=== PATIENT | female | born 1940 | race Caucasian/White ===

== ENCOUNTER 2020-11-04 10:22 | Inpatient (IN) | payer MEDICARE, MEDICAID, SELFPAY ==
[2020-11-04] VITALS (20 sets, daily range): BP systolic 77–115; BP diastolic 49–78; PULSE 72–107; RESP 13–22; TEMP 35.1–36.2; O2SAT 84–100; BMI 37.9
--- NOTE | ~2020-11-04 | XR_ITS ---
EXAMINATION: XR chest 2V DATE: 11/04/2020 12:35 INDICATION: Chest pain. TECHNIQUE: Frontal and lateral views of the chest were obtained. COMPARISON: Chest 2 views 03/31/2008, chest CT 01/29/2009 FINDINGS: The patient is rotated to her left on the frontal view. There is mild scarring at the lung apices. There is mild atelectasis at right lung base. Calcified left lung nodules and calcified left hilar lymph nodes are consistent with old granulomatous disease. No pleural effusion or pneumothorax. The heart size is normal. There are surgical clips in the abdomen. IMPRESSION: 1. Mild atelectasis at right lung base and mild scarring at the lung apices. Reviewed, dictated and finalized at location A.
--- NOTE | ~2020-11-04 | NM_ITS ---
EXAMINATION: NM bone scan whole body DATE: 11/05/2020 14:07 INDICATION: Breast cancer TECHNIQUE: 24 mCi Tc-99m HDP was administered intravenously. Delayed whole-body scintigrams were obt ained. COMPARISON: CT chest, abdomen and pelvis dated 11/04/2020 FINDINGS: No suspicious foci of abnormal bone uptake to suggest metastatic disease. The majority of the sclerot ic lesions on the prior CT appear relatively small and densely sclerotic daniels consistent with bone i slands. The lesions however at the left pedicle of T8 and the posterior elements of T5 appear more co ncerning for metastatic disease but are without evident correlate on the bone scan. IMPRESSION: 1. No suspicious foci of increased bone uptake on bone scan to suggest metastatic disease although th e sclerotic lesions at T5 and T8 both remain suspicious by CT appearance. Reviewed, dictated and finalized at location B. IMPRESSION: 1. No suspicious foci of increased bone uptake on bone scan to suggest metastat ic disease although the sclerotic lesions at T5 and T8 both remain suspicious b y CT appearance.
--- NOTE | ~2020-11-04 | XR_ITS ---
EXAMINATION: XR retrograde pyelo w/stent BI EXAM DATE: 11/05/2020 16:38 INDICATION: Retrograde bilateral pyelogram, stent placement. TECHNIQUE: Fluoroscopy used during XR retrograde pyelo w/stent BI performed by Dr. Petar Payne MD. The DAP for this procedure was 638 radcm2. FINDINGS: Limited images demonstrates moderate bilateral hydronephrosis on retrograde pyelograms. Do uble-J ureteral stents were placed bilaterally. Correlate with procedure note. IMPRESSION: Moderate bilateral hydronephrosis. Stents in position. Reviewed, dictated and finalized at location A.
--- NOTE | ~2020-11-04 | US_ITS ---
EXAMINATION: US renal BI EXAM DATE: 11/09/2020 14:49 INDICATION: Abnormal kidney function. TECHNIQUE: Multiple grayscale and Doppler images of the kidneys were obtained (by a technologist who performed the scan) and subsequently reviewed. There is no prior study for comparison. FINDINGS: There is significant bilateral renal cortical thinning. Right kidney: There is normal contour and echogenicity. It measures 8.8 x 4.3 x 4.4 centimeters. Th ere are no focal renal lesions identified. Difficult to specifically identify the nephrolithiasis see n on CT. There is no hydronephrosis. Left kidney: There is normal contour and echogenicity. It measures 9.6 x 5.6 x 4.8 centimeters. The re are no focal renal lesions identified. Left nephrolithiasis was identified. There is no hydronephr osis. Bladder unremarkable. Both ureteral jets were confirmed. IMPRESSION: 1. Significant bilateral renal cortical thinning. 2. Left nephrolithiasis. 3. No hydronephrosis. Reviewed, dictated and finalized at location A.
--- NOTE | ~2020-11-04 | CT_ITS ---
EXAMINATION: CT chest abdomen pelvis wo con DATE: 11/04/2020 19:59 INDICATION: Breast mass TECHNIQUE: Computed tomography (CT) of the chest, abdomen, and pelvis was performed without intraveno us contrast. Automated exposure control and iterative reconstruction technique were employed. Exam do se: 1005.15 mGy-cm total exam DLP. COMPARISON: None FINDINGS: CHEST CT: There is a large irregular malignant left breast mass measuring in excess of 7 cm maximum dimension, with extension to the skin, evidence of skin thickening/invasion, as well as invasion of the left pec toralis major and minor muscles and the left chest wall musculature. Cardiomegaly. No pericardial effusion. There is thoracic aortic and great vessel as well as coronary artery calcification. No thoracic aorti c aneurysm. No hilar or mediastinal mass lesion or lymphadenopathy is evident. ABDOMEN/PELVIS CT: No hepatic space-occupying mass lesion is detected. There are splenules in the lef t upper quadrant; status post splenectomy. No pancreatic mass lesion or calcification. 1.8 cm dependent gallstone. The gallbladder is distended borderline gallbladder wall thickening. No b ile duct or pancreatic duct dilatation. Surgical clips are noted in left adrenal area. No renal mass lesion is evident on this limited noncontrast examination. Approximately 6.3 x 8.2 mm proximal right ureteral calculus with moderate right hydroureteronephrosis . Additional nonobstructive right renal calculus or cluster of calculi measuring up to approximately 4. 7 x 12 mm. 7 x 13 mm proximal left ureteral calculus with moderate left hydronephrosis. Multiple prominent nonobstructing lower pole left renal calculi are present, measuring up to 1.7 cm a pproximate maximal dimension. These may be individual calculi or combination of staghorn calculus and additional calculi. There is atherosclerotic ulcer location of the abdominal aorta and aortic branches including celiac a nd superior mesenteric and renal arteries as well as iliac arteries but no abdominal aortic aneurysm. No intraperitoneal or retroperitoneal or pelvic mass lesion or adenopathy or ascites is evident. Calcified uterine fibroids. The urinary bladder is unremarkable. Bilateral fat-containing femoral her nias. Partial resection of the colon. No bowel obstruction or intraperitoneal free air is detected. Degenerative changes are noted in the lower cervical spine. Hemangioma of T4 vertebral body. There are scattered sclerotic lesions of the ribs and spine, left femur, most consistent with osteosc lerotic metastatic disease. Consider radionuclide bone scan. 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 Bilateral obstructing proximal ureteral calculi and moderate bilateral hydronephrosis Bilateral nephrolithiasis Reviewed, dictated and finalized at Location A. Reviewed, dictated and finalized at location A. 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 Bilateral obstructing proximal ureteral calculi and moderate bilateral hydronep hrosis Bilateral nephrolithiasis
--- NOTE | ~2020-11-04 | MMUS_ITS ---
US breast biopsy LT w image, MM post biopsy invasive LT 11/05/2020 12:51 (accession [id number]), 11/05/2020 13:14 (accession [id number]) EXAMINATION: US GUIDED NEEDLE BIOPSY WITH VACUUM ASSISTANCE DATE: 11/05/2020 13:28 CDT INDICATION: Left breast mass seen on CT examination. Ultrasound-guided core biopsy is requested to e valuate for malignancy. TECHNIQUE AND FINDINGS: The risks and potential benefits of the procedure were discussed with the patient, and written inform ed consent was obtained. After sterile preparation of the left breast, 1% lidocaine was utilized for local anesthesia. 1% lidocaine with epinephrine was used for deep anesthesia. A 10G vacuum-assisted biopsy gun needle was advanced through to the outer edge of the region of inter est from a superior lateral approach utilizing sonographic guidance. A total of 4 tissue core sample s were obtained through the lesion. An Inrad tissue marker clip was then placed at the biopsy site. Hemostasis was achieved. The patient tolerated procedure well and there was no evidence of immediate complication. The patien t was given verbal instructions partly is from the department. Left breast mammograms to document ti ssue marker clip placement. Due to patient immobility and location of the mass, the tissue marker cou ld not be visualized by mammography. The tissue samples were submitted to surgical pathology for hist ologic analysis. IMPRESSION: 1. Successful ultrasound-guided vacuum-assisted biopsy of left breast mass. Please refer to patholog y report for histologic analysis. Reviewed, dictated and finalized at location A. IMPRESSION: 1. Successful ultrasound-guided vacuum-assisted biopsy of left breast mass. Pl ease refer to pathology report for histologic analysis.
--- NOTE | 2020-11-04 10:36 | ECG_ITS ---
Measurements Intervals [place] Rate: 95 P: NM: 0 QRS: 1 QRSD: 90 T: 87 QT: 369 QTc: 466 Interpretive Statements ATRIAL FIBRILLATION RSR' IN V1 OR V2, CONSIDER RIGHT VENTRICULAR HYPERTROPHY OR RIGHT VCD LOW QRS VOLTAGE IN PRECORDIAL LEADS NONSPECIFIC ST & T-WAVE ABNORMALITY- DIFFUSE LEADS BASELINE ARTIFACT- V1-V3 ABNORMAL ECG Electronically Signed On 11-04-2020 11:54:35 CDT by Jesus Roberson D.O.
--- NOTE | 2020-11-04 10:46 | PC.NURSE ---
IVF initiated per EMS opened wide per lillian Duggan.
[2020-11-04] MEDS: SODIUM CHLORIDE 0.9% IV 1,000 ML 999 ML IV CONT ×2 (11:02→12:07)
[2020-11-04 11:04] LABS: Basophils Absolute Auto 0.1 K/mm3 (0.0-0.1); Basophils Percent Auto 0.5 % (0.2-1.2); Eosinophils Absolute Auto 0.2 K/mm3 (0-0.3); Eosinophils Percent Auto 1.1 % (0-4.4); Hematocrit 28.6 % (37.0-47.0); Immature Granulocyte Absolute 0.14 K/mm3 (0.00-0.031); Immature Granulocyte Percent A 0.9 % (0-0.5); Lymphocytes Absolute Auto 2.97 K/mm3 (0.9-3.2); Mean Corpuscular HGB Conc 31.5 g/dl (32-36); Mean Corpuscular Hemoglobin 31.7 pg (26-34); Mean Corpuscular Volume 100.7 fl (80-100); Mean Platelet Volume 10.1 fl (7.4-10.4); Monocytes Absolute Auto 0.6 K/mm3 (0.1-0.6); Monocytes Percent Auto 4.3 % (2.6-8.5); Neutrophils Absolute Auto 10.9 K/mm3 (1.3-6.7); Neutrophils Percent Auto 73.2 % (45.5-73.1); Nucleated Red Blood Cells Perc 0.3 % (0.0-0.2); Platelet Count Result 411 k/mm3 (150-375); Red Blood Count 2.84 M/mm3 (4.2-5.4); Red Cell Distribution Width 16.7 % (11.5-14.5); White Blood Count 14.9 K/mm3 (4.5-10.0)
[2020-11-04 11:14] LABS: INR 1.7; Prothrombin Time 20.8 Seconds (11.1-14.7)
[2020-11-04 11:15] LABS: Alanine Aminotransferase 11 U/L (4-35); Albumin Level 3.3 g/dL (3.5-5.1); Alkaline Phosphatase 144 U/L (38-126); Anion Gap 16 mmol/L (8-16); Aspartate Amino Transferase 15 U/L (14-36); Bilirubin,Total 0.1 mg/dL (0.2-1.3); Blood Urea Nitrogen 104 mg/dL (7-17); Calcium 8.6 mg/dL (8.4-10.2); Carbon Dioxide 6 mmol/L (22-30); Chloride 112 mmol/L (98-107); Estimated CRCL calculation 12 ml/min; Estimated Glomerular Filt Rate 11; Glucose 141 mg/dL (65-105); Partial Thromboplastin Time 30.8 SECONDS (22.3-36.8); Potassium 4.9 mmol/L (3.4-5.0); Sodium 134 mmol/L (137-145)
[2020-11-04] MEDS: fentaNYL CITRATE INJ (*CRX) 100 MCG/2 ML VIAL 50 MCG IV PUSH (12:07)
--- NOTE | 2020-11-04 12:19 | ED.GENADULT ---
HPI - General Adult General Chief complaint: Skin/Abscess/Foreign Body Stated complaint: L ARM PAIN Time Seen by Provider: 11/04/20 10:22 History of Present Illness HPI narrative: Patient is a 80-year-old female who presents to the ER with pain to her left shoulder and chest wall. She reports has been there for years and that the pain increased today so she opted to come in. As it turns out patient actually has a very large mass to her left chest wall that is causing breakdown of tissue. No evidence of infection. According to the daughter the patient had told the granddaughter yesterday that she likely had a breast cancer that she had never looked into that was causing her increased issues. Patient has not been eating drinking over the last few days since felt she is likely dehydrated. Patient denies any fevers or chills or sweats. No runny nose/sore throat/productive cough. Reports she does not have a particular reason she has not had her breast evaluated. Related Data Home Medications Medication Instructions Recorded Confirmed apixaban [Eliquis] 5 mg PO DAILY 11/04/20 11/04/20 furosemide 20 mg PO DAILY 11/04/20 11/04/20 Allergies Allergy/AdvReac Type Severity Reaction Status Date / Time ibuprofen Allergy Mild HIVES Verified 11/04/20 15:13 Review of Systems Review of Systems: All systems reviewed & are unremarkable except as noted in HPI and below Constitutional: Constitutional: Denies chills, Denies fever(s) and Reports weakness ENT: Denies nasal congestion and Denies sore throat Cardiovascular: Cardiovascular: Denies chest pain, Denies rapid heart rate and Denies radiating jaw, neck or arm pain Respiratory: Respiratory: Denies cough and Denies dyspnea Gastrointestinal: Gastrointestinal: Denies abdominal pain, Denies nausea and Denies vomiting Integumentary/Breasts: Skin/Breast: Reports breast pain (With mass) [facility] Past Medical History Medical History (Updated 11/04/20 @ 18:34 by Arnaud Duggan MD) Atrial fibrillation Surgical History Surgical History (Updated 11/04/20 @ 17:16 by Rodríguez Reese MD) H/O splenectomy Family History Family History (Updated 11/04/20 @ 15:07 by MARIELA Buck) Father Lung cancer Social History Social History (Updated 11/04/20 @ 12:22 by Arnaud Duggan MD) Social History: History of tobacco abuse Smoking packs per day: 0.5 Smoking cigarettes per day: 10.0 Years smoked: 50 Smoking pack-years: 25.00 Smoking status: Current every day smoker Alcohol intake: never Substance use: never Gender identity (if verbalized by the patient): Female Spiritual care concerns: No Exam Narrative: Exam Narrative: GENERAL: Well-appearing, well-nourished, and in no acute distress. HEAD: Normocephalic, atraumatic. ENT: Mucous membranes moist. CHEST: Clear to auscultation. No respiratory distress. Left-sided breast mass near the axilla that is because the breast to be pulled up into the left. There are some fissures with skin irritation and this is causing limited abduction of the left shoulder. HEART: Regular rate and rhythm. Normal peripheral pulses. ABDOMEN: Soft, nontender, nondistended. EXTREMITIES: Normal range of motion of the extremities with exception of left shoulder where there is limited abduction due to breast mass and pain. No edema. SKIN: Warm, dry, no rash. NEURO: Alert and oriented x3. Course Vital Signs Vital signs: Vital Signs Temperature 97.2 F L 11/04/20 10:25 Pulse Rate 91 11/04/20 10:25 Respiratory Rate 21 H 11/04/20 10:25 Blood Pressure 95/60 L 11/04/20 10:25 Pulse Oximetry 96 11/04/20 10:25 Temperature 95.2 F L 11/04/20 15:25 Pulse Rate 78 11/04/20 15:25 Respiratory Rate 16 11/04/20 15:25 Blood Pressure 115/53 L 11/04/20 15:25 Pulse Oximetry 100 11/04/20 15:25 Medical Decision Making Vital Signs Vital Signs: Vital Signs Temperature 97.2 F L 11/04/20 10:25 Pulse
[2020-11-04] MEDS: ONDANSETRON INJ 4 MG/2 ML VIAL IV PUSH (12:44)
[2020-11-04] MEDS: SODIUM CHLORIDE 0.9% IV 1,000 ML 125 ML IV CONT ×2 (12:44→17:38)
[2020-11-04 13:58] LABS: Add Urine Microscopic? YES; Appearance Urine Turbid (Clear); Bacteria Urine 4+ /hpf; Bilirubin Urine Negative (Negative); Blood Urine 2+ (Negative); Color Urine Amber (Yellow); Glucose Urine UA Negative (Negative); Ketones Urine Negative (Negative); Leukocyte Esterase Ur 2+ LEU/UL (Negative); Mucus Urine Rare /lpf; Nitrate Urine Negative (Negative); Protein Urine 2+ mg/dL (Negative); RBC Urine >75 /hpf (0-2); Specific Grav Ur 1.014 (1.001-1.035); Squamous Epithelial Cell Urine Moderate /hpf (Few); Urobilinogen Urine Negative mg/dL (<2.0); WBC Urine >75 /hpf
--- NOTE | 2020-11-04 14:37 | ADMGEN ---
This patient, Kourtney Lerner, was admitted to Medical Room 349-01. Patient/family oriented to hospital policies and general routines including ID bracelet, bed and alarms, visiting hours, pain management, procedures, bathroom and other care routines, personal items, smoking policy, room service/diet, and visiting hours. Information on how to activate the Rapid Response Team has been discussed. Patient/Family are encouraged to report perceived risks to care and to ask questions if they do not understand what they are told or what they should do.
[2020-11-04] MEDS: MORPHINE SULFATE (*CRX) 2 MG/ML INJ IV PUSH ×3 (14:48→21:14)
--- NOTE | 2020-11-04 17:12 | PDONCCN ---
HPI - Date of Consult Date/Time: 11/04/20 17:12 Requesting Physician: Juliocesar George MD Primary Care Provider: YARD BRAKEMAN PHYSICIAN - Consult Narrative Reason for consult: Locally advanced breast cancer Narrative: Kourtney Lerner is a 80 year old female who had left shoulder pain off and on for 2 years duration just got worse about 2 weeks ago. She also informed her daughter today that she had the mass in the left breast for 3 years duration. She lives with her grandson. She came into the ER with worsening of the left shoulder pain. She denies any weight loss. She denies any previous history of malignancy. She has a history of inverted nipple in the past. She denies any fever chills. Denies any sore throat and cough. She has not been getting medical care on a regular basis and ignored this left breast lump for last 3 years duration. Review of Systems - Review of Systems All systems reviewed & are unremarkable except as noted in HPI and bel - Neurologic Reports weakness [facility] Medical History: Medical History (Last Updated 11/04/20 @ 12:21 by Arnaud Duggan MD) Atrial fibrillation Surgical History: Surgical History (Last Updated 11/04/20 @ 12:22 by Arnaud Duggan MD) H/O splenectomy Family History: Family History (Last Updated 11/04/20 @ 15:07 by MARIELA Buck) Father Lung cancer - Social History Social History: Social History (Last Updated 11/04/20 @ 12:22 by Arnaud Duggan MD) Gender Identity: Gender identity (if verbalized by the patient): Female Alcohol Use: Alcohol intake: never Substance Use: Substance use: never Others: Spiritual care concerns: No Smoking Status: Smoking status: Current every day smoker Smoking Pack-years: Smoking packs per day: 0.5 Smoking cigarettes per day: 10.0 Years smoked: 50 Smoking pack-years: 25.00 Meds Home Medications Medication Instructions Recorded Confirmed Type apixaban [Eliquis] 5 mg PO DAILY 11/04/20 11/04/20 History furosemide 20 mg PO DAILY 11/04/20 11/04/20 History Allergies Allergy/AdvReac Type Severity Reaction Status Date / Time ibuprofen Allergy Mild HIVES Verified 11/04/20 15:13 Results - Labs CBC & Chem 7: 11/04/20 10:57 11/04/20 10:57 Labs: Short CBC 11/04/20 Range/Units 10:57 WBC 14.9 H (4.5-10.0) K/mm3 Hgb 9.0 L (12.0-15.0) g/dL Hct 28.6 L (37.0-47.0) % Plt Count 411 H (150-375) k/mm3 BMP 11/04/20 10:57 Sodium 134 L Potassium 4.9 Chloride 112 H Carbon Dioxide 6 L BUN 104 H Creatinine 4.00 H Glucose 141 H Calcium 8.6 Liver Function 11/04/20 Range/Units 10:57 Total Bilirubin 0.1 L (0.2-1.3) mg/dL AST 15 (14-36) U/L ALT 11 (4-35) U/L Alkaline Phosphatase 144 H (38-126) U/L Albumin 3.3 L (3.5-5.1) g/dL Urine 11/04/20 Range/Units 13:40 Urine Color Nelia (Yellow) Urine Appearance Turbid H (Clear) Urine pH 5.0 (5.0-9.0) Ur Specific [place] 1.014 (1.001-1.035) Urine Protein 2+ H (Negative) mg/dL Urine Glucose (UA) Negative (Negative) mg/dL Assessment and Plan - Additional Plan Locally advanced breast cancer. Patient has very large mass in the left breast with extension to the left axilla with open area of ulceration and possible infection. She developed the lump in the left breast about 3 years ago but did not seek any medical attention. She started having left shoulder pain for about 2 years ago and just got worse about 2 weeks ago. Patient daughter was not even aware about this left breast mass until now. On clinical examination this looks like locally advanced breast cancer with ulceration and infection. She is quite symptomatic with the pain and will not allow detail examination. I will order CT scan of chest abdomen and pelvis as well as bone scan. I will order ultrasound-guided biopsy of the left breast mass.
[2020-11-04] MEDS: CEPHALEXIN 500 MG CAPSULE PO ×2 (17:39→23:43)
--- NOTE | 2020-11-04 18:42 | PM.IMHP ---
H&P: HPI History of Present Illness Date/Time: 11/04/20 18:42 Kourtney is a 80-year-old female who presented to the ER with pain to her left shoulder and chest wall. She reported pain for years, but the pain had increased today so she came in. Upon examination it was found that the patient has a very large mass to her left chest wall, with indentation and puckering of tissue with possible breakdown of tissue. I examined the site as well and agree. No redness or drainage at this time , but her white count is currently 14.9. Oncologist Dr. Lenny jara started the patient on Keflex 500 mg q.i.d.. The patient and the granddaughter has since been seen by the oncologist today and has been told she likely has breast cancer. The daughter admitted that her mother probably had a mammogram 30 years ago but none since. At the time she had a mammogram for an inverted nipple, but reported that there was no cancer in the mammogram, so that may be why she felt like she didn't need to have any more mammograms. Kourtney has not been eating drinking over the last few days since felt she is likely dehydrated. she was given 2 L of IV fluids in the ER. Her systolic blood pressures improved from the 80s to 100s. Upon further discussion with her she continues to refuse foods and liquids and states that her appetite is bad. I have got her to agree to try some chocolate shakes and dietary supplements. Chief Complaint: Left Axillary and Breast Pain, Breast Mass, Dehydration, UTI, ARF, Anemia Review of Systems Review of Systems: All systems reviewed & are unremarkable except as noted in HPI and below Constitutional: Constitutional: Reports as per HPI, Reports chills, Denies fever(s), Reports lethargy, Reports poor appetite and Reports weakness Eyes: Eyes: Reports as per HPI, Denies exophthalmos, Denies diplopia, Denies floaters and Denies loss of peripheral vision ENT: Reports as per HPI, Reports Normal hearing present, Denies nasal congestion and Denies sore throat Cardiovascular: Cardiovascular: Reports as per HPI, Denies chest pain, Denies chest pain at rest, Denies rapid heart rate, Denies edema, Denies leg edema, Denies radiating jaw, neck or arm pain, Denies dyspnea and Denies orthopnea Respiratory: Respiratory: Reports as per HPI, Denies chest congestion, Denies cough, Reports pain on inspiration (to left mass area), Denies dyspnea and Denies wheezing Gastrointestinal: Gastrointestinal: Reports as per HPI, Denies abdominal pain, Denies melena, Denies diarrhea, Denies nausea and Denies vomiting Genitourinary: Genitourinary: Reports as per HPI Musculoskeletal: Musculoskeletal: Reports as per HPI Integumentary/Breasts: Skin/Breast: Reports as per HPI, Reports breast skin changes (puckering and caving-in appearance to left lateral breast/axillary), Reports breast pain (pain to area of mass, with deep breathing/palpation/movement), Reports change in breast shape (puckering and caving-in appearance to left lateral breast/axillary), Reports changing lesions (puckering and caving-in appearance to left lateral breast/axillary) and Reports skin pain Neurologic: Reports as per HPI, Reports Normal hearing present, Denies syncope, Denies headache(s), Reports memory loss (some noted), Denies convulsions and Reports weakness Psychiatric: Psychiatric: Reports as per HPI, Reports difficulty concentrating and Denies irritability Endocrine: Endocrine: Reports as per HPI, Denies excessive sweating and Reports fatigue Hematologic/Lymphatic: Hematologic/Lymphatic: Reports as per HPI Allergic/Immunologic: Allergic/Immunologic: Reports as per HPI [facility] Past Medical History Medical History (Updated 11/04/20 @ 19:38 by Brisa Kerns NP) Atrial fibrillation Inverted nipple Surgical History Surgical History H/O splenectomy Family History Family History Father Lung cancer
[2020-11-04 18:50] LABS: Iron 71 ug/dL (37-170)
[2020-11-04 18:59] LABS: Percent Iron Saturation 34 % (20-50)
[2020-11-04 19:20] LABS: Vitamin B12 < 159.0 pg/mL (239-931)
[2020-11-04] MEDS: CIPROFLOXACIN 400 MG/D5W 200ML 200 ML 200 MG IVPB (20:56)
[2020-11-04] MEDS: HYDROcodone/acetaminophen (*CRX) 5-325 MG TABLET 1 TAB PO (23:50)
[2020-11-05] VITALS (13 sets, daily range): BP systolic 94–128; BP diastolic 44–69; PULSE 48–104; RESP 13–18; TEMP 35.8–36.3; O2SAT 89–100
[2020-11-05] MEDS: SODIUM CHLORIDE 0.9% IV 1,000 ML 125 ML IV CONT ×2 (03:17→11:54)
[2020-11-05] MEDS: HYDROcodone/acetaminophen (*CRX) 5-325 MG TABLET 1 TAB PO ×3 (03:50→23:00)
[2020-11-05] MEDS: CEPHALEXIN 500 MG CAPSULE PO ×3 (06:06→23:00)
[2020-11-05 06:24] LABS: Basophils Absolute Auto 0.1 K/mm3 (0.0-0.1); Basophils Percent Auto 0.3 % (0.2-1.2); Eosinophils Absolute Auto 0.2 K/mm3 (0-0.3); Eosinophils Percent Auto 1.7 % (0-4.4); Hematocrit 26.7 % (37.0-47.0); Hemoglobin 8.4 g/dL (12.0-15.0); Immature Granulocyte Absolute 0.18 K/mm3 (0.00-0.031); Immature Granulocyte Percent A 1.2 % (0-0.5); Lymphocytes Absolute Auto 1.41 K/mm3 (0.9-3.2); Lymphocytes Percent Auto 9.8 % (18.3-44.2); Mean Corpuscular HGB Conc 31.5 g/dl (32-36); Mean Corpuscular Hemoglobin 31.5 pg (26-34); Mean Platelet Volume 10.2 fl (7.4-10.4); Monocytes Absolute Auto 1.1 K/mm3 (0.1-0.6); Monocytes Percent Auto 7.4 % (2.6-8.5); Neutrophils Absolute Auto 11.5 K/mm3 (1.3-6.7); Neutrophils Percent Auto 79.6 % (45.5-73.1); Nucleated Red Blood Cells Perc 0.3 % (0.0-0.2); Platelet Count Result 383 k/mm3 (150-375); Red Blood Count 2.67 M/mm3 (4.2-5.4); Red Cell Distribution Width 17.1 % (11.5-14.5); White Blood Count 14.4 K/mm3 (4.5-10.0)
[2020-11-05 08:10] LABS: Alanine Aminotransferase 9 U/L (4-35); Albumin Level 2.9 g/dL (3.5-5.1); Alkaline Phosphatase 120 U/L (38-126); Anion Gap 9 mmol/L (8-16); Aspartate Amino Transferase 25 U/L (14-36); Bilirubin,Total < 0.1 mg/dL (0.2-1.3); Blood Urea Nitrogen 78 mg/dL (7-17); Calcium 8.2 mg/dL (8.4-10.2); Carbon Dioxide 9 mmol/L (22-30); Chloride 121 mmol/L (98-107); Estimated CRCL calculation 17 ml/min; Estimated Glomerular Filt Rate 16; Glucose 72 mg/dL (65-105); Potassium 6.1 mmol/L (3.4-5.0); Sodium 139 mmol/L (137-145)
[2020-11-05] MEDS: POLYSACCHARIDE IRON COMPLEX 150 MG CAPSULE PO (08:44)
[2020-11-05] MEDS: CYANOCOBALAMIN INJ 1,000 MCG/ML VIAL 1000 MCG IM ×2 (08:44→19:30)
[2020-11-05] MEDS: FUROSEMIDE 20 MG TABLET PO (08:45)
[2020-11-05 10:09] LABS: Potassium 5.6 mmol/L (3.4-5.0)
[2020-11-05] MEDS: SODIUM POLYSTYRENE SULFONONATE 15 GM/60 ML BTL PO (10:35)
--- NOTE | 2020-11-05 10:41 | PDRADONCCN ---
Recommendations I agree with the current workup recommended by Dr. Reese including biopsy, CT scan and bone scan. She likely has stage IV breast cancer and palliative treatment is indicated given her degree of pain from her breast mass. I recommend continuing pain medications and antibiotics. I also recommend a wound care consult to address the ulcerating skin in the left breast/axilla. We will await the results of her biopsy and bone scan. For durable palliation of her pain, I recommend a 4-week course of radiotherapy as an outpatient. We will arrange to have her come in for CT simulation and radiation treatment planning once she is discharged from the hospital. Impression 80 year old female with a neglected probable locally advanced left breast cancer admitted to the hospital with an ulcerating painful mass in the lateral left breast. She likely has bone metastases as well. FORMERLY [facility] - Date/Time Seen 11/05/20 10:41 - Identifying Data Kourtney Lerner is a 80 year old female with a neglected probable locally advanced left breast cancer admitted to the hospital with an ulcerating painful mass in the lateral left breast. Consultation was requested for an opinion regrading her treatment management and the role of radiotherapy. - History of Present Illness Ms. Lerner reports that she has had a breast mass for over 3 years. She reports progressive pain related to the mass that worsened over the last couple weeks. She has not sought medical attention in the past for this breast mass which has become ulcerated and infected. Since admission, she has received pain medications and antibiotics which has greatly improved her pain. She is scheduled for a needle biopsy soon. CT scan of the chest, abdomen and pelvis yesterday showed a greater than 7 cm invasive lateral left breast mass, with skin invasion, pectoralis major and minor and left chest wall invasion; probable osteosclerotic metastatic disease - scattered sclerotic lesions of the ribs and spine, left femur. She also had stones in the kidneys, ureters and gall bladder. - Medical History Medical History (Last Updated 11/04/20 @ 19:38 by Brisa Kerns NP) Atrial fibrillation Inverted nipple - Surgical History Surgical History (Last Reviewed 11/04/20 @ 19:38 by Brisa Kerns NP) H/O splenectomy - Family History Family History (Last Reviewed 11/04/20 @ 19:38 by Brisa Kerns NP) Father Lung cancer - Social History Social History (Last Reviewed 03/17/21 @ 19:38 by Brisa Kerns NP) Gender Identity: Gender identity (if verbalized by the patient): Female Alcohol Use: Alcohol intake: never Substance Use: Substance use: never Others: Spiritual care concerns: No Smoking Status: Smoking status: Current every day smoker Smoking Pack-years: Smoking packs per day: 0.5 Smoking cigarettes per day: 10.0 Years smoked: 50 Smoking pack-years: 25.00 - Medications Active Medications Generic Name Dose Route Start Last Admin Trade Name Freq PRN Reason Stop Dose Admin Acetaminophen 650 mg 11/04/20 13:36 Acetaminophen 325 Mg Tablet PO Q4H PRN Mild Pain (1-3) or Fever Hydrocodone Bitart/Acetaminophen 1 tab 11/04/20 13:36 11/05/20 09:03 Hydrocodone/Acetaminophen (*Crx) 5-325 Mg Tablet PO 1 tab Q4H PRN Administration Pain Rated 4-6 Cephalexin HCl 500 mg 11/04/20 18:00 11/05/20 06:06 Cephalexin 500 Mg Capsule PO 500 mg Q6HR TITO Administration Cyanocobalamin 1,000 mcg 11/06/20 09:00 Cyanocobalamin 1,000 Mcg Tablet PO QAM TITO Furosemide 20 mg 11/05/20 09:00 11/05/20 08:45 Furosemide 20 Mg Tablet PO 20 mg DAILY TITO Administration Sodium Chloride 1,000 mls @ 125 mls/hr 11/04/20 13:40 11/05/20 05:29 Normal Saline Iv IV CONT 125 mls/hr .Q8H TITO Infusion Ciprofloxacin/Dextrose 200 mls @ 200 mls/hr 11/05/20 21:00 Cipro 400 Mg/D
--- NOTE | 2020-11-05 11:15 | PM.IMPN ---
Progress Note: A&P Assessment and Plan (1) Breast mass: Code(s): N63.0 - Unspecified lump in unspecified breast Status: Acute Assessment and Plan: left axillary breast mass likely combination of cancer with secondary infection -continue Cipro and Keflex -plan for biopsy and bone scan -patient has had this abnormality for at least a year in never received treatment. Poor prognosis -continue with oncology is recommendations -Eliquis on hold (2) Acute kidney injury: Code(s): N17.9 - Acute kidney failure, unspecified Status: Acute Assessment and Plan: Creatinine 4.0 with no past labs to compare to -creatinine better today at 2.8. Will continue IV fluids -likely due to decreased appetite/dehydration/hypoperfusion due to hypotension/possible UTI -she is also on lisinopril 5 mg b.i.d. at home which could be contributing. This has been held -blood pressures are getting better -urine culture pending, continue Cipro - monitor with labs in the morning -if no improvement after IVFs, may need to consult [employer] Adf Developer and get US of kidneys. -potassium elevated this morning 6.1 and 5.6 on redraw. Likely due to TAE. Will give Kayexalate and start a low-potassium diet. Will repeat BMP at 3:00 p.m. (3) Poor appetite: Code(s): R63.0 - Anorexia Status: Acute Assessment and Plan: Continue supplements at this time and encourage oral feedings (4) Cellulitis of left axilla: Code(s): L03.112 - Cellulitis of left axilla Status: Acute Assessment and Plan: left axillary breast mass with pain and likely infection as stated above -continue Keflex and Cipro -if this does not improve, may consider changing to something that covers MRSA although MRSA is not currently suspected (5) Anemia: Code(s): D64.9 - Anemia, unspecified Status: Acute Assessment and Plan: B12 significantly low -give IM x1 and switch to oral daily pills -hemoglobin stable 8.4 (6) UTI (urinary tract infection): Code(s): N39.0 - Urinary tract infection, site not specified Status: Acute Assessment and Plan: As stated above -continue with Cipro (7) Hyperkalemia: Code(s): E87.5 - Hyperkalemia Status: Acute Assessment and Plan: Give Kayexalate and recheck at 3:00 p.m. -continue tele, low-potassium diet, and IV hydration (8) Hematemesis: Code(s): K92.0 - Hematemesis Status: Acute Assessment and Plan: Will start PPI and consult GI -could be stress-induced ulcer (9) Atrial fibrillation: Code(s): I48.91 - Unspecified atrial fibrillation Status: Inactive Assessment and Plan: Paroxysmal with controlled rate -hold Eliquis -not on any home rate-controlling medications -sees Dr. Petty Time Spent With Patient Time with patient: 25 - 35 minutes Subjective Date/time seen: 11/05/20 11:15 Interval history: Pt is a 80-year-old female here for breast mass. Patient was seen today and states she is feeling okay. She had some nausea and vomiting earlier today and throughout light red consistency. She said she usually has dry heaves but does not usually throw up. She has no history of heartburn or gastric ulcer. She says she has muscular pain across her upper abdomen since throwing up. She denies diarrhea, constipation, fevers, chills, chest pain or shortness of breath. She states that she has had this breast mass for years but never told anybody. I explained the prognosis and answered pt and daughters questions. She has a history of irregular heartbeat and thinks it is AFib but can't remember. That is why she is on Eliquis and she sees Dr. Petty Review of Systems Review of Systems: All systems reviewed & are unremarkable except as noted in HPI and below Exam Narrative: Exam Narrative: General: Well developed well nourished patient in NAD HEENT: normocephalic Neck:
[2020-11-05] MEDS: PANTOPRAZOLE SODIUM IV 40 MG VIAL IV PUSH ×2 (11:55→20:42)
--- NOTE | 2020-11-05 12:18 | WPDURCON ---
Assessment and Plan Assessment and plan (1) UTI (urinary tract infection): Code(s): N39.0 - Urinary tract infection, site not specified Status: Acute Assessment and Plan: Continue IV antibiotics, tailor to culture results. (2) Acute kidney injury: Code(s): N17.9 - Acute kidney failure, unspecified Status: Acute Assessment and Plan: Improved but not normal, secondary to bilateral ureteral obstruction. (3) Bilateral ureteral calculi: Code(s): N20.1 - Calculus of ureter Status: Acute Assessment and Plan: Obtain Consent: Cystoscopy, bilateral ureteroscopy with stent placement, bilateral retrograde pyelogram. Keep NPO. (4) Bilateral renal stones: Code(s): N20.0 - Calculus of kidney Status: Acute Assessment and Plan: Will obtain KUB in OR to determine visibility. Would recommend stone treatment of ureteral stones first as an outpatient once stable enough. Stents can stay in for 3 months at a time before they would need to be exchanged, she should hopefully have some definitive stone treatment before then if stable. Her metastatic breast mass is of more importance and urgency at this time. Urology Consult Note HPI Date Seen: 11/05/20 Requesting Physician: Cookie Hensley PA-C Primary Care Provider: CLIENT TECHNOLOGIES SPECIALIST PHYSICIAN Consult Narrative Narrative: Kourtney Lerner is a 80 year old female who presented to the ER yesterday for worsening left shoulder and chest pain. She has had the pain for several years, but it has suddenly worsened in the past two days. She also has noted malodorous drainage under her left axilla that has been present for weeks. WBC 14.4, creatinine was 4.0 yesterday but is down today to 2.80, her UA is positive for a UTI, but blood and urine cultures are pending. D/t her left draining wound and pain, with noted mass on exam under the left axilla, a CT of the Chest, Abdomen and Pelvis was ordered. CT reveals cholelithiasis, a large 7cm left breast mass that is muscle and potentially metastatic to the bone, as well as incidentally finding bilateral proximal ureteral stones with hydronephrosis present. The left Proximal ureteral stone measures 7x13mm and the right ureteral stone measures 6x8 mm. In addition to her bilateral obstructive stones, she has bilateral renal stones, a cluster in the right measuring 4x12mm and a staghorn v.s. cluster in the left kidney measuring 1.7cm. She denies hematuria, dysuria, frequency, abdominal or flank pain. She does state that she is having frequent UTI's, but has never had a history of stones that she is aware of. She claims that she is well hydrated and is very surprised to hear she has stones present. Her daughter is present at the bedside and helped to provide her medical history. Review of Systems Cardiovascular: Cardiovascular: Reports chest pain Respiratory: Respiratory: Reports no additional respiratory complaints Gastrointestinal: Gastrointestinal: Reports abdominal pain, Reports nausea and Reports vomiting Genitourinary: Genitourinary: Denies hematuria, Denies dysuria, Denies pelvic pain, Denies flank pain, Denies urinary hesitancy and Denies urinary urgency Musculoskeletal: Musculoskeletal: Reports arthralgias (left shoulder) [facility] Past Medical History Medical History Atrial fibrillation Inverted nipple Surgical History Surgical History H/O splenectomy Family History Family History Father Lung cancer Social History Social History Social History: History of tobacco abuse Smoking packs per day: 0.5 Smoking cigarettes per day: 10.0 Years smoked: 50 Smoking pack-years: 25.00 Smoking status: Current every day smoker Alcohol intake: never Substance use
[2020-11-05] MEDS: LACTATED RINGERS 1,000 ML 30 ML IV CONT (15:00)
--- NOTE | 2020-11-05 15:17 | PC.NURSE ---
Pt to OR per bed. Report to FELICE Roman.
--- NOTE | 2020-11-05 15:27 | WPDANESEPPF ---
Anes - Initial Pre Proc Eval Procedure: Operation Date: 11/05/20 16:15 Proposed Procedures p Cystoscopy, Bilateral Retrograde Pyelogram, Bilateral Ureteral Stent Placement - Petar Payne MD Date/Time: 11/05/20 15:27 Surgeon: Cookie Hensley PA-C Pre Op Diagnosis: marco antonio/left breast mass Patient Data Age: 80 Gender: F Height: 1.6 m Weight: 97.1 kg Last Vital Signs Temp 36.1 C L 11/05/20 14:00 Pulse 48 L 11/05/20 14:00 Resp 16 11/05/20 14:00 BP 94/44 L 11/05/20 14:00 Pulse Ox 89 L 11/05/20 14:00 Allergies Allergy/AdvReac Type Severity Reaction Status Date / Time ibuprofen Allergy Mild HIVES Verified 11/04/20 15:13 Home Medications Medication Instructions Recorded Confirmed Type apixaban [Eliquis] 5 mg PO DAILY 11/04/20 11/04/20 History furosemide 20 mg PO DAILY 11/04/20 11/04/20 History Laboratory Tests 11/04/20 11/04/20 11/04/20 17:37 17:37 17:37 WBC RBC Hgb Hct MCV MCH MCHC RDW Plt Count MPV Immature Gran % (Auto) Neut % (Auto) Lymph % (Auto) [place] % (Auto) Eos % (Auto) Baso % (Auto) Lymph # (Auto) [place] # (Auto) Eos # (Auto) Baso # (Auto) Abs Immat Gran (auto) Absolute Neuts (auto) Absolute Nucleated RBC Nucleated RBC % Sodium Potassium Chloride Carbon Dioxide Anion Gap BUN Creatinine Estim Creat Clear Calc Estimated GFR Glucose Calcium Iron 71 ug/dL ug/dL (37-170) TIBC 208 ug/dL L ug/dL (261-462) % Saturation 34 % % (20-50) Ferritin 189.00 ng/mL ng/mL (11.1-264) Total Bilirubin AST ALT Alkaline Phosphatase Total Protein Albumin CA 27-29 Pending Vitamin B12 < 159.0 pg/mL L pg/mL (239-931) 11/05/20 11/05/20 11/05/20 05:56 07:22 09:33 WBC 14.4 K/mm3 H K/mm3 (4.5-10.0) RBC 2.67 M/mm3 L M/mm3 (4.2-5.4) Hgb 8.4 g/dL L g/dL (12.0-15.0) Hct 26.7 % L % (37.0-47.0) MCV 100.0 fl fl (80-100) MCH 31.5 pg pg (26-34) MCHC 31.5 g/dl L g/dl (32-36) RDW 17.1 % H % (11.5-14.5) Plt Count 383 k/mm3 H k/mm3 (150-375) MPV 10.2 fl fl (7.4-10.4) Immature Gran % (Auto) 1.2 % H % (0-0.5) Neut % (Auto) 79.6 % H % (45.5-73.1) Lymph % (Auto) 9.8 % L % (18.3-44.2) [place] % (Auto) 7.4 % % (2.6-8.5) Eos % (Auto) 1.7 % % (0-4.4) Baso % (Auto) 0.3 % % (0.2-1.2) Lymph # (Auto) 1.41 K/mm3 K/mm3 (0.9-3.2) [place] # (Auto) 1.1 K/mm3 H K/mm3 (0.1-0.6) Eos # (Auto) 0.2 K/mm3 K/mm3 (0-0.3) Baso # (Auto) 0.1 K/mm3 K/mm3 (0.0-0.1) Abs Immat Gran (auto) 0.18 K/mm3 H K/mm3 (0.00-0.031) Absolute Neuts (auto) 11.5 K/mm3 H K/mm3 (1.3-6.7) Absolute Nucleated RBC 0.0 K/mm3 K/mm3 (0.0-0.012) Nucleated RBC % 0.3 % H % (0.0-0.2) Sodium 139 mmol/L mmol/L (137-145) Potassium 6.1 mmol/L H* mmol/L 5.6 mmol/L H mmol/L (3.4-5.0) (3.4-5.0) Chloride 121 mmol/L H mmol/L (98-107) Carbon Dioxide 9 mmol/L L mmol/L (22-30) Anion Gap 9 mmol/L mmol/L (8-16) BUN 78 mg/dL H D mg/dL (7-17) Creatinine 2.80 mg/dL H mg/dL (0.7-1.0) Estim Creat Clear Calc 17 ml/min ml/min Estimated GFR 16 L (59 - ) Glucose 72 mg/dL mg/dL (65-105) Calcium 8.2 mg/dL L mg/dL (8.4-10.2)
--- NOTE | 2020-11-05 15:44 | SUR.PREOP ---
PT'S RING SENT TO [address] [place] [address] JERI GARCIA
--- NOTE | 2020-11-05 15:51 | P.HPUP_ITS ---
History and Physical Update Update Date/Time: 11/05/20 15:51 Chart reviewed and discussed with the in Selena Monday, and PE. I discussed with patient. Plan will be to do cystoscopy with bilateral ureteral stents today with definitive stone management in the future. History and Physical has been reviewed, including an updated exam of the patient. There are NO changes in the patient's condition. Risks, benefits, and alternatives have been discussed and questions answered. P atient agrees to proceed with procedure.
[2020-11-05] MEDS: SODIUM CHLORIDE 0.9% IV 500 ML 30 ML IV CONT (16:30)
--- NOTE | 2020-11-05 16:33 | PM.PROC ---
Procedure Note - Detailed Date of procedure: 11/05/20 Pre-op diagnosis: marco antonio/left breast mass Post-op diagnosis: same Procedure performed: Cystoscopy, bilateral retrograde pyelography and bilateral ureteral stent placement Description of procedure: Patient is brought to the operative suite where she is prepped and draped in routine sterile fashion while in a dorsal lithotomy position. 2% lidocaine jelly was introduced intraurethrally and systemic sedation is administered per the anesthesia department. bladder seems to empty poorly but she has no intravesical foreign body or neoplasm. They because is perhaps slightly hyperemic but without neoplasm. She has a single orthotopic ureteral orifice bilaterally. An 8 F bulb tip catheter was used to obtain bilateral retrograde pyelogram apparent she has about an 8 mm calcified stone in each ureter, approximately in the left ureter and mid ureter on the right. 0.035 in glidewire was advanced in each renal pelvis and 4.8 F variable length double-J stents are position with proximal coils in the renal pelvis and distal coils in the bladder. Scopes and wires were removed and she was taken recovery room in good condition. Anesthesia: MAC Surgeon: Petar Payne MD Estimated blood loss (mL): 0 Drains: Yes (Bilat. 4.8F ureteral stents) Packing: No Pathology: none sent Complications: No immediate complications Condition: stable Disposition: PACU
--- NOTE | 2020-11-05 17:07 | PC.NURSE ---
Pt returned from OR per bed. Report received from FELICE Modi.
[2020-11-05 17:45] LABS: Potassium 5.8 mmol/L (3.4-5.0)
[2020-11-05 17:56] LABS: Anion Gap 9 mmol/L (8-16); Blood Urea Nitrogen 72 mg/dL (7-17); Calcium 8.3 mg/dL (8.4-10.2); Carbon Dioxide 9 mmol/L (22-30); Chloride 123 mmol/L (98-107); Estimated CRCL calculation 17 ml/min; Estimated Glomerular Filt Rate 17; Glucose 94 mg/dL (65-105); Sodium 141 mmol/L (137-145)
--- NOTE | 2020-11-05 18:22 | WPDONCPN ---
Progress Note: A/P - Additional Plan Locally advanced and possible metastatic breast cancer. Patient is status post ultrasound-guided left breast biopsy. Pathology report is pending. Bone scan showed suspicious T5 and T8 is sclerotic lesions for malignancy. CT scan showed greater than 7 cm invasive left lateral chest breast mass with skin invasion and pectoralis major and minus invasion with left chest wall invasion and probable ostial sclerotic metastatic disease. There was left ureteral calculus and right ureteral calculus with moderate right hydroureteronephrosis. I will also start her on anastrozole were waiting on the hormone receptor status. Left axillary infection. Patient is on Keflex. Patient had debridement done by the wound care. Bilateral hydroureteronephrosis. Patient is not status post stent placement. Creatinine has improved. Anemia. Vitamin B12 came back low at 159. Iron was normal. I will start her on B12 injection. - Time Spent With Patient Total time spent is greater than 50% in coordination of care (as documented) at patient's floor/unit and/or counseling patient: 25 - 35 minutes Subjective Interval history: Locally advanced/metastatic breast cancer Left axillary wound infection Anemia Vitamin B12 deficiency Bilateral hydronephrosis and renal insufficiency Review of Systems - Review of Systems Patient seems to be comfortable today. No fevers and chills. No bleeding and bruising. No other new complaints. All systems reviewed & are unremarkable except as noted in HPI and bel - Neurologic Reports hearing normal, Reports memory loss (some noted), Reports weakness, Denies syncope, Denies headache(s), Denies convulsions Exam Vital signs: Lungs are clear to auscultation bilaterally Cardiovascular regular rate rhythm no murmurs Abdomen soft nontender nondistended bowel sounds are positive Extremities no edema Temp Pulse Resp BP Pulse Ox 36.1 C L 104 H 18 103/44 L 97 11/05/20 16:30 11/05/20 16:55 11/05/20 16:55 11/05/20 16:55 11/05/20 16:55 PN: Objective Data - Labs CBC & Chem 7: 11/05/20 05:56 11/05/20 17:16 Labs: Laboratory Results - last 24 hr 11/04/20 11/04/20 11/05/20 17:37 17:37 05:56 WBC 14.4 H RBC 2.67 L Hgb 8.4 L Hct 26.7 L MCV 100.0 MCH 31.5 MCHC 31.5 L RDW 17.1 H Plt Count 383 H MPV 10.2 Immature Gran % (Auto) 1.2 H Neut % (Auto) 79.6 H Lymph % (Auto) 9.8 L Carter % (Auto) 7.4 Eos % (Auto) 1.7 Baso % (Auto) 0.3 Lymph # (Auto) 1.41 Carter # (Auto) 1.1 H Eos # (Auto) 0.2 Baso # (Auto) 0.1 Abs Immat Gran (auto) 0.18 H Absolute Neuts (auto) 11.5 H Absolute Nucleated RBC 0.0 Nucleated RBC % 0.3 H Sodium Potassium Chloride Carbon Dioxide Anion Gap BUN Creatinine Estim Creat Clear Calc Estimated GFR Glucose Calcium Iron 71 TIBC 208 L % Saturation 34 Ferritin 189.00 Total Bilirubin AST ALT Alkaline Phosphatase Total Protein Albumin Vitamin B12 < 159.0 L 11/05/20 11/05/20 11/05/20 07:22 09:33 17:16 WBC RBC Hgb Hct MCV MCH MCHC RDW Plt Count MPV Immature Gran % (Auto) Neut % (Auto) Lymph % (Auto) [place] % (Auto) Eos % (Auto) Baso % (Auto) Lymph # (Auto) [place] # (Auto) Eos # (Auto) Baso # (Auto) Abs Immat Gran (auto) Absolute Neuts (auto) Absolute Nucleated RBC Nucleated RBC % Sodium 139 141 Potassium 6.1 H* 5.6 H 5.8 H Chloride 121 H 123 H Carbon Dioxide 9 L 9 L Anion Gap 9 9 BUN 78 H D 72 H Creatinine 2.80 H 2.70 H Estim Creat Clear Calc 17 17 Estimated GFR 16 L 17 L Glucose 72 94 Calcium 8.2 L 8.3 L Iron TIBC % Saturation Ferritin Total Bilirubin < 0.1 L AST 25 ALT 9 Alkaline Phosphatase 120 Total Protein 6.0 L Albumin 2.9 L V
[2020-11-05] MEDS: CIPROFLOXACIN 400 MG/D5W 200ML 200 ML 200 MG IVPB (20:42)
[2020-11-05] MEDS: SOD HYPOCHLORITE 1/4 STRENGTH 473 ML 1 APPLIC TOPICAL (20:43)
[2020-11-05] MEDS: MORPHINE SULFATE (*CRX) 2 MG/ML INJ IV PUSH (22:24)
[2020-11-06] VITALS (12 sets, daily range): BP systolic 63–196; BP diastolic 30–69; PULSE 68–112; RESP 14–24; TEMP 35.9–36.8; O2SAT 95–100
[2020-11-06] MEDS: MORPHINE SULFATE (*CRX) 2 MG/ML INJ IV PUSH (02:42)
[2020-11-06] MEDS: SODIUM CHLORIDE 0.9% IV 1,000 ML 125 ML IV CONT ×2 (03:35→20:45)
[2020-11-06] MEDS: CEPHALEXIN 500 MG CAPSULE PO ×3 (05:24→17:37)
[2020-11-06 06:07] LABS: Basophils Percent Auto 0.1 % (0.2-1.2); Hematocrit 29.1 % (37.0-47.0); Hemoglobin 9.3 g/dL (12.0-15.0); Immature Granulocyte Absolute 0.14 K/mm3 (0.00-0.031); Immature Granulocyte Percent A 0.9 % (0-0.5); Lymphocytes Absolute Auto 0.69 K/mm3 (0.9-3.2); Lymphocytes Percent Auto 4.2 % (18.3-44.2); Mean Platelet Volume 10.2 fl (7.4-10.4); Monocytes Absolute Auto 0.4 K/mm3 (0.1-0.6); Monocytes Percent Auto 2.1 % (2.6-8.5); Neutrophils Absolute Auto 15.1 K/mm3 (1.3-6.7); Neutrophils Percent Auto 92.7 % (45.5-73.1); Nucleated Red Blood Cells Absolute Auto 0.1 K/mm3 (0.0-0.012); Nucleated Red Blood Cells Perc 0.4 % (0.0-0.2); Platelet Count Result 370 k/mm3 (150-375); Red Blood Count 2.91 M/mm3 (4.2-5.4); Red Cell Distribution Width 17.6 % (11.5-14.5); White Blood Count 16.3 K/mm3 (4.5-10.0)
[2020-11-06 06:41] LABS: Alanine Aminotransferase 10 U/L (4-35); Alkaline Phosphatase 127 U/L (38-126); Anion Gap 10 mmol/L (8-16); Aspartate Amino Transferase 28 U/L (14-36); Bilirubin,Total < 0.1 mg/dL (0.2-1.3); Blood Urea Nitrogen 60 mg/dL (7-17); Calcium 8.4 mg/dL (8.4-10.2); Carbon Dioxide 9 mmol/L (22-30); Chloride 123 mmol/L (98-107); Estimated CRCL calculation 19 ml/min; Estimated Glomerular Filt Rate 19; Glucose 105 mg/dL (65-105); Magnesium 1.7 mg/dL (1.6-2.3); Sodium 142 mmol/L (137-145)
[2020-11-06 06:50] LABS: Macrocytosis 1+ (NORMAL); Platelet Estimate Adequate (Adequate)
--- NOTE | 2020-11-06 07:09 | WPDUROPN2 ---
Progress Note: A&P Assessment and Plan (1) Bilateral ureteral calculi: Code(s): N20.1 - Calculus of ureter Status: Acute Assessment and Plan: Tolerating bilateral ureteral stents and serum creat. slightly improved overnight. Has a large, calcified stone in each ureter. Will need bilateral ESWL at some point but will first let her get started on treatment of more significant issues. Subjective Subjective Date/Time Seen: 11/06/20 07:09 Tolerating bilateral ureteral stents well Review of Systems Cardiovascular: Cardiovascular: Denies chest pain, Denies lightheadedness, Denies palpitations and Denies dyspnea Respiratory: Respiratory: Denies dyspnea Gastrointestinal: Gastrointestinal: Denies diarrhea, Denies nausea and Denies vomiting Genitourinary: Genitourinary: Denies hematuria and Denies dysuria Endocrine: Endocrine: Denies palpitations Exam Const: General: no acute distress Resp: Effort & Inspection: normal respiratory effort GI: Inspection: non-distended GI Palp: No abdominal tenderness and No Guarding due to palpation present (GI) Auscultation: normal bowel sounds Objective Data Vital Signs Vital Signs: Vital Signs - 24 hr 11/05/20 12:00 11/05/20 14:00 11/05/20 16:30 Temperature 97.0 F L 97.0 F L Pulse Rate 91 48 L 98 Respiratory Rate 16 13 Blood Pressure 94/44 L 100/46 L Pulse Oximetry 89 L 100 11/05/20 16:45 11/05/20 16:55 11/05/20 17:20 Temperature 96.5 F L Pulse Rate 90 104 H 90 Respiratory Rate 18 18 16 Blood Pressure 112/50 L 103/44 L 107/60 Pulse Oximetry 98 97 100 11/05/20 17:35 11/05/20 18:05 11/05/20 19:05 Temperature 97.1 F L 97.2 F L 97.3 F L Pulse Rate 92 94 89 Respiratory Rate 14 16 16 Blood Pressure 105/57 L 118/54 L 128/69 Pulse Oximetry 96 100 100 11/05/20 19:55 11/05/20 20:00 11/05/20 20:23 Temperature 96.8 F L Pulse Rate 103 H 93 Respiratory Rate 14 14 Blood Pressure 127/57 L Pulse Oximetry 100 98 98 11/06/20 00:00 11/06/20 04:00 11/06/20 06:56 Temperature 98.2 F Pulse Rate 112 H 100 68 Respiratory Rate 14 Blood Pressure 126/60 Pulse Oximetry 98 Intake/Output Intake/Output: Intake & Output 11/03/20 11/04/20 11/05/20 11/06/20 23:59 23:59 23:59 23:59 Intake Total 2320 2200 1100 Output Total 1200 1700 1000 Balance 1120 500 100 Meds/Results Medications: Active Medications Generic Name Dose Route Start Last Admin Trade Name Freq PRN Reason Stop Dose Admin Acetaminophen 650 mg 11/04/20 13:36 Acetaminophen 325 Mg Tablet PO Q4H PRN Mild Pain (1-3) or Fever Hydrocodone Bitart/Acetaminophen 1 tab 11/04/20 13:36 11/05/20 23:00 Hydrocodone/Acetaminophen (*Crx) 5-325 Mg Tablet PO 1 tab Q4H PRN Administration Pain Rated 4-6 Cephalexin HCl 500 mg 11/04/20 18:00 11/06/20 05:24 Cephalexin 500 Mg Capsule PO 500 mg Q6HR TITO Administration Cyanocobalamin 1,000 mcg 11/06/20 09:00 Cyanocobalamin 1,000 Mcg Tablet PO QAM TITO Cyanocobalamin 1,000 mcg 11/05/20 18:35 11/05/20 19:30 Cyanocobalamin Inj 1,000 Mcg/Ml Vial IM 11/07/20 18:01 1,000 mcg DAILY@1800 TITO Administration Fentanyl Citrate 25 mcg 11/05/20 15:29 Fentanyl Citrate Inj (*Crx) 100 Mcg/2 Ml Vial IV PUSH Q2M PRN Pain Furosemide 20 mg 11/05/20 09:00 11/05/20 08:45 Furosemide 20 Mg Tablet PO 20 mg DAILY TITO Administration Sodium Chloride 1,000 mls @ 125 mls/hr 11/04/20 13:40 11/06/20 03:35 Normal Saline Iv IV CONT 125 mls/hr .Q8H TITO Administration Ciprofloxacin/Dextrose 200 mls @ 200 mls/hr 11/05/20 21:00 11/05/20 20:42 Cipro 400 Mg/D5w 200 Ml IVPB 200 mls/hr Q24H TITO Administration Lactated Ringer's 1,000 mls @ 30 mls/hr 11/05/20 15:30 11/05/20 16:30 Lr - Lactated Ringers Iv IV CONT 0 mls/hr .Q24H TITO Infusion Lactated Ringer's 1,000 mls @ 30 mls/hr 11/05/20 15:30 11/05/20 17:09 Lr - Lactated Ringers Iv IV CO
[2020-11-06 07:11] LABS: Thyroid Stimulating Hormone Reflex 0.279 uIU/mL (0.465-4.68)
--- NOTE | 2020-11-06 08:33 | PC.NURSE ---
Patient to GI lab per stretcher at 0825.
--- NOTE | 2020-11-06 08:42 | WPDANESEPPF ---
Anes - Initial Pre Proc Eval Procedure: Operation Date: 11/05/20 16:15 Proposed Procedures p Cystoscopy, Bilateral Retrograde Pyelogram, Bilateral Ureteral Stent Placement - Petar Payne MD Operation Date: 11/06/20 12:30 Proposed Procedures p Esophagogastroduodenoscopy - David Means MD Date/Time: 11/06/20 08:42 Surgeon: Cookie Hensley PA-C Pre Op Diagnosis: marco antonio/left breast mass Patient Data Age: 80 Gender: F Height: 5 ft 3 in Weight: 97.1 kg Last Vital Signs Temp 36.8 C 11/06/20 06:56 Pulse 68 11/06/20 06:56 Resp 14 11/06/20 06:56 BP 126/60 11/06/20 06:56 Pulse Ox 98 11/06/20 06:56 Allergies Allergy/AdvReac Type Severity Reaction Status Date / Time ibuprofen Allergy Mild HIVES Verified 11/04/20 15:13 Home Medications Medication Instructions Recorded Confirmed Type apixaban [Eliquis] 5 mg PO DAILY 11/04/20 11/04/20 History furosemide 20 mg PO DAILY 11/04/20 11/04/20 History Laboratory Tests 11/05/20 11/05/20 11/06/20 09:33 17:16 05:47 WBC RBC Hgb Hct MCV MCH MCHC RDW Plt Count MPV Immature Gran % (Auto) Neut % (Auto) Lymph % (Auto) [place] % (Auto) Eos % (Auto) Baso % (Auto) Lymph # (Auto) [place] # (Auto) Eos # (Auto) Baso # (Auto) Abs Immat Gran (auto) Absolute Neuts (auto) Absolute Nucleated RBC Nucleated RBC % Platelet Estimate Macrocytosis Sodium 141 mmol/L mmol/L 142 mmol/L mmol/L (137-145) (137-145) Potassium 5.6 mmol/L H mmol/L 5.8 mmol/L H mmol/L 5.0 mmol/L mmol/L (3.4-5.0) (3.4-5.0) (3.4-5.0) Chloride 123 mmol/L H mmol/L 123 mmol/L H mmol/L (98-107) (98-107) Carbon Dioxide 9 mmol/L L mmol/L 9 mmol/L L mmol/L (22-30) (22-30) Anion Gap 9 mmol/L mmol/L 10 mmol/L mmol/L (8-16) (8-16) BUN 72 mg/dL H mg/dL 60 mg/dL H D mg/dL (7-17) (7-17) Creatinine 2.70 mg/dL H mg/dL 2.50 mg/dL H mg/dL (0.7-1.0) (0.7-1.0) Estim Creat Clear Calc 17 ml/min ml/min 19 ml/min ml/min Estimated GFR 17 L 19 L (59 - ) (59 - ) Glucose 94 mg/dL mg/dL 105 mg/dL mg/dL (65-105) (65-105) Calcium 8.3 mg/dL L mg/dL 8.4 mg/dL mg/dL (8.4-10.2) (8.4-10.2) Magnesium 1.7 mg/dL mg/dL (1.6-2.3) Total Bilirubin < 0.1 mg/dL L mg/dL (0.2-1.3) Direct Bilirubin 0.0 mg/dL mg/dL (0-0.3) AST 28 U/L U/L (14-36) ALT 10 U/L U/L (4-35) Alkaline Phosphatase 127 U/L H U/L (38-126) Total Protein 7.0 g/dL g/dL (6.3-8.2) Albumin 3.0 g/dL L g/dL (3.5-5.1) TSH (Reflex) Free T4 11/06/20 11/06/20 11/06/20 05:47 05:47 05:47 WBC 16.3 K/mm3 H K/mm3 (4.5-10.0) RBC 2.91 M/mm3 L M/mm3 (4.2-5.4) Hgb 9.3 g/dL L g/dL (12.0-15.0) Hct 29.1 % L % (37.0-47.0) MCV 100.0 fl fl (80-100) MCH 32.0 pg pg (26-34) MCHC 32.0 g/dl g/dl (32-36) RDW 17.6 % H % (11.5-14.5) Plt Count 370 k/mm3 k/mm3 (150-375) MPV 10.2 fl fl (7.4-10.4) Immature Gran % (Auto) 0.9 % H % (0-0.5) Neut % (Auto) 92.7 % H % (45.5-73.1) Lymph % (Auto) 4.2 % L % (18.3-44.2) [place] % (Auto) 2.1 % L % (2.6-8.5) Eos % (Auto) 0.0 % % (0-4.4) Baso % (Auto) 0.1 % L % (0.2-1.2) Lymph # (Auto) 0.69 K/mm3 L K/mm3 (0.9-3.2) [place] # (Auto) 0.4 K/mm3 K/mm3 (0.1-0.6) Eos # (Auto) 0.0 K/mm3 K/mm3 (0-0.3) Baso # (Auto) 0.0 K/mm3 K/mm3 (0.0-0.1) Abs Immat Gran (auto) 0.14 K/mm3 H K/
[2020-11-06] MEDS: LACTATED RINGERS 1,000 ML 150 ML IV CONT (08:53)
--- NOTE | 2020-11-06 09:27 | WPDGICN ---
Assessment and Plan Assessment and plan (1) Hematemesis: Code(s): K92.0 - Hematemesis Status: Acute Assessment and Plan: will proceed with egd, already on ppi bid (2) Nausea and vomiting in adult: Code(s): R11.2 - Nausea with vomiting, unspecified Status: Acute Assessment and Plan: evaluate with egd, antiemetics and supportive care (3) Poor appetite: Code(s): R63.0 - Anorexia Status: Acute (4) Breast cancer: Code(s): C50.919 - Malignant neoplasm of unspecified site of unspecified female breast Status: Acute Assessment and Plan: large mass in breast with invasive features per CT scan, oncology evaluating patient (5) Bilateral renal stones: Code(s): N20.0 - Calculus of kidney Status: Acute Assessment and Plan: required urological procedure, on antibiotics (6) Acute kidney injury: Code(s): N17.9 - Acute kidney failure, unspecified Status: Acute Assessment and Plan: with hydronephrosis, s/p stents (7) UTI (urinary tract infection): Code(s): N39.0 - Urinary tract infection, site not specified Status: Acute Assessment and Plan: on antibiotics (8) Hyperkalemia: Code(s): E87.5 - Hyperkalemia Status: Acute Assessment and Plan: treated GI Consult Note Consult date/time: 11/06/20 09:27 Reason for consult: hematemesis HPI: Kourtney Lerner is a 80 year old female who came the ER with worsening pain to her left shoulder and chest wall. She reported pain for few years and breast lump for more than 3 years, but pain much worse last few days. She has not sought medical attention in the past for this breast mass which now is ulcerated and infected. She also reported coffee ground emesis. Hb on arrival 9, creat 2.8, BUN 70. 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 Bilateral obstructing proximal ureteral calculi and moderate bilateral hydronephrosis Bilateral nephrolithiasis. Evaluated by urology and had Cystoscopy, bilateral retrograde pyelography and bilateral ureteral stent placement yesterday. Review of Systems Constitutional: Constitutional: Reports fatigue Eyes: Eyes: Reports no additional eye complaints ENT: Reports system reviewed and no additional complaints, except as documented Cardiovascular: Cardiovascular: Reports no additional cardiovascular complaints Respiratory: Respiratory: Reports no additional respiratory complaints Gastrointestinal: Gastrointestinal: Reports nausea, Reports vomiting and Reports hematemesis Genitourinary: Comments: kidney stones Musculoskeletal: Comments: left chest pain Integumentary/Breasts: Skin/Breast: Reports wounds (left breast) Neurologic: Denies headache(s) Psychiatric: Psychiatric: Reports no additional psychiatric complaints PMFSH Past Medical History Medical History Atrial fibrillation Inverted nipple Surgical History Surgical History H/O splenectomy Family History Family History Father Lung cancer Social History Social History Social History: History of tobacco abuse Smoking packs per day: 0.5 Smoking cigarettes per day: 10.0 Years smoked: 50 Smoking pack-years: 25.00 Smoking status: Current every day smoker Alcohol intake: never Substance use: never Gender identity (if verbalized by the patient): Female Spiritual care concerns: No Meds Home Medications and Allergies Home Medications Medication
--- NOTE | 2020-11-06 10:27 | PC.NURSE ---
Patient returned from GI lab per stretcher.
[2020-11-06] MEDS: LETROZOLE (*CHEMO) 2.5 MG TABLET PO (11:43)
[2020-11-06] MEDS: CYANOCOBALAMIN 1,000 MCG TABLET 1000 MCG PO (11:43)
[2020-11-06] MEDS: POLYSACCHARIDE IRON COMPLEX 150 MG CAPSULE PO (11:43)
[2020-11-06] MEDS: SOD HYPOCHLORITE 1/4 STRENGTH 473 ML 1 APPLIC TOPICAL ×2 (11:44→20:47)
[2020-11-06] MEDS: FUROSEMIDE 20 MG TABLET PO (11:44)
--- NOTE | 2020-11-06 12:53 | PM.IMPN ---
Progress Note: A&P Assessment and Plan (1) Breast mass: Code(s): N63.0 - Unspecified lump in unspecified breast Status: Acute Assessment and Plan: left axillary breast mass likely combination of cancer with secondary infection -continue Cipro and Keflex but will add vanc for MRSA coverage since pts WBC continues to be elevated. -await bx results. Bone scan with no abnormal ateas -patient has had this abnormality for at least a year in never received treatment. Poor prognosis -continue with oncology is recommendations -Katie on hold (2) Acute kidney injury: Code(s): N17.9 - Acute kidney failure, unspecified Status: Acute Assessment and Plan: Creatinine 4.0 on admission with no past labs to compare to -creatinine better today at 2.5. Will continue IV fluids -likely due to decreased bilateral kidney stones/appetite/dehydration/hypoperfusion due to hypotension/possible UTI -she is also on lisinopril 5 mg b.i.d. at home which could be contributing. This has been held -blood pressures are getting better -urine culture grew ecoli sensitive to above abx - monitor with labs in the morning -potassium elevated this morning 5.0 this AM Likely due to TAE. Will redraw again this afternoon. Continue low potassium diet. (3) Poor appetite: Code(s): R63.0 - Anorexia Status: Acute Assessment and Plan: Continue supplements at this time and encourage oral feedings (4) Cellulitis of left axilla: Code(s): L03.112 - Cellulitis of left axilla Status: Acute Assessment and Plan: left axillary breast mass with pain and likely infection as stated above -continue Keflex, vanc and Cipro (5) Anemia: Code(s): D64.9 - Anemia, unspecified Status: Acute Assessment and Plan: B12 significantly low -give IM x1 and switch to oral daily pills -hemoglobin stable 8.4 (6) UTI (urinary tract infection): Code(s): N39.0 - Urinary tract infection, site not specified Status: Acute Assessment and Plan: As stated above -continue with Cipro (7) Hyperkalemia: Code(s): E87.5 - Hyperkalemia Status: Acute Assessment and Plan: Kayexalate given 11/05 with improvement so far. -continue tele, low-potassium diet, and IV hydration (8) Hematemesis: Code(s): K92.0 - Hematemesis Status: Acute Assessment and Plan: due to gastritis and small ulcer seen on EGD 11/06 -Continue PPI (9) Atrial fibrillation: Code(s): I48.91 - Unspecified atrial fibrillation Status: Inactive Assessment and Plan: Paroxysmal with controlled rate -hold Eliquis -not on any home rate-controlling medications -sees Dr. Petty (10) Bilateral ureteral calculi: Code(s): N20.1 - Calculus of ureter Status: Acute Assessment and Plan: S/P bilateral stents 11/05/20 -Will need ESWL in the future -Follow up with urology outpt. (11) Gastritis: Code(s): K29.70 - Gastritis, unspecified, without bleeding Status: Acute Assessment and Plan: Continue PPI as above Additional Plan . Subjective Date/time seen: 11/06/20 12:53 Interval history: Pt is a 80-year-old female here for breast mass. Patient was seen today and states she is feeling okay. She states she is doing well with no complaints today. Her arm/chest pain is better. She just got back form her EGD and is waiting for lunch. She reports n pain with urination. She denies diarrhea, constipation, fevers, chills, chest pain or shortness of breath. She has a history of irregular heartbeat and thinks it is AFib but can't remember. That is why she is on Eliquis and she sees Dr. Petty Exam Narrative: Exam Narrative: General: Well developed well nourished patient in NAD HEENT: normocephalic Neck: supple Neuro: Alert and oriented x4 CV:RRR on my exam. tele shows occasional afib with co
[2020-11-06 15:35] LABS: Anion Gap 10 mmol/L (8-16); Blood Urea Nitrogen 59 mg/dL (7-17); Calcium 8.6 mg/dL (8.4-10.2); Carbon Dioxide 10 mmol/L (22-30); Chloride 120 mmol/L (98-107); Estimated CRCL calculation 19 ml/min; Estimated Glomerular Filt Rate 19; Glucose 119 mg/dL (65-105); Potassium 4.5 mmol/L (3.4-5.0); Sodium 140 mmol/L (137-145)
[2020-11-06] MEDS: CYANOCOBALAMIN INJ 1,000 MCG/ML VIAL 1000 MCG IM (17:37)
[2020-11-06] MEDS: HYDROcodone/acetaminophen (*CRX) 5-325 MG TABLET 1 TAB PO (18:22)
[2020-11-06] MEDS: PANTOPRAZOLE 40 MG TABLET PO (20:46)
[2020-11-06] MEDS: CIPROFLOXACIN 400 MG/D5W 200ML 200 ML 200 MG IVPB (20:46)
[2020-11-06 23:34] LABS: Total Triiodothyronine (T3) 0.69 NG/ML (0.97-1.69)
[2020-11-07] VITALS (8 sets, daily range): BP systolic 108–114; BP diastolic 51–72; PULSE 92–112; RESP 16–18; TEMP 35.9–36.2; O2SAT 99–100
[2020-11-07] MEDS: CEPHALEXIN 500 MG CAPSULE PO ×2 (00:33→05:02)
[2020-11-07] MEDS: SODIUM CHLORIDE 0.9% IV 1,000 ML 125 ML IV CONT (05:03)
[2020-11-07 05:50] LABS: Basophils Percent Auto 0.1 % (0.2-1.2); Eosinophils Absolute Auto 0.1 K/mm3 (0-0.3); Eosinophils Percent Auto 0.4 % (0-4.4); Hematocrit 25.2 % (37.0-47.0); Hemoglobin 8.1 g/dL (12.0-15.0); Immature Granulocyte Absolute 0.12 K/mm3 (0.00-0.031); Immature Granulocyte Percent A 0.6 % (0-0.5); Lymphocytes Absolute Auto 1.55 K/mm3 (0.9-3.2); Mean Corpuscular HGB Conc 32.1 g/dl (32-36); Mean Corpuscular Hemoglobin 31.2 pg (26-34); Mean Corpuscular Volume 96.9 fl (80-100); Mean Platelet Volume 10.4 fl (7.4-10.4); Monocytes Absolute Auto 1.9 K/mm3 (0.1-0.6); Monocytes Percent Auto 9.6 % (2.6-8.5); Neutrophils Absolute Auto 15.7 K/mm3 (1.3-6.7); Neutrophils Percent Auto 81.3 % (45.5-73.1); Nucleated Red Blood Cells Absolute Auto 0.1 K/mm3 (0.0-0.012); Nucleated Red Blood Cells Perc 0.7 % (0.0-0.2); Platelet Count Result 352 k/mm3 (150-375); Red Cell Distribution Width 17.6 % (11.5-14.5); White Blood Count 19.4 K/mm3 (4.5-10.0)
[2020-11-07 06:33] LABS: Albumin Level 2.7 g/dL (3.5-5.1); Anion Gap 9 mmol/L (8-16); Blood Urea Nitrogen 50 mg/dL (7-17); Calcium 7.7 mg/dL (8.4-10.2); Carbon Dioxide 11 mmol/L (22-30); Chloride 119 mmol/L (98-107); Estimated CRCL calculation 22 ml/min; Estimated Glomerular Filt Rate 23; Glucose 91 mg/dL (65-105); Phosphorus 4.3 mg/dL (2.5-4.5); Potassium 4.4 mmol/L (3.4-5.0); Sodium 139 mmol/L (137-145)
[2020-11-07 07:17] LABS: CA 27.29 83 U/mL (<38)
--- NOTE | 2020-11-07 07:59 | P.PNAN_ITS ---
Anes - Prog Note Post-Op Date/Time: 11/07/20 07:59 Cardiovascular status: normal Respiratory status: normal Airway patency: baseline Mental status: baseline Post-Op hydration status: normal Vital Signs: Last Vital Signs Temp 35.9 C L 11/07/20 05:06 Pulse 112 H 11/07/20 05:06 Resp 18 11/07/20 05:06 BP 108/68 11/07/20 05:06 Pulse Ox 100 11/07/20 05:06 Pain Score (VAS): 0 I/O: Intake & Output 11/06/20 11/06/20 11/07/20 15:59 23:59 07:59 Intake Total 500 2050 1100 Output Total 2000 1000 Balance 500 50 100 Laboratory Tests 11/07/20 05:39 11/07/20 05:39 11/04/20 11/06/20 11/06/20 17:37 05:47 05:47 WBC RBC Hgb Hct MCV MCH MCHC RDW Plt Count MPV Immature Gran % (Auto) Neut % (Auto) Lymph % (Auto) [place] % (Auto) Eos % (Auto) Baso % (Auto) Lymph # (Auto) [place] # (Auto) Eos # (Auto) Baso # (Auto) Abs Immat Gran (auto) Absolute Neuts (auto) Absolute Nucleated RBC Nucleated RBC % Sodium Potassium Chloride Carbon Dioxide Anion Gap BUN Creatinine Estim Creat Clear Calc Estimated GFR Glucose Calcium Phosphorus Albumin CA 27-29 83 H Free T4 0.90 Total T3 0.69 L 11/06/20 11/07/20 11/07/20 15:03 05:39 05:39 WBC 19.4 H RBC 2.60 L Hgb 8.1 L Hct 25.2 L MCV 96.9 MCH 31.2 MCHC 32.1 RDW 17.6 H Plt Count 352 MPV 10.4 Immature Gran % (Auto) 0.6 H Neut % (Auto) 81.3 H Lymph % (Auto) 8.0 L [place] % (Auto) 9.6 H Eos % (Auto) 0.4 Baso % (Auto) 0.1 L Lymph # (Auto) 1.55 [place] # (Auto) 1.9 H Eos # (Auto) 0.1 Baso # (Auto) 0.0 Abs Immat Gran (auto) 0.12 H Absolute Neuts (auto) 15.7 H Absolute Nucleated RBC 0.1 H Nucleated RBC % 0.7 H Sodium 140 139 Potassium 4.5 4.4 Chloride 120 H 119 H Carbon Dioxide 10 L 11 L Anion Gap 10 9 BUN 59 H 50 H Creatinine 2.40 H 2.10 H Estim Creat Clear Calc 19 22 Estimated GFR 19 L 23 L Glucose 119 H 91 Calcium 8.6 7.7 L Phosphorus 4.3 Albumin 2.7 L CA 27-29 Free T4 Total T3 Microbiology 11/04/20 13:40 Urine Clean Catch Urine Culture - Final Escherichia Coli Post-procedural complaints: none Patient Feedback: Patient satisfied with anesthetic care.
[2020-11-07] MEDS: CYANOCOBALAMIN 1,000 MCG TABLET 1000 MCG PO (08:35)
[2020-11-07] MEDS: POLYSACCHARIDE IRON COMPLEX 150 MG CAPSULE PO (08:35)
[2020-11-07] MEDS: SOD HYPOCHLORITE 1/4 STRENGTH 473 ML 1 APPLIC TOPICAL ×2 (08:35→21:43)
[2020-11-07] MEDS: PANTOPRAZOLE 40 MG TABLET PO ×2 (08:35→21:41)
[2020-11-07] MEDS: FUROSEMIDE 20 MG TABLET PO (08:35)
[2020-11-07] MEDS: LETROZOLE (*CHEMO) 2.5 MG TABLET PO (08:35)
--- NOTE | 2020-11-07 10:33 | PM.IMPN ---
Progress Note: A&P Assessment and Plan (1) Breast mass: Code(s): N63.0 - Unspecified lump in unspecified breast Status: Acute Assessment and Plan: left axillary breast mass likely combination of cancer with secondary infection -patient is improving but white blood cell count has been increasing. Will switch to Zosyn and vanc for broader coverage -patient has had this abnormality for at least a year in never received treatment. Poor prognosis -continue with oncology is recommendations -Eliquis on hold, consider restarting. GI recommends restarting closer to discharge. Radiology is okay with restarting 24 hours after biopsy. (2) Acute kidney injury: Code(s): N17.9 - Acute kidney failure, unspecified Status: Acute Assessment and Plan: Creatinine 4.0 on admission with no past labs to compare to -creatinine better today at 2.1. -likely due to decreased bilateral kidney stones/appetite/dehydration/hypoperfusion due to hypotension/possible UTI -she is also on lisinopril 5 mg b.i.d. at home which could be contributing. This has been held -blood pressures are getting better -Co2 low likely due to renal failure. Will start sodium bicarb and stop NS. Mental status normal as is the anion gap. -urine culture grew ecoli sensitive to above abx - monitor with labs in the morning -K now normal (3) Poor appetite: Code(s): R63.0 - Anorexia Status: Acute Assessment and Plan: Continue supplements at this time and encourage oral feedings (4) Cellulitis of left axilla: Code(s): L03.112 - Cellulitis of left axilla Status: Acute Assessment and Plan: left axillary breast mass with pain and likely infection as stated above -continue vanc + Zosyn (5) Anemia: Code(s): D64.9 - Anemia, unspecified Status: Acute Assessment and Plan: B12 significantly low -She was given B12 IM x1 and then switched to oral daily pills -hemoglobin stable 8.1 (6) UTI (urinary tract infection): Code(s): N39.0 - Urinary tract infection, site not specified Status: Acute Assessment and Plan: As stated above -continue with zosyn (7) Hyperkalemia: Code(s): E87.5 - Hyperkalemia Status: Acute Assessment and Plan: Resolved -Likely due to renal failure -Monitor (8) Hematemesis: Code(s): K92.0 - Hematemesis Status: Acute Assessment and Plan: due to gastritis and small ulcer seen on EGD 11/06 -Continue PPI (9) Atrial fibrillation: Code(s): I48.91 - Unspecified atrial fibrillation Status: Inactive Assessment and Plan: Paroxysmal with controlled rate -hold Eliquis -not on any home rate-controlling medications -sees Dr. Petty (10) Bilateral ureteral calculi: Code(s): N20.1 - Calculus of ureter Status: Acute Assessment and Plan: S/P bilateral stents 11/05/20 -Will need ESWL in the future -Follow up with urology outpt. (11) Gastritis: Code(s): K29.70 - Gastritis, unspecified, without bleeding Status: Acute Assessment and Plan: Continue PPI as above Subjective Date/time seen: 11/07/20 10:33 Interval history: Pt is a 80-year-old female here for breast mass. Patient was seen today and states she is feeling better. She states she is doing well with no complaints today. She denies CP, dysuria, nausea, vomiting, diarrhea, or leg swelling. She states her Breast/arm pain is better. She states she has not had a bowel movement since prior to admission. She has a history of irregular heartbeat and thinks it is AFib but can't remember. That is why she is on Eliquis and she sees Dr. Petty Exam Narrative: Exam Narrative: General: Well developed well nourished patient in NAD HEENT: normocephalic Neck: supple Neuro: Alert and oriented x4 CV:RRR on my exam. tele shows occasional afib with controlled rate Resp:
[2020-11-07] MEDS: SODIUM BICARBONATE TAB 650 MG TABLET PO ×2 (11:40→17:05)
[2020-11-07] MEDS: polyethylene glycoL 3350 17 GM POWD.PACK PO (11:48)
[2020-11-07] MEDS: HYDROcodone/acetaminophen (*CRX) 5-325 MG TABLET 1 TAB PO (15:25)
[2020-11-07] MEDS: CYANOCOBALAMIN INJ 1,000 MCG/ML VIAL 1000 MCG IM (17:05)
[2020-11-07] MEDS: SENNOSIDES 8.6 MG TABLET PO (21:41)
[2020-11-08 05:52] LABS: Basophils Absolute Auto 0.1 K/mm3 (0.0-0.1); Basophils Percent Auto 0.4 % (0.2-1.2); Eosinophils Absolute Auto 0.1 K/mm3 (0-0.3); Eosinophils Percent Auto 0.8 % (0-4.4); Hemoglobin 8.2 g/dL (12.0-15.0); Immature Granulocyte Absolute 0.15 K/mm3 (0.00-0.031); Immature Granulocyte Percent A 0.9 % (0-0.5); Lymphocytes Absolute Auto 1.77 K/mm3 (0.9-3.2); Lymphocytes Percent Auto 10.5 % (18.3-44.2); Mean Corpuscular HGB Conc 32.8 g/dl (32-36); Mean Corpuscular Hemoglobin 31.5 pg (26-34); Mean Corpuscular Volume 96.2 fl (80-100); Mean Platelet Volume 10.6 fl (7.4-10.4); Monocytes Absolute Auto 1.6 K/mm3 (0.1-0.6); Monocytes Percent Auto 9.6 % (2.6-8.5); Neutrophils Absolute Auto 13.1 K/mm3 (1.3-6.7); Neutrophils Percent Auto 77.8 % (45.5-73.1); Nucleated Red Blood Cells Absolute Auto 0.2 K/mm3 (0.0-0.012); Nucleated Red Blood Cells Perc 1.2 % (0.0-0.2); Platelet Count Result 324 k/mm3 (150-375); Red Cell Distribution Width 17.4 % (11.5-14.5); White Blood Count 16.9 K/mm3 (4.5-10.0)
[2020-11-08 06:09] LABS: Alanine Aminotransferase 7 U/L (4-35); Albumin Level 2.6 g/dL (3.5-5.1); Alkaline Phosphatase 101 U/L (38-126); Anion Gap 8 mmol/L (8-16); Aspartate Amino Transferase 18 U/L (14-36); Bilirubin,Total 0.2 mg/dL (0.2-1.3); Blood Urea Nitrogen 36 mg/dL (7-17); Calcium 7.8 mg/dL (8.4-10.2); Carbon Dioxide 15 mmol/L (22-30); Chloride 115 mmol/L (98-107); Estimated CRCL calculation 23 ml/min; Estimated Glomerular Filt Rate 24; Glucose 94 mg/dL (65-105); Potassium 3.3 mmol/L (3.4-5.0); Sodium 138 mmol/L (137-145)
[2020-11-08 06:52] VITALS: BP 104/43; PULSE 101; RESP 16; TEMP 36.2; O2SAT 96
[2020-11-08] MEDS: CYANOCOBALAMIN 1,000 MCG TABLET 1000 MCG PO (09:08)
[2020-11-08] MEDS: LETROZOLE (*CHEMO) 2.5 MG TABLET PO (09:08)
[2020-11-08] MEDS: PANTOPRAZOLE 40 MG TABLET PO ×2 (09:08→20:23)
[2020-11-08] MEDS: SOD HYPOCHLORITE 1/4 STRENGTH 473 ML 1 APPLIC TOPICAL ×2 (09:08→20:23)
[2020-11-08] MEDS: SODIUM BICARBONATE TAB 650 MG TABLET PO ×2 (09:08→16:07)
[2020-11-08] MEDS: POLYSACCHARIDE IRON COMPLEX 150 MG CAPSULE PO (09:08)
[2020-11-08] MEDS: POTASSIUM CHLORIDE 20 MEQ TABLET PO (09:12)
--- NOTE | 2020-11-08 10:11 | PM.IMPN ---
Progress Note: A&P Assessment and Plan (1) Breast mass: Code(s): N63.0 - Unspecified lump in unspecified breast Status: Acute Assessment and Plan: left axillary breast mass likely combination of cancer with secondary infection -patient wound is improving and WBC finally coming down with Zosyn and vanc -patient has had this abnormality for at least a year in never received treatment. Poor prognosis -continue with oncology is recommendations -Eliquis will be restarted tonight -likely d/c in 1-2 days if pt continues to improve. Will reassess with wound care tomorrow. (2) Acute kidney injury: Code(s): N17.9 - Acute kidney failure, unspecified Status: Acute Assessment and Plan: Creatinine 4.0 on admission with no past labs to compare to -creatinine better today at 2.0 -likely acute on chronic due to bilateral kidney stones/decreased appetite/dehydration/hypoperfusion due to hypotension/ UTI -she is also on lisinopril 5 mg b.i.d. at home which could be contributing. This has been held -blood pressures are getting better -Co2 low likely due to renal failure and have improved with sodium bicarb and cessation of NS. Mental status normal as is the anion gap. -urine culture grew ecoli sensitive to above abx - monitor with labs in the morning -K now low, remove low potassium diet (3) Poor appetite: Code(s): R63.0 - Anorexia Status: Acute Assessment and Plan: Continue supplements at this time and encourage oral feedings (4) Cellulitis of left axilla: Code(s): L03.112 - Cellulitis of left axilla Status: Acute Assessment and Plan: left axillary breast mass with pain and likely infection as stated above -continue vanc + Zosyn (5) Anemia: Code(s): D64.9 - Anemia, unspecified Status: Acute Assessment and Plan: B12 significantly low -She was given B12 IM x3 and then switched to oral daily pills -hemoglobin stable 8.1 (6) UTI (urinary tract infection): Code(s): N39.0 - Urinary tract infection, site not specified Status: Acute Assessment and Plan: As stated above -continue with zosyn (7) Hyperkalemia: Code(s): E87.5 - Hyperkalemia Status: Acute Assessment and Plan: Resolved -Likely due to renal failure -Monitor (8) Hematemesis: Code(s): K92.0 - Hematemesis Status: Acute Assessment and Plan: due to gastritis and small ulcer seen on EGD 11/06 -Continue PPI, no ocurrent symptoms (9) Atrial fibrillation: Code(s): I48.91 - Unspecified atrial fibrillation Status: Inactive Assessment and Plan: Paroxysmal with controlled rate -restart Eliquis -not on any home rate-controlling medications -sees Dr. Petty (10) Bilateral ureteral calculi: Code(s): N20.1 - Calculus of ureter Status: Acute Assessment and Plan: S/P bilateral stents 11/05/20 -Will need ESWL in the future -Follow up with urology outpt. (11) Gastritis: Code(s): K29.70 - Gastritis, unspecified, without bleeding Status: Acute Assessment and Plan: Continue PPI as above Additional Plan . Subjective Date/time seen: 11/08/20 10:11 Interval history: Pt is a 80-year-old female here for breast mass. Patient was seen today and states she is feeling well. She states she is doing well with no complaints today. She denies CP, dysuria, nausea, vomiting, diarrhea, or leg swelling. She states her Breast/arm pain is always worse in the morning but gets better through the day. She denies bleeding to the area. she had a BM today and yesterday. She has a history of irregular heartbeat and thinks it is AFib but can't remember. That is why she is on Eliquis and she sees Dr. Petty Exam Narrative: Exam Narrative: General: Well developed well nourished patient in NAD HEENT: normocephalic Neck: supple Neuro: Alert an
[2020-11-08] MEDS: APIXABAN 5 MG TABLET PO ×2 (12:50→20:23)
[2020-11-08 16:17] VITALS: BP 101/47; PULSE 105; RESP 18; TEMP 36.2; O2SAT 95
[2020-11-08 20:00] VITALS: BP 107/53; PULSE 96; RESP 16; TEMP 36.8; O2SAT 98
[2020-11-08] MEDS: SENNOSIDES 8.6 MG TABLET PO (20:23)
[2020-11-09 06:03] LABS: Basophils Absolute Auto 0.1 K/mm3 (0.0-0.1); Basophils Percent Auto 0.3 % (0.2-1.2); Eosinophils Absolute Auto 0.2 K/mm3 (0-0.3); Eosinophils Percent Auto 1.1 % (0-4.4); Hematocrit 21.4 % (37.0-47.0); Hemoglobin 7.1 g/dL (12.0-15.0); Immature Granulocyte Absolute 0.14 K/mm3 (0.00-0.031); Lymphocytes Absolute Auto 1.92 K/mm3 (0.9-3.2); Lymphocytes Percent Auto 13.1 % (18.3-44.2); Mean Corpuscular HGB Conc 33.2 g/dl (32-36); Mean Corpuscular Hemoglobin 30.9 pg (26-34); Monocytes Absolute Auto 1.6 K/mm3 (0.1-0.6); Monocytes Percent Auto 11.1 % (2.6-8.5); Neutrophils Absolute Auto 10.8 K/mm3 (1.3-6.7); Neutrophils Percent Auto 73.4 % (45.5-73.1); Nucleated Red Blood Cells Absolute Auto 0.2 K/mm3 (0.0-0.012); Nucleated Red Blood Cells Perc 1.3 % (0.0-0.2); Platelet Count Result 343 k/mm3 (150-375); Red Cell Distribution Width 17.3 % (11.5-14.5); White Blood Count 14.7 K/mm3 (4.5-10.0)
[2020-11-09 06:15] VITALS: BP 92/54; PULSE 106; RESP 16; TEMP 36.2; O2SAT 99
[2020-11-09 07:08] LABS: Anion Gap 7 mmol/L (8-16); Blood Urea Nitrogen 25 mg/dL (7-17); Calcium 7.6 mg/dL (8.4-10.2); Carbon Dioxide 17 mmol/L (22-30); Chloride 116 mmol/L (98-107); Estimated CRCL calculation 24 ml/min; Estimated Glomerular Filt Rate 26; Glucose 95 mg/dL (65-105); Potassium 3.5 mmol/L (3.4-5.0); Sodium 140 mmol/L (137-145)
[2020-11-09] MEDS: POLYSACCHARIDE IRON COMPLEX 150 MG CAPSULE PO (08:52)
[2020-11-09] MEDS: LACTATED RINGERS 1,000 ML 100 ML IV CONT ×2 (08:52→21:27)
[2020-11-09] MEDS: SODIUM BICARBONATE TAB 650 MG TABLET PO ×2 (08:53→17:17)
[2020-11-09] MEDS: SOD HYPOCHLORITE 1/4 STRENGTH 473 ML 1 APPLIC TOPICAL ×2 (08:53→21:53)
[2020-11-09] MEDS: LETROZOLE (*CHEMO) 2.5 MG TABLET PO (08:53)
[2020-11-09] MEDS: PANTOPRAZOLE 40 MG TABLET PO ×2 (08:53→21:25)
[2020-11-09] MEDS: polyethylene glycoL 3350 17 GM POWD.PACK PO (08:53)
[2020-11-09] MEDS: CYANOCOBALAMIN 1,000 MCG TABLET 1000 MCG PO (08:53)
[2020-11-09 11:37] LABS: Hematocrit 23.1 % (37.0-47.0); Hemoglobin 7.7 g/dL (12.0-15.0)
[2020-11-09 12:24] LABS: Vancomycin Trough 14.9 ug/mL (10.0-20.0)
--- NOTE | 2020-11-09 14:01 | PM.IMPN ---
Progress Note: A&P Assessment and Plan (1) Breast mass: Code(s): N63.0 - Unspecified lump in unspecified breast Status: Acute Assessment and Plan: left axillary breast mass likely combination of cancer with secondary infection -patient wound is improving and WBC finally coming down with Zosyn and vanc -patient has had this abnormality for at least a year in never received treatment. Poor prognosis -continue with oncology is recommendations -Continue Eliquis -likely d/c tomorrow if pt continues to improve (2) Acute kidney injury: Code(s): N17.9 - Acute kidney failure, unspecified Status: Acute Assessment and Plan: Creatinine 4.0 on admission with no past labs to compare to -creatinine better today at 1.9 -likely acute on chronic due to bilateral kidney stones/decreased appetite/dehydration/hypoperfusion due to hypotension/ UTI -she is also on lisinopril 5 mg b.i.d. at home which could be contributing. This has been held -Co2 low likely due to renal failure and have improved with sodium bicarb and cessation of NS. Mental status normal as is the anion gap. -urine culture grew ecoli sensitive to above abx -Pt may have chronic kidney disease, will order u/s and renal consult (3) Poor appetite: Code(s): R63.0 - Anorexia Status: Acute Assessment and Plan: Continue supplements at this time and encourage oral feedings (4) Cellulitis of left axilla: Code(s): L03.112 - Cellulitis of left axilla Status: Acute Assessment and Plan: left axillary breast mass with pain and likely infection as stated above -continue vanc + Zosyn (5) Anemia: Code(s): D64.9 - Anemia, unspecified Status: Acute Assessment and Plan: B12 significantly low -She was given B12 IM x3 and then switched to oral daily pills -hemoglobin 7.7 at noon (6) UTI (urinary tract infection): Code(s): N39.0 - Urinary tract infection, site not specified Status: Acute Assessment and Plan: As stated above -continue with zosyn (7) Hyperkalemia: Code(s): E87.5 - Hyperkalemia Status: Acute Assessment and Plan: Resolved -Likely due to renal failure -Monitor (8) Hematemesis: Code(s): K92.0 - Hematemesis Status: Acute Assessment and Plan: due to gastritis and small ulcer seen on EGD 11/06 -Continue PPI, no re-current symptoms (9) Atrial fibrillation: Code(s): I48.91 - Unspecified atrial fibrillation Status: Inactive Assessment and Plan: Paroxysmal with controlled rate -restart Eliquis -not on any home rate-controlling medications and she becomes tachy intermittenly. -Will start metoprolol -sees Dr. Petty (10) Bilateral ureteral calculi: Code(s): N20.1 - Calculus of ureter Status: Acute Assessment and Plan: S/P bilateral stents 11/05/20 -Will need ESWL in the future -Pt having some mild hematuria. RN contacted urology who recommends continuing eliquis as long as she is able to urinate and no big clots. -Follow up with urology outpt. (11) Gastritis: Code(s): K29.70 - Gastritis, unspecified, without bleeding Status: Acute Assessment and Plan: Continue PPI as above Subjective Date/time seen: 11/09/20 14:01 Interval history: Pt is a 80-year-old female here for breast mass. Patient was seen today and states she is doing okay and has no complaints today. She denies CP, dysuria, nausea, vomiting, diarrhea, or leg swelling. She states her Breast/arm pain is about the same. She continues to have hematuria but no pain with urinating. She denies lightheadedness, dizziness, CP, leg swelling, or n/v. Her BMs are now turning brown instead of black. She has a hx of afib and that is why she is on Eliquis and she sees Dr. Petty Exam Narrative: Exam Narrative: General: Well developed well nourished patient in
[2020-11-09 14:10] VITALS: BP 105/52; PULSE 98; RESP 16; TEMP 36.6; O2SAT 99
[2020-11-09] MEDS: HYDROcodone/acetaminophen (*CRX) 5-325 MG TABLET 1 TAB PO (15:01)
--- NOTE | 2020-11-09 15:34 | PM.CNNEP ---
Assessment and Plan Assessment and plan (1) Acute kidney injury: Code(s): N17.9 - Acute kidney failure, unspecified Status: Acute Assessment and Plan: multifactorial etiology: - bilateral kidney stones - bilateral hydronephrosis - prerenal factors/volume depletion - hypotension - infection (UTI) - ONUR-I use prior to admission creatinine has been slowly improving renal ultrasound with evidence of CKD (renal cortical thinning present) follow trend of repeat labs and UOP (2) Metastatic breast cancer: Code(s): C50.919 - Malignant neoplasm of unspecified site of unspecified female breast Status: Acute Assessment and Plan: as evidence by physical exam and imaging studies to date Hem/Onc following (3) Cellulitis of female breast: Code(s): N61.0 - Mastitis without abscess Status: Acute Assessment and Plan: on antibiotics likely cause of elevated WBC local wound care (4) UTI (urinary tract infection): Code(s): N39.0 - Urinary tract infection, site not specified Status: Acute Assessment and Plan: E. coli by urine culture on antibiotics (5) Bilateral renal stones: Code(s): N20.0 - Calculus of kidney Status: Acute Assessment and Plan: Urology following s/p bilateral ureteral stenting (6) Anemia: Code(s): D64.9 - Anemia, unspecified Status: Acute Assessment and Plan: due to TAE, CKD, and underlying malignancy s/p EGD with findings noted as well (GI following) follow trend of H/H Will continue to follow. History of Present Illness Reason for Consult Consult date: 11/09/20 Reason for consult: acute renal failure (versus chronic kidney disease)) Chief Complaint Chief complaint: tae/left breast mass History of Present Illness Narrative: The patient is a 80-year-old female with a past medical history as outlined below who presented to [facility] Emergency room with complaints of pain/discomfort in her left chest wall area and left shoulder. The patient states that she has had the symptoms for years but in the last day or so the pain has increased significantly to the point where she is unable to move her arm or her chest area without having severe discomfort. She reports no other significant symptoms or problems aside from the discomfort in the left chest wall / shoulder area. She denies any fevers chills nausea vomiting or diarrhea but does admit that her oral intake is been suboptimal for an extended period time as well. Workup and evaluation emergency room demonstrated the patient to be mildly hypotensive but in no acute distress other than the a for mentioned pain. Physical exam was significant for a very large mass to her left chest wall with associated skin breakdown and superficial infection. Routine blood test demonstrated markedly elevated BUN and creatinine significant for acute kidney injury although her baseline kidney function is not known at at this time. Given these constellation of symptoms and physical exam findings in association with her acute kidney injury, appropriate cultures were obtained, she was started on antibiotics, as well as IV fluids, and admitted to the hospital for further evaluation and therapy. Since her admission, she has been seen by multiple specialities including Hematology/Oncology which seems to confirm that she does indeed have what appears to be metastatic breast cancer, Gastroenterology due to her severe anemia status post EGD and packed red blood cell transfusion, as well as Urology as imaging studies demonstrated evidence of bilateral nephrolithiasis associated with hydronephrosis requiring cystoscopy and bilateral ureteral stent placement. During this time, her kidney function has been slowly improving with all the interventions as mentioned above alth
[2020-11-09 20:00] VITALS: BP 98/47; PULSE 95; RESP 18; TEMP 36.2; O2SAT 98
[2020-11-09 21:24] VITALS: PULSE 96
[2020-11-09] MEDS: METOPROLOL TARTRATE 6.25 MG TABLET PO (21:24)
[2020-11-09] MEDS: APIXABAN 5 MG TABLET PO (21:24)
[2020-11-09] MEDS: SENNOSIDES 8.6 MG TABLET PO (21:25)
[2020-11-10] VITALS (10 sets, daily range): BP systolic 98–132; BP diastolic 49–78; PULSE 90–104; RESP 16–20; TEMP 35.9–36.6; O2SAT 96–99
[2020-11-10 05:40] LABS: Basophils Absolute Auto 0.1 K/mm3 (0.0-0.1); Basophils Percent Auto 0.5 % (0.2-1.2); Eosinophils Absolute Auto 0.4 K/mm3 (0-0.3); Eosinophils Percent Auto 3.9 % (0-4.4); Immature Granulocyte Absolute 0.17 K/mm3 (0.00-0.031); Immature Granulocyte Percent A 1.5 % (0-0.5); Lymphocytes Absolute Auto 1.75 K/mm3 (0.9-3.2); Lymphocytes Percent Auto 15.6 % (18.3-44.2); Mean Corpuscular HGB Conc 33.5 g/dl (32-36); Mean Corpuscular Hemoglobin 31.3 pg (26-34); Mean Corpuscular Volume 93.3 fl (80-100); Mean Platelet Volume 10.7 fl (7.4-10.4); Monocytes Absolute Auto 1.4 K/mm3 (0.1-0.6); Monocytes Percent Auto 12.1 % (2.6-8.5); Neutrophils Absolute Auto 7.4 K/mm3 (1.3-6.7); Neutrophils Percent Auto 66.4 % (45.5-73.1); Nucleated Red Blood Cells Absolute Auto 0.3 K/mm3 (0.0-0.012); Nucleated Red Blood Cells Perc 2.3 % (0.0-0.2); Platelet Count Result 317 k/mm3 (150-375); Red Blood Count 2.08 M/mm3 (4.2-5.4); Red Cell Distribution Width 16.9 % (11.5-14.5); White Blood Count 11.2 K/mm3 (4.5-10.0)
[2020-11-10 06:01] LABS: Hematocrit 19.4 % (37.0-47.0); Hemoglobin 6.5 g/dL (12.0-15.0)
[2020-11-10 06:08] LABS: Anion Gap 8 mmol/L (8-16); Blood Urea Nitrogen 19 mg/dL (7-17); Carbon Dioxide 17 mmol/L (22-30); Chloride 110 mmol/L (98-107); Estimated CRCL calculation 30 ml/min; Estimated Glomerular Filt Rate 33; Glucose 89 mg/dL (65-105); Sodium 135 mmol/L (137-145)
[2020-11-10] MEDS: POLYSACCHARIDE IRON COMPLEX 150 MG CAPSULE PO (09:05)
[2020-11-10] MEDS: METOPROLOL TARTRATE 6.25 MG TABLET PO ×2 (09:05→20:41)
[2020-11-10] MEDS: SODIUM BICARBONATE TAB 650 MG TABLET PO ×2 (09:06→16:01)
[2020-11-10] MEDS: CYANOCOBALAMIN 1,000 MCG TABLET 1000 MCG PO (09:06)
[2020-11-10] MEDS: PANTOPRAZOLE 40 MG TABLET PO ×2 (09:07→20:41)
[2020-11-10] MEDS: POTASSIUM CHLORIDE 20 MEQ TABLET 40 MEQ PO (09:07)
[2020-11-10] MEDS: SODIUM CHLORIDE 0.9% IV 250 ML 30 ML IV CONT (09:07)
[2020-11-10] MEDS: MAGNESIUM SULF 1 GM/D5W 100 ML 1 GM/100 ML BAG IVPB (09:08)
[2020-11-10] MEDS: LETROZOLE (*CHEMO) 2.5 MG TABLET PO (09:09)
[2020-11-10] MEDS: SOD HYPOCHLORITE 1/4 STRENGTH 473 ML 1 APPLIC TOPICAL ×2 (09:09→20:43)
--- NOTE | 2020-11-10 10:25 | PM.IMPN ---
Progress Note: A&P Assessment and Plan (1) Anemia requiring transfusions: Code(s): D64.9 - Anemia, unspecified Status: Acute Assessment and Plan: Today the patient's hemoglobin was 6.5 which is down from 9.0 on admission -she was not symptomatic with this but 1 unit of blood will be transfused and a repeat H&H will be drawn -suspect combination of blood loss anemia and B12 deficiency -earlier in the stay she had gastritis, hematemesis and a small ulcer and is on Protonix b.i.d. -she is no longer having any dark stool, wound site is not bleeding and has some some mild hematuria due to the stents -she is on Eliquis due to AFib and I think at this point this needs to be discontinued at least for the time being. She may be able to get back on it in a couple weeks if the bleeding risk is low and there is benefit to preventing a stroke -I have asked FELICE Mcgraw to notify Urology and GI of the anemia -will monitor overnight for any worsening bleeding and if her hgb is stable in the morning she may discharge. (2) Breast mass: Code(s): N63.0 - Unspecified lump in unspecified breast Status: Acute Assessment and Plan: left axillary breast mass likely combination of cancer with secondary infection -patient wound is improving and WBC finally coming down with Zosyn and vanc -patient has had this abnormality for at least a year in never received treatment. Poor prognosis -continue with oncology'is recommendations (3) Acute kidney injury: Code(s): N17.9 - Acute kidney failure, unspecified Status: Acute Assessment and Plan: Creatinine 4.0 on admission with no past labs to compare to -creatinine better today at 1.5 -likely acute on chronic due to bilateral kidney stones/decreased appetite/dehydration/hypoperfusion due to hypotension/ UTI -she is also on lisinopril 5 mg b.i.d. at home which could be contributing. This has been held -Co2 low likely due to renal failure and have improved with sodium bicarb and cessation of NS. Mental status normal as is the anion gap. -urine culture grew ecoli sensitive to above abx -Pt may have chronic kidney disease, u/s shows renal cortical thinning -Nephrology has been consulted and I appreciate their recommendations on the length of bicarb therapy and follow up. (4) Poor appetite: Code(s): R63.0 - Anorexia Status: Acute Assessment and Plan: Continue supplements at this time and encourage oral feedings (5) Cellulitis of left axilla: Code(s): L03.112 - Cellulitis of left axilla Status: Acute Assessment and Plan: left axillary breast mass with pain and likely infection as stated above -continue vanc + Zosyn (6) Anemia: Code(s): D64.9 - Anemia, unspecified Status: Acute Assessment and Plan: B12 significantly low -She was given B12 IM x3 and then switched to oral daily pills -as above (7) UTI (urinary tract infection): Code(s): N39.0 - Urinary tract infection, site not specified Status: Acute Assessment and Plan: As stated above -continue with zosyn (8) Hyperkalemia: Code(s): E87.5 - Hyperkalemia Status: Acute Assessment and Plan: Resolved -Likely due to renal failure -Monitor (9) Hematemesis: Code(s): K92.0 - Hematemesis Status: Acute Assessment and Plan: due to gastritis and small ulcer seen on EGD 11/06 -Continue PPI, no re-current symptoms (10) Atrial fibrillation: Code(s): I48.91 - Unspecified atrial fibrillation Status: Inactive Assessment and Plan: Paroxysmal with controlled rate -stop Eliquis -not on any home rate-controlling medications and she becomes tachy intermittently. - metoprolol started 11/09/20 and may need at discharge -sees Dr. Petty (11) Bilateral ureteral calculi: Code(s): N20.1 - Calculus of ureter Status: Acute Assessme
--- NOTE | 2020-11-10 10:29 | PC.NURSE ---
Urology and GI have been contacted regarding blood in the patients urine.
--- NOTE | 2020-11-10 12:17 | PM.PNNEP ---
Progress Note: A&P Assessment and Plan (1) Acute kidney injury: Code(s): N17.9 - Acute kidney failure, unspecified Status: Acute Assessment and Plan: multifactorial etiology: - bilateral kidney stones - bilateral hydronephrosis - prerenal factors/volume depletion - hypotension - infection (UTI) - ONUR-I use prior to admission creatinine has been slowly improving renal ultrasound with evidence of CKD (renal cortical thinning present) follow trend of repeat labs and UOP (2) Metastatic breast cancer: Code(s): C50.919 - Malignant neoplasm of unspecified site of unspecified female breast Status: Acute Assessment and Plan: as evidence by physical exam and imaging studies to date Hem/Onc following (3) Cellulitis of female breast: Code(s): N61.0 - Mastitis without abscess Status: Acute Assessment and Plan: on antibiotics likely cause of elevated WBC local wound care (4) UTI (urinary tract infection): Code(s): N39.0 - Urinary tract infection, site not specified Status: Acute Assessment and Plan: E. coli by urine culture on antibiotics (5) Bilateral renal stones: Code(s): N20.0 - Calculus of kidney Status: Acute Assessment and Plan: Urology following s/p bilateral ureteral stenting (6) Anemia: Code(s): D64.9 - Anemia, unspecified Status: Acute Assessment and Plan: due to TAE, CKD, hematuria and underlying malignancy s/p EGD with findings noted as well (GI following) PRBC transfusion per protocol follow trend of H/H Will continue to follow. Subjective Date/time seen: 11/10/20 12:17 Pain issues seem about the same - no worse but no better; no apparent distress voiced at the time; still with on/off hematuria but continues to make reasonable urine output; fluctuating oral intake noted as well; no apparent distress noted. Exam Narrative: Exam Narrative: General: WD/WN female in NAD Heart: normal S1 and S2; no rub Lungs: clear to auscultation Abdomen: soft, nontender, nondistended, positive bowel sounds Extremities: no cyanosis or clubbing; no edema Skin: warm and dry Objective Data Vital Signs Vital Signs: Vital Signs Temp Pulse Resp BP Pulse Ox 11/10/20 12:05 36.6 C 97 16 112/66 98 11/10/20 11:37 36.5 C 90 16 132/78 96 11/10/20 09:05 97 11/10/20 09:00 97 16 113/61 99 11/10/20 06:00 36.2 C L 99 18 98/57 L 97 11/09/20 21:24 96 11/09/20 20:00 36.2 C L 95 18 98/47 L 98 11/09/20 14:10 36.6 C 98 16 105/52 L 99 Intake/Output Intake/Output: Intake & Output 11/07/20 11/08/20 11/09/20 11/10/20 23:59 23:59 23:59 23:59 Intake Total 3340 1350 3080 840 Output Total 2400 1350 875 550 Balance 940 0 2205 290 Meds/Results Medications: Active Medications Generic Name Dose Route Start Last Admin Trade Name Freq PRN Reason Stop Dose Admin Acetaminophen 650 mg 11/04/20 13:36 Acetaminophen 325 Mg Tablet PO Q4H PRN Mild Pain (1-3) or Fever Hydrocodone Bitart/Acetaminophen 1 tab 11/04/20 13:36 11/09/20 15:01 Hydrocodone/Acetaminophen (*Crx) 5-325 Mg Tablet PO 1 tab Q4H PRN Administration Pain Rated 4-6 Cyanocobalamin 1,000 mcg 11/06/20 09:00 11/10/20 09:06 Cyanocobalamin 1,000 Mcg Tablet PO 1,000 mcg QAM TITO Administration Furosemide 20 mg 11/05/20 09:00 11/08/20 09:12 Furosemide 20 Mg Tablet PO Not Given DAILY TITO Vancomycin HCl 1,500 mg in 500 mls @ 333.333 mls/hr 11/08/20 00:00 11/09/20 14:02 Vancomycin 1,500 Mg/D5w 500 Ml IVPB Infused Q36H TITO Infusion Piperacillin Sod/Tazobactam Sod 2.25 gm in 50 mls @ 100 mls/hr 11/07/20 09:00 11/10/20 09:38 Zosyn 2.25 Gm/D5w 50 Ml IVPB Infused Q6H TITO Infusion Lactated Ringer's 1,000 mls @ 100 mls/hr 11/09/20 07:
--- NOTE | 2020-11-10 12:32 | PCPTNOTE ---
The PT treatment was unable to be completed today due to patient receiving blood. Will continue per Plan of Care frequency and duration.
--- NOTE | 2020-11-10 14:08 | WPDUROPN2 ---
Progress Note: A&P Assessment and Plan (1) Bilateral ureteral calculi: Code(s): N20.1 - Calculus of ureter Status: Acute Assessment and Plan: Will address at a later time after more immediate health concerns are addressed. No further evaluation at this time. (2) Bilateral renal stones: Code(s): N20.0 - Calculus of kidney Status: Acute (3) UTI (urinary tract infection): Code(s): N39.0 - Urinary tract infection, site not specified Status: Acute Assessment and Plan: Culture grew E-Coli on 11/04/2020, she was treated with Vancomycin and Zosyn. She denies symptoms of a UTI today, but is having gross hematuria. Will repeat a urine culture to ensure UTI has resolved. (4) Acute kidney injury: Code(s): N17.9 - Acute kidney failure, unspecified Status: Acute Assessment and Plan: Improving greatly since stents were placed, creatinine is now 1.50 down from 4.0 on admission. (5) Gross hematuria: Code(s): R31.0 - Gross hematuria Status: Acute Assessment and Plan: Likely secondary to bilateral stent irritation/recent anticoagulant use. No concerns for this at this time as the blood in the urine is pink. If it should become heavy bleeding with clots, please notify the office. Otherwise this is an expected finding while stents are in place and is likely to continue. She is otherwise tolerating her stents without any problems. Subjective Subjective Date/Time Seen: 11/10/20 14:08 S/P Cystoscopy with bilateral stent placement. The patient is experiencing some worsening gross hematuria noted with urination. She denies dysuria, frequency, urgency, incontinence, clots, flank or abdominal pain. She was restarted on Eliquis recently, but her hemoglobin dropped to 6.5 from 9.0 on admission and she is now needing a blood transfusion, the Eliquis has been stopped. She was treated for a UTI that was noted with a positive urine culture from admission growing E-Coli and was treated with Vancomycin and Zosyn. Review of Systems Cardiovascular: Cardiovascular: Denies chest pain Respiratory: Respiratory: Reports no additional respiratory complaints Gastrointestinal: Gastrointestinal: Reports abdominal pain, Reports nausea and Denies vomiting Genitourinary: Genitourinary: Reports hematuria, Denies nocturia, Denies dysuria, Denies pelvic pain, Denies urinary hesitancy and Denies urinary urgency Exam Resp: Effort & Inspection: normal respiratory effort Cardio: Rate: regular rate GI: GI Palp: Yes Soft to palpation and No Tenderness to palpation present (GI) : General: Yes no CVA tenderness Extrem: General: no edema Objective Data Vital Signs Vital Signs: Vital Signs - 24 hr 11/09/20 14:10 11/09/20 20:00 11/09/20 21:24 Temperature 97.9 F 97.2 F L Pulse Rate 98 95 96 Respiratory Rate 16 18 Blood Pressure 105/52 L 98/47 L Pulse Oximetry 99 98 11/10/20 06:00 11/10/20 09:00 11/10/20 09:05 Temperature 97.2 F L Pulse Rate 99 97 97 Respiratory Rate 18 16 Blood Pressure 98/57 L 113/61 Pulse Oximetry 97 99 11/10/20 11:37 11/10/20 12:05 11/10/20 13:05 Temperature 97.7 F 97.8 F 97.2 F L Pulse Rate 90 97 90 Respiratory Rate 16 16 16 Blood Pressure 132/78 112/66 115/70 Pulse Oximetry 96 98 98 Intake/Output Intake/Output: Intake & Output 11/07/20 11/08/20 11/09/20 11/10/20 23:59 23:59 23:59 23:59 Intake Total 3340 1350 3080 960 Output Total 2400 1350 875 550 Balance 940 0 2205 410 Meds/Results Medications: Active Medications Generic Name Dose Route Start Last Admin Trade Name Freq PRN Reason Stop Dose Admin Acetaminophen 650 mg 11/04/20 13:36 Acetaminophen 325 Mg Tablet PO Q4H PRN Mild Pain (1-3) or Fever Hydrocodone Bitart/Acetaminophen 1 tab 11/04/20 13:36 11/09/20 15:01 Hydrocodone/Acetaminophen (*Crx) 5-325 Mg Tablet PO 1 tab Q4H PRN Administration Pain Rated 4-6 Cyanocobalamin
--- NOTE | 2020-11-10 16:00 | PC.NURSE ---
Left a message at [phone] for Robel for her paperwork that needed to be signed.
[2020-11-10 16:55] LABS: Hematocrit 26.4 % (37.0-47.0)
[2020-11-11 06:05] VITALS: BP 128/66; PULSE 93; RESP 16; TEMP 36.6; O2SAT 97
[2020-11-11 06:42] LABS: Basophils Absolute Auto 0.1 K/mm3 (0.0-0.1); Basophils Percent Auto 0.5 % (0.2-1.2); Eosinophils Absolute Auto 0.5 K/mm3 (0-0.3); Eosinophils Percent Auto 4.9 % (0-4.4); Hematocrit 23.7 % (37.0-47.0); Hemoglobin 8.1 g/dL (12.0-15.0); Immature Granulocyte Absolute 0.16 K/mm3 (0.00-0.031); Immature Granulocyte Percent A 1.4 % (0-0.5); Lymphocytes Absolute Auto 2.07 K/mm3 (0.9-3.2); Lymphocytes Percent Auto 18.7 % (18.3-44.2); Mean Corpuscular HGB Conc 34.2 g/dl (32-36); Mean Corpuscular Volume 90.8 fl (80-100); Mean Platelet Volume 11.1 fl (7.4-10.4); Monocytes Absolute Auto 1.6 K/mm3 (0.1-0.6); Monocytes Percent Auto 14.8 % (2.6-8.5); Neutrophils Absolute Auto 6.6 K/mm3 (1.3-6.7); Neutrophils Percent Auto 59.7 % (45.5-73.1); Nucleated Red Blood Cells Absolute Auto 0.2 K/mm3 (0.0-0.012); Nucleated Red Blood Cells Perc 1.7 % (0.0-0.2); Platelet Count Result 306 k/mm3 (150-375); Red Blood Count 2.61 M/mm3 (4.2-5.4); Red Cell Distribution Width 16.8 % (11.5-14.5); White Blood Count 11.1 K/mm3 (4.5-10.0)
[2020-11-11 06:52] LABS: Anion Gap 6 mmol/L (8-16); Blood Urea Nitrogen 13 mg/dL (7-17); Calcium 7.5 mg/dL (8.4-10.2); Carbon Dioxide 19 mmol/L (22-30); Chloride 111 mmol/L (98-107); Estimated CRCL calculation 30 ml/min; Estimated Glomerular Filt Rate 33; Glucose 91 mg/dL (65-105); Magnesium 1.4 mg/dL (1.6-2.3); Potassium 2.9 mmol/L (3.4-5.0); Sodium 136 mmol/L (137-145)
[2020-11-11 09:00] VITALS: PULSE 101
[2020-11-11] MEDS: POLYSACCHARIDE IRON COMPLEX 150 MG CAPSULE PO (09:00)
[2020-11-11] MEDS: CYANOCOBALAMIN 1,000 MCG TABLET 1000 MCG PO (09:00)
[2020-11-11] MEDS: SODIUM BICARBONATE TAB 650 MG TABLET PO (09:00)
[2020-11-11] MEDS: METOPROLOL TARTRATE 6.25 MG TABLET PO ×2 (09:00→20:35)
[2020-11-11] MEDS: LETROZOLE (*CHEMO) 2.5 MG TABLET PO (09:00)
[2020-11-11] MEDS: PANTOPRAZOLE 40 MG TABLET PO ×2 (09:00→20:35)
[2020-11-11] MEDS: SOD HYPOCHLORITE 1/4 STRENGTH 473 ML 1 APPLIC TOPICAL ×2 (09:02→22:48)
[2020-11-11] MEDS: POTASSIUM CHLORIDE 20 MEQ TABLET 40 MEQ PO (09:36)
[2020-11-11] MEDS: MAGNESIUM SULF 2 GM/WATER 50ML 2 GM/50 ML BAG IVPB (09:42)
--- NOTE | 2020-11-11 11:01 | WPDCDIQUERY2 ---
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 Comment: A breast cancer prognostic panel is underway (addendum report to follow). Based on these findings, the pathologic staging is at least pT1b pNX pMX. Please include pathology findings in progress notes.
--- NOTE | 2020-11-11 12:21 | P.PNNP_ITS ---
Progress Note: A&P Assessment and Plan (1) Acute kidney injury: Code(s): N17.9 - Acute kidney failure, unspecified Status: Acute Assessment and Plan: * multifactorial etiology: - bilateral kidney stones - bilateral hydronephrosis - prerenal factors/volume depletion - hypotension - infection (UTI) - ONUR-I use prior to admission * creatinine has been slowly improving (at baseline??) * renal ultrasound with evidence of CKD (renal cortical thinning present) * replete K+ and magnesium * follow trend of repeat labs and UOP (2) Metastatic breast cancer: Code(s): C50.919 - Malignant neoplasm of unspecified site of unspecified female breast Status: Acute Assessment and Plan: * as evidence by physical exam and imaging studies to date * Hem/Onc following (3) Cellulitis of female breast: Code(s): N61.0 - Mastitis without abscess Status: Acute Assessment and Plan: * on antibiotics * likely cause of elevated WBC * local wound care (4) UTI (urinary tract infection): Code(s): N39.0 - Urinary tract infection, site not specified Status: Acute Assessment and Plan: * E. coli by urine culture * on antibiotics (5) Bilateral renal stones: Code(s): N20.0 - Calculus of kidney Status: Acute Assessment and Plan: * Urology following * s/p bilateral ureteral stenting (6) Anemia: Code(s): D64.9 - Anemia, unspecified Status: Acute Assessment and Plan: * due to TAE, CKD, hematuria and underlying malignancy * s/p EGD with findings noted as well (GI following) * PRBC transfusion yesterday * follow trend of H/H Will continue to follow. Subjective Date/time seen: 11/11/20 12:21 Pain in left chest/shoulder/breast area seems to be doing better today; tolerated PRBC transfusion with appropriate incrementation; no other acute issue/problems voiced at this time; no events overnight or earlier this AM to report; no other complaints conveyed. Exam Narrative: Exam Narrative: General: WD/WN female in NAD Heart: normal S1 and S2; no rub Lungs: clear to auscultation Abdomen: soft, nontender, nondistended, positive bowel sounds Extremities: no cyanosis or clubbing; no edema Skin: warm and intact Objective Data Vital Signs Vital Signs: Vital Signs Temp Pulse Resp BP Pulse Ox 11/11/20 09:00 101 H 11/11/20 06:05 36.6 C 93 16 128/66 97 11/10/20 20:41 90 11/10/20 20:28 36.6 C 104 H 20 130/65 98 11/10/20 15:00 36.1 C L 93 16 126/56 L 97 11/10/20 14:05 35.9 C L 91 16 124/49 L 97 11/10/20 13:05 36.2 C L 90 16 115/70 98 Intake/Output Intake/Output: Intake & Output 11/08/20 11/09/20 11/10/20 11/11/20 23:59 23:59 23:59 23:59 Intake Total 1350 3080 3240 890 Output Total 1350 875 900 400 Balance 0 2205 2340 490 Meds/Results Medications: Active Medications Generic Name Dose Route Start Last Admin Trade Name Freq PRN Reason Stop Dose Admin Acetaminophen 650 mg 11/04/20 13:36 Acetaminophen 325 Mg Tablet PO Q4H PRN Mild Pain (1-3) or Fever Hydrocodone Bitart/Acetaminophen 1 ta
--- NOTE | 2020-11-11 12:21 | PM.PNNEP ---
Progress Note: A&P Assessment and Plan (1) Acute kidney injury: Code(s): N17.9 - Acute kidney failure, unspecified Status: Acute Assessment and Plan: multifactorial etiology: - bilateral kidney stones - bilateral hydronephrosis - prerenal factors/volume depletion - hypotension - infection (UTI) - ONUR-I use prior to admission creatinine has been slowly improving (at baseline??) renal ultrasound with evidence of CKD (renal cortical thinning present) replete K+ and magnesium follow trend of repeat labs and UOP (2) Metastatic breast cancer: Code(s): C50.919 - Malignant neoplasm of unspecified site of unspecified female breast Status: Acute Assessment and Plan: as evidence by physical exam and imaging studies to date Hem/Onc following (3) Cellulitis of female breast: Code(s): N61.0 - Mastitis without abscess Status: Acute Assessment and Plan: on antibiotics likely cause of elevated WBC local wound care (4) UTI (urinary tract infection): Code(s): N39.0 - Urinary tract infection, site not specified Status: Acute Assessment and Plan: E. coli by urine culture on antibiotics (5) Bilateral renal stones: Code(s): N20.0 - Calculus of kidney Status: Acute Assessment and Plan: Urology following s/p bilateral ureteral stenting (6) Anemia: Code(s): D64.9 - Anemia, unspecified Status: Acute Assessment and Plan: due to ATE, CKD, hematuria and underlying malignancy s/p EGD with findings noted as well (GI following) PRBC transfusion yesterday follow trend of H/H Will continue to follow. Subjective Date/time seen: 11/11/20 12:21 Pain in left chest/shoulder/breast area seems to be doing better today; tolerated PRBC transfusion with appropriate incrementation; no other acute issue/problems voiced at this time; no events overnight or earlier this AM to report; no other complaints conveyed. Exam Narrative: Exam Narrative: General: WD/WN female in NAD Heart: normal S1 and S2; no rub Lungs: clear to auscultation Abdomen: soft, nontender, nondistended, positive bowel sounds Extremities: no cyanosis or clubbing; no edema Skin: warm and intact Objective Data Vital Signs Vital Signs: Vital Signs Temp Pulse Resp BP Pulse Ox 11/11/20 09:00 101 H 11/11/20 06:05 36.6 C 93 16 128/66 97 11/10/20 20:41 90 11/10/20 20:28 36.6 C 104 H 20 130/65 98 11/10/20 15:00 36.1 C L 93 16 126/56 L 97 11/10/20 14:05 35.9 C L 91 16 124/49 L 97 11/10/20 13:05 36.2 C L 90 16 115/70 98 Intake/Output Intake/Output: Intake & Output 11/08/20 11/09/20 11/10/20 11/11/20 23:59 23:59 23:59 23:59 Intake Total 1350 3080 3240 890 Output Total 1350 875 900 400 Balance 0 2205 2340 490 Meds/Results Medications: Active Medications Generic Name Dose Route Start Last Admin Trade Name Freq PRN Reason Stop Dose Admin Acetaminophen 650 mg 11/04/20 13:36 Acetaminophen 325 Mg Tablet PO Q4H PRN Mild Pain (1-3) or Fever Hydrocodone Bitart/Acetaminophen 1 tab 11/04/20 13:36 11/09/20 15:01 Hydrocodone/Acetaminophen (*Crx) 5-325 Mg Tablet PO 1 tab Q4H PRN Administration Pain Rated 4-6 Cyanocobalamin 1,000 mcg 11/06/20 09:00 11/11/20 09:00 Cyanocobalamin 1,000 Mcg Tablet PO 1,000 mcg QAM TITO Administration Furosemide 20 mg 11/05/20 09:00 11/08/20 09:12 Furosemide 20 Mg Tablet PO Not Given DAILY TITO Vancomycin HCl 1,500 mg in 500 mls @ 333.333 mls/hr 11/08/20 00:00 11/11/20 00:59 Vancomycin 1,500 Mg/D5w 500 Ml IVPB Infused Q36H TITO Infusion Piperacillin Sod/Tazobactam Sod 2.25 gm in 50 mls @ 100 mls/hr 11/07/20 09:00 11/11/20 09:35 Zosyn 2.25 Gm/D5w 50 Ml IVPB Infused Q6H TITO Infusion Potassium Chloride
[2020-11-11 14:31] VITALS: BP 111/61; PULSE 92; RESP 16; TEMP 37.5; O2SAT 98
[2020-11-11 16:30] LABS: Anion Gap 5 mmol/L (8-16); Blood Urea Nitrogen 11 mg/dL (7-17); Calcium 7.5 mg/dL (8.4-10.2); Carbon Dioxide 18 mmol/L (22-30); Chloride 110 mmol/L (98-107); Estimated CRCL calculation 30 ml/min; Estimated Glomerular Filt Rate 33; Glucose 111 mg/dL (65-105); Magnesium 1.9 mg/dL (1.6-2.3); Potassium 3.7 mmol/L (3.4-5.0); Sodium 133 mmol/L (137-145)
--- NOTE | 2020-11-11 17:19 | P.PNIM_ITS ---
Progress Note: A&P Assessment and Plan (1) Anemia requiring transfusions: Code(s): D64.9 - Anemia, unspecified Status: Acute Assessment and Plan: * Hgb dropped yesterday, received 1 unit packed RBC. H&H low but stable today. * Suspect acute blood loss anemia on chronic anemia. Continue B-12 supplementation. * Earlier in stay she had gastritis, hematemesis and a small ulcer; maintained on BID PPI. * No longer having dark stools. Wound not bleeding. Some mild hematuria from stent placement. * Eliquis held - She is on Eliquis due to AFib. She may be able to get back on it in a couple weeks if the bleeding risk is low and there is benefit to preventing a stroke * Monitor CBC. (2) Breast mass: Code(s): N63.0 - Unspecified lump in unspecified breast Status: Acute Assessment and Plan: * Left axillary breast mass likely combination of cancer with secondary infection. * Wound and leukocytosis improving with abx. Continue vanc + Zosyn (day 5). * L breast biopsy - invasive ductal carcinoma -- Unsure if pathology results have been discussed with patient; will discuss these with her tomorrow with plan to follow up with Dr Reese and Dr Gutierrez outpatient for further discussion on care plan. (3) Acute kidney injury: Code(s): N17.9 - Acute kidney failure, unspecified Status: Acute Assessment and Plan: * Creatinine 4.0 on admission with no past labs to compare to, now improved. * Suspect acute on chronic due to bilateral kidney stones/decreased appetite/dehydration/hypoperfusion due to hypotension/ UTI. * Hold lisinopril. * Maintained on sodium bicarb; appreciate nephrology recommendations. (4) Poor appetite: Code(s): R63.0 - Anorexia Status: Acute Assessment and Plan: * Continue supplements at this time and encourage oral feedings (5) Cellulitis of left axilla: Code(s): L03.112 - Cellulitis of left axilla Status: Acute Assessment and Plan: * Left axillary breast mass with pain and likely infection as stated above * Continue vanc + Zosyn (6) UTI (urinary tract infection): Code(s): N39.0 - Urinary tract infection, site not specified Status: Acute Assessment and Plan: * Urine culture grew E coli. Abx as above. Blood cultures are negative. (7) Hematemesis: Code(s): K92.0 - Hematemesis Status: Resolved Assessment and Plan: * Resolved. due to gastritis and small ulcer seen on EGD 11/06 * Continue PPI, no recurrent symptoms (8) Atrial fibrillation: Code(s): I48.91 - Unspecified atrial fibrillation Status: Inactive Assessment and Plan: * Paroxysmal with controlled rate, stop Eliquis - see above. * Not on any home rate-controlling medications and she becomes tachy intermittently. * Metoprolol started 11/09/20 and may need at discharge. Sees Dr. Petty (9) Bilateral ureteral calculi: Code(s): N20.1 - Calculus of ureter Status: Acute Assessment and Plan: * S/P bilateral stents 11/05/20 and may need ESWL in the future. * Pt having some mild hematuria. Follow up with urology outpatient. (10) Gastritis: Code(s): K29.70 - Gastr
--- NOTE | 2020-11-11 17:19 | PM.IMPN ---
Progress Note: A&P Assessment and Plan (1) Anemia requiring transfusions: Code(s): D64.9 - Anemia, unspecified Status: Acute Assessment and Plan: Hgb dropped yesterday, received 1 unit packed RBC. H&H low but stable today. Suspect acute blood loss anemia on chronic anemia. Continue B-12 supplementation. Earlier in stay she had gastritis, hematemesis and a small ulcer; maintained on BID PPI. No longer having dark stools. Wound not bleeding. Some mild hematuria from stent placement. Eliquis held - She is on Eliquis due to AFib. She may be able to get back on it in a couple weeks if the bleeding risk is low and there is benefit to preventing a stroke Monitor CBC. (2) Breast mass: Code(s): N63.0 - Unspecified lump in unspecified breast Status: Acute Assessment and Plan: Left axillary breast mass likely combination of cancer with secondary infection. Wound and leukocytosis improving with abx. Continue vanc + Zosyn (day 5). L breast biopsy - invasive ductal carcinoma -- Unsure if pathology results have been discussed with patient; will discuss these with her tomorrow with plan to follow up with Dr Reese and Dr Gutierrez outpatient for further discussion on care plan. (3) Acute kidney injury: Code(s): N17.9 - Acute kidney failure, unspecified Status: Acute Assessment and Plan: Creatinine 4.0 on admission with no past labs to compare to, now improved. Suspect acute on chronic due to bilateral kidney stones/decreased appetite/dehydration/hypoperfusion due to hypotension/ UTI. Hold lisinopril. Maintained on sodium bicarb; appreciate nephrology recommendations. (4) Poor appetite: Code(s): R63.0 - Anorexia Status: Acute Assessment and Plan: Continue supplements at this time and encourage oral feedings (5) Cellulitis of left axilla: Code(s): L03.112 - Cellulitis of left axilla Status: Acute Assessment and Plan: Left axillary breast mass with pain and likely infection as stated above Continue vanc + Zosyn (6) UTI (urinary tract infection): Code(s): N39.0 - Urinary tract infection, site not specified Status: Acute Assessment and Plan: Urine culture grew E coli. Abx as above. Blood cultures are negative. (7) Hematemesis: Code(s): K92.0 - Hematemesis Status: Resolved Assessment and Plan: Resolved. due to gastritis and small ulcer seen on EGD 11/06 Continue PPI, no recurrent symptoms (8) Atrial fibrillation: Code(s): I48.91 - Unspecified atrial fibrillation Status: Inactive Assessment and Plan: Paroxysmal with controlled rate, stop Eliquis - see above. Not on any home rate-controlling medications and she becomes tachy intermittently. Metoprolol started 11/09/20 and may need at discharge. Sees Dr. Petty (9) Bilateral ureteral calculi: Code(s): N20.1 - Calculus of ureter Status: Acute Assessment and Plan: S/P bilateral stents 11/05/20 and may need ESWL in the future. Pt having some mild hematuria. Follow up with urology outpatient. (10) Gastritis: Code(s): K29.70 - Gastritis, unspecified, without bleeding Status: Acute Assessment and Plan: Continue PPI as above Subjective Date/time seen: 11/11/20 1645 Interval history: Ms. Lerner is a 80yo F admitted for left breast mass with pain and suspected cellulitis. She reports feeling pretty well today and tells me the pain to her left breast is somewhat improved. She
[2020-11-11 20:32] VITALS: BP 128/67; PULSE 95; RESP 17; TEMP 36.4; O2SAT 97
[2020-11-11 20:35] VITALS: PULSE 92
[2020-11-11] MEDS: MAGNESIUM OXIDE 200 MG TABLET PO (20:35)
[2020-11-12 05:39] VITALS: BP 136/75; PULSE 95; RESP 18; TEMP 36.4; O2SAT 97
[2020-11-12 06:27] LABS: Basophils Absolute Auto 0.1 K/mm3 (0.0-0.1); Basophils Percent Auto 0.5 % (0.2-1.2); Eosinophils Absolute Auto 0.6 K/mm3 (0-0.3); Eosinophils Percent Auto 5.2 % (0-4.4); Hematocrit 23.7 % (37.0-47.0); Hemoglobin 8.1 g/dL (12.0-15.0); Immature Granulocyte Absolute 0.17 K/mm3 (0.00-0.031); Immature Granulocyte Percent A 1.5 % (0-0.5); Lymphocytes Absolute Auto 1.74 K/mm3 (0.9-3.2); Lymphocytes Percent Auto 15.2 % (18.3-44.2); Mean Corpuscular HGB Conc 34.2 g/dl (32-36); Mean Corpuscular Hemoglobin 31.3 pg (26-34); Mean Corpuscular Volume 91.5 fl (80-100); Mean Platelet Volume 11.1 fl (7.4-10.4); Monocytes Absolute Auto 1.7 K/mm3 (0.1-0.6); Monocytes Percent Auto 15.1 % (2.6-8.5); Neutrophils Absolute Auto 7.2 K/mm3 (1.3-6.7); Neutrophils Percent Auto 62.5 % (45.5-73.1); Nucleated Red Blood Cells Absolute Auto 0.1 K/mm3 (0.0-0.012); Platelet Count Result 320 k/mm3 (150-375); Red Blood Count 2.59 M/mm3 (4.2-5.4); Red Cell Distribution Width 16.9 % (11.5-14.5); White Blood Count 11.5 K/mm3 (4.5-10.0)
[2020-11-12 07:02] LABS: Alanine Aminotransferase 7 U/L (4-35); Albumin Level 2.4 g/dL (3.5-5.1); Alkaline Phosphatase 94 U/L (38-126); Anion Gap 4 mmol/L (8-16); Aspartate Amino Transferase 15 U/L (14-36); Bilirubin,Total 0.4 mg/dL (0.2-1.3); Blood Urea Nitrogen 9 mg/dL (7-17); Calcium 7.8 mg/dL (8.4-10.2); Carbon Dioxide 21 mmol/L (22-30); Chloride 111 mmol/L (98-107); Estimated CRCL calculation 30 ml/min; Estimated Glomerular Filt Rate 33; Glucose 95 mg/dL (65-105); Magnesium 1.7 mg/dL (1.6-2.3); Potassium 3.5 mmol/L (3.4-5.0); Sodium 136 mmol/L (137-145)
[2020-11-12 08:29] VITALS: PULSE 92
[2020-11-12] MEDS: PANTOPRAZOLE 40 MG TABLET PO (08:29)
[2020-11-12] MEDS: LETROZOLE (*CHEMO) 2.5 MG TABLET PO (08:29)
[2020-11-12] MEDS: METOPROLOL TARTRATE 6.25 MG TABLET PO (08:29)
[2020-11-12] MEDS: POLYSACCHARIDE IRON COMPLEX 150 MG CAPSULE PO (08:29)
[2020-11-12] MEDS: CYANOCOBALAMIN 1,000 MCG TABLET 1000 MCG PO (08:29)
[2020-11-12] MEDS: MAGNESIUM OXIDE 200 MG TABLET PO (08:29)
[2020-11-12] MEDS: SOD HYPOCHLORITE 1/4 STRENGTH 473 ML 1 APPLIC TOPICAL (08:29)
[2020-11-12] MEDS: SODIUM BICARBONATE TAB 650 MG TABLET PO (08:30)
[2020-11-12 11:52] LABS: Vancomycin Trough 15.7 ug/mL (10.0-20.0)
[2020-11-12 13:34] VITALS: BMI 37.9
--- NOTE | 2020-11-12 14:15 | PCNSR ---
On 11/12/20, the student,Nisha Chu, provided care and completed [facility] documentation on this patient. I have reviewed the student's documentation and agree with the findings.
--- NOTE | 2020-11-12 14:19 | PM.DS ---
DS: Admitting Diagnosis Admitting Diagnosis Admitting Diagnosis: Left breast mass with cellulitis, TAE DS: Discharge Diagnosis Discharge Diagnosis (1) Anemia requiring transfusions: Code(s): D64.9 - Anemia, unspecified Status: Acute Assessment and Plan: Date of Admission 11/04/20 Date of Discharge/DOS 11/12/20 Ms. Lerner is a very pleasant 80yo F with history of paroxysmal atrial fibrillation on long-term anticoagulation with Eliquis who presented to the ED for evaluation of left armpit/ left breast pain. She described she has known she has had a left breast mass, growing in size with the deformation of the left breast and nipple for around 3 years, had not seen any doctors for evaluation. She described she knew it was probably cancer. Over the last several weeks prior to arrival, she describes worsening pain to that left armpit area that was now developing redness, warmth, and some foul drainage. The pain became so intense that she could not even lift her left arm and family activated EMS. Imaging on arrival with CT chest, abdomen, pelvis demonstrated a > 7 cm invasive lateral left breast mass, with skin invasion, pectoralis major and minor and left chest wall invasion with probable osteosclerotic metastatic disease. Imaging did also demonstrate bilateral obstructing proximal ureteral calculi and moderate bilateral hydronephrosis, bilateral nephrolithiasis. Oncology was consulted for the left breast mass. Urology was consulted for the obstructing kidney stones and she underwent ureteral stent placement on 11/05/[address] Payne. She was evaluated by Dr. Reese, oncology, and underwent ultrasound-guided left breast biopsy 11/05/20 and 4 core samples were obtained through the lesion. She also had nuclear medicine bone scan that same day which demonstrated no suspicious foci of increased bone uptake on the bone scan to suggest metastatic disease although there are sclerotic lesions at T5 and T8 that both remain suspicious for metastasis by CT appearance. Pathology from the left breast biopsy demonstrated moderately differentiated invasive ductal carcinoma with probable lymphovascular invasion in all 4 cores, please see full pathology report for details. She was also evaluated by Dr. Gutierrez, radiation oncology, early in the stay, who recommended follow-up with him for durable palliation of her pain, a 4-week course of radiotherapy as an outpatient after she is discharged hospital. Prognosis has been discussed with patient and family at bedside. She had anemia with significantly low B12 levels and developed hematemesis, thus she was evaluated by Gastroenterology, Dr. Paredes, and underwent EGD on 11/06/2020. EGD demonstrated moderate erosive gastritis and she was started on Protonix BID. Started on B12 supplementation. Her home Eliquis which she takes for paroxysmal AFib was held due to profound anemia, as her Hgb dropped below 7 prior to discharge requiring 1 unit packed RBC transfusion. Recommend that she continue to hold her Eliquis and monitor for further bleeding at home, follow-up with her program paraprofessional Dr. Petty. She was also started on oral metoprolol due to some transient elevated heart rates with AFib. She was treated with broad-spectrum antibiotic therapy with IV vancomycin and Zosyn for the cellulitis overlying her left breast mass and was evaluated by optometry assistant. She was also found to have an E coli UTI which was sensitive to the IV antibiotic therapy mentioned above. She was educated on continuing daily dressing changes and was discharged with oral antibiotics to complete the course. Potassium and magnesium low and replaced. Despite the series of unfortunate events described above, the patient remains in good spirits and has been feeling well prior to discharge. Pain is improved and she has had no further nausea or vomiting. She is hemodynamically stable for discharge on 11/12/2020 with orders for outpatient labs to monitor
== END 2020-11-12 17:20 | disposition home or self-care (01) | DRG 987 ==
LOC: ANHED 11:40 → ANH3MED 14:01
PROVIDERS: Internal Medicine Gastroenterology; Internal Medicine Hematology & Oncology; Nurse Practitioner; Physician Assistant; Urology; Admitting Provider Internal Medicine; Emergency Provider Emergency Medicine; Visit Provider Physician Assistant
PROC: 0T788DZ Dilation of Bilateral Ureters with Intraluminal Device, Via Natural or Artificial Opening Endoscopic (ICD-10-PCS; CPT 52352; principal; 2020-11-05 16:15)
PROC: 0DJ08ZZ Inspection of Upper Intestinal Tract, Via Natural or Artificial Opening Endoscopic (ICD-10-PCS; CPT 43235; principal; 2020-11-06 12:30)
DX: C50.912 Malignant neoplasm of unspecified site of left female breast (principal); K26.4 Chronic or unspecified duodenal ulcer with hemorrhage; K29.71 Gastritis, unspecified, with bleeding; N17.9 Acute kidney failure, unspecified; L03.112 Cellulitis of left axilla; N13.6 Pyonephrosis; D62 Acute posthemorrhagic anemia; C79.89 Secondary malignant neoplasm of other specified sites; R31.0 Gross hematuria; B96.20 Unspecified Escherichia coli [E. coli] as the cause of diseases classified elsewhere; K44.9 Diaphragmatic hernia without obstruction or gangrene; I48.0 Paroxysmal atrial fibrillation; E87.5 Hyperkalemia; E53.8 Deficiency of other specified B group vitamins; E86.0 Dehydration; R63.0 Anorexia; E83.42 Hypomagnesemia; E87.6 Hypokalemia; F17.210 Nicotine dependence, cigarettes, uncomplicated; Z79.01 Long term (current) use of anticoagulants; Z79.899 Other long term (current) drug therapy; Z88.8 Allergy status to other drugs, medicaments and biological substances
CPT/HCPCS: 19083; 36415; 36430; 51701; 71046; 71250; 74176; 74420; 76775; 78306; 80048; 80053; 80069; 80076; 80202; 81001; 82607; 82728; 83540; 83550; 83735; 84132; 84439; 84443; 84480; 85014; 85018; 85025; 85610; 85730; 86300; 86850; 86900; 86901; 86920; 87040; 87077; 87081; 87086; 87088; 87186; 88305; 88342; 93005; 96361; 96365; 96372; 96375; 96376; 97110; 97116; 97161; 97165; 97530; 97535; 99285; A4648; A9270; A9561; C1758; C1769; C1887; C2617; C9113; G0378; J0744; J1100; J2270; J2370; J2405; J2543; J2704; J3010; J3370; J3420; J3475; J3480; J7030; J7040; J7050; J7120; P9016; Q9966

== ENCOUNTER 2020-12-30 16:30 | Outpatient (CLI) | payer MEDICARE, SELFPAY ==
--- NOTE | ~2020-12-30 | MM_ITS ---
EXAMINATION: MM diagnostic jorge luis RT w hilda HISTORY: Patient with new diagnosis of left breast cancer but no current right breast imaging. TECHNIQUE: Craniocaudal, mediolateral, and mediolateral oblique 3-D tomosynthesis images of the right breast were performed and synthetic 2-D images were generated. CAD analysis was submitted and interp reted. COMPARISON: No prior mammograms currently available for comparison BREAST PARENCHYMAL COMPOSITION: There are scattered areas of fibroglandular density. FINDINGS: There is a 3 mm mass in the middle/posterior third of the breast at the 5:00 location 4 cm from the nipple. Scattered benign-appearing calcifications are present. IMPRESSION: 1. Right breast mass. 2. Targeted right breast ultrasound is recommended. BI-RADS Category 0: Incomplete: Needs additional imaging evaluation. Reviewed, dictated and finalized at location A.
== END 2020-12-30 16:31 | disposition home or self-care (01) ==
LOC: ANHIMG 16:31
PROVIDERS: PCP Internal Medicine; Visit Provider Surgery
DX: C50.912 Malignant neoplasm of unspecified site of left female breast (principal); R92.8 Other abnormal and inconclusive findings on diagnostic imaging of breast
CPT/HCPCS: 77061; 77065; G0279

== ENCOUNTER 2021-01-12 12:23 | Outpatient (CLI) | payer MEDICARE, SELFPAY ==
--- NOTE | ~2021-01-12 | US_ITS ---
US breast RT limited DATE: 01/12/2021 13:01 INDICATION: 3 mm mass reported in middle/posterior third of right breast at 5:00 location 4 cm from n ipple on 12/30/2020 diagnostic right mammogram examination TECHNIQUE: High-resolution ultrasound imaging targeted at 5:00 COMPARISON: 12/30/2020 diagnostic right mammogram FINDINGS: Right breast 11:00 2 cm from nipple: 2.8 x 2.5 mm hypoechoic lesion is noted without internet sourcer al vascularity or posterior shadowing. IMPRESSION: BI-RADS Category 3: Probably benign Recommendation: 6 month diagnostic right mammogram and right breast ultrasound follow-up Reviewed, dictated and finalized at Location A. Reviewed, dictated and finalized at location A.
== END 2021-01-12 12:24 | disposition home or self-care (01) ==
LOC: ANHIMG 12:26
PROVIDERS: PCP Internal Medicine; Visit Provider Radiology Radiation Oncology
DX: R92.8 Other abnormal and inconclusive findings on diagnostic imaging of breast (principal)
CPT/HCPCS: 76642

== ENCOUNTER 2021-01-15 09:16 | Outpatient (CLI) | payer MEDICARE, SELFPAY ==
--- NOTE | ~2021-01-15 | XR_ITS ---
EXAMINATION: XR abdomen/kub 1V INDICATION: Bilateral kidney stones TECHNIQUE: Supine views of the abdomen were obtained on 2 radiographs. COMPARISON: CT, 11/04/2020 FINDINGS: There are bilateral internal ureteral stents in expected position. A stone previously descr ibed in the right renal pelvis is not definitely identified. There is a 12 mm stone adjacent to the p roximal aspect of the internal ureteral stent. A 2.4 cm stone is seen in the left kidney lower pole. Densities projecting along the mid aspect of the right internal ureteral stent at the level of the L4 vertebral body may reflect previously described ureteral stone. There are phleboliths of the pelvis. Surgical changes are present in the left upper quadrant. IMPRESSION: 1. Bilateral internal ureteral stents in expected position. 2. Stones in the left kidney lower pole and adjacent to the proximal aspect of the left internal uret eral stent. 3. Possible stone adjacent to the mid right internal ureteral stent. Reviewed, dictated and finalized at location B. IMPRESSION: 1. Bilateral internal ureteral stents in expected position. 2. Stones in the left kidney lower pole and adjacent to the proximal aspect of the left internal ureteral stent. 3. Possible stone adjacent to the mid right internal ureteral stent.
== END 2021-01-15 09:17 | disposition home or self-care (01) ==
LOC: ANHIMG 09:20
PROVIDERS: PCP Internal Medicine; Visit Provider Urology
DX: N20.2 Calculus of kidney with calculus of ureter (principal)
CPT/HCPCS: 74018

== ENCOUNTER 2021-03-01 12:17 | Inpatient (IN) | payer MEDICARE, MEDICAID, SELFPAY ==
[2021-03-01] VITALS (11 sets, daily range): BP systolic 100–105; BP diastolic 51–73; PULSE 90–118; RESP 18–27; TEMP 35.8–36.3; O2SAT 97–100; BMI 26.8
--- NOTE | ~2021-03-01 | XR_ITS ---
EXAMINATION: XR retrograde pyelo w/stent BI EXAM DATE: 03/05/2021 10:01 INDICATION: Bilateral retrograde, stent exchange. TECHNIQUE: Fluoroscopy used during XR retrograde pyelo w/stent BI performed by Dr. Petar Payne MD, urologist. The radiologist Smooth Kiser M.D. dictating this report of the image(s) available wa s not present for the procedure. Total fluoroscopic time of 80 seconds. The DAP for this procedure was 882 radcm2. A total of 63 images sent to PACS from the exam. Cine run(s) available for review. FINDINGS: Pbx Mechanic images demonstrates bilateral ureteral stents and approximately 10 mm stone projecti ng over the left UPJ. Left ureter was then injected. Mild to moderate left hydronephrosis demonstrate d. Right ureter was then injected. There is moderate right hydroureteronephrosis, with several mid ur eteral filling defects consistent with stones also measuring up to about 10 mm. Reportedly both of th e ureteral stents were exchanged. Correlate with procedure note. IMPRESSION: Bilateral hydronephrosis, right ureteral and left UPJ stones. Stents in position. Reviewed, dictated and finalized at location A. IMPRESSION: Bilateral hydronephrosis, right ureteral and left UPJ stones. Stent s in position.
--- NOTE | ~2021-03-01 | US_ITS ---
EXAMINATION: US retroperitoneal comp EXAM DATE: 03/08/2021 17:33 INDICATION: Renal failure. TECHNIQUE: Multiple grayscale and Doppler images of the kidneys were obtained (by a technologist who performed the scan) and subsequently reviewed. The technologist stated she [facility]. Comparison is made to prior examination from 11/09/2020. Correlation was made wit h CT abdomen pelvis 03/04/2021. FINDINGS: Rather large echogenic fatty lynn, evidence of renal cortical thinning. Similar appearance on prior study. Right kidney: There is normal contour and echogenicity. It measures 9.7 x 4.1 x 5.8 centimeters. There is artifact likely being caused by the right ureteral stent proximal loop. There is no hydron ephrosis. Left kidney: There is normal contour and echogenicity. It measures 9.7 x 5.1 x 5.7 centimeters. Ther e is artifact likely being caused by the right ureteral stent proximal loop. There is no hydronephr osis. Distal ends of the ureteral stents identified. Bladder unremarkable. IMPRESSION: 1. Resolution of previously seen bilateral hydronephrosis. 2. Bilateral renal cortical thinning, atrophy. 3. Stents suspected to be in position. Reviewed, dictated and finalized at location A.
--- NOTE | ~2021-03-01 | US_ITS ---
EXAMINATION: US abdomen limited DATE: 03/12/2021 10:04 INDICATION: Left hepatic lobe hypodensity on prior CT. TECHNIQUE: Multiple grayscale and Doppler ultrasound images of the liver were obtained. COMPARISON: None FINDINGS: Liver has normal echogenicity and contour, with a smooth surface. The subcapsular lesion of concern i dentified on CT and the lateral segment left hepatic lobe is identified on ultrasound as a 1.5 x 1.4 x 0.7 cm solid hyperechoic nodule. No other hepatic lesions identified. Specifically no cystic lesion s to suggest hepatic abscess. No intrahepatic biliary duct dilation suspected. Portal venous flow was seen in the hepatopetal, normal direction and has normal Doppler waveform. IMPRESSION: 1. 1.5 cm solid hyperechoic nodule which demonstrated fluid attenuation on prior CT suggesting consis tent with a lipid component consistent with either hemangioma or focal hepatic steatosis, the former being statistically the more likely. Reviewed, dictated and finalized at location A. IMPRESSION: 1. 1.5 cm solid hyperechoic nodule which demonstrated fluid attenuation on prio r CT suggesting consistent with a lipid component consistent with either marianne ioma or focal hepatic steatosis, the former being statistically the more likely .
--- NOTE | ~2021-03-01 | CT_ITS ---
EXAMINATION: CT abdomen pelvis wo con EXAM DATE: 03/04/2021 08:47 INDICATION: TAE, history of nephrolithiasis. Splenectomy. Left breast cancer. TECHNIQUE: Spiral CT of the abdomen and pelvis was performed without contrast. Axial, coronal and s agittal images of the abdomen and pelvis were reviewed. The dose-length product (DLP) for this exami nation was 785.82 mGy-cm. The exposure was tailored according to patient size (auto mA exposure cont rol), and iterative reconstruction (ASIR) was used as additional dose reduction technique. Comparison is made to prior examination from 11/04/2020. FINDINGS: Triangular shaped left liver lobe lateral segment which measure 1.5 cm, not identified on p rior study, indeterminate for metastatic disease. Splenule. The adrenal glands and pancreas are unrem arkable. Gallbladder is unremarkable. No biliary obstruction. Bilateral double-J ureteral stents are in position. There is moderate right, mild to moderate left hy dronephrosis. Sizable left inferior calyceal stones and a stone at the ureteropelvic junction. There is a right mid ureteral stone measuring about 1 cm. The uterus is unremarkable. Mild pericystic in flammation. There is no retroperitoneal or pelvic lymphadenopathy. There is moderate scattered art eriosclerotic disease. The appendix is not positively visualized. There is no pericecal inflammatory change to suggest appe ndicitis. The stomach and small bowel are unremarkable. There is expected amount of colonic stool. No free intraperitoneal gas. Interval decrease in size of spiculated left breast mass from about 7 cm to about 4 cm, with skin ret raction. Heart is normal in size. There are small bilateral pleural effusions. Dependent subsegmenta l atelectasis and mild basilar emphysema. The lung bases are unremarkable. Mild lumbar levoscoliosi s. IMPRESSION: 1. Moderate right, mild to moderate left hydronephrosis. Bilateral stents in position. 2. Left calyceal, UPJ stones. Right mid ureteral stone. 3. New triangular-shaped left liver lobe hypodensity, indeterminate. 4. Small pericardial effusions. Dependent subsegmental atelectasis. 5. Decrease in size of left breast cancer. Reviewed, dictated and finalized at location B. IMPRESSION: 1. Moderate right, mild to moderate left hydronephrosis. Bilateral stents in p osition. 2. Left calyceal, UPJ stones. Right mid ureteral stone. 3. New triangular-shaped left liver lobe hypodensity, indeterminate. 4. Small pericardial effusions. Dependent subsegmental atelectasis. 5. Decrease in size of left breast cancer.
--- NOTE | 2021-03-01 12:43 | ECG_ITS ---
Measurements Intervals [place] Rate: 112 P: RI: 0 QRS: 7 QRSD: 87 T: 172 QT: 335 QTc: 458 Interpretive Statements ATRIAL FIBRILLATION WITH RAPID VENTRICULAR RESPONSE VENTRICULAR PREMATURE COMPLEX INCOMPLETE RIGHT BUNDLE BRANCH BLOCK ST-T WAVE ABNORMALITY IN ANTEROLAT/HIGH LAT LEADS- CONSIDER ISCHEMIA BASELINE WANDER- V1 ABNORMAL ECG Electronically Signed On 03-01-2021 13:02:33 CDT by Jesus Roberson D.O.
--- NOTE | 2021-03-01 13:14 | ED.GENADULT ---
HPI - General Adult General Chief complaint: Weakness Stated complaint: WEAKNESS,DIZZINESS Time Seen by Provider: 03/01/21 12:31 Source: patient History of Present Illness HPI narrative: Patient is a 80 y/o female complaining of moderate dizziness and weakness for last 2 weeks. She describes her dizziness as a light-headedness. She has no room spinning sensation and did not pass out. She has no appetite. There is no known alleviating or exacerbating factor. She has no pain. She is usually able to ambulate with a walker and she is still able to do that currently. She states that she is receiving chemo for breast cancer. Related Data Home Medications Medication Instructions Recorded Confirmed Eliquis 5 mg PO DAILY 11/04/20 01/20/21 furosemide 20 mg PO DAILY 11/04/20 01/20/21 Allergies Allergy/AdvReac Type Severity Reaction Status Date / Time ibuprofen Allergy Mild HIVES Verified 03/01/21 12:41 Review of Systems Constitutional: Constitutional: Reports anorexia, Denies chills, Denies fever(s), Denies headache(s), Reports lethargy, Reports malaise and Reports weakness Eyes: Eyes: Denies blurry vision ENT: Denies headache(s) and Denies neck pain Cardiovascular: Cardiovascular: Denies chest pain and Denies dyspnea Respiratory: Respiratory: Denies cough and Denies dyspnea Gastrointestinal: Gastrointestinal: Denies abdominal pain, Denies diarrhea, Denies nausea and Denies vomiting Genitourinary: Genitourinary: Denies hematuria and Denies dysuria Musculoskeletal: Musculoskeletal: Denies back pain and Denies neck pain Neurologic: Reports dizziness, Denies headache(s) and Reports weakness [facility] Past Medical History Medical History Atrial fibrillation Inverted nipple Nausea and vomiting in adult Surgical History Surgical History H/O splenectomy History of colonoscopy removal of polyps Family History Family History Father Lung cancer Social History Social History Social History: History of tobacco abuse Smoking packs per day: 1 Smoking cigarettes per day: 20.0 Years smoked: 50 Smoking pack-years: 50.00 Smoking status: Former smoker Tobacco type: cigarettes Additional smoking assessment comments: was down to less than a half pack Alcohol intake: never Substance use: never Gender identity (if verbalized by the patient): Female Spiritual care concerns: No Exam Const: General: no acute distress and well developed Orientation/consciousness: oriented to person, oriented to place and oriented to time HENMT: Head: normocephalic Ears: external ears normal General nose exam: Normal external nose present Eyes: General: appearance normal, both eyes and all related structures Conjunctivae: conjunctivae normal Neck: Neck: normal visual inspection and full ROM Chest: Chest palpation & inspection: normal inspection of the chest and no tenderness Resp: Effort & Inspection: normal respiratory effort Auscultation: clear to auscultation bilaterally Cardio: Rate: tachycardic Rhythm: regular rhythm GI: GI Palp: No abdominal tenderness and Yes Soft to palpation Skin: General skin exam: normal color and turgor normal Neuro: General: oriented to person, oriented to place and oriented to time Cognition (Neuro): normal cognition Motor exam (neuro): 5/5 motor strength present throughout Sensory Exam: normal sensation Extrem: General: normal to inspection, full ROM and no pedal edema Psych: Appearance: grossly normal Mental Status: mental status grossly normal Affect: normal affect Course Consultations Consultation #1: Discussed with DONTE Slater, who agrees to admit. Date: 03/01/21 Time: 15:28 Vital Signs Vital signs: Vital Signs Pulse Rate 110 H 03/01/21 12:34 Respiratory
[2021-03-01 14:31] LABS: Basophils Percent Auto 0.5 % (0.2-1.2); Hematocrit 24.9 % (37.0-47.0); Immature Granulocyte Absolute 0.03 K/mm3 (0.00-0.031); Immature Granulocyte Percent A 0.5 % (0-0.5); Lymphocytes Absolute Auto 1.08 K/mm3 (0.9-3.2); Lymphocytes Percent Auto 19.7 % (18.3-44.2); Mean Corpuscular HGB Conc 32.1 g/dl (32-36); Mean Corpuscular Hemoglobin 29.3 pg (26-34); Mean Corpuscular Volume 91.2 fl (80-100); Mean Platelet Volume 10.8 fl (7.4-10.4); Monocytes Absolute Auto 0.6 K/mm3 (0.1-0.6); Monocytes Percent Auto 10.9 % (2.6-8.5); Neutrophils Absolute Auto 3.8 K/mm3 (1.3-6.7); Neutrophils Percent Auto 68.4 % (45.5-73.1); Platelet Count Result 268 k/mm3 (150-375); Red Blood Count 2.73 M/mm3 (4.2-5.4); Red Cell Distribution Width 16.1 % (11.5-14.5); White Blood Count 5.5 K/mm3 (4.5-10.0)
[2021-03-01 14:52] LABS: Alanine Aminotransferase 12 U/L (4-35); Albumin Level 3.4 g/dL (3.5-5.1); Alkaline Phosphatase 133 U/L (38-126); Anion Gap 15 mmol/L (8-16); Aspartate Amino Transferase 29 U/L (14-36); Bilirubin,Total 0.5 mg/dL (0.2-1.3); Blood Urea Nitrogen 58 mg/dL (7-17); Calcium 8.8 mg/dL (8.4-10.2); Carbon Dioxide 17 mmol/L (22-30); Chloride 98 mmol/L (98-107); Estimated CRCL calculation 12 ml/min; Estimated Glomerular Filt Rate 14; Glucose 121 mg/dL (65-105); Potassium 2.4 mmol/L (3.4-5.0); Sodium 130 mmol/L (137-145)
[2021-03-01] MEDS: POTASSIUM CHLORIDE 20 MEQ TABLET 40 MEQ PO (15:17)
[2021-03-01] MEDS: SODIUM CHLORIDE 0.9% IV 1,000 ML 999 ML IV CONT (15:17)
[2021-03-01 15:44] LABS: Troponin I 0.021 ng/mL (0.000-0.034)
--- NOTE | 2021-03-01 17:00 | PM.IMHP ---
H&P: HPI History of Present Illness Date/Time: 03/01/21 17:00 Chief Complaint: Weakness. Narrative: This is a 80-year-old female with atrial fibrillation, chronic kidney disease stage 3 to 4, anemia, GERD, history of GI bleed secondary to duodenal ulcers, and breast cancer who presented to the emergency department earlier today via EMS from home for evaluation of weakness. She had a lump on her left breast which she neglected for approximately 2 and half years and was recently found to have locally advanced cancer. She recently completed neoadjuvant radiotherapy and is currently on aromatase therapy. She was initially started on Ibrance but did not tolerate that well and she was told to stop that recently. Unfortunately she continues to feel weak and has had no appetite or energy even after stopping that drug. She has been feeling lightheaded and dizzy and she is just not able to get up and about as usual. In fact she has been using her walker recently due to feeling so weak. She was found to have several electrolyte abnormalities including hyponatremia and hypokalemia as well as acute on chronic kidney injury and she is being admitted in this setting. After receiving some IV fluid she reports feeling a bit better. She denies syncope and near syncope. No vertigo. Appetite has been poor with occasional nausea and dry heaves last couple of days. No vomiting or diarrhea. No dysuria but some urgency. Review of Systems Review of Systems: Narrative: Twelve systems were reviewed with pertinent positives and negatives as per HPI. She has lost about 30 lb this year since officially being diagnosed with breast cancer. No cold or flu symptoms. She has been having normal bowel movements. No blood or mucus in the stool. Except as documented, all other systems were reviewed and are negative. 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 History of colonoscopy with polypectomy History of splenectomy Family History Family History Father Lung cancer Mother Cerebrovascular accident Sibling Congestive heart failure Social History Social History (Updated 03/01/21 @ 21:18 by Morena Benavidez PA-C) Social History: The patient lives in [place] with her grandson. She is . She smokes between 0.5 and 1 pack of cigarettes a day but has not smoked in 5 days. No alcohol or illicit substance abuse. She designates her daughter, Nurys Nichols, as her surrogate decision maker. Code status: Full code. Meds Home Medications and Allergies Home Medications Medication Instructions Recorded Confirmed Type Eliquis 5 mg PO DAILY 11/04/20 03/01/21 History letrozole 2.5 mg PO DAILY 03/01/21 03/01/21 History Allergies Allergy/AdvReac Type Severity Reaction Status Date / Time ibuprofen Allergy Mild HIVES Verified 03/01/21 18:15 Vital Signs Vital Signs - 24 hr 03/01/21 12:34 03/01/21 12:40 03/01/21 12:45 Temperature Pulse Rate 110 H 116 H 118 H Respiratory Rate 18 27 H 21 H Blood Pressure 100/73 Pulse Oximetry 100 100 03/01/21 12:56 03/01/21 13:04 03/01/21 13:12 Temperature Pulse Rate 115 H 101 H 101 H Respiratory Rate 22 H 20 Blood Pressure 100/51 L Pulse Oximetry 100 03/01/21 15:32 03/01/21 16:33 03/01/21 18:09 Temperature 96.5 F L Pulse Rate 105 H 90 99 Respiratory Rate 20 22 H 18 Blood Pressure 102/53 L 105/55 L 104/57 L Pulse Oximetry 100 98 97 03/01/21 20:47 Temperature 97.3 F L Pulse Rate 105 H Respiratory Rate 18 Blood Pre
[2021-03-01] MEDS: SODIUM CHLORIDE 0.9% IV 1,000 ML 125 ML IV CONT (18:33)
[2021-03-01 21:02] LABS: Troponin I 0.021 ng/mL (0.000-0.034)
[2021-03-01 21:45] LABS: Anion Gap 12 mmol/L (8-16); Blood Urea Nitrogen 58 mg/dL (7-17); Calcium 8.3 mg/dL (8.4-10.2); Carbon Dioxide 16 mmol/L (22-30); Chloride 104 mmol/L (98-107); Estimated CRCL calculation 14 ml/min; Estimated Glomerular Filt Rate 17; Glucose 117 mg/dL (65-105); Magnesium 1.9 mg/dL (1.6-2.3); Potassium 3.4 mmol/L (3.4-5.0); Sodium 132 mmol/L (137-145)
[2021-03-02] VITALS (9 sets, daily range): BP systolic 114–129; BP diastolic 49–60; PULSE 92–135; RESP 16–18; TEMP 36.1–36.4; O2SAT 97–100
--- NOTE | 2021-03-02 00:02 | PC.NURSE ---
RN and tech have attempted to get patient's UA twice this shift, but patient has had mixed urine and bowel movement. Will continue attempting to retrieve sample.
[2021-03-02 02:54] LABS: Add Urine Microscopic? YES; Appearance Urine Cloudy (Clear); Bilirubin Urine Negative (Negative); Blood Urine 3+ (Negative); Color Urine Red (Yellow); Glucose Urine UA Negative (Negative); Ketones Urine Negative (Negative); Leukocyte Esterase Ur 3+ LEU/UL (Negative); Mucus Urine Rare /lpf; Nitrate Urine Negative (Negative); Protein Urine 2+ mg/dL (Negative); RBC Urine >75 /hpf (0-2); Squamous Epithelial Cell Urine Rare /hpf (Few); Urobilinogen Urine Negative mg/dL (<2.0); WBC Clumps Urine Present /HPF; WBC Urine >75 /hpf
[2021-03-02] MEDS: SODIUM CHLORIDE 0.9% IV 1,000 ML 125 ML IV CONT ×3 (03:40→19:48)
[2021-03-02 06:20] LABS: Anion Gap 13 mmol/L (8-16); Blood Urea Nitrogen 58 mg/dL (7-17); Calcium 8.3 mg/dL (8.4-10.2); Carbon Dioxide 11 mmol/L (22-30); Chloride 111 mmol/L (98-107); Estimated CRCL calculation 14 ml/min; Estimated Glomerular Filt Rate 17; Glucose 98 mg/dL (65-105); Potassium 3.5 mmol/L (3.4-5.0); Sodium 135 mmol/L (137-145)
[2021-03-02] MEDS: LETROZOLE (*CHEMO) 2.5 MG TABLET PO (08:25)
--- NOTE | 2021-03-02 11:31 | PCNSR ---
On 03/02/21, the student, Geetha Oconnell, provided care and completed [facility] documentation on this patient. I have reviewed the student's documentation and agree with the findings.
--- NOTE | 2021-03-02 15:53 | PM.IMPN ---
Progress Note: A&P Assessment and Plan (1) Weakness: Code(s): R53.1 - Weakness Status: Acute Assessment and Plan: Patient presents with worsening weakness over the last 1 week. I suspect this is multifactorial in nature and suspect cancer, cancer treatment, recent poor oral intake, hypokalemia and TAE are likely contributing. Appreciate PT/OT evaluations. 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 She has undergone radiotherapy and has upcoming mastectomy scheduled for later this month. She remains on letrozole. Her care team includes Dr Gutierrez, Dr Reese, Dr Toledo and Dr Arnold. (3) Acute kidney injury superimposed on chronic kidney disease: Code(s): N17.9 - Acute kidney failure, unspecified; N18.9 - Chronic kidney disease, unspecified Status: Acute Assessment and Plan: Suspect related to poor oral intake recently. Baseline Cr appears around 1.5 - 1.9; Cr was 3.1 on arrival yesterday now improving some with IV hydration. Patient had similar issue during last admission a few months ago. Continue IV fluids and monitor fluid status closely. (4) Hypokalemia: Code(s): E87.6 - Hypokalemia Status: Acute Assessment and Plan: As low as 2.4 on arrival yesterday and has been replaced. Continue to monitor K and Mg daily and replace as needed. (5) Hyponatremia: Code(s): E87.1 - Hypo-osmolality and hyponatremia Status: Acute Assessment and Plan: Mild and improving. Monitor. (6) Chronic anemia: Code(s): D64.9 - Anemia, unspecified Status: Chronic Assessment and Plan: H&H low but stable. No evidence of acute bleeding. Suspect CKD and malignancy contribute. (7) Atrial fibrillation: Qualifiers: Atrial fibrillation type: unspecified Qualified Code(s): I48.91 - Unspecified atrial fibrillation Code(s): I48.91 - Unspecified atrial fibrillation Status: Chronic Assessment and Plan: Chronic atrial fibrillation. I started her on metoprolol in October at time of last discharge and it appears she is no longer on this. Since her heart rates are low 100s I will resume metoprolol. Her home Eliquis is held due to recent GI bleeding during her previous hospital admission. (8) Tobacco abuse: Code(s): Z72.0 - Tobacco use Status: Chronic Assessment and Plan: Smoking cessation encouraged. (9) Asymptomatic bacteriuria: Code(s): R82.71 - Bacteriuria Status: Acute Assessment and Plan: UA is abnormal. She denies urinary symptoms and is afebrile without leukocytosis. Urine culture is pending. Monitor for symptoms. Subjective Date/time seen: 03/02/21 15:55 Interval history: Ms. Lerner is a 80yo F with invasive breast cancer recently diagnosed this spring who presented to the ED for evaluation of generalized weakness worsening over the last 1 week. She reports she has had no appetite or energy lately since stopping 1 of her cancer medications. today, her only complaint is feeling weak and tired. Denies nausea, vomiting, abdominal pain, dysuria, urinary frequency, chest pain or sh
[2021-03-02] MEDS: METOPROLOL TARTRATE 12.5 MG TABLET PO (21:30)
[2021-03-03] VITALS (23 sets, daily range): BP systolic 86–120; BP diastolic 51–66; PULSE 80–108; RESP 16–24; TEMP 35.9–36.6; O2SAT 94–100
[2021-03-03] MEDS: SODIUM CHLORIDE 0.9% IV 1,000 ML 125 ML IV CONT (03:07)
[2021-03-03 06:49] LABS: Basophils Percent Auto 0.2 % (0.2-1.2); Immature Granulocyte Absolute 0.05 K/mm3 (0.00-0.031); Lymphocytes Absolute Auto 0.75 K/mm3 (0.9-3.2); Lymphocytes Percent Auto 14.3 % (18.3-44.2); Mean Corpuscular HGB Conc 31.6 g/dl (32-36); Mean Corpuscular Hemoglobin 29.8 pg (26-34); Mean Corpuscular Volume 94.4 fl (80-100); Mean Platelet Volume 10.7 fl (7.4-10.4); Monocytes Absolute Auto 0.6 K/mm3 (0.1-0.6); Neutrophils Absolute Auto 3.9 K/mm3 (1.3-6.7); Neutrophils Percent Auto 73.5 % (45.5-73.1); Platelet Count Result 291 k/mm3 (150-375); Red Blood Count 1.98 M/mm3 (4.2-5.4); Red Cell Distribution Width 16.6 % (11.5-14.5); White Blood Count 5.3 K/mm3 (4.5-10.0)
[2021-03-03 07:11] LABS: Alanine Aminotransferase 14 U/L (4-35); Albumin Level 2.4 g/dL (3.5-5.1); Alkaline Phosphatase 99 U/L (38-126); Anion Gap 10 mmol/L (8-16); Aspartate Amino Transferase 33 U/L (14-36); Bilirubin,Total 0.2 mg/dL (0.2-1.3); Blood Urea Nitrogen 54 mg/dL (7-17); Calcium 7.9 mg/dL (8.4-10.2); Carbon Dioxide 10 mmol/L (22-30); Chloride 118 mmol/L (98-107); Estimated CRCL calculation 16 ml/min; Estimated Glomerular Filt Rate 19; Glucose 94 mg/dL (65-105); Magnesium 1.8 mg/dL (1.6-2.3); Potassium 2.8 mmol/L (3.4-5.0); Sodium 138 mmol/L (137-145)
[2021-03-03 08:43] LABS: Hematocrit 18.7 % (37.0-47.0)
[2021-03-03 08:44] LABS: Hemoglobin 5.9 g/dL (12.0-15.0)
[2021-03-03] MEDS: POTASSIUM CHLORIDE 20 MEQ TABLET 80 MEQ PO (08:58)
[2021-03-03] MEDS: LETROZOLE (*CHEMO) 2.5 MG TABLET PO (08:58)
[2021-03-03] MEDS: METOPROLOL TARTRATE 12.5 MG TABLET PO (08:58)
[2021-03-03] MEDS: MAGNESIUM OXIDE 400 MG TABLET PO (09:33)
[2021-03-03 09:52] LABS: Transferrin 85 mg/dL (206-381)
[2021-03-03 09:54] LABS: Iron < 10 ug/dL (37-170)
--- NOTE | 2021-03-03 10:42 | PCPTNOTE ---
Patient refused treatment this session. Patient states that she does not feel well. Patient declined exercise, transfers, and gait. PT will continue to follow per plan of care.
[2021-03-03 11:19] LABS: Percent Iron Saturation < 7 % (20-50)
[2021-03-03 11:24] LABS: Folic Acid 7.2 ng/mL (2.76->20)
[2021-03-03] MEDS: SODIUM CHLORIDE 0.9% IV 250 ML 30 ML IV CONT (11:51)
--- NOTE | 2021-03-03 12:46 | PDONCCN ---
HPI - Date of Consult Date/Time: 03/03/21 12:46 Requesting Physician: ZAIRE Mari Primary Care Provider: Hao Villa, - Consult Narrative Reason for consult: Locally advanced/metastatic breast cancer Narrative: Kourtney Lerner is a 80 year old female with locally advanced/metastatic breast cancer was on letrozole and Ibrance lately and Ibrance was discontinued due to poor tolerance and mucositis. Patient also has a history of chronic kidney stage 3/4 disease as well as atrial fibrillation and history of GI bleed secondary to duodenal ulcer. She came into the hospital with generalized weakness. She denies any bleeding but does have some dark stool. Denies any weight loss. No chest pain and shortness of breath. No other new complaints. Labs on admission showed hemoglobin of 8.0 not drop down to 5.9. Review of Systems - Review of Systems All systems reviewed & are unremarkable except as noted in HPI and bel - Neurologic Reports weakness, Denies headache(s) [facility] Medical History: Medical History (Last Updated 03/02/21 @ 16:52 by Kari Orr PA-C) Atrial fibrillation Cancer of left breast Chronic anemia Chronic kidney disease, stage 4 (severe) Duodenal ulcer Onset Date: ~10/2020 Nephrolithiasis Spontaneous rupture of spleen Onset Date: ~02/2008 Surgical History: Surgical History (Last Updated 03/01/21 @ 21:17 by Morena Benavidez PA-C) History of bilateral salpingo-oophorectomy 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 History of colonoscopy with polypectomy History of splenectomy Family History: Family History (Last Reviewed 03/01/21 @ 21:17 by Morena Benavidez PA-C) Father Lung cancer Mother Cerebrovascular accident Sibling Congestive heart failure Meds Home Medications Medication Instructions Recorded Confirmed Type Eliquis 5 mg PO DAILY 11/04/20 03/01/21 History letrozole 2.5 mg PO DAILY 03/01/21 03/01/21 History Allergies Allergy/AdvReac Type Severity Reaction Status Date / Time ibuprofen Allergy Mild HIVES Verified 03/01/21 18:15 Results - Labs CBC & Chem 7: 03/03/21 06:38 03/03/21 06:38 Labs: Short CBC 03/03/21 Range/Units 06:38 WBC 5.3 (4.5-10.0) K/mm3 Hgb 5.9 L* (12.0-15.0) g/dL Hct 18.7 L* (37.0-47.0) % Plt Count 291 (150-375) k/mm3 BMP 03/03/21 06:38 Sodium 138 Potassium 2.8 L* Chloride 118 H Carbon Dioxide 10 L BUN 54 H Creatinine 2.50 H Glucose 94 Calcium 7.9 L Liver Function 03/03/21 Range/Units 06:38 Total Bilirubin 0.2 (0.2-1.3) mg/dL AST 33 (14-36) U/L ALT 14 (4-35) U/L Alkaline Phosphatase 99 (38-126) U/L Albumin 2.4 L (3.5-5.1) g/dL Assessment and Plan - Additional Plan Normocytic anemia. Patient is the 80-year-old female with locally advanced breast cancer. She was on treatment with Ibrance and Femara. Ibrance was discontinued recently due to poor tolerance. She now came into the hospital with generalized weakness and found to have hemoglobin of 8.0 which dropped to 5.9 today. She denies any bleeding but does have some dark stool. Other labs showed creatinine of 2.5, iron less than 10 with saturation of less than 7% and vitamin B12 of 254. Her anemia is multifactorial secondary to anemia of chronic kidney disease as well as iron deficiency with likely GI bleed. Patient has a history of duodenal ulcer. Patient is refusing to have any GI evaluation done at this time. Agree with blood transfusion for 2 units of packed red blood cells. I will give her vitamin B12 injection as well as Venofer. Will also start her on Procrit 30560 units on a biweekly basis. She will follow-up with me in the office for continuation of her treatment. I have answered all the questions the patient's satisfaction. Breast cancer. This is locally advanced/metastatic. Patient is on Ibrance and Femara with significant improvement in t
--- NOTE | 2021-03-03 13:14 | PM.IMPN ---
Progress Note: A&P Assessment and Plan (1) Weakness: Code(s): R53.1 - Weakness Status: Acute Assessment and Plan: Patient presents with worsening weakness over the last 1 week. I suspect this is multifactorial in nature and suspect cancer, cancer treatment, anemia, recent poor oral intake, hypokalemia and TAE are likely contributing. Appreciate PT/OT evaluations. (2) Chronic anemia: Code(s): D64.9 - Anemia, unspecified Status: Chronic Assessment and Plan: H&H low at 8.0 on arrival now down to 5.9 today. Ordered 2 units packed RBC. Suspect CKD, malignancy, B12 and iron deficiency are contributing. Check stool occult blood. History of GI bleed in October. Appreciate Dr Reese's input. He agrees with blood transfusion, B12 and iron replacement. (3) Cancer of left breast: Qualifiers: Breast location: unspecified site of breast Estrogen receptor status: unspecified Patient sex: female Qualified Code(s): C50.912 - Malignant neoplasm of unspecified site of left female breast Code(s): C50.912 - Malignant neoplasm of unspecified site of left female breast Status: Chronic Assessment and Plan: Diagnosed October 2020 - Grade 2 invasive ductal carcinoma ER/ [place] positive and HER2 negative. She has undergone radiotherapy and has upcoming mastectomy scheduled for later this month. She remains on letrozole. Recently came off Ibrance due to side effects. Her care team includes Dr Gutierrez, Dr Reese, Dr Toledo and Dr Arnold. (4) Acute kidney injury superimposed on chronic kidney disease: Code(s): N17.9 - Acute kidney failure, unspecified; N18.9 - Chronic kidney disease, unspecified Status: Acute Assessment and Plan: Suspect related to poor oral intake recently. Baseline Cr appears around 1.5 - 1.9; Cr was 3.1 on arrival yesterday now improved some with IV hydration. Patient had similar issue during last admission a few months ago but now CrCl is even lower. Appreciate nephrology input. Slow rate of IV fluids and monitor fluid status closely. (5) Hypokalemia: Code(s): E87.6 - Hypokalemia Status: Acute Assessment and Plan: K 2.8 this morning; patient is requiring much encouragement to take oral potassium. Mag oxide ordered. Repeat labs this afternoon. Monitor K and Mg daily and replace as needed. (6) Hyponatremia: Code(s): E87.1 - Hypo-osmolality and hyponatremia Status: Acute Assessment and Plan: Resolved. Monitor. (7) Atrial fibrillation: Qualifiers: Atrial fibrillation type: unspecified Qualified Code(s): I48.91 - Unspecified atrial fibrillation Code(s): I48.91 - Unspecified atrial fibrillation Status: Chronic Assessment and Plan: Chronic atrial fibrillation. I started her on metoprolol in October at time of last discharge and it appears she is no longer taking this. Since her heart rates are low 100s I resumed metoprolol, given her hypotension this afternoon we will hold this. Her home Eliquis is held due to recent GI bleeding during her previous hospital admission. (8) Tobacco abuse: Code(s): Z72.0 - Tobacco use Status: Chronic Assessment and Plan: Smoking cessation encouraged. (9) Asymptomatic bacteriuria: Code(s): R82.71 - Bacteriuria Status: Acute Assessment and Plan: UA is abnormal. Urine culture grew E coli. She denies urinary symptoms and is afebrile without leukocytosis. No indication for antibiotics at this time. Monitor for symptoms. Additional Plan
[2021-03-03] MEDS: PANTOPRAZOLE SODIUM IV 40 MG VIAL IV PUSH ×2 (13:52→21:40)
[2021-03-03] MEDS: EPOETIN ALFA-EPBX 20,000 UNITS/ML VIAL 20000 UNITS SUB-Q (14:04)
[2021-03-03 14:32] LABS: Hemoglobin 8.1 g/dL (12.0-15.0)
[2021-03-03 14:45] LABS: Anion Gap 12 mmol/L (8-16); Blood Urea Nitrogen 53 mg/dL (7-17); Calcium 8.5 mg/dL (8.4-10.2); Carbon Dioxide 8 mmol/L (22-30); Chloride 116 mmol/L (98-107); Estimated CRCL calculation 15 ml/min; Estimated Glomerular Filt Rate 18; Glucose 95 mg/dL (65-105); Magnesium 1.8 mg/dL (1.6-2.3); Potassium 3.3 mmol/L (3.4-5.0); Sodium 136 mmol/L (137-145)
--- NOTE | 2021-03-03 16:09 | PM.CNNEP ---
Assessment and Plan Assessment and plan (1) TAE (acute kidney injury): Code(s): N17.9 - Acute kidney failure, unspecified Status: Acute Assessment and Plan: possibly related to poor oral intake/pre-renal factors improvement in creatinine with IVFs would support this agree with CT of abdomen and pelvis to assess for nephrolithiasis and detail kidney anatomy cautions repletion of K+ level follow repeat labs (2) Stage 3b chronic kidney disease: Code(s): N18.32 - Chronic kidney disease, stage 3b Status: Chronic Assessment and Plan: due to age and nephrolithiasis(?) baseline creatinine runs around 1.5mg/dl (3) Hypokalemia: Code(s): E87.6 - Hypokalemia Status: Acute Assessment and Plan: replete cautiously follow magnesium trend K+ levels (4) Anemia: Code(s): D64.9 - Anemia, unspecified Status: Acute Assessment and Plan: due to TAE, CKD, and underlying malignancy PRBC transfusion per protocol follow trend of H/H (5) Weakness: Code(s): R53.1 - Weakness Status: Acute Assessment and Plan: multifactorial - electrolytes issues, TAE, anemia, cancer...etc PT/OT as tolerated Will continue to follow. History of Present Illness Reason for Consult Consult date: 03/03/21 Reason for consult: acute renal failure and hypokalemia Chief Complaint Chief complaint: tae/hypokalemia History of Present Illness Narrative: The patient is a 80-year-old female with a past medical history as outlined below who presented to the [facility] ER with complaints of severe weakness. The patient was recently diagnosed with breast cancer and has been receiving a combination of chemotherapy and radiation therapy for treatment of this. She was on 1 specific medication, I brands, that she did not tolerate well and was told to stop recently and was felt that this medication may be partly responsible for the a for mentioned weakness in association with poor appetite and decreased energy level. As the symptoms of weakness seemed to be progressively getting worse With associated lightheadedness, dizziness, and difficulty to even ambulate in general, she called 911 and EMS brought her to the emergency room for further evaluation and therapy. Workup and evaluation emergency room demonstrated the patient to be severely debilitated and routine blood test demonstrated multiple electrolyte abnormalities including hyponatremia, hypokalemia, worsening BUN and creatinine on top of her baseline values, and anemia. Her repeat labs this morning show some improvement in her hyponatremia but she still has issues with hypokalemia, metabolic acidosis, and a significant drop in her hemoglobin hematocrit that has necessitated a packed red blood cell transfusion today. Renal consultation was requested due to her acute renal failure on top of her baseline chronic kidney disease. For review her records, it would seem her baseline creatinine normally runs around 1.5 mg/dL is likely secondary to age and possibly nephrolithiasis. on admission, her creatinine had almost doubled to 3.1 mg/dL but has somewhat improved with supportive therapy since her admission. She otherwise does not appear to be any acute distress at the time of my visit and a renal ultrasound was to be done however given her history of nephrolithiasis, a CT scan of the abdomen pelvis has been ordered instead for further evaluation of her anatomy regarding her kidneys. No other acute complaints are voiced by the patient at the time of my visit. [facility] Past Medical History Medical History Atrial fibrillation Cancer of left breast Chronic anemia Chronic kidney disease, stage 4 (severe) Duodenal ulcer (~10/2020) Nephrolithiasis Spontaneous rupture of spleen (~02/2008) Surgical History Surgical History (Reviewed 03/05/21 @ 08:58 by Bj Zambrano
[2021-03-03] MEDS: CYANOCOBALAMIN INJ 1,000 MCG/ML VIAL 1000 MCG IM (17:40)
[2021-03-03] MEDS: POTASSIUM CHLORIDE 20 MEQ TABLET 40 MEQ PO (17:42)
[2021-03-03 18:28] LABS: IFOB Positive Control Positive; Immunochemical Fecal Occult Bl Negative (N)
[2021-03-03] MEDS: FUROSEMIDE INJ 40 MG/4 ML VIAL 20 MG IV PUSH (21:40)
[2021-03-03] MEDS: SODIUM CHLORIDE 0.9% IV 1,000 ML 75 ML IV CONT (21:41)
[2021-03-03 23:27] LABS: Hematocrit 30.1 % (37.0-47.0); Hemoglobin 9.6 g/dL (12.0-15.0)
[2021-03-04] VITALS (9 sets, daily range): BP systolic 116–131; BP diastolic 64–72; PULSE 93–111; RESP 16–20; TEMP 36.2–36.4; O2SAT 97–99
[2021-03-04 06:14] LABS: Hematocrit 30.3 % (37.0-47.0); Hemoglobin 9.5 g/dL (12.0-15.0); Mean Corpuscular HGB Conc 31.4 g/dl (32-36); Mean Corpuscular Hemoglobin 28.3 pg (26-34); Mean Corpuscular Volume 90.2 fl (80-100); Mean Platelet Volume 10.6 fl (7.4-10.4); Platelet Count Result 283 k/mm3 (150-375); Red Blood Count 3.36 M/mm3 (4.2-5.4); Red Cell Distribution Width 17.4 % (11.5-14.5); White Blood Count 6.7 K/mm3 (4.5-10.0)
[2021-03-04 06:24] LABS: INR 1.9; Prothrombin Time 21.1 Seconds (11.1-14.7)
[2021-03-04 06:36] LABS: Alanine Aminotransferase 15 U/L (4-35); Albumin Level 2.5 g/dL (3.5-5.1); Alkaline Phosphatase 102 U/L (38-126); Anion Gap 11 mmol/L (8-16); Aspartate Amino Transferase 23 U/L (14-36); Bilirubin,Total 1.1 mg/dL (0.2-1.3); Blood Urea Nitrogen 52 mg/dL (7-17); Calcium 8.6 mg/dL (8.4-10.2); Carbon Dioxide 7 mmol/L (22-30); Chloride 119 mmol/L (98-107); Estimated CRCL calculation 14 ml/min; Estimated Glomerular Filt Rate 16; Glucose 99 mg/dL (65-105); Magnesium 1.7 mg/dL (1.6-2.3); Potassium 3.7 mmol/L (3.4-5.0); Sodium 137 mmol/L (137-145)
[2021-03-04 08:30] LABS: Band Neutrophils Percent 13 % (0-6); Lymphocytes Absolute Manual 0.53 K/mm3 (1.1-4.5); Metamyelocytes Percent 1 %; Monocytes Percent Manual 6 % (3-9); Neutrophils Absolute Manual 5.69 K/mm3 (1.7-7.2); Neutrophils Percent Manual 72 % (46-73); Nucleated Red Blood Cells 1 %; Total Cells Counted 100
[2021-03-04 08:31] LABS: Platelet Estimate Adequate (Adequate)
[2021-03-04 08:37] LABS: Burr Cells 1+ (NORMAL)
[2021-03-04 08:38] LABS: Anisocytosis 1+ (NORMAL)
[2021-03-04] MEDS: PANTOPRAZOLE SODIUM IV 40 MG VIAL IV PUSH ×2 (09:19→20:02)
[2021-03-04] MEDS: LETROZOLE (*CHEMO) 2.5 MG TABLET PO (09:19)
[2021-03-04] MEDS: CYANOCOBALAMIN INJ 1,000 MCG/ML VIAL 1000 MCG IM (09:19)
--- NOTE | 2021-03-04 10:00 | PCPTNOTE ---
Attempted to see patient, however patient sleeping soundly and did not arouse to participate. PT will continue to follow per plan of care.
[2021-03-04] MEDS: MAGNESIUM SULF 2 GM/WATER 50ML 2 GM/50 ML BAG IVPB (10:39)
[2021-03-04] MEDS: FERROUS SULFATE 324 MG TABLET PO ×2 (10:39→17:06)
[2021-03-04] MEDS: MAGNESIUM OXIDE 400 MG TABLET PO (10:39)
[2021-03-04] MEDS: SODIUM CHLORIDE 0.9% IV 1,000 ML 75 ML IV CONT (10:40)
--- NOTE | 2021-03-04 12:35 | WPDURCON ---
Assessment and Plan Assessment and plan (1) Stage 3b chronic kidney disease: Code(s): N18.32 - Chronic kidney disease, stage 3b <Sofia Gonzalez APRN - Last Filed: 03/04/21 16:05> Status: Acute <Sofia Gonzalez APRN - Last Filed: 03/04/21 16:05> (2) Hydronephrosis: Code(s): N13.30 - Unspecified hydronephrosis <Sofia Gonzalez APRN - Last Filed: 03/04/21 16:05> Status: Acute <Sofia Gonzalez APRN - Last Filed: 03/04/21 16:05> Assessment and Plan: Plan to do a cysto with bilateral retrograde pyelogram and bilateral stent exchange tomorro with Dr. Payne at 11:30. NPO after midnight, obtain consent. I spoke with the patient about the need to exchange her stents and she agrees. <Sofia Gonzalez APRN - Last Filed: 03/04/21 16:05> Urology Consult Note HPI Date Seen: 03/04/21 <Sofia Gonzalez APRN - Last Filed: 03/04/21 16:05> 03/04/21 <Petar Payne MD - Last Filed: 03/04/21 14:03> Requesting Physician: ZAIRE Mari <Sofia Gonzalez, CASH POSTING REPRESENTATIVE - Last Filed: 03/04/21 16:05> Primary Care Provider: Hao VillaMD <Sofia Gonzalez, CASH POSTING REPRESENTATIVE - Last Filed: 03/04/21 16:05> Consult Narrative Narrative: Kourtney Lerner is a 80 year old female who came into the ER on 03/01/2021 with dizziness and weakness x 2 weeks. She is tachycardic, WBC is 6.7, creatinine is 2.80. CT shows. Moderate right, mild to moderate left hydronephrosis. Bilateral stents in position, left calyceal, UPJ stones. Right mid ureteral stone. The patient had a cysto with stents placed bilaterally on 11/05/[address] Payne, and he saw her in the office on 01/15/2021 and discussed following up in two months to discuss stent exchange. She is being treated for breast cancer with chemotherapy and had an obstruction in both ureters which caused the stents to be placed. Her urine culture grew E-Coli, but she is asymptomatic, afebrile and her vitals are ok with the exception of tachycardia. She denies dysuria, frequency, urgency or hematuria. <Sofia Gonzalez APRN - Last Filed: 03/04/21 16:05> Review of Systems Cardiovascular: Cardiovascular: Reports no additional cardiovascular complaints <Sofia Gonzalez APRN - Last Filed: 03/04/21 16:05> Respiratory: Respiratory: Reports no additional respiratory complaints <Sofia Gonzalez APRN - Last Filed: 03/04/21 16:05> Gastrointestinal: Gastrointestinal: Denies abdominal pain, Denies nausea and Denies vomiting <Sofia Gonzalez APRN - Last Filed: 03/04/21 16:05> [facility] Past Medical History Medical History: Medical History Atrial fibrillation Cancer of left breast Chronic anemia Chronic kidney disease, stage 4 (severe) Duodenal ulcer (~10/2020) Nephrolithiasis Spontaneous rupture of spleen (~02/2008) <Sofia Gonzalez APRN - Last Filed: 03/04/21 16:05> Surgical History Surgical History: Surgical History History of bilateral salpingo-oophorectomy 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 History of colonoscopy with polypectomy History of splenectomy <Sofia Gonzalez APRN - Last Filed: 03/04/21 16:05> Family History Family History: Family History Father Lung cancer Mother Cerebrovascular accident Sibling Congestive heart failure <Sofia Gonzalez APRN - Last Filed: 03/04/21 16:05> Social History Social History: Social History Social History: The patient lives in [place] with her grandson. She is . She smokes between 0.5 and 1 pack of cigarettes a day but has not smoked in 5 days. No alcohol or illicit substance abuse. She designates her daughter, Nurys Nichols, as her surrogate decision maker. Code status: Full code.
--- NOTE | 2021-03-04 13:57 | PC.NURSE ---
On 03/04/21, the student, [Magy Murillo], provided care and completed [facility] documentation on this patient. I have reviewed the student's documentation and agree with the findings.
--- NOTE | 2021-03-04 14:20 | P.PNIM_ITS ---
Progress Note: A&P Assessment and Plan (1) Weakness: Code(s): R53.1 - Weakness Status: Acute Assessment and Plan: * Patient presents with worsening weakness over the last 1 week. I suspect this is multifactorial in nature and suspect cancer, cancer treatment, anemia, recent poor oral intake, hypokalemia and TAE are likely contributing. * Appreciate PT/OT evaluations. (2) Chronic anemia: Code(s): D64.9 - Anemia, unspecified Status: Chronic Assessment and Plan: * Hgb down to 5.9 yesterday 03/03 and she received 2 units packed RBC. Hgb improved today up to 9.5. * Suspect CKD, malignancy, B12 and iron deficiency are contributing. Stool occult blood is negative. History of GI bleed in October. * Appreciate Dr Reese's input. Continue iron and B12 replacement, monitor CBC. 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 She has undergone radiotherapy and has upcoming mastectomy scheduled for later this month. She remains on letrozole. Recently came off Ibrance due to poor tolerance. * CT abd/pel incidental finding of new liver hypodensity. Cannot exclude metastasis. * Her care team includes Dr Gutierrez, Dr Reese, Dr Toledo and Dr Arnold. (4) Acute kidney injury superimposed on chronic kidney disease: Code(s): N17.9 - Acute kidney failure, unspecified; N18.9 - Chronic kidney disease, unspecified Status: Acute Assessment and Plan: * Suspect related to poor oral intake recently. Baseline Cr appears around 1.5 - 1.9; Cr was 3.1 on arrival now improved some with IV hydration but CrCl and GFR around 15. * Patient had similar issue during last admission a few months ago but now CrCl is even lower. Appreciate nephrology input. * Slow rate of IV fluids and monitor fluid status closely. * CT abd/pelvis performed which demonstrated TRINA ureteral stents in place (placed during last admission 11/05/20) with TRINA hydronephrosis. * See below. (5) Hydronephrosis: Qualifiers: Hydronephrosis type: unspecified Qualified Code(s): N13.30 - Unspecified hydronephrosis Code(s): N13.30 - Unspecified hydronephrosis Status: Acute Assessment and Plan: * CT abd/pel performed due to worsened renal function and recent history of TRINA ureteral stent placement with stones. * CT demonstrated moderate right, mild to moderate left hydronephrosis. Bilateral stents in position with left renal and UPJ stones and right mid ureteral stone. * Appreciate urology input - she will go for cysto with TRINA ureteral stent exchange tomorrow. NPO at midnight. (6) Hypokalemia: Code(s): E87.6 - Hypokalemia Status: Acute Assessment and Plan: * Stable this morning * Monitor K and Mg daily and replace as needed. (7) Atrial fibrillation: Qualifiers: Atrial fibrillation type: unspecified Qualified Code(s): I48.91 - Unspecified atrial fibrillation Code(s):
--- NOTE | 2021-03-04 14:20 | PM.IMPN ---
Progress Note: A&P Assessment and Plan (1) Weakness: Code(s): R53.1 - Weakness Status: Acute Assessment and Plan: Patient presents with worsening weakness over the last 1 week. I suspect this is multifactorial in nature and suspect cancer, cancer treatment, anemia, recent poor oral intake, hypokalemia and TAE are likely contributing. Appreciate PT/OT evaluations. (2) Chronic anemia: Code(s): D64.9 - Anemia, unspecified Status: Chronic Assessment and Plan: Hgb down to 5.9 yesterday 03/03 and she received 2 units packed RBC. Hgb improved today up to 9.5. Suspect CKD, malignancy, B12 and iron deficiency are contributing. Stool occult blood is negative. History of GI bleed in October. Appreciate Dr Reees's input. Continue iron and B12 replacement, monitor CBC. 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 She has undergone radiotherapy and has upcoming mastectomy scheduled for later this month. She remains on letrozole. Recently came off Ibrance due to poor tolerance. CT abd/pel incidental finding of new liver hypodensity. Cannot exclude metastasis. Her care team includes Dr Gutierrez, Dr Reese, Dr Toledo and Dr Arnold. (4) Acute kidney injury superimposed on chronic kidney disease: Code(s): N17.9 - Acute kidney failure, unspecified; N18.9 - Chronic kidney disease, unspecified Status: Acute Assessment and Plan: Suspect related to poor oral intake recently. Baseline Cr appears around 1.5 - 1.9; Cr was 3.1 on arrival now improved some with IV hydration but CrCl and GFR around 15. Patient had similar issue during last admission a few months ago but now CrCl is even lower. Appreciate nephrology input. Slow rate of IV fluids and monitor fluid status closely. CT abd/pelvis performed which demonstrated TRINA ureteral stents in place (placed during last admission 11/05/20) with TRINA hydronephrosis. See below. (5) Hydronephrosis: Qualifiers: Hydronephrosis type: unspecified Qualified Code(s): N13.30 - Unspecified hydronephrosis Code(s): N13.30 - Unspecified hydronephrosis Status: Acute Assessment and Plan: CT abd/pel performed due to worsened renal function and recent history of TRINA ureteral stent placement with stones. CT demonstrated moderate right, mild to moderate left hydronephrosis. Bilateral stents in position with left renal and UPJ stones and right mid ureteral stone. Appreciate urology input - she will go for cysto with TRINA ureteral stent exchange tomorrow. NPO at midnight. (6) Hypokalemia: Code(s): E87.6 - Hypokalemia Status: Acute Assessment and Plan: Stable this morning Monitor K and Mg daily and replace as needed. (7) Atrial fibrillation: Qualifiers: Atrial fibrillation type: unspecified Qualified Code(s): I48.91 - Unspecified atrial fibrillation Code(s): I48.91 - Unspecified atrial fibrillation Status: Chronic Assessment and Plan: Chronic atrial fibrillation. I started her on metoprolol in October at time of last discharge and it appears she is no longer taking this. Since her heart rates are low 100s I resumed metoprolol initially, then we held it yesterday due to hypotension. Intermittent tachycardia, brief epis
--- NOTE | 2021-03-04 16:12 | P.PNNP_ITS ---
Progress Note: A&P Assessment and Plan (1) TAE (acute kidney injury): Code(s): N17.9 - Acute kidney failure, unspecified Status: Acute Assessment and Plan: * possibly related to poor oral intake/pre-renal factors * bilateral hydronephrosis noted -- Urology consulted - to OR tomorrow * creatinine somewhat better at this time * cautions repletion of K+ level as needed * follow repeat labs (2) Stage 3b chronic kidney disease: Code(s): N18.32 - Chronic kidney disease, stage 3b Status: Chronic Assessment and Plan: * due to age and nephrolithiasis(?) * baseline creatinine runs around 1.5 - 1.9mg/dl (3) Hypokalemia: Code(s): E87.6 - Hypokalemia Status: Acute Assessment and Plan: * replete cautiously * follow magnesium * trend K+ levels (4) Anemia: Code(s): D64.9 - Anemia, unspecified Status: Acute Assessment and Plan: * due to TAE, CKD, and underlying malignancy * PRBC transfusion per protocol * follow trend of H/H (5) Metabolic acidosis: Code(s): E87.2 - Acidosis Status: Acute Assessment and Plan: * due to TAE and CKD along with IVFs * follow trend * if worse, will need to sodium bicarbonate tabs (6) Weakness: Code(s): R53.1 - Weakness Status: Acute Assessment and Plan: * multifactorial - electrolytes issues, TAE, anemia, cancer...etc * PT/OT as tolerated Will continue to follow. Subjective Date/time seen: 03/04/21 16:12 CT scan this AM revealed bilateral hydronephrosis (even with stents in position); Urology consulted and plan to take to OR tomorrow; major complaint is that of weakness and fatigue; tolerated PRBC transfusion yesterday. Exam Narrative: Exam Narrative: General: WD/WN female in NAD Heart: normal S1 and S2; no rub Lungs: clear to auscultation Abdomen: soft, nontender, nondistended, positive bowel sounds Extremities: no cyanosis or clubbing; no edema Skin: warm and dry Objective Data Vital Signs Vital Signs: Vital Signs Temp Pulse Resp BP Pulse Ox 03/04/21 16:00 93 03/04/21 14:00 36.2 C L 110 H 20 131/72 98 07/15/21 12:00 99 03/04/21 08:00 111 H 03/04/21 05:17 36.2 C L 102 H 18 116/65 97 03/04/21 04:00 107 H 03/04/21 00:00 100 03/03/21 21:53 35.9 C L 93 20 114/66 98 03/03/21 21:20 36.2 C L 91 22 H 116/58 L 99 03/03/21 20:10 36.1 C L 90 24 H 114/66 98 03/03/21 20:00 106 H Intake/Output Intake/Output: Intake & Output 03/01/21 03/02/21 03/03/21 03/04/21 23:59 23:59 23:59 23:59 Intake Total 1500 4060 3915 1400 Output Total 150 100 500 Balance 1500 3910 3815 900 Meds/Results Medications: Active Medications Generic Name Dose Route Start Last Admin Trade Name Freq PRN Reason Stop Dose Admin Acetaminophen 650 mg 03/03/21 07:13 Acetaminophen 325 Mg Tablet PO Q4H PRN Pain or Fever Cyanocobalamin 1,000 mcg 03/03/21 14:00 03/04/21 09:19 Cyanocobalamin Inj 1,000 Mcg/Ml Vial IM 03/06/21 09:01 1,000 mcg DAILY TITO Administration Ferrous Sulfate 324 mg 03/04/21 09:40 03/04/21 17:06 Ferr
--- NOTE | 2021-03-04 16:12 | PM.PNNEP ---
Progress Note: A&P Assessment and Plan (1) TAE (acute kidney injury): Code(s): N17.9 - Acute kidney failure, unspecified Status: Acute Assessment and Plan: possibly related to poor oral intake/pre-renal factors bilateral hydronephrosis noted -- Urology consulted - to OR tomorrow creatinine somewhat better at this time cautions repletion of K+ level as needed follow repeat labs (2) Stage 3b chronic kidney disease: Code(s): N18.32 - Chronic kidney disease, stage 3b Status: Chronic Assessment and Plan: due to age and nephrolithiasis(?) baseline creatinine runs around 1.5 - 1.9mg/dl (3) Hypokalemia: Code(s): E87.6 - Hypokalemia Status: Acute Assessment and Plan: replete cautiously follow magnesium trend K+ levels (4) Anemia: Code(s): D64.9 - Anemia, unspecified Status: Acute Assessment and Plan: due to TAE, CKD, and underlying malignancy PRBC transfusion per protocol follow trend of H/H (5) Metabolic acidosis: Code(s): E87.2 - Acidosis Status: Acute Assessment and Plan: due to TAE and CKD along with IVFs follow trend if worse, will need to sodium bicarbonate tabs (6) Weakness: Code(s): R53.1 - Weakness Status: Acute Assessment and Plan: multifactorial - electrolytes issues, TAE, anemia, cancer...etc PT/OT as tolerated Will continue to follow. Subjective Date/time seen: 03/04/21 16:12 CT scan this AM revealed bilateral hydronephrosis (even with stents in position); Urology consulted and plan to take to OR tomorrow; major complaint is that of weakness and fatigue; tolerated PRBC transfusion yesterday. Exam Narrative: Exam Narrative: General: WD/WN female in NAD Heart: normal S1 and S2; no rub Lungs: clear to auscultation Abdomen: soft, nontender, nondistended, positive bowel sounds Extremities: no cyanosis or clubbing; no edema Skin: warm and dry Objective Data Vital Signs Vital Signs: Vital Signs Temp Pulse Resp BP Pulse Ox 03/04/21 16:00 93 03/04/21 14:00 36.2 C L 110 H 20 131/72 98 03/04/21 12:00 99 03/04/21 08:00 111 H 03/04/21 05:17 36.2 C L 102 H 18 116/65 97 03/04/21 04:00 107 H 03/04/21 00:00 100 03/03/21 21:53 35.9 C L 93 20 114/66 98 03/03/21 21:20 36.2 C L 91 22 H 116/58 L 99 03/03/21 20:10 36.1 C L 90 24 H 114/66 98 03/03/21 20:00 106 H Intake/Output Intake/Output: Intake & Output 03/01/21 03/02/21 03/03/21 03/04/21 23:59 23:59 23:59 23:59 Intake Total 1500 4060 3915 1400 Output Total 150 100 500 Balance 1500 3910 3815 900 Meds/Results Medications: Active Medications Generic Name Dose Route Start Last Admin Trade Name Freq PRN Reason Stop Dose Admin Acetaminophen 650 mg 03/03/21 07:13 Acetaminophen 325 Mg Tablet PO Q4H PRN Pain or Fever Cyanocobalamin 1,000 mcg 03/03/21 14:00 03/04/21 09:19 Cyanocobalamin Inj 1,000 Mcg/Ml Vial IM 03/06/21 09:01 1,000 mcg DAILY TITO Administration Ferrous Sulfate 324 mg 03/04/21 09:40 03/04/21 17:06 Ferrous Sulfate 324 Mg Tablet PO 324 mg BIDWM TITO Administration Sodium Chloride 1,000 mls @ 75 mls/hr 03/01/21 15:30 03/04/21 10:40 Normal Saline Iv IV CONT 75 mls/hr .[id number] TITO Administration Letrozole 2.5 mg 03/02/21 09:00 03/04/21 09:19 Letrozole (*Chemo) 2.5 Mg Tablet PO 2.5 mg DAILY TITO Administration Magnesium Oxide 400 mg 03/03/21 09:00 03/04/21 10:39 Magnesium Oxide 400 Mg Tablet PO 400 mg DAILY TITO Administration Metoprolol Tartrate 12.5 mg 03/02/21 21:00 03/03/21 08:58 Metoprolol Tartrate 12.5 Mg Tablet PO 12.5 mg Q12HR TITO Administration Ondansetron HCl 4 mg 03/03/21 07:13 Ondansetron Inj 4 Mg/2 Ml Vial IV PUSH Q6H PRN Nausea And Vomiting Pantoprazole Sodium 40 mg 03/03/21 09:20 03/04/21 09:19 Pantopraz
[2021-03-05] VITALS (15 sets, daily range): BP systolic 100–128; BP diastolic 57–67; PULSE 98–122; RESP 20–32; TEMP 36.1–37.1; O2SAT 97–100
[2021-03-05] MEDS: SODIUM CHLORIDE 0.9% IV 1,000 ML 75 ML IV CONT ×2 (01:03→18:34)
[2021-03-05 05:31] LABS: Hematocrit 31.1 % (37.0-47.0); Hemoglobin 9.8 g/dL (12.0-15.0); Mean Corpuscular HGB Conc 31.5 g/dl (32-36); Mean Corpuscular Hemoglobin 28.6 pg (26-34); Mean Corpuscular Volume 90.7 fl (80-100); Mean Platelet Volume 10.4 fl (7.4-10.4); Platelet Count Result 289 k/mm3 (150-375); Red Blood Count 3.43 M/mm3 (4.2-5.4); Red Cell Distribution Width 17.9 % (11.5-14.5)
[2021-03-05 05:42] LABS: Anion Gap 12 mmol/L (8-16); Blood Urea Nitrogen 53 mg/dL (7-17); Calcium 8.3 mg/dL (8.4-10.2); Carbon Dioxide 6 mmol/L (22-30); Chloride 120 mmol/L (98-107); Estimated CRCL calculation 14 ml/min; Estimated Glomerular Filt Rate 16; Glucose 92 mg/dL (65-105); Magnesium 2.2 mg/dL (1.6-2.3); Potassium 3.5 mmol/L (3.4-5.0); Sodium 138 mmol/L (137-145)
[2021-03-05] MEDS: LACTATED RINGERS 1,000 ML 30 ML IV CONT (08:56)
--- NOTE | 2021-03-05 08:58 | WPDANESEPPF ---
Anes - Initial Pre Proc Eval Procedure: Operation Date: 03/05/21 11:30 Proposed Procedures p Cystoscopy, Bilateral Ureteroscopy with Stent Exchange, Bilateral Retrograde Pyelogram - Petar Payne MD Date/Time: 03/05/21 08:58 Surgeon: ZAIRE Mari Pre Op Diagnosis: marco antonio/hypokalemia Patient Data Age: 80 Gender: F Height: 1.6 m Weight: 73.2 kg Last Vital Signs Temp 36.2 C L 03/05/21 05:08 Pulse 103 H 03/05/21 05:08 Resp 20 03/05/21 05:08 BP 116/62 03/05/21 05:08 Pulse Ox 98 03/05/21 05:08 Allergies Allergy/AdvReac Type Severity Reaction Status Date / Time ibuprofen Allergy Mild HIVES Verified 03/01/21 18:15 Home Medications Medication Instructions Recorded Confirmed Type Eliquis 5 mg PO DAILY 11/04/20 03/01/21 History letrozole 2.5 mg PO DAILY 03/01/21 03/01/21 History Laboratory Tests 03/05/21 03/05/21 05:25 05:25 WBC 7.0 K/mm3 K/mm3 (4.5-10.0) RBC 3.43 M/mm3 L M/mm3 (4.2-5.4) Hgb 9.8 g/dL L g/dL (12.0-15.0) Hct 31.1 % L % (37.0-47.0) MCV 90.7 fl fl (80-100) MCH 28.6 pg pg (26-34) MCHC 31.5 g/dl L g/dl (32-36) RDW 17.9 % H % (11.5-14.5) Plt Count 289 k/mm3 k/mm3 (150-375) MPV 10.4 fl fl (7.4-10.4) Sodium 138 mmol/L mmol/L (137-145) Potassium 3.5 mmol/L mmol/L (3.4-5.0) Chloride 120 mmol/L H mmol/L (98-107) Carbon Dioxide 6 mmol/L L mmol/L (22-30) Anion Gap 12 mmol/L mmol/L (8-16) BUN 53 mg/dL H mg/dL (7-17) Creatinine 2.80 mg/dL H mg/dL (0.7-1.0) Estim Creat Clear Calc 14 ml/min ml/min Estimated GFR 16 L (59 - ) Glucose 92 mg/dL mg/dL (65-105) Calcium 8.3 mg/dL L mg/dL (8.4-10.2) Magnesium 2.2 mg/dL mg/dL (1.6-2.3) Patient hx anesthesia problems: none Family hx anesthesia problems: none PMFSH Past Medical History Medical History Atrial fibrillation Cancer of left breast Chronic anemia Chronic kidney disease, stage 4 (severe) Duodenal ulcer (~10/2020) Nephrolithiasis Spontaneous rupture of spleen (~02/2008) Surgical History Surgical History History of bilateral salpingo-oophorectomy 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 History of colonoscopy with polypectomy History of splenectomy Family History Family History Father Lung cancer Mother Cerebrovascular accident Sibling Congestive heart failure Social History Social History Social History: The patient lives in [place] with her grandson. She is . She smokes between 0.5 and 1 pack of cigarettes a day but has not smoked in 5 days. No alcohol or illicit substance abuse. She designates her daughter, Nurys Nichols, as her surrogate decision maker. Code status: Full code. Anes - Eval Final PreProcedure Day of Procedure 03/05/21 08:58 Patient weight: overweight Heart: irregular rhythm and tachycardia Lungs: clear to auscultation Airway: Mallampati scale class II Neurological: alert and oriented Last oral intake: >/= 8 hours ASA classification: IV Emergent: no Anesthetic plan: proceed Informed Consent: The patient's anesthetic plan and its attendant risks and benefits were discussed with the patient/family/POA. Questions were solicited and answers provided to the satisfaction of the patient/family/POA.
--- NOTE | 2021-03-05 09:11 | WPDHPUPDATE1 ---
History and Physical Update Update Date/Time: 03/05/21 09:11 History and Physical has been reviewed, including an updated exam of the patient. There are NO changes in the patient's condition. Risks, benefits, and alternatives have been discussed and questions answered. Patient agrees to proceed with procedure.
[2021-03-05] MEDS: ceFAZolin 2 GM/D5W 50 ML 2 GM/50 ML BAG IVPB (09:26)
--- NOTE | 2021-03-05 11:08 | W.PM.PROC2 ---
Procedure Note - Detailed Date of Procedure 03/05/21 Pre-op Diagnosis marco antonio/hypokalemia/bilat. hydronephrosis Post-op Diagnosis same Procedure Performed Cystoscopy, bilateral retrograde pyelography, bilateral ureteral stent exchange Surgeon Petar Payne MD Anesthesia general Description of Procedure patient is brought to the operative suite where she was prepped draped in routine sterile fashion while in dorsal lithotomy position. Cystoscopy is undertaken with a 21 F rigid cystoscope. Tip of each indwelling ureteral stent is grasped and the stent is removed with ease. Bladder shows some mild edema around the ureteral orifices but no significant intravesical erythema. There is no his vesical neoplasm. An angiographic catheter was used to obtain bilateral retrograde pyelograms and outlined the collecting system on each side. Seven F variable length stents were then positioned with the proximal coil in renal pelvis and distal coil in the bladder. Scopes wires removed and patient taken recovery room good condition Estimated Blood Loss 0 Urine Output 500 Drains Yes (Bilateral 7F ureteral stents) Packing No Pathology none sent Complications No immediate complications Condition stable Disposition PACU
[2021-03-05] MEDS: LETROZOLE (*CHEMO) 2.5 MG TABLET PO (11:47)
[2021-03-05] MEDS: MAGNESIUM OXIDE 400 MG TABLET PO (11:48)
[2021-03-05] MEDS: FERROUS SULFATE 324 MG TABLET PO ×2 (11:48→18:20)
--- NOTE | 2021-03-05 11:48 | PCPTNOTE ---
Attempted to see patient at 8:46 for PT, however patient leaving room for procedure. Attempted to see patient again at 11:12, however patient refused to participate due to fatigue and pain. Will attempt in PM as appropriate per POC. Sheree Hoagn, MANUFACTURING ENGINEERING TECHNICIAN
[2021-03-05] MEDS: CYANOCOBALAMIN INJ 1,000 MCG/ML VIAL 1000 MCG IM (11:51)
[2021-03-05] MEDS: PANTOPRAZOLE SODIUM IV 40 MG VIAL IV PUSH ×2 (11:55→20:25)
--- NOTE | 2021-03-05 12:47 | P.PNIM_ITS ---
Progress Note: A&P Assessment and Plan (1) Weakness: Code(s): R53.1 - Weakness Status: Acute Assessment and Plan: * Patient presents with worsening weakness over the last 1 week. I suspect this is multifactorial in nature and suspect cancer, cancer treatment, anemia, recent poor oral intake, hypokalemia and TAE are likely contributing. * Appreciate PT/OT evaluations. (2) Chronic anemia: Code(s): D64.9 - Anemia, unspecified Status: Chronic Assessment and Plan: * Hgb down to 5.9 03/03 and she received 2 units packed RBC. Hgb improved after blood and remains stable today 9.8. * Suspect CKD, malignancy, B12 and iron deficiency are contributing. Stool occult blood is negative. History of GI bleed in October. * Appreciate Dr Reese's input. Continue iron and B12 replacement, monitor CBC. 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 She has undergone radiotherapy and has upcoming mastectomy scheduled for later this month. She remains on letrozole. Recently came off Ibrance due to poor tolerance. * CT abd/pel incidental finding of new liver hypodensity. Cannot exclude metastasis. * Her care team includes Dr Gutierrez, Dr Reese, Dr Toledo and Dr Arnold. (4) Acute kidney injury superimposed on chronic kidney disease: Code(s): N17.9 - Acute kidney failure, unspecified; N18.9 - Chronic kidney disease, unspecified Status: Acute Assessment and Plan: * Suspect related to poor oral intake recently. Baseline Cr appears around 1.5 - 1.9; Cr was 3.1 on arrival now improved some with IV hydration but CrCl and GFR around 15. * Patient had similar issue during last admission a few months ago but now CrCl is even lower. Appreciate nephrology input. * Remains on slow rate of IV fluids since she is not eating/drinking much; monitor fluid status closely. * CT abd/pelvis performed which demonstrated TRINA ureteral stents in place (damaris tammie during last admission 11/05/20) with TRINA hydronephrosis. * See below. (5) Hydronephrosis: Qualifiers: Hydronephrosis type: unspecified Qualified Code(s): N13.30 - Unspecified hydronephrosis Code(s): N13.30 - Unspecified hydronephrosis Status: Acute Assessment and Plan: * CT abd/pel performed due to worsened renal function and recent history of TRINA ureteral stent placement with stones. * CT demonstrated moderate right, mild to moderate left hydronephrosis. Bilateral stents in position with left renal and UPJ stones and right mid ureteral stone. * Appreciate urology input - she went for cysto with TRINA ureteral stent exchange this morning. (6) Hypokalemia: Code(s): E87.6 - Hypokalemia Status: Acute Assessment and Plan: * Stable this morning * Monitor K and Mg daily and replace as needed. (7) Atrial fibrillation: Qualifiers: Atrial fibrillation type: unspecified Qualified Code(s): I48.91 - Unsp
--- NOTE | 2021-03-05 12:47 | PM.IMPN ---
Progress Note: A&P Assessment and Plan (1) Weakness: Code(s): R53.1 - Weakness Status: Acute Assessment and Plan: Patient presents with worsening weakness over the last 1 week. I suspect this is multifactorial in nature and suspect cancer, cancer treatment, anemia, recent poor oral intake, hypokalemia and TAE are likely contributing. Appreciate PT/OT evaluations. (2) Chronic anemia: Code(s): D64.9 - Anemia, unspecified Status: Chronic Assessment and Plan: Hgb down to 5.9 03/03 and she received 2 units packed RBC. Hgb improved after blood and remains stable today 9.8. Suspect CKD, malignancy, B12 and iron deficiency are contributing. Stool occult blood is negative. History of GI bleed in October. Appreciate Dr Reese's input. Continue iron and B12 replacement, monitor CBC. 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 She has undergone radiotherapy and has upcoming mastectomy scheduled for later this month. She remains on letrozole. Recently came off Ibrance due to poor tolerance. CT abd/pel incidental finding of new liver hypodensity. Cannot exclude metastasis. Her care team includes Dr Gutierrez, Dr Reese, Dr Toledo and Dr Arnold. (4) Acute kidney injury superimposed on chronic kidney disease: Code(s): N17.9 - Acute kidney failure, unspecified; N18.9 - Chronic kidney disease, unspecified Status: Acute Assessment and Plan: Suspect related to poor oral intake recently. Baseline Cr appears around 1.5 - 1.9; Cr was 3.1 on arrival now improved some with IV hydration but CrCl and GFR around 15. Patient had similar issue during last admission a few months ago but now CrCl is even lower. Appreciate nephrology input. Remains on slow rate of IV fluids since she is not eating/drinking much; monitor fluid status closely. CT abd/pelvis performed which demonstrated TRINA ureteral stents in place (placed during last admission 11/05/20) with TRINA hydronephrosis. See below. (5) Hydronephrosis: Qualifiers: Hydronephrosis type: unspecified Qualified Code(s): N13.30 - Unspecified hydronephrosis Code(s): N13.30 - Unspecified hydronephrosis Status: Acute Assessment and Plan: CT abd/pel performed due to worsened renal function and recent history of TRINA ureteral stent placement with stones. CT demonstrated moderate right, mild to moderate left hydronephrosis. Bilateral stents in position with left renal and UPJ stones and right mid ureteral stone. Appreciate urology input - she went for cysto with TRINA ureteral stent exchange this morning. (6) Hypokalemia: Code(s): E87.6 - Hypokalemia Status: Acute Assessment and Plan: Stable this morning Monitor K and Mg daily and replace as needed. (7) Atrial fibrillation: Qualifiers: Atrial fibrillation type: unspecified Qualified Code(s): I48.91 - Unspecified atrial fibrillation Code(s): I48.91 - Unspecified atrial fibrillation Status: Chronic Assessment and Plan: Chronic atrial fibrillation. I started her on metoprolol in October at time of last discharge and it appears she was no longer taking this. Resume metoprolol due to intermittent tachycardia. Monitor BPs which were on the lower end days prior.
--- NOTE | 2021-03-05 13:37 | PC.NURSE ---
On 03/05/21, the student, [Magy Murillo], provided care and completed [facility] documentation on this patient. I have reviewed the student's documentation and agree with the findings.
--- NOTE | 2021-03-05 13:38 | PC.NURSE ---
On 03/05/21, the student, [Magy Murillo], provided care and completed [facility] documentation on this patient. I have reviewed the student's documentation and agree with the findings.
--- NOTE | 2021-03-05 13:46 | P.PNNP_ITS ---
Progress Note: A&P Assessment and Plan (1) TAE (acute kidney injury): Code(s): N17.9 - Acute kidney failure, unspecified Status: Acute Assessment and Plan: * possibly related to poor oral intake/pre-renal factors * bilateral hydronephrosis noted -- Urology following - s/p bilateral ureteral stent exchange earlier today * creatinine somewhat better at this time * cautions repletion of K+ level as needed * follow repeat labs (2) Stage 3b chronic kidney disease: Code(s): N18.32 - Chronic kidney disease, stage 3b Status: Chronic Assessment and Plan: * due to age and nephrolithiasis(?) * baseline creatinine runs around 1.5 - 1.9mg/dl (3) Hypokalemia: Code(s): E87.6 - Hypokalemia Status: Acute Assessment and Plan: * replete cautiously * follow magnesium * trend K+ levels (4) Anemia: Code(s): D64.9 - Anemia, unspecified Status: Acute Assessment and Plan: * due to TAE, CKD, and underlying malignancy * PRBC transfusion per protocol * follow trend of H/H (5) Metabolic acidosis: Code(s): E87.2 - Acidosis Status: Acute Assessment and Plan: * due to TAE and CKD along with IVFs * start sodium bicarbonate tabs * if necessary, can add to IVFs as well (6) Weakness: Code(s): R53.1 - Weakness Status: Acute Assessment and Plan: * multifactorial - electrolytes issues, TAE, anemia, cancer...etc * PT/OT as tolerated Will continue to follow. Subjective Date/time seen: 03/05/21 13:46 S/P cystoscopy and bilateral ureteral stent earlier today and tolerated the procedure reasonably well; quite fatigued after procedure and did not want to say/talk much at the time of my visit; no other acute issues or problems overnight or earlier this AM. Exam Narrative: Exam Narrative: General: WD/WN female in NAD Heart: normal S1 and S2; no rub Lungs: clear to auscultation Abdomen: soft, nontender, nondistended, positive bowel sounds Extremities: no cyanosis or clubbing; no edema Skin: warm and intact Objective Data Vital Signs Vital Signs: Vital Signs Temp Pulse Resp BP Pulse Ox 03/05/21 12:00 101 H 03/05/21 10:50 102 H 24 H 115/67 98 03/05/21 10:33 98 27 H 114/65 100 03/05/21 10:18 106 H 32 H 115/64 100 03/05/21 10:04 37.1 C 117 H 32 H 100/59 L 100 03/05/21 08:55 37.1 C 122 H 26 H 108/65 99 03/05/21 08:00 105 H 03/05/21 05:08 36.2 C L 103 H 20 116/62 98 03/05/21 04:00 103 H 03/05/21 00:00 110 H 03/04/21 20:00 109 H 03/04/21 19:54 36.4 C 104 H 16 127/64 99 03/04/21 16:00 93 03/04/21 14:00 36.2 C L 110 H 20 131/72 98 Intake/Output Intake/Output: Intake & Output 03/02/21 03/03/21 03/04/21 03/05/21 23:59 23:59 23:59 23:59 Intake Total 4060 3915 1400 1750 Output Total 150 160 852 1856 Balance 3910 3815 900 500 Meds/Results Medications: Active Medications Generic Name Dose Route Start Last Admin Trade Name Freq PRN Reason Stop Dose Admin Acetaminophen 650 mg 03/03/21 07:13 Acetaminophen 325 Mg Tablet PO Q4H PRN Pain or Fe
--- NOTE | 2021-03-05 13:46 | PM.PNNEP ---
Progress Note: A&P Assessment and Plan (1) TAE (acute kidney injury): Code(s): N17.9 - Acute kidney failure, unspecified Status: Acute Assessment and Plan: possibly related to poor oral intake/pre-renal factors bilateral hydronephrosis noted -- Urology following - s/p bilateral ureteral stent exchange earlier today creatinine somewhat better at this time cautions repletion of K+ level as needed follow repeat labs (2) Stage 3b chronic kidney disease: Code(s): N18.32 - Chronic kidney disease, stage 3b Status: Chronic Assessment and Plan: due to age and nephrolithiasis(?) baseline creatinine runs around 1.5 - 1.9mg/dl (3) Hypokalemia: Code(s): E87.6 - Hypokalemia Status: Acute Assessment and Plan: replete cautiously follow magnesium trend K+ levels (4) Anemia: Code(s): D64.9 - Anemia, unspecified Status: Acute Assessment and Plan: due to TAE, CKD, and underlying malignancy PRBC transfusion per protocol follow trend of H/H (5) Metabolic acidosis: Code(s): E87.2 - Acidosis Status: Acute Assessment and Plan: due to TAE and CKD along with IVFs start sodium bicarbonate tabs if necessary, can add to IVFs as well (6) Weakness: Code(s): R53.1 - Weakness Status: Acute Assessment and Plan: multifactorial - electrolytes issues, TAE, anemia, cancer...etc PT/OT as tolerated Will continue to follow. Subjective Date/time seen: 03/05/21 13:46 S/P cystoscopy and bilateral ureteral stent earlier today and tolerated the procedure reasonably well; quite fatigued after procedure and did not want to say/talk much at the time of my visit; no other acute issues or problems overnight or earlier this AM. Exam Narrative: Exam Narrative: General: WD/WN female in NAD Heart: normal S1 and S2; no rub Lungs: clear to auscultation Abdomen: soft, nontender, nondistended, positive bowel sounds Extremities: no cyanosis or clubbing; no edema Skin: warm and intact Objective Data Vital Signs Vital Signs: Vital Signs Temp Pulse Resp BP Pulse Ox 03/05/21 12:00 101 H 03/05/21 10:50 102 H 24 H 115/67 98 03/05/21 10:33 98 27 H 114/65 100 03/05/21 10:18 106 H 32 H 115/64 100 03/05/21 10:04 37.1 C 117 H 32 H 100/59 L 100 03/05/21 08:55 37.1 C 122 H 26 H 108/65 99 03/05/21 08:00 105 H 03/05/21 05:08 36.2 C L 103 H 20 116/62 98 03/05/21 04:00 103 H 03/05/21 00:00 110 H 03/04/21 20:00 109 H 03/04/21 19:54 36.4 C 104 H 16 127/64 99 03/04/21 16:00 93 03/04/21 14:00 36.2 C L 110 H 20 131/72 98 Intake/Output Intake/Output: Intake & Output 03/02/21 03/03/21 03/04/21 03/05/21 23:59 23:59 23:59 23:59 Intake Total 4060 3915 1400 1750 Output Total 150 788 872 2595 Balance 3910 3815 900 500 Meds/Results Medications: Active Medications Generic Name Dose Route Start Last Admin Trade Name Freq PRN Reason Stop Dose Admin Acetaminophen 650 mg 03/03/21 07:13 Acetaminophen 325 Mg Tablet PO Q4H PRN Pain or Fever Cyanocobalamin 1,000 mcg 03/03/21 14:00 03/05/21 11:51 Cyanocobalamin Inj 1,000 Mcg/Ml Vial IM 03/06/21 09:01 1,000 mcg DAILY TITO Administration Fentanyl Citrate 25 mcg 03/05/21 09:04 Fentanyl Citrate Inj (*Crx) 100 Mcg/2 Ml Vial IV PUSH Q2M PRN Pain Ferrous Sulfate 324 mg 03/04/21 09:40 03/05/21 11:48 Ferrous Sulfate 324 Mg Tablet PO 324 mg BIDWM TITO Administration Sodium Chloride 1,000 mls @ 75 mls/hr 03/01/21 15:30 03/05/21 01:03 Normal Saline Iv IV CONT 75 mls/hr .[id number] TITO Administration Lactated Ringer's 1,000 mls @ 30 mls/hr 03/05/21 08:40 03/05/21 10:52 Lr - Lactated Ringers Iv IV CONT Infused .Q24H TITO Infusion Lactated Ringer's 1,000 mls @ 30 mls/hr 03/05/21 09:05 Lr - Lactated Ringers Iv I
--- NOTE | 2021-03-05 14:08 | PCPTNOTE ---
Attempted to see patient for 3rd attempt at 14:03, however patient continues to decline. Patient sleeping upon entering room. Patient unable to stay awake long enough to participate with therapy. When asked to participate patient replied she was too tired, then fell back asleep. Will attempt to see patient tomorrow per POC. Sheree Hogan, [employer]
[2021-03-05] MEDS: fentaNYL CITRATE INJ (*CRX) 100 MCG/2 ML VIAL 25 MCG IV PUSH (18:31)
[2021-03-05] MEDS: METOPROLOL TARTRATE 12.5 MG TABLET PO (20:25)
[2021-03-06] VITALS (9 sets, daily range): BP systolic 80–108; BP diastolic 50–67; PULSE 82–109; RESP 20; TEMP 35.8–36.1; O2SAT 98–99
[2021-03-06] MEDS: ACETAMINOPHEN 325 MG TABLET 650 MG PO ×2 (01:34→20:09)
[2021-03-06] MEDS: SODIUM CHLORIDE 0.9% IV 1,000 ML 75 ML IV CONT (04:42)
[2021-03-06 06:34] LABS: Hematocrit 28.3 % (37.0-47.0); Hemoglobin 9.1 g/dL (12.0-15.0); Mean Corpuscular HGB Conc 32.2 g/dl (32-36); Mean Corpuscular Hemoglobin 28.4 pg (26-34); Mean Corpuscular Volume 88.4 fl (80-100); Mean Platelet Volume 10.8 fl (7.4-10.4); Platelet Count Result 294 k/mm3 (150-375); Red Cell Distribution Width 17.7 % (11.5-14.5); White Blood Count 8.1 K/mm3 (4.5-10.0)
[2021-03-06 06:40] LABS: Alanine Aminotransferase 10 U/L (4-35); Albumin Level 2.1 g/dL (3.5-5.1); Alkaline Phosphatase 95 U/L (38-126); Anion Gap 9 mmol/L (8-16); Aspartate Amino Transferase 21 U/L (14-36); Bilirubin,Total 1.3 mg/dL (0.2-1.3); Blood Urea Nitrogen 52 mg/dL (7-17); Calcium 8.1 mg/dL (8.4-10.2); Carbon Dioxide 7 mmol/L (22-30); Chloride 124 mmol/L (98-107); Estimated CRCL calculation 15 ml/min; Estimated Glomerular Filt Rate 18; Glucose 89 mg/dL (65-110); Magnesium 2.1 mg/dL (1.6-2.3); Potassium 3.2 mmol/L (3.4-5.0); Sodium 140 mmol/L (137-145)
[2021-03-06] MEDS: POTASSIUM CHLORIDE 20 MEQ TABLET 40 MEQ PO (09:01)
[2021-03-06] MEDS: FERROUS SULFATE 324 MG TABLET PO ×2 (09:01→17:12)
[2021-03-06] MEDS: LETROZOLE (*CHEMO) 2.5 MG TABLET PO (09:02)
[2021-03-06] MEDS: METOPROLOL TARTRATE 12.5 MG TABLET PO (09:02)
[2021-03-06] MEDS: CYANOCOBALAMIN INJ 1,000 MCG/ML VIAL 1000 MCG IM (09:02)
[2021-03-06] MEDS: PANTOPRAZOLE SODIUM IV 40 MG VIAL IV PUSH ×2 (09:02→20:07)
[2021-03-06] MEDS: MAGNESIUM OXIDE 400 MG TABLET PO (09:02)
--- NOTE | 2021-03-06 10:33 | PCOTNOTE ---
Attempted Occupational therapy session; patient declined all ADL, transfer, and therapeutic exercise attempts this date due to feeling tired ; notified nurse; follow up as appropriate for therapy session
--- NOTE | 2021-03-06 11:13 | PM.IMPN ---
Progress Note: A&P Assessment and Plan (1) Weakness: Code(s): R53.1 - Weakness Status: Acute Assessment and Plan: Patient presents with worsening weakness over the last 1 week. I suspect this is multifactorial in nature and suspect cancer, cancer treatment, anemia, recent poor oral intake, hypokalemia and TAE are likely contributing. Appreciate PT/OT evaluations. She continues to refuse therapy today. I have encouraged her that she needs to try getting up out of bed with therapy so we can create a safe discharge plan for her. Discussed possible SNF with patient and care coordination. (2) Chronic anemia: Code(s): D64.9 - Anemia, unspecified Status: Chronic Assessment and Plan: Hgb down to 5.9 03/03 and she received 2 units packed RBC. Hgb improved after blood and remains stable today 9.1. Suspect CKD, malignancy, B12 and iron deficiency are contributing. Stool occult blood is negative. History of GI bleed in October. Appreciate Dr Reese's input. Continue iron and B12 replacement, monitor CBC. 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 She has undergone radiotherapy and has upcoming mastectomy scheduled for later this month. She remains on letrozole. Recently came off Ibrance due to poor tolerance. CT abd/pel incidental finding of new liver hypodensity. Cannot exclude metastasis. Her care team includes Dr Gutierrez, Dr Reese, Dr Toledo and Dr Arnold. (4) Acute kidney injury superimposed on chronic kidney disease: Code(s): N17.9 - Acute kidney failure, unspecified; N18.9 - Chronic kidney disease, unspecified Status: Acute Assessment and Plan: Suspect related to poor oral intake recently. Baseline Cr appears around 1.5 - 1.9; Cr was 3.1 on arrival now improved some with IV hydration but CrCl and GFR around 15. Patient had similar issue during last admission a few months ago but now CrCl is even lower. Appreciate nephrology input. Remains on slow rate of IV fluids since she is not eating/drinking much; monitor fluid status closely. CT abd/pelvis performed which demonstrated TRINA ureteral stents in place (placed during last admission 11/05/20) with TRINA hydronephrosis. See below. (5) Hydronephrosis: Qualifiers: Hydronephrosis type: unspecified Qualified Code(s): N13.30 - Unspecified hydronephrosis Code(s): N13.30 - Unspecified hydronephrosis Status: Acute Assessment and Plan: CT abd/pel performed due to worsened renal function and recent history of TRINA ureteral stent placement with stones. CT demonstrated moderate right, mild to moderate left hydronephrosis. Bilateral stents in position with left renal and UPJ stones and right mid ureteral stone. Appreciate urology input - she went for cysto with TRINA ureteral stent exchange this morning. (6) Hypokalemia: Code(s): E87.6 - Hypokalemia Status: Acute Assessment and Plan: K 3.2 this morning, replace. Monitor K and Mg daily and replace as needed. (7) Atrial fibrillation: Qualifiers: Atrial fibrillation type: unspecified Qualified Code(s): I48.91 - Unspecified atrial fibrillation Code(s): I48.91 - Unspecified atrial fibrillation Status: Chronic Assessment and Plan: Chronic
--- NOTE | 2021-03-06 11:41 | WPDANESPN ---
Anes - Prog Note Post-Op Date/Time: 03/06/21 11:41 Cardiovascular status: normal Respiratory status: normal Airway patency: baseline Mental status: baseline Post-Op hydration status: normal Vital Signs: Last Vital Signs Temp 36.1 C L 03/06/21 06:00 Pulse 87 03/06/21 09:02 Resp 20 03/06/21 06:00 BP 101/52 L 03/06/21 06:00 Pulse Ox 98 03/06/21 06:00 Pain Score (VAS): 0 I/O: Intake & Output 03/05/21 03/06/21 03/06/21 23:59 07:59 15:59 Intake Total 1300 Output Total 250 Balance -250 1300 Laboratory Tests 03/06/21 06:11 03/06/21 06:11 03/06/21 03/06/21 06:11 06:11 WBC 8.1 RBC 3.20 L Hgb 9.1 L Hct 28.3 L MCV 88.4 MCH 28.4 MCHC 32.2 RDW 17.7 H Plt Count 294 MPV 10.8 H Sodium 140 Potassium 3.2 L Chloride 124 H Carbon Dioxide 7 L Anion Gap 9 BUN 52 H Creatinine 2.60 H Estim Creat Clear Calc 15 Estimated GFR 18 L Glucose 89 Calcium 8.1 L Magnesium 2.1 Total Bilirubin 1.3 AST 21 ALT 10 Alkaline Phosphatase 95 Total Protein 5.0 L Albumin 2.1 L Post-procedural complaints: none Patient Feedback: Patient satisfied with anesthetic care.
--- NOTE | 2021-03-06 13:47 | PM.PNNEP ---
Progress Note: A&P Assessment and Plan (1) TAE (acute kidney injury): Code(s): N17.9 - Acute kidney failure, unspecified Status: Acute Assessment and Plan: possibly related to poor oral intake/pre-renal factors bilateral hydronephrosis noted -- Urology following - s/p bilateral ureteral stent exchange earlier today creatinine somewhat better at this time follow repeat labs (2) Stage 3b chronic kidney disease: Code(s): N18.32 - Chronic kidney disease, stage 3b Status: Chronic Assessment and Plan: due to age and nephrolithiasis(?) baseline creatinine runs around 1.5 - 1.9mg/dl (3) Hypokalemia: Code(s): E87.6 - Hypokalemia Status: Acute Assessment and Plan: replete cautiously follow magnesium trend K+ levels (4) Anemia: Code(s): D64.9 - Anemia, unspecified Status: Acute Assessment and Plan: due to TAE, CKD, and underlying malignancy PRBC transfusion per protocol follow trend of H/H (5) Metabolic acidosis: Code(s): E87.2 - Acidosis Status: Acute Assessment and Plan: due to TAE and CKD along with IVFs started on sodium bicarbonate tabs (6) Weakness: Code(s): R53.1 - Weakness Status: Acute Assessment and Plan: multifactorial - electrolytes issues, TAE, anemia, cancer...etc PT/OT as tolerated Will continue to follow. Subjective Date/time seen: 03/06/21 13:47 No acute distress voiced at this time; still notes weakness and fatigue but not very amenable to PT/OT or ambulation; did not want to talk very much just like yesterday; no events/issues overnight or earlier this AM. Exam Narrative: Exam Narrative: General: WD/WN female in NAD Heart: normal S1 and S2; no rub Lungs: clear to auscultation Abdomen: soft, nontender, nondistended, positive bowel sounds Extremities: no cyanosis or clubbing; no edema Skin: no rash or nodules Objective Data Vital Signs Vital Signs: Vital Signs Temp Pulse Resp BP Pulse Ox 03/06/21 09:02 87 03/06/21 08:00 88 03/06/21 06:00 36.1 C L 86 20 101/52 L 98 03/06/21 04:00 82 03/06/21 00:00 88 03/05/21 22:00 36.1 C L 110 H 20 128/57 L 99 03/05/21 20:25 110 H 03/05/21 20:00 101 H 03/05/21 16:00 101 H Intake/Output Intake/Output: Intake & Output 03/03/21 03/04/21 03/05/21 03/06/21 23:59 23:59 23:59 23:59 Intake Total 3915 1400 2750 1300 Output Total 254 546 2227 Balance 3815 900 1250 1300 Meds/Results Medications: Active Medications Generic Name Dose Route Start Last Admin Trade Name Freq PRN Reason Stop Dose Admin Acetaminophen 650 mg 03/03/21 07:13 03/06/21 01:34 Acetaminophen 325 Mg Tablet PO 650 mg Q4H PRN Administration Pain or Fever Ferrous Sulfate 324 mg 03/04/21 09:40 03/06/21 09:01 Ferrous Sulfate 324 Mg Tablet PO 324 mg BIDWM TITO Administration Sodium Chloride 1,000 mls @ 0 mls/hr 03/01/21 15:30 03/06/21 09:02 Normal Saline Iv IV CONT 30 mls/hr .Q24H TITO Infusion KVO Letrozole 2.5 mg 03/02/21 09:00 03/06/21 09:02 Letrozole (*Chemo) 2.5 Mg Tablet PO 2.5 mg DAILY TITO Administration Magnesium Oxide 400 mg 03/03/21 09:00 03/06/21 09:02 Magnesium Oxide 400 Mg Tablet PO 400 mg DAILY TITO Administration Metoprolol Tartrate 12.5 mg 03/02/21 21:00 03/06/21 09:02 Metoprolol Tartrate 12.5 Mg Tablet PO 12.5 mg Q12HR TITO Administration Ondansetron HCl 4 mg 03/03/21 07:13 Ondansetron Inj 4 Mg/2 Ml Vial IV PUSH Q6H PRN Nausea And Vomiting Pantoprazole Sodium 40 mg 03/03/21 09:20 03/06/21 09:02 Pantoprazole Sodium Iv 40 Mg Vial IV PUSH 40 mg Q12HR TITO Administration Sodium Bicarbonate 1,300 mg 03/06/21 17:00 Sodium Bicarbonate Tab 650 Mg Tablet PO BID TITO Radiology Results: ITS Impressions Abdomen/Pelvis CT 03/04/21 08:51 IMP
--- NOTE | 2021-03-06 13:47 | P.PNNP_ITS ---
Progress Note: A&P Assessment and Plan (1) TAE (acute kidney injury): Code(s): N17.9 - Acute kidney failure, unspecified Status: Acute Assessment and Plan: * possibly related to poor oral intake/pre-renal factors * bilateral hydronephrosis noted -- Urology following - s/p bilateral ureteral stent exchange earlier today * creatinine somewhat better at this time * follow repeat labs (2) Stage 3b chronic kidney disease: Code(s): N18.32 - Chronic kidney disease, stage 3b Status: Chronic Assessment and Plan: * due to age and nephrolithiasis(?) * baseline creatinine runs around 1.5 - 1.9mg/dl (3) Hypokalemia: Code(s): E87.6 - Hypokalemia Status: Acute Assessment and Plan: * replete cautiously * follow magnesium * trend K+ levels (4) Anemia: Code(s): D64.9 - Anemia, unspecified Status: Acute Assessment and Plan: * due to TAE, CKD, and underlying malignancy * PRBC transfusion per protocol * follow trend of H/H (5) Metabolic acidosis: Code(s): E87.2 - Acidosis Status: Acute Assessment and Plan: * due to TAE and CKD along with IVFs * started on sodium bicarbonate tabs (6) Weakness: Code(s): R53.1 - Weakness Status: Acute Assessment and Plan: * multifactorial - electrolytes issues, TAE, anemia, cancer...etc * PT/OT as tolerated Will continue to follow. Subjective Date/time seen: 03/06/21 13:47 No acute distress voiced at this time; still notes weakness and fatigue but not very amenable to PT/OT or ambulation; did not want to talk very much just like yesterday; no events/issues overnight or earlier this AM. Exam Narrative: Exam Narrative: General: WD/WN female in NAD Heart: normal S1 and S2; no rub Lungs: clear to auscultation Abdomen: soft, nontender, nondistended, positive bowel sounds Extremities: no cyanosis or clubbing; no edema Skin: no rash or nodules Objective Data Vital Signs Vital Signs: Vital Signs Temp Pulse Resp BP Pulse Ox 03/06/21 09:02 87 03/06/21 08:00 88 03/06/21 06:00 36.1 C L 86 20 101/52 L 98 03/06/21 04:00 82 03/06/21 00:00 88 03/05/21 22:00 36.1 C L 110 H 20 128/57 L 99 03/05/21 20:25 110 H 03/05/21 20:00 101 H 03/05/21 16:00 101 H Intake/Output Intake/Output: Intake & Output 03/03/21 03/04/21 03/05/21 03/06/21 23:59 23:59 23:59 23:59 Intake Total 3915 1400 2750 1300 Output Total 850 464 8841 Balance 3815 900 1250 1300 Meds/Results Medications: Active Medications Generic Name Dose Route Start Last Admin Trade Name Freq PRN Reason Stop Dose Admin Acetaminophen 650 mg 03/03/21 07:13 03/06/21 01:34 Acetaminophen 325 Mg Tablet PO 650 mg Q4H PRN Administration Pain or Fever Ferrous Sulfate 324 mg 03/04/21 09:40 03/06/21 09:01 Ferrous Sulfate 324 Mg Tablet PO 324 mg BIDWM TITO Administration Sodium Chloride 1,000 mls @ 0 mls/hr 03/01/21 15:30 03/06/21 09:02 Normal Saline Iv IV CONT 30 mls/hr .Q24H TITO Infusion KVO Letrozole 2.5 mg 03/02/21 09:00 03/06
[2021-03-06] MEDS: SODIUM BICARBONATE TAB 650 MG TABLET 1300 MG PO (17:12)
--- NOTE | 2021-03-06 17:14 | PCPTNOTE ---
The patient treatment was not able to be completed on 03/06/2021. Will plan to continue treatment per plan of care.
--- NOTE | 2021-03-06 17:41 | WPDUROPN2 ---
Progress Note: A&P Assessment and Plan (1) Hydronephrosis: Qualifiers: Hydronephrosis type: unspecified Qualified Code(s): N13.30 - Unspecified hydronephrosis Code(s): N13.30 - Unspecified hydronephrosis Status: Acute Assessment and Plan: Ureteral stents exchanged by Dr. Payne yesterday. Maintain. (2) UTI (urinary tract infection): Code(s): N39.0 - Urinary tract infection, site not specified Status: Acute Assessment and Plan: The patient's blood pressures are soft today and I wonder if we should broaden antibiotics. Discussed with Sherry Mustafa NP with the Hospitalist's group by telephone at [phone]. She will investigate further and adjust antibiotics and fluids per her service's preference. Subjective Subjective Date/Time Seen: 03/06/21 17:41 Ms. Lerner reports she feels so-so. She reports feeling weak and tired. Her BPs have been soft today. Exam Const: General: cooperative, healthy appearing, comfortable, no acute distress, alert and awake Nutritional Appearance: cachectic and malnourished Resp: Effort & Inspection: normal respiratory effort and able to speak in complete sentences Cardio: Rate: regular rate GI: Inspection: normal to inspection GI Palp: Yes Soft to palpation Neuro: General: oriented to person, oriented to place and oriented to time Objective Data Vital Signs Vital Signs: Vital Signs - 24 hr 03/05/21 20:00 03/05/21 20:25 03/05/21 22:00 Temperature 97.0 F L Pulse Rate 101 H 110 H 110 H Respiratory Rate 20 Blood Pressure 128/57 L Pulse Oximetry 99 03/06/21 00:00 03/06/21 04:00 03/06/21 06:00 Temperature 97.0 F L Pulse Rate 88 82 86 Respiratory Rate 20 Blood Pressure 101/52 L Pulse Oximetry 98 03/06/21 08:00 03/06/21 09:02 03/06/21 14:00 Temperature 96.8 F L Pulse Rate 88 87 88 Respiratory Rate Blood Pressure 80/50 L Pulse Oximetry 98 03/06/21 15:25 Temperature Pulse Rate Respiratory Rate Blood Pressure 96/64 L Pulse Oximetry Intake/Output Intake/Output: Intake & Output 03/03/21 03/04/21 03/05/21 03/06/21 23:59 23:59 23:59 23:59 Intake Total 3915 1400 2750 1877 Output Total 261 358 5516 600 Balance 3815 900 1250 1277 Meds/Results Medications: Active Medications Generic Name Dose Route Start Last Admin Trade Name Ion PRN Reason Stop Dose Admin Acetaminophen 650 mg 03/03/21 07:13 03/06/21 01:34 Acetaminophen 325 Mg Tablet PO 650 mg Q4H PRN Administration Pain or Fever Ferrous Sulfate 324 mg 03/04/21 09:40 03/06/21 17:12 Ferrous Sulfate 324 Mg Tablet PO 324 mg BIDWM TITO Administration Sodium Chloride 1,000 mls @ 30 mls/hr 03/01/21 15:30 03/06/21 17:15 Normal Saline Iv IV CONT 30 mls/hr .Q24H TITO Infusion Letrozole 2.5 mg 03/02/21 09:00 03/06/21 09:02 Letrozole (*Chemo) 2.5 Mg Tablet PO 2.5 mg DAILY TITO Administration Magnesium Oxide 400 mg 03/03/21 09:00 03/06/21 09:02 Magnesium Oxide 400 Mg Tablet PO 400 mg DAILY TITO Administration Metoprolol Tartrate 12.5 mg 03/02/21 21:00 03/06/21 09:02 Metoprolol Tartrate 12.5 Mg Tablet PO 12.5 mg Q12HR TITO Administration Ondansetron HCl 4 mg 03/03/21 07:13 Ondansetron Inj 4 Mg/2 Ml Vial IV PUSH Q6H PRN Nausea And Vomiting Pantoprazole Sodium 40 mg 03/03/21 09:20 03/06/21 09:02 Pantoprazole Sodium Iv 40 Mg Vial IV PUSH 40 mg Q12HR TITO Administration Sodium Bicarbonate 1,300 mg 03/06/21 17:00 03/06/21 17:12 Sodium Bicarbonate Tab 650 Mg Tablet PO 1,300 mg BID TITO Administration Radiology Results: ITS Impressions Abdomen/Pelvis CT 03/04/21 08:51 IMPRESSION: 1. Moderate right, mild to moderate left hydronephrosis. Bilateral stents in position. 2. Left calyceal, UPJ stones. Right mid ureteral stone. 3. New triangular-shaped left liver lobe hypodensity, indeterminate. 4. Small pericardial effusions. Dep
--- NOTE | 2021-03-06 18:03 | PM.EVENT ---
Event Note Event Note Event Note: the patient had a low blood pressure and i went to see her. Manual bp improved. Hold betablocker to see if improves. No increase in wbcs and no fever. will leave on current abx and see if bp improves. the patient is already edematous and would not want to increase fluids at this time. May consider glucagon if donell doesnt improve .
[2021-03-07] MEDS: SODIUM CHLORIDE 0.9% IV 1,000 ML 30 ML IV CONT (05:54)
[2021-03-07 06:00] VITALS: BP 106/51; PULSE 93; RESP 20; TEMP 36; O2SAT 98
[2021-03-07] MEDS: FERROUS SULFATE 324 MG TABLET PO ×2 (08:33→17:17)
[2021-03-07] MEDS: LETROZOLE (*CHEMO) 2.5 MG TABLET PO (08:33)
[2021-03-07] MEDS: SODIUM BICARBONATE TAB 650 MG TABLET 1300 MG PO ×3 (08:33→20:44)
[2021-03-07] MEDS: MAGNESIUM OXIDE 400 MG TABLET PO (08:33)
[2021-03-07] MEDS: PANTOPRAZOLE SODIUM IV 40 MG VIAL IV PUSH ×2 (08:33→20:44)
[2021-03-07 09:47] LABS: Hematocrit 30.1 % (37.0-47.0); Hemoglobin 10.3 g/dL (12.0-15.0); Mean Corpuscular HGB Conc 34.2 g/dl (32-36); Mean Corpuscular Hemoglobin 28.9 pg (26-34); Mean Corpuscular Volume 84.6 fl (80-100); Mean Platelet Volume 10.9 fl (7.4-10.4); Platelet Count Result 354 k/mm3 (150-375); Red Blood Count 3.56 M/mm3 (4.2-5.4); Red Cell Distribution Width 17.9 % (11.5-14.5); White Blood Count 11.5 K/mm3 (4.5-10.0)
[2021-03-07 10:12] LABS: Anion Gap 12 mmol/L (8-16); Blood Urea Nitrogen 56 mg/dL (7-17); Calcium 8.5 mg/dL (8.4-10.2); Carbon Dioxide 8 mmol/L (22-30); Chloride 122 mmol/L (98-107); Estimated CRCL calculation 16 ml/min; Estimated Glomerular Filt Rate 19; Glucose 98 mg/dL (65-110); Magnesium 2.1 mg/dL (1.6-2.3); Potassium 3.5 mmol/L (3.4-5.0); Sodium 142 mmol/L (137-145)
[2021-03-07 14:00] VITALS: BP 113/63; PULSE 102; RESP 22; TEMP 36.2; O2SAT 99
--- NOTE | 2021-03-07 14:27 | PM.PNNEP ---
Progress Note: A&P Assessment and Plan (1) TAE (acute kidney injury): Code(s): N17.9 - Acute kidney failure, unspecified Status: Acute Assessment and Plan: possibly related to poor oral intake/pre-renal factors along with obstruction bilateral hydronephrosis noted by imaging -- Urology following - s/p bilateral ureteral stent exchange creatinine somewhat better at this time follow repeat labs (2) Stage 3b chronic kidney disease: Code(s): N18.32 - Chronic kidney disease, stage 3b Status: Chronic Assessment and Plan: due to age and nephrolithiasis(?) baseline creatinine runs around 1.5 - 1.9mg/dl is there an element of disease progression?? (3) Hypokalemia: Code(s): E87.6 - Hypokalemia Status: Acute Assessment and Plan: stable currently replete cautiously follow magnesium trend K+ levels (4) Anemia: Code(s): D64.9 - Anemia, unspecified Status: Acute Assessment and Plan: due to TAE, CKD, and underlying malignancy PRBC transfusion per protocol follow trend of H/H (5) Metabolic acidosis: Code(s): E87.2 - Acidosis Status: Acute Assessment and Plan: due to TAE and CKD along with IVFs started on sodium bicarbonate tabs to compensate may need to add to IVFs but she already has swelling/edema (6) Weakness: Code(s): R53.1 - Weakness Status: Acute Assessment and Plan: multifactorial - electrolytes issues, TAE, anemia, cancer...etc PT/OT as tolerated Will continue to follow. Subjective Date/time seen: 03/07/21 14:27 Some issues overnight regarding hypotension and concerns for possible early sepsis but with adjustment in medications; BP still a bit soft at this time even with BP medications with holding parameters; no other acute issues or problems voiced at this time. Exam Narrative: Exam Narrative: General: WD/WN female in NAD Heart: normal S1 and S2; no rub Lungs: clear to auscultation Abdomen: soft, nontender, nondistended, positive bowel sounds Extremities: no cyanosis or clubbing; 1+ edema Skin: warm and dry Objective Data Vital Signs Vital Signs: Vital Signs Temp Pulse Resp BP Pulse Ox 03/07/21 14:00 36.2 C L 102 H 22 H 113/63 99 03/07/21 06:00 36.0 C L 93 20 106/51 L 98 03/06/21 21:58 35.8 C L 109 H 20 107/67 99 03/06/21 18:01 108/66 Intake/Output Intake/Output: Intake & Output 03/04/21 03/05/21 03/06/21 03/07/21 23:59 23:59 23:59 23:59 Intake Total 1400 2750 1897 473 Output Total 500 1500 600 Balance 900 1250 1297 473 Meds/Results Medications: Active Medications Generic Name Dose Route Start Last Admin Trade Name Freq PRN Reason Stop Dose Admin Acetaminophen 650 mg 03/03/21 07:13 03/06/21 20:09 Acetaminophen 325 Mg Tablet PO 650 mg Q4H PRN Administration Pain or Fever Ferrous Sulfate 324 mg 03/04/21 09:40 03/07/21 17:17 Ferrous Sulfate 324 Mg Tablet PO 324 mg BIDWM TITO Administration Sodium Chloride 1,000 mls @ 30 mls/hr 03/01/21 15:30 03/07/21 05:54 Normal Saline Iv IV CONT 30 mls/hr .Q24H TITO Administration Ceftriaxone Sodium/Dextrose 1 gm in 50 mls @ 100 mls/hr 03/07/21 09:00 03/07/21 11:10 Rocephin 1 Gm/D5w 50 Ml IVPB Infused Q24H TITO Infusion Letrozole 2.5 mg 03/02/21 09:00 03/07/21 08:33 Letrozole (*Chemo) 2.5 Mg Tablet PO 2.5 mg DAILY TITO Administration Magnesium Oxide 400 mg 03/03/21 09:00 03/07/21 08:33 Magnesium Oxide 400 Mg Tablet PO 400 mg DAILY TITO Administration Metoprolol Tartrate 12.5 mg 03/02/21 21:00 03/06/21 09:02 Metoprolol Tartrate 12.5 Mg Tablet PO 12.5 mg Q12HR TITO Administration Ondansetron HCl 4 mg 03/03/21 07:13 Ondansetron Inj 4 Mg/2 Ml Vial IV PUSH Q6H PRN Nausea And Vomiting Pantoprazole Sodium 40 mg 03/03/21 09:20 03/07/21 08:33 Pantoprazole Sodium Iv 4
--- NOTE | 2021-03-07 14:27 | P.PNNP_ITS ---
Progress Note: A&P Assessment and Plan (1) TAE (acute kidney injury): Code(s): N17.9 - Acute kidney failure, unspecified Status: Acute Assessment and Plan: * possibly related to poor oral intake/pre-renal factors along with obstruction * bilateral hydronephrosis noted by imaging -- Urology following - s/p bilateral ureteral stent exchange * creatinine somewhat better at this time * follow repeat labs (2) Stage 3b chronic kidney disease: Code(s): N18.32 - Chronic kidney disease, stage 3b Status: Chronic Assessment and Plan: * due to age and nephrolithiasis(?) * baseline creatinine runs around 1.5 - 1.9mg/dl * is there an element of disease progression?? (3) Hypokalemia: Code(s): E87.6 - Hypokalemia Status: Acute Assessment and Plan: * stable currently * replete cautiously * follow magnesium * trend K+ levels (4) Anemia: Code(s): D64.9 - Anemia, unspecified Status: Acute Assessment and Plan: * due to TAE, CKD, and underlying malignancy * PRBC transfusion per protocol * follow trend of H/H (5) Metabolic acidosis: Code(s): E87.2 - Acidosis Status: Acute Assessment and Plan: * due to TAE and CKD along with IVFs * started on sodium bicarbonate tabs to compensate * may need to add to IVFs but she already has swelling/edema (6) Weakness: Code(s): R53.1 - Weakness Status: Acute Assessment and Plan: * multifactorial - electrolytes issues, TAE, anemia, cancer...etc * PT/OT as tolerated Will continue to follow. Subjective Date/time seen: 03/07/21 14:27 Some issues overnight regarding hypotension and concerns for possible early sepsis but with adjustment in medications; BP still a bit soft at this time even with BP medications with holding parameters; no other acute issues or problems voiced at this time. Exam Narrative: Exam Narrative: General: WD/WN female in NAD Heart: normal S1 and S2; no rub Lungs: clear to auscultation Abdomen: soft, nontender, nondistended, positive bowel sounds Extremities: no cyanosis or clubbing; 1+ edema Skin: warm and dry Objective Data Vital Signs Vital Signs: Vital Signs Temp Pulse Resp BP Pulse Ox 03/07/21 14:00 36.2 C L 102 H 22 H 113/63 99 03/07/21 06:00 36.0 C L 93 20 106/51 L 98 03/06/21 21:58 35.8 C L 109 H 20 107/67 99 03/06/21 18:01 108/66 Intake/Output Intake/Output: Intake & Output 03/04/21 03/05/21 03/06/21 03/07/21 23:59 23:59 23:59 23:59 Intake Total 1400 2750 1897 473 Output Total 500 1500 600 Balance 900 1250 1297 473 Meds/Results Medications: Active Medications Generic Name Dose Route Start Last Admin Trade Name Freq PRN Reason Stop Dose Admin Acetaminophen 650 mg 03/03/21 07:13 03/06/21 20:09 Acetaminophen 325 Mg Tablet PO 650 mg Q4H PRN Administration Pain or Fever Ferrous Sulfate 324 mg 03/04/21 09:40 03/07/21 17:17 Ferrous Sulfate 324 Mg Tablet PO 324 mg BIDWM TITO Administration Sodium Chloride 1,000 mls @ 30 mls/hr 03/01/21 15:30 03/07/21 05:54 Normal Saline Iv IV CONT 30 mls/hr .Q24H ITTO Administration
--- NOTE | 2021-03-07 14:41 | PM.IMPN ---
Progress Note: A&P Assessment and Plan (1) Weakness: Code(s): R53.1 - Weakness Status: Acute Assessment and Plan: Patient presents with worsening weakness over the last 1 week. I suspect this is multifactorial in nature and suspect cancer, cancer treatment, anemia, poor oral intake, hypokalemia and TAE are likely contributing. Appreciate PT/OT evaluations. She continues to refuse therapy today. I have encouraged her that she needs to try getting up out of bed with therapy so we can create a safe discharge plan for her. SNF in discussion. Detailed discussion held with patient's daughter, Nurys, over the phone regarding patient's declining condition and overall further goals of care. Nurys is agreeable to an informational meeting with hospice tomorrow. We discussed going hospice would likely mean her upcoming surgery would be cancelled however I am under the impression these efforts are palliative in nature. Will touch base with Dr Reese tomorrow to discuss appropriateness of possible hospice services. Daughter expresses wishes to change patient's code status to DNR. Patient is oriented and technically able to make decisions. When code status discussed again with patient she stops talking to me and will not answer questions regarding code status. Very difficult to assess patient's wishes because she will not talk to us about it but she has not given permission to change code status to DNR. Hope to speak with Dr Reese tomorrow to discuss her prognosis and options for further goals of care. Patient is not eating or drinking much of anything and declines therapy despite encouragement. She is very weak and tired. Daughter wants to keep her comfortable but patient won't give any input herself regarding her own wishes. (2) Chronic anemia: Code(s): D64.9 - Anemia, unspecified Status: Chronic Assessment and Plan: Hgb down to 5.9 03/03 and she received 2 units packed RBC. Hgb improved after blood and remains stable today 10.3. Suspect CKD, malignancy, B12 and iron deficiency are contributing. Stool occult blood is negative. History of GI bleed in October. Appreciate Dr Reese's input. Continue iron and B12 replacement, monitor CBC. 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 She has undergone radiotherapy and has upcoming mastectomy scheduled for later this month. She remains on letrozole. Recently came off Ibrance due to poor tolerance. CT abd/pel incidental finding of new liver hypodensity. Cannot exclude metastasis. Her care team includes Dr Gutierrez, Dr Reese, Dr Toledo and Dr Arnold. Appreciate oncology input on her prognosis given her conditional decline this week. (4) Acute kidney injury superimposed on chronic kidney disease: Code(s): N17.9 - Acute kidney failure, unspecified; N18.9 - Chronic kidney disease, unspecified Status: Acute Assessment and Plan: Suspect related to poor oral intake recently. Baseline Cr appears around 1.5 - 1.9; Cr was 3.1 on arrival now improved some with IV hydration but CrCl and GFR around 15. Patient had similar issue during last admission a few months ago but now CrCl is even lower. Appreciate nephrology input. Remains on very slow rate of IV fluids since she is not eating/drinking much; would wish to hydrate her more but she is getting edematous. CT abd/pelvis performed which demonstrated TRINA ureteral stents in damaris
--- NOTE | 2021-03-07 18:40 | WPDUROPN2 ---
Progress Note: A&P Assessment and Plan (1) Hydronephrosis: Qualifiers: Hydronephrosis type: unspecified Qualified Code(s): N13.30 - Unspecified hydronephrosis Code(s): N13.30 - Unspecified hydronephrosis Status: Acute Assessment and Plan: Ureteral stents exchanged by Dr. Payne yesterday. Maintain. (2) UTI (urinary tract infection): Code(s): N39.0 - Urinary tract infection, site not specified Status: Acute Assessment and Plan: Vital signs appear to have improved over the last 24 hours. Agree with current management per hospitalist group. Subjective Subjective Date/Time Seen: 03/07/21 18:40 NAEO, patient denies worsening of pain or other problems, VS have improved. Exam Const: General: healthy appearing, comfortable and no acute distress Eyes: General: appearance normal, both eyes and all related structures Resp: Effort & Inspection: normal respiratory effort and able to speak in complete sentences Cardio: Jugular venous distension: no JVD Rate: regular rate GI: Inspection: normal to inspection GI Palp: Yes Soft to palpation and No Tenderness to palpation present (GI) Skin: General skin exam: normal color and no rashes or lesions noted Neuro: General: oriented to person, oriented to place and oriented to time Objective Data Vital Signs Vital Signs: Vital Signs - 24 hr 03/06/21 21:58 03/07/21 06:00 03/07/21 14:00 Temperature 96.4 F L 96.8 F L 97.1 F L Pulse Rate 109 H 93 102 H Respiratory Rate 20 20 22 H Blood Pressure 107/67 106/51 L 113/63 Pulse Oximetry 99 98 99 Intake/Output Intake/Output: Intake & Output 03/04/21 03/05/21 03/06/21 03/07/21 23:59 23:59 23:59 23:59 Intake Total 1400 2750 1897 473 Output Total 500 1500 600 Balance 900 1250 1297 473 Meds/Results Medications: Active Medications Generic Name Dose Route Start Last Admin Trade Name Freq PRN Reason Stop Dose Admin Acetaminophen 650 mg 03/03/21 07:13 03/06/21 20:09 Acetaminophen 325 Mg Tablet PO 650 mg Q4H PRN Administration Pain or Fever Ferrous Sulfate 324 mg 03/04/21 09:40 03/07/21 17:17 Ferrous Sulfate 324 Mg Tablet PO 324 mg BIDWM TITO Administration Sodium Chloride 1,000 mls @ 30 mls/hr 03/01/21 15:30 03/07/21 05:54 Normal Saline Iv IV CONT 30 mls/hr .Q24H TITO Administration Ceftriaxone Sodium/Dextrose 1 gm in 50 mls @ 100 mls/hr 03/07/21 09:00 03/07/21 11:10 Rocephin 1 Gm/D5w 50 Ml IVPB Infused Q24H TITO Infusion Letrozole 2.5 mg 03/02/21 09:00 03/07/21 08:33 Letrozole (*Chemo) 2.5 Mg Tablet PO 2.5 mg DAILY TITO Administration Magnesium Oxide 400 mg 03/03/21 09:00 03/07/21 08:33 Magnesium Oxide 400 Mg Tablet PO 400 mg DAILY TITO Administration Metoprolol Tartrate 12.5 mg 03/02/21 21:00 03/06/21 09:02 Metoprolol Tartrate 12.5 Mg Tablet PO 12.5 mg Q12HR TITO Administration Ondansetron HCl 4 mg 03/03/21 07:13 Ondansetron Inj 4 Mg/2 Ml Vial IV PUSH Q6H PRN Nausea And Vomiting Pantoprazole Sodium 40 mg 03/03/21 09:20 03/07/21 08:33 Pantoprazole Sodium Iv 40 Mg Vial IV PUSH 40 mg Q12HR TITO Administration Sodium Bicarbonate 1,300 mg 03/07/21 21:00 Sodium Bicarbonate Tab 650 Mg Tablet PO 03/07/21 21:01 ONCE ONE Radiology Results: ITS Impressions Abdomen/Pelvis CT 03/04/21 08:51 IMPRESSION: 1. Moderate right, mild to moderate left hydronephrosis. Bilateral stents in position. 2. Left calyceal, UPJ stones. Right mid ureteral stone. 3. New triangular-shaped left liver lobe hypodensity, indeterminate. 4. Small pericardial effusions. Dependent subsegmental atelectasis. 5. Decrease in size of left breast cancer. Retrograde Pyelogram 03/05/21 10:04 IMPRESSION: Bilateral hydronephrosis, right ureteral and left UPJ stones. Stents in position. Labs Labs: Laboratory Results - last 24 hr 03/07/21 03/07/21 09:31 09:31 W
[2021-03-07 21:25] VITALS: BP 108/66; PULSE 100; RESP 16; TEMP 36.5; O2SAT 97
[2021-03-08 05:15] VITALS: BP 130/73; PULSE 108; RESP 18; TEMP 36.1; O2SAT 97
[2021-03-08 05:53] LABS: Hematocrit 32.9 % (37.0-47.0); Hemoglobin 10.6 g/dL (12.0-15.0); Mean Corpuscular HGB Conc 32.2 g/dl (32-36); Mean Corpuscular Hemoglobin 28.3 pg (26-34); Mean Corpuscular Volume 87.7 fl (80-100); Platelet Count Result 312 k/mm3 (150-375); Red Blood Count 3.75 M/mm3 (4.2-5.4); Red Cell Distribution Width 18.5 % (11.5-14.5); White Blood Count 12.5 K/mm3 (4.5-10.0)
[2021-03-08 06:06] LABS: Alanine Aminotransferase 8 U/L (4-35); Albumin Level 2.3 g/dL (3.5-5.1); Alkaline Phosphatase 125 U/L (38-126); Anion Gap 11 mmol/L (8-16); Aspartate Amino Transferase 23 U/L (14-36); Bilirubin,Total 1.1 mg/dL (0.2-1.3); Blood Urea Nitrogen 54 mg/dL (7-17); Calcium 8.2 mg/dL (8.4-10.2); Carbon Dioxide 8 mmol/L (22-30); Chloride 123 mmol/L (98-107); Estimated CRCL calculation 16 ml/min; Estimated Glomerular Filt Rate 19; Glucose 91 mg/dL (65-110); Magnesium 2.1 mg/dL (1.6-2.3); Potassium 3.2 mmol/L (3.4-5.0); Sodium 142 mmol/L (137-145)
[2021-03-08] MEDS: SODIUM CHLORIDE 0.9% IV 1,000 ML 30 ML IV CONT (06:06)
--- NOTE | 2021-03-08 06:30 | WPDUROPN2 ---
Progress Note: A&P Assessment and Plan (1) Hydronephrosis: Qualifiers: Hydronephrosis type: unspecified Qualified Code(s): N13.30 - Unspecified hydronephrosis Code(s): N13.30 - Unspecified hydronephrosis Status: Acute (2) Acute kidney injury superimposed on chronic kidney disease: Code(s): N17.9 - Acute kidney failure, unspecified; N18.9 - Chronic kidney disease, unspecified Status: Acute Assessment and Plan: Bilateral ureteral stents for bilat. ureteral stones -> tolerating well. Will plan to re-evaluate 4-6 weeks if she's a candidate for definitive stone intervention. Subjective Subjective Date/Time Seen: 03/08/21 06:30 Tolerating ureteral stents Review of Systems Cardiovascular: Cardiovascular: Denies chest pain, Denies lightheadedness, Denies palpitations and Denies dyspnea Respiratory: Respiratory: Denies dyspnea Gastrointestinal: Gastrointestinal: Denies diarrhea, Denies nausea and Denies vomiting Genitourinary: Genitourinary: Denies hematuria and Denies dysuria Endocrine: Endocrine: Denies palpitations Exam Const: General: no acute distress Resp: Effort & Inspection: normal respiratory effort GI: Inspection: non-distended GI Palp: No abdominal tenderness and No Guarding due to palpation present (GI) Auscultation: normal bowel sounds Objective Data Vital Signs Vital Signs: Vital Signs - 24 hr 03/07/21 14:00 03/07/21 21:25 03/08/21 05:15 Temperature 97.1 F L 97.7 F 97 F L Pulse Rate 102 H 100 108 H Respiratory Rate 22 H 16 18 Blood Pressure 113/63 108/66 130/73 Pulse Oximetry 99 97 97 Intake/Output Intake/Output: Intake & Output 03/05/21 03/06/21 03/07/21 03/08/21 23:59 23:59 23:59 23:59 Intake Total 2750 9729 473 774 Output Total 1500 600 Balance 1250 1297 473 774 Meds/Results Medications: Active Medications Generic Name Dose Route Start Last Admin Trade Name Freq PRN Reason Stop Dose Admin Acetaminophen 650 mg 03/03/21 07:13 03/06/21 20:09 Acetaminophen 325 Mg Tablet PO 650 mg Q4H PRN Administration Pain or Fever Ferrous Sulfate 324 mg 03/04/21 09:40 03/07/21 17:17 Ferrous Sulfate 324 Mg Tablet PO 324 mg BIDWM TITO Administration Sodium Chloride 1,000 mls @ 30 mls/hr 03/01/21 15:30 03/08/21 06:06 Normal Saline Iv IV CONT 30 mls/hr .Q24H TITO Administration Ceftriaxone Sodium/Dextrose 1 gm in 50 mls @ 100 mls/hr 03/07/21 09:00 03/07/21 11:10 Rocephin 1 Gm/D5w 50 Ml IVPB Infused Q24H TITO Infusion Letrozole 2.5 mg 03/02/21 09:00 03/07/21 08:33 Letrozole (*Chemo) 2.5 Mg Tablet PO 2.5 mg DAILY TITO Administration Magnesium Oxide 400 mg 03/03/21 09:00 03/07/21 08:33 Magnesium Oxide 400 Mg Tablet PO 400 mg DAILY TITO Administration Metoprolol Tartrate 12.5 mg 03/02/21 21:00 03/06/21 09:02 Metoprolol Tartrate 12.5 Mg Tablet PO 12.5 mg Q12HR TITO Administration Ondansetron HCl 4 mg 03/03/21 07:13 Ondansetron Inj 4 Mg/2 Ml Vial IV PUSH Q6H PRN Nausea And Vomiting Pantoprazole Sodium 40 mg 03/03/21 09:20 03/07/21 20:44 Pantoprazole Sodium Iv 40 Mg Vial IV PUSH 40 mg Q12HR TITO Administration Radiology Results: ITS Impressions Abdomen/Pelvis CT 03/04/21 08:51 IMPRESSION: 1. Moderate right, mild to moderate left hydronephrosis. Bilateral stents in position. 2. Left calyceal, UPJ stones. Right mid ureteral stone. 3. New triangular-shaped left liver lobe hypodensity, indeterminate. 4. Small pericardial effusions. Dependent subsegmental atelectasis. 5. Decrease in size of left breast cancer. Retrograde Pyelogram 03/05/21 10:04 IMPRESSION: Bilateral hydronephrosis, right ureteral and left UPJ stones. Stents in position. Labs Labs: Laboratory Results - last 24 hr 03/07/21 03/07/21 03/08/21 09:31 09:31 05:31 WBC 11.5 H RBC 3.56 L Hgb 10.3 L Hct 30.1 L MCV 84.6 MCH 28.9
[2021-03-08 06:34] LABS: Band Neutrophils Percent 5 % (0-6); Metamyelocytes Percent 1 %; Monocytes Absolute Manual 1.87 K/mm3 (0.1-0.90); Monocytes Percent Manual 15 % (3-9); Neutrophils Percent Manual 75 % (46-73); Nucleated Red Blood Cells 10 %; Total Cells Counted 100
[2021-03-08 06:35] LABS: Hypochromasia 2+ (NORMAL); Platelet Estimate Adequate (Adequate); Polychromasia 1+ (NORMAL)
[2021-03-08 06:36] LABS: Burr Cells 2+ (NORMAL)
[2021-03-08] MEDS: FERROUS SULFATE 324 MG TABLET PO ×2 (09:48→17:50)
[2021-03-08] MEDS: MAGNESIUM OXIDE 400 MG TABLET PO (09:48)
[2021-03-08] MEDS: LETROZOLE (*CHEMO) 2.5 MG TABLET PO (09:48)
[2021-03-08] MEDS: PANTOPRAZOLE SODIUM IV 40 MG VIAL IV PUSH ×2 (09:48→21:55)
--- NOTE | 2021-03-08 12:28 | PM.IMPN ---
Progress Note: A&P Assessment and Plan (1) Weakness: Code(s): R53.1 - Weakness Status: Acute Assessment and Plan: Patient presents with worsening weakness over the last 1 week. I suspect this is multifactorial in nature and suspect cancer, cancer treatment, anemia, poor oral intake, hypokalemia and TAE are likely contributing. Appreciate PT/OT evaluations. She continues to refuse therapy, looks like she did one PT session this morning. I have encouraged her that she needs to try getting up out of bed with therapy so we can create a safe discharge plan for her. SNF in discussion. Detailed discussion held with patient's daughter, Nurys, yesterday and again today regarding further goals of care. She is interested in an informational meeting with hospice. We discussed positive blood cultures and my recommendation to continue treatment with antibiotics for now and monitor, although her progressive weakness and nutritional status are an overall concern. Have attempted to speak with patient regarding her goals of care but she will not provide any real input herself regarding her own wishes. I recommended to patient's daughter, Nurys, that she speak with Dr Reese to help give insight/recommendations on further care plan vs. hospice services to get a better idea of what this would mean for her cancer treatment and upcoming surgical plans. (2) Chronic anemia: Code(s): D64.9 - Anemia, unspecified Status: Chronic Assessment and Plan: Hgb down to 5.9 03/03 and she received 2 units packed RBC. Hgb improved after blood and remains stable today 10.6. Suspect CKD, malignancy, B12 and iron deficiency are contributing. Stool occult blood is negative. History of GI bleed in October. Appreciate Dr Reese's input. Continue iron and B12 replacement, monitor CBC. 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 She has undergone radiotherapy and has upcoming mastectomy scheduled for later this month. She remains on letrozole. Recently came off Ibrance due to poor tolerance. CT abd/pel incidental finding of new liver hypodensity. Cannot exclude metastasis. Her care team includes Dr Gutierrez, Dr Reese, Dr Toledo and Dr Arnold. Appreciate oncology input on her prognosis given her conditional decline this week. (4) Acute kidney injury superimposed on chronic kidney disease: Code(s): N17.9 - Acute kidney failure, unspecified; N18.9 - Chronic kidney disease, unspecified Status: Acute Assessment and Plan: Suspect related to poor oral intake recently. Baseline Cr appears around 1.5 - 1.9; Cr was 3.1 on arrival now improved some with IV hydration but CrCl and GFR around 15. Patient had similar issue during last admission a few months ago but now CrCl is even lower. Appreciate nephrology input. Remains on very slow rate of IV fluids since she is not eating/drinking much; albumin is 2.3; would wish to hydrate her more but she is getting edematous. CT abd/pelvis performed which demonstrated TRINA ureteral stents in place (placed during last admission 11/05/20) with TRINA hydronephrosis. See below. (5) Hydronephrosis: Qualifiers: Hydronephrosis type: unspecified Qualified Code(s): N13.30 - Unspecified hydronephrosis Code(s): N13.30 - Unspecified hydronephrosis Status: Acute Assessment and Plan: CT abd/pel
[2021-03-08 14:00] VITALS: BP 130/70; PULSE 97; RESP 20; TEMP 36.1; O2SAT 98
--- NOTE | 2021-03-08 16:29 | P.PNNP_ITS ---
Progress Note: A&P Assessment and Plan (1) TAE (acute kidney injury): Code(s): N17.9 - Acute kidney failure, unspecified Status: Acute Assessment and Plan: * possibly related to poor oral intake/pre-renal factors along with obstruction * bilateral hydronephrosis noted by imaging -- Urology following - s/p bilateral ureteral stent exchange * creatinine improved at 1st but now seems to have plateaued above her prior baseline. * She does have positive blood cultures which might slow down the improvement. * Will check a CK and repeat ultrasound to be sure there is nothing else going on. (2) Stage 3b chronic kidney disease: Code(s): N18.32 - Chronic kidney disease, stage 3b Status: Chronic Assessment and Plan: * due to age and nephrolithiasis(?) * baseline creatinine runs around 1.5 - 1.9mg/dl * is there an element of disease progression?? (3) Hypokalemia: Code(s): E87.6 - Hypokalemia Status: Acute Assessment and Plan: * K is still low. * She received okay run today. (4) Anemia: Code(s): D64.9 - Anemia, unspecified Status: Acute Assessment and Plan: * due to TAE, CKD, and underlying malignancy * PRBC transfusion per protocol * follow trend of H/H (5) Metabolic acidosis: Code(s): E87.2 - Acidosis Status: Acute Assessment and Plan: * due to TAE and CKD along with IVFs * Will change fluids to bicarb as long she is getting fluids any way. (6) Weakness: Code(s): R53.1 - Weakness Status: Acute Assessment and Plan: * multifactorial - electrolytes issues, TAE, anemia, cancer...etc * PT/OT as tolerated Subjective Date/time seen: 03/08/21 16:29 Interval history: Kourtney is fairly weak. Daughter is in the room. She is not eating anything. Her daughter even brought her a [employer] custard of which she only took a couple spoons. Exam Narrative: Exam Narrative: General: WD/WN female in NAD Heart: normal S1 and S2; no rub Lungs: clear to auscultation Abdomen: soft, nontender, nondistended, positive bowel sounds Extremities: no cyanosis or clubbing; 1+ edema Skin: no rash Objective Data Vital Signs Vital Signs: Vital Signs - 24 hr 03/07/21 21:25 03/08/21 05:15 03/08/21 14:00 Temperature 36.5 C 36.1 C L 36.1 C L Pulse Rate 100 108 H 97 Respiratory Rate 16 18 20 Blood Pressure 108/66 130/73 130/70 Pulse Oximetry 97 97 98 Intake/Output Intake/Output: Intake & Output 03/05/21 03/06/21 03/07/21 03/08/21 23:59 23:59 23:59 23:59 Intake Total 2750 0271 730 8210 Output Total 1500 600 Balance 1250 7880 235 1074 Meds/Results Medications: Active Medications Generic Name Dose Route Start Last Admin Trade Name Freq PRN Reason Stop Dose Admin Acetaminophen 650 mg 03/03/21 07:13 03/06/21 20:09 Acetaminophen 325 Mg Tablet PO 650 mg Q4H PRN Administration Pain or Fever Ferrous Sulfate 324 mg 03/04/21 09:40 03/08/21 09:48 Ferrous Sulfate 324 Mg Tablet PO 324 mg BIDWM TITO Administration Sodium Chloride 1,000 mls @ 30 mls/hr 03/01/21 15:30 03/08/21 06:06 Normal Saline Iv IV CONT 30 mls/hr .Q24H TITO Administrati
--- NOTE | 2021-03-08 16:29 | PM.PNNEP ---
Progress Note: A&P Assessment and Plan (1) TAE (acute kidney injury): Code(s): N17.9 - Acute kidney failure, unspecified Status: Acute Assessment and Plan: possibly related to poor oral intake/pre-renal factors along with obstruction bilateral hydronephrosis noted by imaging -- Urology following - s/p bilateral ureteral stent exchange creatinine improved at 1st but now seems to have plateaued above her prior baseline. She does have positive blood cultures which might slow down the improvement. Will check a CK and repeat ultrasound to be sure there is nothing else going on. (2) Stage 3b chronic kidney disease: Code(s): N18.32 - Chronic kidney disease, stage 3b Status: Chronic Assessment and Plan: due to age and nephrolithiasis(?) baseline creatinine runs around 1.5 - 1.9mg/dl is there an element of disease progression?? (3) Hypokalemia: Code(s): E87.6 - Hypokalemia Status: Acute Assessment and Plan: K is still low. She received okay run today. (4) Anemia: Code(s): D64.9 - Anemia, unspecified Status: Acute Assessment and Plan: due to TAE, CKD, and underlying malignancy PRBC transfusion per protocol follow trend of H/H (5) Metabolic acidosis: Code(s): E87.2 - Acidosis Status: Acute Assessment and Plan: due to TAE and CKD along with IVFs Will change fluids to bicarb as long she is getting fluids any way. (6) Weakness: Code(s): R53.1 - Weakness Status: Acute Assessment and Plan: multifactorial - electrolytes issues, TAE, anemia, cancer...etc PT/OT as tolerated Subjective Date/time seen: 03/08/21 16:29 Interval history: Kourtney is fairly weak. Daughter is in the room. She is not eating anything. Her daughter even brought her a [employer] custard of which she only took a couple spoons. Exam Narrative: Exam Narrative: General: WD/WN female in NAD Heart: normal S1 and S2; no rub Lungs: clear to auscultation Abdomen: soft, nontender, nondistended, positive bowel sounds Extremities: no cyanosis or clubbing; 1+ edema Skin: no rash Objective Data Vital Signs Vital Signs: Vital Signs - 24 hr 03/07/21 21:25 03/08/21 05:15 03/08/21 14:00 Temperature 36.5 C 36.1 C L 36.1 C L Pulse Rate 100 108 H 97 Respiratory Rate 16 18 20 Blood Pressure 108/66 130/73 130/70 Pulse Oximetry 97 97 98 Intake/Output Intake/Output: Intake & Output 03/05/21 03/06/21 03/07/21 03/08/21 23:59 23:59 23:59 23:59 Intake Total 2750 3380 054 4820 Output Total 1500 600 Balance 1250 4365 269 2885 Meds/Results Medications: Active Medications Generic Name Dose Route Start Last Admin Trade Name Freq PRN Reason Stop Dose Admin Acetaminophen 650 mg 03/03/21 07:13 03/06/21 20:09 Acetaminophen 325 Mg Tablet PO 650 mg Q4H PRN Administration Pain or Fever Ferrous Sulfate 324 mg 03/04/21 09:40 03/08/21 09:48 Ferrous Sulfate 324 Mg Tablet PO 324 mg BIDWM TITO Administration Sodium Chloride 1,000 mls @ 30 mls/hr 03/01/21 15:30 03/08/21 06:06 Normal Saline Iv IV CONT 30 mls/hr .Q24H TITO Administration Ceftriaxone Sodium/Dextrose 1 gm in 50 mls @ 100 mls/hr 03/07/21 09:00 03/08/21 10:20 Rocephin 1 Gm/D5w 50 Ml IVPB Infused Q24H TITO Infusion Letrozole 2.5 mg 03/02/21 09:00 03/08/21 09:48 Letrozole (*Chemo) 2.5 Mg Tablet PO 2.5 mg DAILY TITO Administration Magnesium Oxide 400 mg 03/03/21 09:00 03/08/21 09:48 Magnesium Oxide 400 Mg Tablet PO 400 mg DAILY TITO Administration Metoprolol Tartrate 12.5 mg 03/02/21 21:00 03/06/21 09:02 Metoprolol Tartrate 12.5 Mg Tablet PO 12.5 mg Q12HR TITO Administration Ondansetron HCl 4 mg 03/03/21 07:13 Ondansetron Inj 4 Mg/2 Ml Vial IV PUSH Q6H PRN Nausea And Vomiting Pantoprazole Sodium 40 mg 03/03/21 09:20 03/08/21 09:48
[2021-03-08] MEDS: SODIUM BICARBONATE 8.4% 150 MEQ in WATER, STERILE FOR INJECTION 950 ML 50 MEQ IV CONT (18:18)
[2021-03-08 18:30] LABS: Creatine Kinase 30 U/L (30-135)
[2021-03-08 20:52] VITALS: BP 116/72; PULSE 104; RESP 20; TEMP 36.1; O2SAT 98
[2021-03-09 05:56] LABS: Hematocrit 25.6 % (37.0-47.0); Mean Corpuscular HGB Conc 35.2 g/dl (32-36); Mean Corpuscular Hemoglobin 28.5 pg (26-34); Mean Platelet Volume 10.6 fl (7.4-10.4); Platelet Count Result 310 k/mm3 (150-375); Red Blood Count 3.16 M/mm3 (4.2-5.4); Red Cell Distribution Width 17.3 % (11.5-14.5); White Blood Count 12.8 K/mm3 (4.5-10.0)
[2021-03-09 06:00] VITALS: BP 132/69; PULSE 106; RESP 18; TEMP 36.1; O2SAT 96
[2021-03-09 06:06] LABS: Alanine Aminotransferase 15 U/L (4-35); Albumin Level 2.1 g/dL (3.5-5.1); Alkaline Phosphatase 172 U/L (38-126); Anion Gap 9 mmol/L (8-16); Aspartate Amino Transferase 35 U/L (14-36); Bilirubin,Total 1.4 mg/dL (0.2-1.3); Blood Urea Nitrogen 45 mg/dL (7-17); Calcium 7.8 mg/dL (8.4-10.2); Carbon Dioxide 14 mmol/L (22-30); Chloride 118 mmol/L (98-107); Estimated CRCL calculation 19 ml/min; Estimated Glomerular Filt Rate 23; Glucose 104 mg/dL (65-110); Phosphorus 2.7 mg/dL (2.5-4.5); Potassium 2.7 mmol/L (3.4-5.0); Sodium 141 mmol/L (137-145)
[2021-03-09 07:17] LABS: Band Neutrophils Percent 7 % (0-6); Lymphocytes Absolute Manual 0.25 K/mm3 (1.1-4.5); Monocytes Absolute Manual 0.76 K/mm3 (0.1-0.90); Monocytes Percent Manual 6 % (3-9); Neutrophils Absolute Manual 11.77 K/mm3 (1.7-7.2); Neutrophils Percent Manual 85 % (46-73); Nucleated Red Blood Cells 7 %; Platelet Estimate Adequate (Adequate); Total Cells Counted 100
[2021-03-09 07:18] LABS: Macrocytosis 1+ (NORMAL); Target Cells 1+ (NORMAL)
[2021-03-09 07:53] LABS: Magnesium 1.9 mg/dL (1.6-2.3)
[2021-03-09] MEDS: POTASSIUM CHLORIDE 20 MEQ TABLET 40 MEQ PO ×2 (08:31→17:52)
[2021-03-09] MEDS: LETROZOLE (*CHEMO) 2.5 MG TABLET PO (08:31)
[2021-03-09] MEDS: FERROUS SULFATE 324 MG TABLET PO ×2 (08:31→16:24)
[2021-03-09] MEDS: PANTOPRAZOLE SODIUM IV 40 MG VIAL IV PUSH ×2 (08:31→20:59)
[2021-03-09] MEDS: MAGNESIUM OXIDE 400 MG TABLET PO (08:31)
--- NOTE | 2021-03-09 09:47 | PCPTNOTE ---
Patient refused treatment this session. Upon entering room Pt kept her eyes closed until being prompted to open them. Kourtney then stated No, I don't want to. Explained to the Pt the importance of therapy and getting out of bed. Pt stated I still don't feel like it and then proceeded to close her eyes and turn away from therapist.
[2021-03-09 12:43] VITALS: BMI 29.8
--- NOTE | 2021-03-09 13:17 | PCNSR ---
On 03/09/21, the student, Geraldine Casarez, provided care and [email or web address] [facility] this [facility]. I have reviewed the student's documentation and agree with the findings.
[2021-03-09 14:00] VITALS: BP 138/76; PULSE 100; RESP 20; TEMP 36.6; O2SAT 99
[2021-03-09 16:11] LABS: Anion Gap 9 mmol/L (8-16); Blood Urea Nitrogen 40 mg/dL (7-17); Calcium 8.1 mg/dL (8.4-10.2); Carbon Dioxide 17 mmol/L (22-30); Chloride 111 mmol/L (98-107); Estimated CRCL calculation 23 ml/min; Estimated Glomerular Filt Rate 27; Glucose 152 mg/dL (65-110); Potassium 3.3 mmol/L (3.4-5.0); Sodium 137 mmol/L (137-145)
[2021-03-09] MEDS: SODIUM BICARBONATE 8.4% 150 MEQ in WATER, STERILE FOR INJECTION 950 ML 50 MEQ IV CONT (16:23)
--- NOTE | 2021-03-09 16:48 | P.PNNP_ITS ---
Progress Note: A&P Assessment and Plan (1) TAE (acute kidney injury): Code(s): N17.9 - Acute kidney failure, unspecified Status: Acute Assessment and Plan: * possibly related to poor oral intake/pre-renal factors along with obstruction * bilateral hydronephrosis noted by imaging -- Urology following - s/p bilateral ureteral stent exchange * creatinine is slowly dropping. down to 1.8 now. this is at about her baseline. (2) Stage 3b chronic kidney disease: Code(s): N18.32 - Chronic kidney disease, stage 3b Status: Chronic Assessment and Plan: * due to age and nephrolithiasis(?) * baseline creatinine runs around 1.5 - 1.9mg/dl * is there an element of disease progression?? (3) Hypokalemia: Code(s): E87.6 - Hypokalemia Status: Acute Assessment and Plan: * K is still low. * She received supplement today (4) Anemia: Code(s): D64.9 - Anemia, unspecified Status: Acute Assessment and Plan: * due to TAE, CKD, and underlying malignancy * PRBC transfusion per protocol * follow trend of H/H (5) Metabolic acidosis: Code(s): E87.2 - Acidosis Status: Acute Assessment and Plan: * due to TAE and CKD along with IVFs * improved on the bicarb diiip (6) Weakness: Code(s): R53.1 - Weakness Status: Acute Assessment and Plan: * multifactorial - electrolytes issues, TAE, anemia, cancer...etc * PT/OT as tolerated Subjective Date/time seen: 03/09/21 16:48 Interval history: Kourtney is feeling about the same. no cp or sob Exam Narrative: Exam Narrative: General: WD/WN female in NAD Heart: normal S1 and S2; no rub Lungs: clear Abdomen: soft, nontender, nondistended, positive bowel sounds Extremities: no cyanosis or clubbing; 1+ edema Skin: no rash or sq nodules Objective Data Vital Signs Vital Signs: Vital Signs - 24 hr 03/08/21 20:52 03/09/21 06:00 03/09/21 14:00 Temperature 36.1 C L 36.1 C L 36.6 C Pulse Rate 104 H 106 H 100 Respiratory Rate 20 18 20 Blood Pressure 116/72 132/69 138/76 Pulse Oximetry 98 96 99 Intake/Output Intake/Output: Intake & Output 03/06/21 03/07/21 03/08/21 03/09/21 23:59 23:59 23:59 23:59 Intake Total 8821 736 1246 1550 Output Total 600 Balance 7691 572 2585 1550 Meds/Results Medications: Active Medications Generic Name Dose Route Start Last Admin Trade Name Freq PRN Reason Stop Dose Admin Acetaminophen 650 mg 03/03/21 07:13 03/06/21 20:09 Acetaminophen 325 Mg Tablet PO 650 mg Q4H PRN Administration Pain or Fever Ferrous Sulfate 324 mg 03/04/21 09:40 03/09/21 16:24 Ferrous Sulfate 324 Mg Tablet PO 324 mg BIDWM TITO Administration Ceftriaxone Sodium/Dextrose 1 gm in 50 mls @ 100 mls/hr 03/07/21 09:00 03/09/21 09:00 Rocephin 1 Gm/D5w 50 Ml IVPB Infused Q24H TITO Infusion Sodium Bicarbonate 150 meq/ 1,100 mls @ 50 mls/hr 03/08/21 17:30 03/09/21 16:23 Sterile Water IV CONT 50 mls/hr .Q22H TITO Administration Letrozole 2.5 mg 03/02/21 09:00 03/09/21 08:31 Letrozole (*Chemo) 2.5 Mg Tablet PO 2.5 mg DAILY TITO Admini
--- NOTE | 2021-03-09 16:48 | PM.PNNEP ---
Progress Note: A&P Assessment and Plan (1) TAE (acute kidney injury): Code(s): N17.9 - Acute kidney failure, unspecified Status: Acute Assessment and Plan: possibly related to poor oral intake/pre-renal factors along with obstruction bilateral hydronephrosis noted by imaging -- Urology following - s/p bilateral ureteral stent exchange creatinine is slowly dropping. down to 1.8 now. this is at about her baseline. (2) Stage 3b chronic kidney disease: Code(s): N18.32 - Chronic kidney disease, stage 3b Status: Chronic Assessment and Plan: due to age and nephrolithiasis(?) baseline creatinine runs around 1.5 - 1.9mg/dl is there an element of disease progression?? (3) Hypokalemia: Code(s): E87.6 - Hypokalemia Status: Acute Assessment and Plan: K is still low. She received supplement today (4) Anemia: Code(s): D64.9 - Anemia, unspecified Status: Acute Assessment and Plan: due to TAE, CKD, and underlying malignancy PRBC transfusion per protocol follow trend of H/H (5) Metabolic acidosis: Code(s): E87.2 - Acidosis Status: Acute Assessment and Plan: due to TAE and CKD along with IVFs improved on the bicarb diiip (6) Weakness: Code(s): R53.1 - Weakness Status: Acute Assessment and Plan: multifactorial - electrolytes issues, TAE, anemia, cancer...etc PT/OT as tolerated Subjective Date/time seen: 03/09/21 16:48 Interval history: Kourtney is feeling about the same. no cp or sob Exam Narrative: Exam Narrative: General: WD/WN female in NAD Heart: normal S1 and S2; no rub Lungs: clear Abdomen: soft, nontender, nondistended, positive bowel sounds Extremities: no cyanosis or clubbing; 1+ edema Skin: no rash or sq nodules Objective Data Vital Signs Vital Signs: Vital Signs - 24 hr 03/08/21 20:52 03/09/21 06:00 03/09/21 14:00 Temperature 36.1 C L 36.1 C L 36.6 C Pulse Rate 104 H 106 H 100 Respiratory Rate 20 18 20 Blood Pressure 116/72 132/69 138/76 Pulse Oximetry 98 96 99 Intake/Output Intake/Output: Intake & Output 03/06/21 03/07/21 03/08/21 03/09/21 23:59 23:59 23:59 23:59 Intake Total 8058 427 9700 1550 Output Total 600 Balance 1859 407 8642 1550 Meds/Results Medications: Active Medications Generic Name Dose Route Start Last Admin Trade Name Freq PRN Reason Stop Dose Admin Acetaminophen 650 mg 03/03/21 07:13 03/06/21 20:09 Acetaminophen 325 Mg Tablet PO 650 mg Q4H PRN Administration Pain or Fever Ferrous Sulfate 324 mg 03/04/21 09:40 03/09/21 16:24 Ferrous Sulfate 324 Mg Tablet PO 324 mg BIDWM TITO Administration Ceftriaxone Sodium/Dextrose 1 gm in 50 mls @ 100 mls/hr 03/07/21 09:00 03/09/21 09:00 Rocephin 1 Gm/D5w 50 Ml IVPB Infused Q24H TITO Infusion Sodium Bicarbonate 150 meq/ 1,100 mls @ 50 mls/hr 03/08/21 17:30 03/09/21 16:23 Sterile Water IV CONT 50 mls/hr .Q22H TITO Administration Letrozole 2.5 mg 03/02/21 09:00 03/09/21 08:31 Letrozole (*Chemo) 2.5 Mg Tablet PO 2.5 mg DAILY TITO Administration Magnesium Oxide 400 mg 03/03/21 09:00 03/09/21 08:31 Magnesium Oxide 400 Mg Tablet PO 400 mg DAILY TITO Administration Metoprolol Tartrate 12.5 mg 03/02/21 21:00 03/06/21 09:02 Metoprolol Tartrate 12.5 Mg Tablet PO 12.5 mg Q12HR TITO Administration Ondansetron HCl 4 mg 03/03/21 07:13 Ondansetron Inj 4 Mg/2 Ml Vial IV PUSH Q6H PRN Nausea And Vomiting Pantoprazole Sodium 40 mg 03/03/21 09:20 03/09/21 08:31 Pantoprazole Sodium Iv 40 Mg Vial IV PUSH 40 mg Q12HR TITO Administration Radiology Results: ITS Impressions Abdomen/Pelvis CT 03/04/21 08:51 IMPRESSION: 1. Moderate right, mild to moderate left hydronephrosis. Bilateral stents in position. 2. Left calyceal, UPJ stones. Right mid ureteral stone. 3.
--- NOTE | 2021-03-09 18:54 | PM.IMPN ---
Progress Note: A&P Assessment and Plan (1) Weakness: Code(s): R53.1 - Weakness Status: Acute Assessment and Plan: Patient presents with worsening weakness over the last 1 week. I suspect this is multifactorial in nature and suspect cancer, cancer treatment, anemia, poor oral intake, TAE and UTI are likely contributing. Appreciate PT/OT evaluations. She continues to decline therapy. I have encouraged her that she needs to try getting up out of bed with therapy so we can create a safe discharge plan for her. SNF in discussion. Detailed discussions held with patient's daughter, Nurys, regarding further goals of care. Had informational meeting with [facility] with family this afternoon. Patient does not wish for hospice services at this time although daughter was happy to learn more about the services. She is improving on antibiotics however her progressive weakness and nutritional status are an overall concern. Have attempted to speak with patient regarding her goals of care but when the topic is brought up she will quit speaking and will not provide any real input herself regarding her own wishes. I recommended to patient's daughter, Nurys, that she speak with Dr Reese to help give insight/recommendations on further care plan vs. hospice services in the future especially prior to her scheduled surgery date 03/16. (2) Chronic anemia: Code(s): D64.9 - Anemia, unspecified Status: Chronic Assessment and Plan: Hgb down to 5.9 03/03 and she received 2 units packed RBC. Hgb improved after blood and remains stable today 9.0. No s/s acute bleeding now. Suspect CKD, malignancy, B12 and iron deficiency are contributing. Stool occult blood is negative. History of GI bleed in October. Appreciate Dr Reese's input. Continue iron and B12 replacement, monitor CBC. 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 She has undergone radiotherapy and has upcoming mastectomy scheduled for 03/16/[address] Toledo. She remains on letrozole. Recently came off Ibrance due to poor tolerance. CT abd/pel incidental finding of new liver hypodensity. Cannot exclude metastasis. Her care team includes Dr Gutierrez, Dr Reese, Dr Toledo and Dr Arnold. Appreciate oncology input on her prognosis given her conditional decline this week. (4) Acute kidney injury superimposed on chronic kidney disease: Code(s): N17.9 - Acute kidney failure, unspecified; N18.9 - Chronic kidney disease, unspecified Status: Acute Assessment and Plan: Suspect related to poor oral intake recently. Baseline Cr appears around 1.5 - 1.9; Cr was 3.1 on arrival now improved some with IV hydration but CrCl and GFR around 15. Patient had similar issue during last admission a few months ago but now CrCl is even lower. Appreciate nephrology input. Remains on very slow rate of IV fluids with bicarb. Not eating/drinking much; albumin is 2.3; would wish to hydrate her more but she is getting edematous. CT abd/pelvis performed which demonstrated TRINA ureteral stents in place (placed during last admission 11/05/20) with TRINA hydronephrosis. See below. (5) Hydronephrosis: Qualifiers: Hydronephrosis type: unspecified Qualified Code(s): N13.30 - Unspecified hydronephrosis Code(s): N13.30 - Unspecified hydronephrosis Status: Resolved Assessment and Plan
[2021-03-09 20:45] VITALS: BP 135/77; PULSE 96; RESP 17; TEMP 36.3; O2SAT 97
[2021-03-10 06:00] VITALS: BP 130/80; PULSE 107; RESP 20; TEMP 36.1; O2SAT 97
[2021-03-10] MEDS: FERROUS SULFATE 324 MG TABLET PO ×2 (08:34→17:38)
[2021-03-10] MEDS: MAGNESIUM OXIDE 400 MG TABLET PO (08:34)
[2021-03-10] MEDS: LETROZOLE (*CHEMO) 2.5 MG TABLET PO (08:34)
[2021-03-10] MEDS: PANTOPRAZOLE SODIUM IV 40 MG VIAL IV PUSH ×2 (08:35→22:13)
[2021-03-10 08:46] LABS: Basophils Percent Auto 0.1 % (0.2-1.2); Eosinophils Percent Auto 0.2 % (0-4.4); Hematocrit 26.1 % (37.0-47.0); Immature Granulocyte Absolute 1.94 K/mm3 (0.00-0.031); Immature Granulocyte Percent A 15.5 % (0-0.5); Lymphocytes Absolute Auto 1.32 K/mm3 (0.9-3.2); Lymphocytes Percent Auto 10.5 % (18.3-44.2); Mean Corpuscular HGB Conc 34.5 g/dl (32-36); Mean Corpuscular Hemoglobin 28.3 pg (26-34); Mean Corpuscular Volume 82.1 fl (80-100); Mean Platelet Volume 11.4 fl (7.4-10.4); Monocytes Absolute Auto 1.1 K/mm3 (0.1-0.6); Monocytes Percent Auto 8.4 % (2.6-8.5); Neutrophils Absolute Auto 8.2 K/mm3 (1.3-6.7); Neutrophils Percent Auto 65.3 % (45.5-73.1); Nucleated Red Blood Cells Absolute Auto 0.6 K/mm3 (0.0-0.012); Nucleated Red Blood Cells Perc 4.8 % (0.0-0.2); Platelet Count Result 309 k/mm3 (150-375); Red Blood Count 3.18 M/mm3 (4.2-5.4); Red Cell Distribution Width 17.7 % (11.5-14.5); White Blood Count 12.5 K/mm3 (4.5-10.0)
[2021-03-10 09:01] LABS: Albumin Level 2.2 g/dL (3.5-5.1); Anion Gap 6 mmol/L (8-16); Blood Urea Nitrogen 33 mg/dL (7-17); Calcium 7.5 mg/dL (8.4-10.2); Carbon Dioxide 21 mmol/L (22-30); Chloride 112 mmol/L (98-107); Estimated CRCL calculation 25 ml/min; Estimated Glomerular Filt Rate 31; Glucose 91 mg/dL (65-110); Magnesium 1.6 mg/dL (1.6-2.3); Phosphorus 2.1 mg/dL (2.5-4.5); Potassium 3.1 mmol/L (3.4-5.0); Sodium 139 mmol/L (137-145)
[2021-03-10 09:15] LABS: Anion Gap 8 mmol/L (8-16); Blood Urea Nitrogen 32 mg/dL (7-17); Calcium 7.7 mg/dL (8.4-10.2); Carbon Dioxide 22 mmol/L (22-30); Chloride 109 mmol/L (98-107); Estimated CRCL calculation 27 ml/min; Estimated Glomerular Filt Rate 33; Glucose 102 mg/dL (65-110); Magnesium 1.6 mg/dL (1.6-2.3); Potassium 3.2 mmol/L (3.4-5.0); Sodium 139 mmol/L (137-145)
[2021-03-10] MEDS: ONDANSETRON INJ 4 MG/2 ML VIAL IV PUSH (10:25)
--- NOTE | 2021-03-10 12:40 | PM.IMPN ---
Progress Note: A&P Assessment and Plan (1) Weakness: Code(s): R53.1 - Weakness Status: Acute Assessment and Plan: Patient presents with worsening weakness over the last 1 week. I suspect this is multifactorial in nature and suspect cancer, cancer treatment, anemia, poor oral intake, TAE and UTI are likely contributing. Appreciate PT/OT evaluations. Has been declining therapy. Today she got up twice. has been encouraged to participate with therapy so a safe discharge plan can be formulated. Consider SNF. Prior provider had detailed discussions held with patient's daughter, Nurys, regarding further goals of care. Had informational meeting with [facility] hospice with family 03/09. Patient does not wish for hospice services at this time although daughter was happy to learn more about the services. She is improving on antibiotics however her progressive weakness and nutritional status are an overall concern. Attempts to speak with patient regarding her goals of care unsuccessful as she will quit speaking and will not provide any real input herself regarding her own wishes. Recommended to patient's daughter, Nurys, that she speak with Dr Reese to help give insight/recommendations on further care plan vs. hospice services in the future especially prior to her scheduled surgery date 03/16. (2) Bacteremia due to Klebsiella pneumoniae: Code(s): R78.81 - Bacteremia; B96.1 - Klebsiella pneumoniae [K. pneumoniae] as the cause of diseases classified elsewhere Status: Acute Assessment and Plan: Klebsiella in 2/2 blood culture bottles. Source unknown. Presumed urinary source. Enteric source unlikely given lack of clinical symptoms without findings on CT a/p. Continue ceftriaxone, increased to 2 grams q24H Afebrile with improving leukocytosis. (3) Acute UTI: Code(s): N39.0 - Urinary tract infection, site not specified Status: Acute Assessment and Plan: Urine culture with growth of E. coli continue IV ceftriaxone. started on 03/07/2021 (4) Chronic anemia: Code(s): D64.9 - Anemia, unspecified Status: Chronic Assessment and Plan: Hgb down to 5.9 on 03/03 and she received 2 units packed RBC. Hgb improved after blood and remains stable today 9.0. No s/s acute bleeding now. Suspect CKD, malignancy, B12 and iron deficiency are contributing. Stool occult blood is negative. History of GI bleed in October. Appreciate Dr Reese's input. Continue iron and B12 replacement, monitor CBC. 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 She has undergone radiotherapy and has upcoming mastectomy scheduled for 03/16/[address] Toledo. She remains on letrozole. Recently came off Ibrance due to poor tolerance. CT abd/pel incidental finding of new liver hypodensity. Cannot exclude metastasis. Her care team includes Dr Gutierrez, Dr Reese, Dr Toledo and Dr Arnold. Appreciate oncology input on her prognosis given her conditional decline this week (6) Acute kidney injury superimposed on chronic kidney disease: Code(s): N17.9 - Acute kidney failure, unspecified; N18.9 - Chronic kidney disease, unspecified Status: Acute Assessment and Plan: Baseline Cr appears around 1.5 - 1.9 Cr was 3.1 on arrival and continues to improve; down to 1.5 today with gen
--- NOTE | 2021-03-10 13:28 | P.CDI_ITS ---
CDI Query Clarification Request -UTI has been documented -Bilateral ureteral stents in position since 11/05 documented -Bilateral stents were changed 03/05 Please clarify if UTI is: * Due to/associated with bilateral indwelling stents * Not due to /associated with bilateral indwelling stents * Unable to determine
--- NOTE | 2021-03-10 13:28 | WPDCDIQUERY2 ---
CDI Query Clarification Request -UTI has been documented -Bilateral ureteral stents in position since 11/05 documented -Bilateral stents were changed 03/05 Please clarify if UTI is: Due to/associated with bilateral indwelling stents Not due to /associated with bilateral indwelling stents Unable to determine
[2021-03-10 14:00] VITALS: BP 134/88; PULSE 90; RESP 20; TEMP 36.5; O2SAT 97
[2021-03-10] MEDS: POTASSIUM CHLORIDE 20 MEQ TABLET 40 MEQ PO (14:27)
[2021-03-10] MEDS: MAGNESIUM SULF 2 GM/WATER 50ML 2 GM/50 ML BAG IVPB (14:27)
[2021-03-10] MEDS: SODIUM BICARBONATE 8.4% 150 MEQ in WATER, STERILE FOR INJECTION 950 ML 50 MEQ IV CONT (14:27)
--- NOTE | 2021-03-10 18:35 | P.PNNP_ITS ---
Progress Note: A&P Assessment and Plan (1) TAE (acute kidney injury): Code(s): N17.9 - Acute kidney failure, unspecified Status: Acute Assessment and Plan: * possibly related to poor oral intake/pre-renal factors along with obstruction * bilateral hydronephrosis noted by imaging -- Urology following - s/p bilateral ureteral stent exchange * creatinine is slowly dropping. down to 1.8 now. this is at about her baseline. * she is getting IV fluids now. I think we can stop since she is eating better. (2) Stage 3b chronic kidney disease: Code(s): N18.32 - Chronic kidney disease, stage 3b Status: Chronic Assessment and Plan: * due to age and nephrolithiasis(?) * baseline creatinine runs around 1.5 - 1.9mg/dl * is there an element of disease progression?? (3) Hypokalemia: Code(s): E87.6 - Hypokalemia Status: Acute Assessment and Plan: * K is still low. * Part of this is because she is getting the bicarb drip. * She received supplement today (4) Anemia: Code(s): D64.9 - Anemia, unspecified Status: Acute Assessment and Plan: * due to TAE, CKD, and underlying malignancy * PRBC transfusion per protocol * follow trend of H/H (5) Metabolic acidosis: Code(s): E87.2 - Acidosis Status: Acute Assessment and Plan: * due to TAE and CKD along with IVFs * improved on the bicarb drip * Will stop the bicarb drip now. * Will add oral bicarb and see how she does (6) Weakness: Code(s): R53.1 - Weakness Status: Acute Assessment and Plan: * multifactorial - electrolytes issues, TAE, anemia, cancer...etc * PT/OT as tolerated Subjective Date/time seen: 03/10/21 18:35 Interval history: Kourtney is feeling about the same. daughter in the room. She is happy about how interactive her mom is. no cp or sob Exam Narrative: Exam Narrative: General: WD/WN female in NAD Heart: normal S1 and S2; no rub Lungs: clear bilaterally Abdomen: soft, nontender, nondistended, positive bowel sounds Extremities: no cyanosis or clubbing; 1+ edema Skin: no rash or sq nodules Objective Data Vital Signs Vital Signs: Vital Signs - 24 hr 03/09/21 20:45 03/10/21 06:00 03/10/21 14:00 Temperature 36.3 C L 36.1 C L 36.5 C Pulse Rate 96 107 H 90 Respiratory Rate 17 20 20 Blood Pressure 135/77 130/80 134/88 Pulse Oximetry 97 97 97 Intake/Output Intake/Output: Intake & Output 03/07/21 03/08/21 03/09/21 03/10/21 23:59 23:59 23:59 23:59 Intake Total 473 1839 2200 2370 Balance 473 1839 2200 2370 Meds/Results Medications: Active Medications Generic Name Dose Route Start Last Admin Trade Name Freq PRN Reason Stop Dose Admin Acetaminophen 650 mg 03/03/21 07:13 03/06/21 20:09 Acetaminophen 325 Mg Tablet PO 650 mg Q4H PRN Administration Pain or Fever Cyanocobalamin 1,000 mcg 03/11/21 09:00 Cyanocobalamin 1,000 Mcg Tablet PO QAM [facility] Ferrous Sulfate 324 mg 03/04/21 09:40 03/10/21 17:38 Ferrous Sulfate 324 Mg Tablet PO 324 mg BIDWM TITO Administration Ceftriaxone Sodium 2 gm in 100 mls @ 200 mls/hr 03/10/21 09:00 03/10/21 12:28
--- NOTE | 2021-03-10 18:35 | PM.PNNEP ---
Progress Note: A&P Assessment and Plan (1) TAE (acute kidney injury): Code(s): N17.9 - Acute kidney failure, unspecified Status: Acute Assessment and Plan: possibly related to poor oral intake/pre-renal factors along with obstruction bilateral hydronephrosis noted by imaging -- Urology following - s/p bilateral ureteral stent exchange creatinine is slowly dropping. down to 1.8 now. this is at about her baseline. she is getting IV fluids now. I think we can stop since she is eating better. (2) Stage 3b chronic kidney disease: Code(s): N18.32 - Chronic kidney disease, stage 3b Status: Chronic Assessment and Plan: due to age and nephrolithiasis(?) baseline creatinine runs around 1.5 - 1.9mg/dl is there an element of disease progression?? (3) Hypokalemia: Code(s): E87.6 - Hypokalemia Status: Acute Assessment and Plan: K is still low. Part of this is because she is getting the bicarb drip. She received supplement today (4) Anemia: Code(s): D64.9 - Anemia, unspecified Status: Acute Assessment and Plan: due to TAE, CKD, and underlying malignancy PRBC transfusion per protocol follow trend of H/H (5) Metabolic acidosis: Code(s): E87.2 - Acidosis Status: Acute Assessment and Plan: due to TAE and CKD along with IVFs improved on the bicarb drip Will stop the bicarb drip now. Will add oral bicarb and see how she does (6) Weakness: Code(s): R53.1 - Weakness Status: Acute Assessment and Plan: multifactorial - electrolytes issues, TAE, anemia, cancer...etc PT/OT as tolerated Subjective Date/time seen: 03/10/21 18:35 Interval history: Kourtney is feeling about the same. daughter in the room. She is happy about how interactive her mom is. no cp or sob Exam Narrative: Exam Narrative: General: WD/WN female in NAD Heart: normal S1 and S2; no rub Lungs: clear bilaterally Abdomen: soft, nontender, nondistended, positive bowel sounds Extremities: no cyanosis or clubbing; 1+ edema Skin: no rash or sq nodules Objective Data Vital Signs Vital Signs: Vital Signs - 24 hr 03/09/21 20:45 03/10/21 06:00 03/10/21 14:00 Temperature 36.3 C L 36.1 C L 36.5 C Pulse Rate 96 107 H 90 Respiratory Rate 17 20 20 Blood Pressure 135/77 130/80 134/88 Pulse Oximetry 97 97 97 Intake/Output Intake/Output: Intake & Output 03/07/21 03/08/21 03/09/21 03/10/21 23:59 23:59 23:59 23:59 Intake Total 473 1839 2200 2370 Balance 473 1839 2200 2370 Meds/Results Medications: Active Medications Generic Name Dose Route Start Last Admin Trade Name Freq PRN Reason Stop Dose Admin Acetaminophen 650 mg 03/03/21 07:13 03/06/21 20:09 Acetaminophen 325 Mg Tablet PO 650 mg Q4H PRN Administration Pain or Fever Cyanocobalamin 1,000 mcg 03/11/21 09:00 Cyanocobalamin 1,000 Mcg Tablet PO QAM [facility]IT[facility] Ferrous Sulfate 324 mg 03/04/21 09:40 03/10/21 17:38 Ferrous Sulfate 324 Mg Tablet PO 324 mg BIDWM TITO Administration Ceftriaxone Sodium 2 gm in 100 mls @ 200 mls/hr 03/10/21 09:00 03/10/21 12:28 Rocephin 2 Gm/D5w 100 Ml IVPB Infused Q24H TITO Infusion Letrozole 2.5 mg 03/02/21 09:00 03/10/21 08:34 Letrozole (*Chemo) 2.5 Mg Tablet PO 2.5 mg DAILY TITO Administration Magnesium Oxide 400 mg 03/03/21 09:00 03/10/21 08:34 Magnesium Oxide 400 Mg Tablet PO 400 mg DAILY TITO Administration Metoprolol Tartrate 12.5 mg 03/02/21 21:00 03/06/21 09:02 Metoprolol Tartrate 12.5 Mg Tablet PO 12.5 mg Q12HR TITO Administration Ondansetron HCl 4 mg 03/03/21 07:13 03/10/21 10:25 Ondansetron Inj 4 Mg/2 Ml Vial IV PUSH 4 mg Q6H PRN Administration Nausea And Vomiting Pantoprazole Sodium 40 mg 03/03/21 09:20 03/10/21 08:35 Pantoprazole Sodium Iv 40 Mg Vial IV PUSH 40 mg Q12HR TITO
[2021-03-10 22:00] VITALS: BP 133/72; PULSE 102; RESP 16; TEMP 36.6; O2SAT 97
[2021-03-10 22:26] VITALS: PULSE 102
[2021-03-10] MEDS: METOPROLOL TARTRATE 12.5 MG TABLET PO (22:26)
[2021-03-11 06:08] LABS: Hematocrit 27.2 % (37.0-47.0); Hemoglobin 9.1 g/dL (12.0-15.0); Mean Corpuscular HGB Conc 33.5 g/dl (32-36); Mean Corpuscular Hemoglobin 28.4 pg (26-34); Mean Platelet Volume 10.4 fl (7.4-10.4); Platelet Count Result 297 k/mm3 (150-375); Red Cell Distribution Width 17.7 % (11.5-14.5); White Blood Count 9.5 K/mm3 (4.5-10.0)
[2021-03-11 06:09] VITALS: BP 140/81; PULSE 100; RESP 16; TEMP 36.3; O2SAT 97
[2021-03-11 06:12] LABS: Alanine Aminotransferase 24 U/L (4-35); Albumin Level 2.3 g/dL (3.5-5.1); Alkaline Phosphatase 243 U/L (38-126); Anion Gap 5 mmol/L (8-16); Aspartate Amino Transferase 36 U/L (14-36); Bilirubin,Total 0.8 mg/dL (0.2-1.3); Blood Urea Nitrogen 26 mg/dL (7-17); Calcium 7.6 mg/dL (8.4-10.2); Carbon Dioxide 24 mmol/L (22-30); Chloride 107 mmol/L (98-107); Estimated CRCL calculation 26 ml/min; Estimated Glomerular Filt Rate 33; Glucose 99 mg/dL (65-110); Phosphorus 2.5 mg/dL (2.5-4.5); Potassium 3.3 mmol/L (3.4-5.0); Sodium 136 mmol/L (137-145)
[2021-03-11] MEDS: FERROUS SULFATE 324 MG TABLET PO ×2 (09:01→16:18)
[2021-03-11 09:02] VITALS: PULSE 80
[2021-03-11] MEDS: SODIUM BICARBONATE TAB 650 MG TABLET 1300 MG PO ×2 (09:02→16:18)
[2021-03-11] MEDS: MAGNESIUM OXIDE 400 MG TABLET PO (09:02)
[2021-03-11] MEDS: PANTOPRAZOLE SODIUM IV 40 MG VIAL IV PUSH ×2 (09:02→21:53)
[2021-03-11] MEDS: CYANOCOBALAMIN 1,000 MCG TABLET 1000 MCG PO (09:02)
[2021-03-11] MEDS: METOPROLOL TARTRATE 12.5 MG TABLET PO ×2 (09:02→21:53)
[2021-03-11] MEDS: LETROZOLE (*CHEMO) 2.5 MG TABLET PO (09:02)
[2021-03-11] MEDS: POTASSIUM CHLORIDE 20 MEQ TABLET PO (12:09)
--- NOTE | 2021-03-11 12:15 | P.PNNP_ITS ---
Progress Note: A&P Assessment and Plan (1) TAE (acute kidney injury): Code(s): N17.9 - Acute kidney failure, unspecified Status: Acute Assessment and Plan: * possibly related to poor oral intake/pre-renal factors along with obstruction * bilateral hydronephrosis noted by imaging -- Urology following - s/p bilateral ureteral stent exchange * creatinine is slowly dropping. Creatinine is at baseline at 1.5. (2) Stage 3b chronic kidney disease: Code(s): N18.32 - Chronic kidney disease, stage 3b Status: Chronic Assessment and Plan: * due to age and nephrolithiasis(?) * baseline creatinine runs around 1.5 - 1.9mg/dl * is there an element of disease progression?? (3) Hypokalemia: Code(s): E87.6 - Hypokalemia Status: Acute Assessment and Plan: * K is still low but not quite as much.. * Part of this is because she is getting the bicarb drip. * She received supplement today (4) Anemia: Code(s): D64.9 - Anemia, unspecified Status: Acute Assessment and Plan: * due to TAE, CKD, and underlying malignancy * PRBC transfusion per protocol * follow trend of H/H (5) Metabolic acidosis: Code(s): E87.2 - Acidosis Status: Acute Assessment and Plan: * due to TAE and CKD along with IVFs * on oral bicarb (6) Weakness: Code(s): R53.1 - Weakness Status: Acute Assessment and Plan: * multifactorial - electrolytes issues, TAE, anemia, cancer...etc * PT/OT as tolerated Subjective Date/time seen: 03/11/21 12:15 Interval history: Kourtney is feeling about the same. She feels like she has to urinate constantly Ever since the stents were put in. Exam Narrative: Exam Narrative: General: WD/WN female in NAD Heart: normal S1 and S2; no rub Lungs: clear bilaterally Abdomen: soft, nontender, nondistended, positive bowel sounds Extremities: no cyanosis or clubbing; 1+ edema Skin: no rash or sq nodules Objective Data Vital Signs Vital Signs: Vital Signs - 24 hr 03/10/21 14:00 03/10/21 22:00 03/10/21 22:26 Temperature 36.5 C 36.6 C Pulse Rate 90 102 H 102 H Respiratory Rate 20 16 Blood Pressure 134/88 133/72 Pulse Oximetry 97 97 03/11/21 06:09 03/11/21 09:02 Temperature 36.3 C L Pulse Rate 100 80 Respiratory Rate 16 Blood Pressure 140/81 Pulse Oximetry 97 Intake/Output Intake/Output: Intake & Output 03/08/21 03/09/21 03/10/21 03/11/21 23:59 23:59 23:59 23:59 Intake Total 1839 2200 2370 450 Balance 1839 2200 2370 450 Meds/Results Medications: Active Medications Generic Name Dose Route Start Last Admin Trade Name Freq PRN Reason Stop Dose Admin Acetaminophen 650 mg 03/03/21 07:13 03/06/21 20:09 Acetaminophen 325 Mg Tablet PO 650 mg Q4H PRN Administration Pain or Fever Cyanocobalamin 1,000 mcg 03/11/21 09:00 03/11/21 09:02 Cyanocobalamin 1,000 Mcg Tablet PO 1,000 mcg QAM TITO Administration Ferrous Sulfate 324 mg 03/04/21 09:40 03/11/21 09:01 Ferrous Sulfate 324 Mg Tablet PO 324 mg BIDWM TITO Administration Ceftriaxone Sodium 2 gm i
--- NOTE | 2021-03-11 12:15 | PM.PNNEP ---
Progress Note: A&P Assessment and Plan (1) TAE (acute kidney injury): Code(s): N17.9 - Acute kidney failure, unspecified Status: Acute Assessment and Plan: possibly related to poor oral intake/pre-renal factors along with obstruction bilateral hydronephrosis noted by imaging -- Urology following - s/p bilateral ureteral stent exchange creatinine is slowly dropping. Creatinine is at baseline at 1.5. (2) Stage 3b chronic kidney disease: Code(s): N18.32 - Chronic kidney disease, stage 3b Status: Chronic Assessment and Plan: due to age and nephrolithiasis(?) baseline creatinine runs around 1.5 - 1.9mg/dl is there an element of disease progression?? (3) Hypokalemia: Code(s): E87.6 - Hypokalemia Status: Acute Assessment and Plan: K is still low but not quite as much.. Part of this is because she is getting the bicarb drip. She received supplement today (4) Anemia: Code(s): D64.9 - Anemia, unspecified Status: Acute Assessment and Plan: due to TAE, CKD, and underlying malignancy PRBC transfusion per protocol follow trend of H/H (5) Metabolic acidosis: Code(s): E87.2 - Acidosis Status: Acute Assessment and Plan: due to TAE and CKD along with IVFs on oral bicarb (6) Weakness: Code(s): R53.1 - Weakness Status: Acute Assessment and Plan: multifactorial - electrolytes issues, ATE, anemia, cancer...etc PT/OT as tolerated Subjective Date/time seen: 03/11/21 12:15 Interval history: Kourtney is feeling about the same. She feels like she has to urinate constantly Ever since the stents were put in. Exam Narrative: Exam Narrative: General: WD/WN female in NAD Heart: normal S1 and S2; no rub Lungs: clear bilaterally Abdomen: soft, nontender, nondistended, positive bowel sounds Extremities: no cyanosis or clubbing; 1+ edema Skin: no rash or sq nodules Objective Data Vital Signs Vital Signs: Vital Signs - 24 hr 03/10/21 14:00 03/10/21 22:00 03/10/21 22:26 Temperature 36.5 C 36.6 C Pulse Rate 90 102 H 102 H Respiratory Rate 20 16 Blood Pressure 134/88 133/72 Pulse Oximetry 97 97 03/11/21 06:09 03/11/21 09:02 Temperature 36.3 C L Pulse Rate 100 80 Respiratory Rate 16 Blood Pressure 140/81 Pulse Oximetry 97 Intake/Output Intake/Output: Intake & Output 03/08/21 03/09/21 03/10/21 03/11/21 23:59 23:59 23:59 23:59 Intake Total 1839 2200 2370 450 Balance 1839 2200 2370 450 Meds/Results Medications: Active Medications Generic Name Dose Route Start Last Admin Trade Name Freq PRN Reason Stop Dose Admin Acetaminophen 650 mg 03/03/21 07:13 03/06/21 20:09 Acetaminophen 325 Mg Tablet PO 650 mg Q4H PRN Administration Pain or Fever Cyanocobalamin 1,000 mcg 03/11/21 09:00 03/11/21 09:02 Cyanocobalamin 1,000 Mcg Tablet PO 1,000 mcg QAM TITO Administration Ferrous Sulfate 324 mg 03/04/21 09:40 03/11/21 09:01 Ferrous Sulfate 324 Mg Tablet PO 324 mg BIDWM TITO Administration Ceftriaxone Sodium 2 gm in 100 mls @ 200 mls/hr 03/10/21 09:00 03/11/21 09:01 Rocephin 2 Gm/D5w 100 Ml IVPB 100 mls/hr Q24H TITO Administration Letrozole 2.5 mg 03/02/21 09:00 03/11/21 09:02 Letrozole (*Chemo) 2.5 Mg Tablet PO 2.5 mg DAILY TITO Administration Magnesium Oxide 400 mg 03/03/21 09:00 03/11/21 09:02 Magnesium Oxide 400 Mg Tablet PO 400 mg DAILY TITO Administration Metoprolol Tartrate 12.5 mg 03/02/21 21:00 03/11/21 09:02 Metoprolol Tartrate 12.5 Mg Tablet PO 12.5 mg Q12HR TITO Administration Ondansetron HCl 4 mg 03/03/21 07:13 03/10/21 10:25 Ondansetron Inj 4 Mg/2 Ml Vial IV PUSH 4 mg Q6H PRN Administration Nausea And Vomiting Pantoprazole Sodium 40 mg 03/03/21 09:20 03/11/21 09:02 Pantoprazole Sodium Iv 40 Mg Vial IV PUSH 40 mg Q12H
[2021-03-11 14:00] VITALS: BP 111/64; PULSE 88; RESP 16; TEMP 36.8; O2SAT 95
--- NOTE | 2021-03-11 16:27 | PM.IMPN ---
Progress Note: A&P Assessment and Plan (1) Weakness: Code(s): R53.1 - Weakness Status: Acute Assessment and Plan: Patient presented with worsening weakness over the last 1 week. I suspect this is multifactorial in nature and suspect cancer, cancer treatment, anemia, poor oral intake, TAE and UTI are likely contributing. Appreciate PT/OT evaluations. She has been encouraged to participate with therapy so a safe discharge plan can be formulated. SNF vs home health being considered. Pt does not want SNF Prior provider had detailed discussions held with patient's daughter, Nurys, regarding further goals of care. Had informational meeting with [facility] hospice with family 03/09. Patient does not wish for hospice services at this time. She is improving on antibiotics however her progressive weakness and nutritional status are an overall concern. The patient wants to proceed with surgery scheduled for 03/16/21. Discussd overall prognosis with Dr. Reese who felt proceeding with surgery was reasonable. (2) Bacteremia due to Klebsiella pneumoniae: Code(s): R78.81 - Bacteremia; B96.1 - Klebsiella pneumoniae [K. pneumoniae] as the cause of diseases classified elsewhere Status: Acute Assessment and Plan: Klebsiella in 2/2 blood culture bottles. Source unknown. Presumed urinary source. Enteric source unlikely given lack of clinical symptoms without findings on CT a/p. Continue ceftriaxone, increased to 2 grams q24H Afebrile; leukocytosis resolved (3) Acute UTI: Code(s): N39.0 - Urinary tract infection, site not specified Status: Acute Assessment and Plan: Urine culture with growth of E. coli continue IV ceftriaxone. started on 03/07/2021 (4) Chronic anemia: Code(s): D64.9 - Anemia, unspecified Status: Chronic Assessment and Plan: Hgb down to 5.9 on 03/03 and she received 2 units packed RBC. Hgb improved and remaining stable today at 9.1. No s/s acute bleeding now. Suspect CKD, malignancy, B12 and iron deficiency are contributing. Stool occult blood is negative. History of GI bleed in October. Continue iron and B12 replacement, monitor CBC. 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 She has undergone radiotherapy and has upcoming mastectomy scheduled for 03/16/[address] Toledo. She remains on letrozole. Recently came off Ibrance due to poor tolerance. CT abd/pel incidental finding of new liver hypodensity. Cannot exclude metastasis. Her care team includes Dr Gutierrez, Dr Reese, Dr Toledo and Dr Arnold. Discussed with Dr. Reese today. Continue with plans for surgery on 03/16/21 (6) Acute kidney injury superimposed on chronic kidney disease: Code(s): N17.9 - Acute kidney failure, unspecified; N18.9 - Chronic kidney disease, unspecified Status: Acute Assessment and Plan: Baseline Cr appears around 1.5 - 1.9 Cr was 3.1 on arrival and has improved to baseline with gentle IV fluid hydration Suspect related to poor oral intake recently. IV fluids have been discontinued. Transitioned to oral sodium bicarbonate tabs CT abd/pelvis performed which demonstrated TRINA ureteral stents in place (placed during last admission 11/05/20) with TRINA hydronephrosis. See below. Ira7) Rickie
[2021-03-11 21:49] VITALS: BP 131/73; PULSE 95; RESP 16; TEMP 36.1; O2SAT 97
[2021-03-11 21:53] VITALS: PULSE 95
[2021-03-11 22:00] VITALS: BP 121/71; PULSE 101; RESP 16; TEMP 36; O2SAT 93
[2021-03-12 06:00] VITALS: BP 129/74; PULSE 93; RESP 18; TEMP 35.7; O2SAT 99
[2021-03-12 06:35] LABS: Hematocrit 27.5 % (37.0-47.0); Hemoglobin 9.2 g/dL (12.0-15.0)
[2021-03-12 06:47] LABS: Anion Gap 7 mmol/L (8-16); Blood Urea Nitrogen 19 mg/dL (7-17); Calcium 7.9 mg/dL (8.4-10.2); Carbon Dioxide 25 mmol/L (22-30); Chloride 103 mmol/L (98-107); Estimated CRCL calculation 28 ml/min; Estimated Glomerular Filt Rate 36; Glucose 93 mg/dL (65-110); Potassium 3.3 mmol/L (3.4-5.0); Sodium 135 mmol/L (137-145)
[2021-03-12 08:11] VITALS: BP 116/58; PULSE 101; RESP 18; TEMP 36.2; O2SAT 93
[2021-03-12] MEDS: SODIUM BICARBONATE TAB 650 MG TABLET 1300 MG PO (09:14)
[2021-03-12] MEDS: CYANOCOBALAMIN 1,000 MCG TABLET 1000 MCG PO (09:14)
[2021-03-12 09:15] VITALS: PULSE 101
[2021-03-12] MEDS: METOPROLOL TARTRATE 12.5 MG TABLET PO ×2 (09:15→21:20)
[2021-03-12] MEDS: FERROUS SULFATE 324 MG TABLET PO ×2 (09:15→17:18)
[2021-03-12] MEDS: MAGNESIUM OXIDE 400 MG TABLET PO (09:15)
[2021-03-12] MEDS: LETROZOLE (*CHEMO) 2.5 MG TABLET PO (09:15)
[2021-03-12] MEDS: PANTOPRAZOLE SODIUM IV 40 MG VIAL IV PUSH ×2 (09:16→21:21)
--- NOTE | 2021-03-12 10:50 | PCNFU ---
Nutrition Follow-Up Complete: Inadequate oral food intake related to Hypokalemia and TAE as evidence by no PO intake since 03/06 and refusal of meals/supplements. Goal: Meet estimated nutritional needs. Limited progress towards goal. We will continue current goal. Pt current nutrition is Regular with Ensure compact BID. Nutrition recommendation: Discussion with DONTE regarding IV nutrition. Last recorded weight is 72.8 kg, up from 72.3 kg on admit. Bowel Motility:+BM 03/11 Labs Reviewed:Cr 1.4,K 3.3,GFR 36,BUN 19,Na 135 Meds Noted:Vit B 12 tab, Mag oxide,Rocephin,Lopressor,Sodium Bicarbonate,Zofran,Protonix,Tylenol Additional Notes: Nutrition follow up. Patient down for US of Abdomen today. Discussion with MD regarding hospice. No plans for hospice at this time. Surgery will proceed on 03/16. Discussed with DONTE Han today patients nutritional status. Oral Intake has been very poor. Ordering hot tea or refusing meals. Decreased motivation and using bed elliott. PA plans to speak with family about nutrition. PPN would be an option if patient continues to refuse meals. Monitoring: Follow up in 3 days.
--- NOTE | 2021-03-12 11:45 | PC.NURSE ---
On 03/12/21, the student, [ Sun Toledo], provided care and completed [facility] documentation on this patient. I have reviewed the student's documentation and agree with the findings.
--- NOTE | 2021-03-12 12:37 | WPDONCPN ---
Progress Note: A/P - Additional Plan Locally advanced/metastatic breast cancer. Patient is on letrozole. Ibrance was discontinued due to poor tolerance. CT scan finding noted that showed possible liver metastasis. Ultrasound finding showed likely hemangioma or hepatic steatosis. I will continue the letrozole. She would need to have palliative mastectomy once improved from the infection. Case was discussed with Dr. Toledo few days ago. Normocytic anemia. Hemoglobin has improved. Continue ferrous sulfate twice a day and vitamin B12 once a day. Bacteremia due to Klebsiella pneumonia infection. Patient is on Rocephin. She is afebrile. UTI. Stable on Rocephin. Acute kidney injury and left hydronephrosis is now status post ureteral stent exchange on March 05. Creatinine now improved 1.4. - Time Spent With Patient Total time spent is greater than 50% in coordination of care (as documented) at patient's floor/unit and/or counseling patient: 15 - 25 minutes Subjective Interval history: Locally advanced/metastatic breast cancer UTI/bacteremia Chronic anemia Review of Systems - Review of Systems Patient seems to be more awake and alert. She remains tired but slowly getting better. Denies any fevers and chills. No abdominal pain and chest pain. - Neurologic Reports weakness, Denies headache(s) Exam Vital signs: Temp Pulse Resp BP Pulse Ox 36.2 C L 101 H 18 116/58 L 93 03/12/21 08:11 03/12/21 09:15 03/12/21 08:11 03/12/21 08:11 03/12/21 08:11 Narrative: Lungs are clear to auscultation bilaterally Cardiovascular regular rate rhythm no murmurs Abdomen soft nontender nondistended bowel sounds are positive Extremities no edema PN: Objective Data - Labs CBC & Chem 7: 03/12/21 06:24 03/12/21 06:24 Labs: Laboratory Results - last 24 hr 03/12/21 03/12/21 06:24 06:24 Hgb 9.2 L Hct 27.5 L Sodium 135 L Potassium 3.3 L Chloride 103 Carbon Dioxide 25 Anion Gap 7 L BUN 19 H Creatinine 1.40 H Estim Creat Clear Calc 28 Estimated GFR 36 L Glucose 93 Calcium 7.9 L
[2021-03-12 13:26] VITALS: BP 126/69; PULSE 91; RESP 18; TEMP 36.3; O2SAT 98
--- NOTE | 2021-03-12 16:55 | PM.IMPN ---
Progress Note: A&P Assessment and Plan (1) Weakness: Code(s): R53.1 - Weakness Status: Acute Assessment and Plan: Patient presented with worsening weakness over the last 1 week. Suspect this is multifactorial in nature and suspect cancer, cancer treatment, anemia, poor oral intake, TAE and UTI are likely contributing. Appreciate PT/OT evaluations. She has been encouraged to participate with therapy so a safe discharge plan can be formulated. SNF vs home health being considered. Pt does not want SNF Prior provider had detailed discussion with patient's daughter, Nurys, regarding further goals of care. Had informational meeting with [facility] hospice with family 03/09. Patient does not wish for hospice services at this time. She is improving on antibiotics however her progressive weakness and poor nutritional status remain a concern. The patient wants to proceed with surgery scheduled for 03/16/21. Discussd overall prognosis with Dr. Reese who felt proceeding with surgery was reasonable. Continue to encourage oral intake. Case discussed with dietitian; PPN will need to be considered if she continues to have minimal oral intake discharge in the next 1-2 days if oral intake is improved and patient and family are able to determine home health vs SNF (2) Bacteremia due to Klebsiella pneumoniae: Code(s): R78.81 - Bacteremia; B96.1 - Klebsiella pneumoniae [K. pneumoniae] as the cause of diseases classified elsewhere Status: Acute Assessment and Plan: Klebsiella in 2/2 blood culture bottles. Source unknown. Presumed urinary source. Enteric source unlikely given lack of clinical symptoms without findings on CT a/p. due to nonspecific left liver lobe hypodensity noted on CT scan, a right upper quadrant ultrasound was performed to rule out liver abscess; no concerns for liver abscess based on right upper quadrant ultrasound Continue ceftriaxone, increased to 2 grams q24H. will plan to complete 14 total days of antibiotic therapy Afebrile; leukocytosis resolved (3) Acute UTI: Code(s): N39.0 - Urinary tract infection, site not specified Status: Acute Assessment and Plan: Urine culture with growth of E. coli continue IV ceftriaxone. started on 03/07/2021 she is asymptomatic (4) Chronic anemia: Code(s): D64.9 - Anemia, unspecified Status: Chronic Assessment and Plan: Hgb down to 5.9 on 03/03 and she received 2 units packed RBC. Hgb improved and remaining stable today at 9.2. No s/s acute bleeding now. Suspect CKD, malignancy, B12 and iron deficiency are contributing. Stool occult blood is negative. History of GI bleed in October. Continue iron and B12 replacement, monitor CBC. 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 She has undergone radiotherapy and has upcoming mastectomy scheduled for 03/16/[address] Toledo. She remains on letrozole. Recently came off Ibrance due to poor tolerance. CT abd/pel incidental finding of new liver hypodensity. Cannot exclude metastasis, though hemangioma is more likely based on RUQ US. will likely benefit from MRI for further evaluation. Her care team includes Dr Gutierrez, Dr Reese, Dr Toledo and Dr Arnold. Discussed with Dr. Reese. Continue with plans for surgery on 03/16/21 (6) Acute kidney injur
--- NOTE | 2021-03-12 16:57 | P.PNNP_ITS ---
Progress Note: A&P Assessment and Plan (1) TAE (acute kidney injury): Code(s): N17.9 - Acute kidney failure, unspecified Status: Acute Assessment and Plan: * possibly related to poor oral intake/pre-renal factors along with obstruction * bilateral hydronephrosis noted by imaging -- Urology following - s/p bilateral ureteral stent exchange * creat 1.4 (2) Stage 3b chronic kidney disease: Code(s): N18.32 - Chronic kidney disease, stage 3b Status: Chronic Assessment and Plan: * due to age and nephrolithiasis(?) * baseline creatinine runs around 1.5 - 1.9mg/dl * is there an element of disease progression?? (3) Hypokalemia: Code(s): E87.6 - Hypokalemia Status: Acute Assessment and Plan: * K is still low * dose with kcl (4) Anemia: Code(s): D64.9 - Anemia, unspecified Status: Acute Assessment and Plan: * due to TAE, CKD, and underlying malignancy * PRBC transfusion per protocol * follow trend of H/H (5) Metabolic acidosis: Code(s): E87.2 - Acidosis Status: Acute Assessment and Plan: * due to TAE and CKD along with IVFs * stop bicarb. resolved. (6) Weakness: Code(s): R53.1 - Weakness Status: Acute Assessment and Plan: * multifactorial - electrolytes issues, TAE, anemia, cancer...etc * PT/OT as tolerated Subjective Date/time seen: 03/12/21 16:57 Interval history: Kourtney is feeling about the same. up in a chair. eager for discharge Exam Narrative: Exam Narrative: General: WD/WN female in NAD Heart: normal S1 and S2; no rub or gallop Lungs: clear Abdomen: soft, nontender, nondistended, positive bowel sounds Extremities: no cyanosis or clubbing; 1+ edema Skin: no rash Objective Data Vital Signs Vital Signs: Vital Signs - 24 hr 03/11/21 21:49 03/11/21 21:53 03/11/21 22:00 Temperature 36.1 C L 36.0 C L Pulse Rate 95 95 101 H Respiratory Rate 16 16 Blood Pressure 131/73 121/71 Pulse Oximetry 97 93 03/12/21 06:00 03/12/21 08:11 03/12/21 09:15 Temperature 35.7 C L 36.2 C L Pulse Rate 93 101 H 101 H Respiratory Rate 18 18 Blood Pressure 129/74 116/58 L Pulse Oximetry 99 93 03/12/21 13:26 Temperature 36.3 C L Pulse Rate 91 Respiratory Rate 18 Blood Pressure 126/69 Pulse Oximetry 98 Intake/Output Intake/Output: Intake & Output 03/09/21 03/10/21 03/11/21 03/12/21 23:59 23:59 23:59 23:59 Intake Total 2200 2370 1190 1580 Output Total 800 Balance 2200 2370 390 1580 Meds/Results Medications: Active Medications Generic Name Dose Route Start Last Admin Trade Name Freq PRN Reason Stop Dose Admin Acetaminophen 650 mg 03/03/21 07:13 03/06/21 20:09 Acetaminophen 325 Mg Tablet PO 650 mg Q4H PRN Administration Pain or Fever Cyanocobalamin 1,000 mcg 03/11/21 09:00 03/12/21 09:14 Cyanocobalamin 1,000 Mcg Tablet PO 1,000 mcg QAM TITO Administration Ferrous Sulfate 324 mg 03/04/21 09:40 03/12/21 09:15 Ferrous Sulfate 324 Mg Tablet PO 324
--- NOTE | 2021-03-12 16:57 | PM.PNNEP ---
Progress Note: A&P Assessment and Plan (1) TAE (acute kidney injury): Code(s): N17.9 - Acute kidney failure, unspecified Status: Acute Assessment and Plan: possibly related to poor oral intake/pre-renal factors along with obstruction bilateral hydronephrosis noted by imaging -- Urology following - s/p bilateral ureteral stent exchange creat 1.4 (2) Stage 3b chronic kidney disease: Code(s): N18.32 - Chronic kidney disease, stage 3b Status: Chronic Assessment and Plan: due to age and nephrolithiasis(?) baseline creatinine runs around 1.5 - 1.9mg/dl is there an element of disease progression?? (3) Hypokalemia: Code(s): E87.6 - Hypokalemia Status: Acute Assessment and Plan: K is still low dose with kcl (4) Anemia: Code(s): D64.9 - Anemia, unspecified Status: Acute Assessment and Plan: due to TAE, CKD, and underlying malignancy PRBC transfusion per protocol follow trend of H/H (5) Metabolic acidosis: Code(s): E87.2 - Acidosis Status: Acute Assessment and Plan: due to TAE and CKD along with IVFs stop bicarb. resolved. (6) Weakness: Code(s): R53.1 - Weakness Status: Acute Assessment and Plan: multifactorial - electrolytes issues, TAE, anemia, cancer...etc PT/OT as tolerated Subjective Date/time seen: 03/12/21 16:57 Interval history: Kourtney is feeling about the same. up in a chair. eager for discharge Exam Narrative: Exam Narrative: General: WD/WN female in NAD Heart: normal S1 and S2; no rub or gallop Lungs: clear Abdomen: soft, nontender, nondistended, positive bowel sounds Extremities: no cyanosis or clubbing; 1+ edema Skin: no rash Objective Data Vital Signs Vital Signs: Vital Signs - 24 hr 03/11/21 21:49 03/11/21 21:53 03/11/21 22:00 Temperature 36.1 C L 36.0 C L Pulse Rate 95 95 101 H Respiratory Rate 16 16 Blood Pressure 131/73 121/71 Pulse Oximetry 97 93 03/12/21 06:00 03/12/21 08:11 03/12/21 09:15 Temperature 35.7 C L 36.2 C L Pulse Rate 93 101 H 101 H Respiratory Rate 18 18 Blood Pressure 129/74 116/58 L Pulse Oximetry 99 93 03/12/21 13:26 Temperature 36.3 C L Pulse Rate 91 Respiratory Rate 18 Blood Pressure 126/69 Pulse Oximetry 98 Intake/Output Intake/Output: Intake & Output 03/09/21 03/10/21 03/11/21 03/12/21 23:59 23:59 23:59 23:59 Intake Total 2200 2370 1190 1580 Output Total 800 Balance 2200 2370 390 1580 Meds/Results Medications: Active Medications Generic Name Dose Route Start Last Admin Trade Name Freq PRN Reason Stop Dose Admin Acetaminophen 650 mg 03/03/21 07:13 03/06/21 20:09 Acetaminophen 325 Mg Tablet PO 650 mg Q4H PRN Administration Pain or Fever Cyanocobalamin 1,000 mcg 03/11/21 09:00 03/12/21 09:14 Cyanocobalamin 1,000 Mcg Tablet PO 1,000 mcg QAM TITO Administration Ferrous Sulfate 324 mg 03/04/21 09:40 03/12/21 09:15 Ferrous Sulfate 324 Mg Tablet PO 324 mg BIDWM TITO Administration Ceftriaxone Sodium 2 gm in 100 mls @ 200 mls/hr 03/10/21 09:00 03/12/21 10:39 Rocephin 2 Gm/D5w 100 Ml IVPB Infused Q24H TITO Infusion Letrozole 2.5 mg 03/02/21 09:00 03/12/21 09:15 Letrozole (*Chemo) 2.5 Mg Tablet PO 2.5 mg DAILY TITO Administration Magnesium Oxide 400 mg 03/03/21 09:00 03/12/21 09:15 Magnesium Oxide 400 Mg Tablet PO 400 mg DAILY TITO Administration Metoprolol Tartrate 12.5 mg 03/02/21 21:00 03/12/21 09:15 Metoprolol Tartrate 12.5 Mg Tablet PO 12.5 mg Q12HR TITO Administration Ondansetron HCl 4 mg 03/03/21 07:13 03/10/21 10:25 Ondansetron Inj 4 Mg/2 Ml Vial IV PUSH 4 mg Q6H PRN Administration Nausea And Vomiting Pantoprazole Sodium 40 mg 03/03/21 09:20 03/12/21 09:16 Pantoprazole Sodium Iv 40 Mg Vial IV PUSH 40 mg Q12HR TITO Administration Sod
[2021-03-12] MEDS: POTASSIUM CHLORIDE 20 MEQ TABLET 40 MEQ PO (17:18)
[2021-03-12 21:20] VITALS: PULSE 102
[2021-03-12 21:23] VITALS: BP 120/70; PULSE 98; RESP 18; TEMP 36.1; O2SAT 97
[2021-03-13 06:00] VITALS: BP 135/69; PULSE 94; RESP 18; TEMP 35.9; O2SAT 97
[2021-03-13 06:48] LABS: Hematocrit 28.8 % (37.0-47.0); Hemoglobin 9.4 g/dL (12.0-15.0)
[2021-03-13 07:03] LABS: Albumin Level 2.6 g/dL (3.5-5.1); Anion Gap 5 mmol/L (8-16); Blood Urea Nitrogen 16 mg/dL (7-17); Carbon Dioxide 28 mmol/L (22-30); Chloride 103 mmol/L (98-107); Estimated CRCL calculation 28 ml/min; Estimated Glomerular Filt Rate 36; Glucose 93 mg/dL (65-110); Magnesium 1.7 mg/dL (1.6-2.3); Phosphorus 2.6 mg/dL (2.5-4.5); Potassium 3.5 mmol/L (3.4-5.0); Sodium 136 mmol/L (137-145)
[2021-03-13] MEDS: FERROUS SULFATE 324 MG TABLET PO ×2 (09:09→18:20)
[2021-03-13 09:10] VITALS: PULSE 95
[2021-03-13] MEDS: CYANOCOBALAMIN 1,000 MCG TABLET 1000 MCG PO (09:10)
[2021-03-13] MEDS: MAGNESIUM OXIDE 400 MG TABLET PO (09:10)
[2021-03-13] MEDS: LETROZOLE (*CHEMO) 2.5 MG TABLET PO (09:10)
[2021-03-13] MEDS: METOPROLOL TARTRATE 12.5 MG TABLET PO ×2 (09:10→21:18)
[2021-03-13] MEDS: PANTOPRAZOLE SODIUM IV 40 MG VIAL IV PUSH ×2 (09:11→21:18)
--- NOTE | 2021-03-13 09:31 | PM.PNNEP ---
Progress Note: A&P Assessment and Plan (1) TAE (acute kidney injury): Code(s): N17.9 - Acute kidney failure, unspecified Status: Acute Assessment and Plan: TAE resolved (2) Stage 3b chronic kidney disease: Code(s): N18.32 - Chronic kidney disease, stage 3b Status: Chronic Assessment and Plan: due to age and nephrolithiasis(?) baseline creatinine runs around 1.5 - 1.9mg/dl is there an element of disease progression?? (3) Hypokalemia: Code(s): E87.6 - Hypokalemia Status: Acute Assessment and Plan: potassium okay today (4) Anemia: Code(s): D64.9 - Anemia, unspecified Status: Acute Assessment and Plan: hemoglobin stable (5) Metabolic acidosis: Code(s): E87.2 - Acidosis Status: Acute Assessment and Plan: resolved will view from a distance Subjective Date/time seen: 03/13/21 09:31 Interval history: Kourtney is feeling about the same. lying in bed comfortably. Exam Narrative: Exam Narrative: General: WD/WN female in NAD Heart: normal S1 and S2; no rub or gallop Lungs: clear Abdomen: soft, nontender, nondistended, positive bowel sounds Extremities: no cyanosis or clubbing; 1+ edema Skin: no rash Objective Data Vital Signs Vital Signs: Vital Signs - 24 hr 03/12/21 13:26 03/12/21 21:20 03/12/21 21:23 Temperature 36.3 C L 36.1 C L Pulse Rate 91 102 H 98 Respiratory Rate 18 18 Blood Pressure 126/69 120/70 Pulse Oximetry 98 97 03/13/21 06:00 03/13/21 09:10 Temperature 35.9 C L Pulse Rate 94 95 Respiratory Rate 18 Blood Pressure 135/69 Pulse Oximetry 97 Intake/Output Intake/Output: Intake & Output 03/10/21 03/11/21 03/12/21 03/13/21 23:59 23:59 23:59 23:59 Intake Total 2370 1190 2910 540 Output Total 800 900 800 Balance 2370 390 2009 - Meds/Results Medications: Active Medications Generic Name Dose Route Start Last Admin Trade Name Freq PRN Reason Stop Dose Admin Acetaminophen 650 mg 03/03/21 07:13 03/06/21 20:09 Acetaminophen 325 Mg Tablet PO 650 mg Q4H PRN Administration Pain or Fever Cyanocobalamin 1,000 mcg 03/11/21 09:00 03/13/21 09:10 Cyanocobalamin 1,000 Mcg Tablet PO 1,000 mcg QAM TITO Administration Ferrous Sulfate 324 mg 03/04/21 09:40 03/13/21 09:09 Ferrous Sulfate 324 Mg Tablet PO 324 mg BIDWM TITO Administration Ceftriaxone Sodium 2 gm in 100 mls @ 200 mls/hr 03/10/21 09:00 03/13/21 09:19 Rocephin 2 Gm/D5w 100 Ml IVPB 200 mls/hr Q24H TITO Administration Letrozole 2.5 mg 03/02/21 09:00 03/13/21 09:10 Letrozole (*Chemo) 2.5 Mg Tablet PO 2.5 mg DAILY TITO Administration Magnesium Oxide 400 mg 03/03/21 09:00 03/13/21 09:10 Magnesium Oxide 400 Mg Tablet PO 400 mg DAILY TITO Administration Metoprolol Tartrate 12.5 mg 03/02/21 21:00 03/13/21 09:10 Metoprolol Tartrate 12.5 Mg Tablet PO 12.5 mg Q12HR TITO Administration Ondansetron HCl 4 mg 03/03/21 07:13 03/10/21 10:25 Ondansetron Inj 4 Mg/2 Ml Vial IV PUSH 4 mg Q6H PRN Administration Nausea And Vomiting Pantoprazole Sodium 40 mg 03/03/21 09:20 03/13/21 09:11 Pantoprazole Sodium Iv 40 Mg Vial IV PUSH 40 mg Q12HR TITO Administration Radiology Results: ITS Impressions Abdomen/Pelvis CT 03/04/21 08:51 IMPRESSION: 1. Moderate right, mild to moderate left hydronephrosis. Bilateral stents in position. 2. Left calyceal, UPJ stones. Right mid ureteral stone. 3. New triangular-shaped left liver lobe hypodensity, indeterminate. 4. Small pericardial effusions. Dependent subsegmental atelectasis. 5. Decrease in size of left breast cancer. Retrograde Pyelogram 03/05/21 10:04 IMPRESSION: Bilateral hydronephrosis, right ureteral and left UPJ stones. Stents in position. Retroperitoneum Ultrasound 03/08/21 17:38 IMPRESSION: 1. Resolution of previously seen bilate
[2021-03-13 14:00] VITALS: BP 128/70; PULSE 92; RESP 18; TEMP 36.9; O2SAT 100
--- NOTE | 2021-03-13 14:34 | PM.IMPN ---
Progress Note: A&P Assessment and Plan (1) Weakness: Code(s): R53.1 - Weakness Status: Acute Assessment and Plan: Patient presented with worsening weakness over the last 1 week. Suspect this is multifactorial in nature and suspect cancer, cancer treatment, anemia, poor oral intake, TAE and UTI are likely contributing. Appreciate PT/OT evaluations. She has been encouraged to participate with therapy so a safe discharge plan can be formulated. SNF vs home health being considered. Pt does not want SNF but does not feel that she can return home Prior provider had detailed discussion with patient's daughter, Nurys, regarding further goals of care. Had informational meeting with [facility] with family 03/09. Patient does not wish for hospice services at this time. She is improving on antibiotics however her progressive weakness and poor nutritional status remain a concern. The patient wants to proceed with surgery scheduled for 03/16/21. Discussed overall prognosis with Dr. Reese who felt proceeding with surgery was reasonable. however, given her recent hospitalization, will need to discuss with Dr. Toledo to determine if it is appropriate to continue with outpatient therapy in the next few days as the patient remains hospitalized currently. Continue to encourage oral intake. Case discussed with dietitian; PPN considered given minimal oral intake but she has begun to eat significantly more after this discussion. (2) Bacteremia due to Klebsiella pneumoniae: Code(s): R78.81 - Bacteremia; B96.1 - Klebsiella pneumoniae [K. pneumoniae] as the cause of diseases classified elsewhere Status: Acute Assessment and Plan: Klebsiella in 2/2 blood culture bottles. Source unknown. Presumed urinary source. Enteric source unlikely given lack of clinical symptoms without findings on CT a/p. due to nonspecific left liver lobe hypodensity noted on CT scan, a right upper quadrant ultrasound was performed to rule out liver abscess; no concerns for liver abscess based on right upper quadrant ultrasound Continue ceftriaxone, increased to 2 grams q24H. will plan to complete 14 total days of antibiotic therapy Afebrile; leukocytosis resolved (3) Acute UTI: Code(s): N39.0 - Urinary tract infection, site not specified Status: Acute Assessment and Plan: Urine culture with growth of E. coli continue IV ceftriaxone. started on 03/07/2021 she is asymptomatic (4) Chronic anemia: Code(s): D64.9 - Anemia, unspecified Status: Chronic Assessment and Plan: Hgb down to 5.9 on 03/03 and she received 2 units packed RBC. Hgb improved and remaining stable today at 9.4. No s/s acute bleeding now. Suspect CKD, malignancy, B12 and iron deficiency are contributing. Stool occult blood is negative. History of GI bleed in October. Continue iron and B12 replacement, monitor CBC. 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 She has undergone radiotherapy and has upcoming mastectomy scheduled for 03/16/[address] Toledo. She remains on letrozole. Recently came off Ibrance due to poor tolerance. CT abd/pel incidental finding of new liver hypodensity. Cannot exclude metastasis, though hemangioma is more likely based on RUQ US. will likely benefit from MRI for further evaluation. Her care team includes Dr Gutierrez, Dr Valdes
[2021-03-13 20:05] VITALS: BP 120/67; PULSE 89; RESP 18; TEMP 35.8; O2SAT 96
[2021-03-13 21:18] VITALS: PULSE 89
[2021-03-14 05:46] VITALS: BP 129/68; PULSE 95; RESP 16; TEMP 36.1; O2SAT 95
[2021-03-14 06:28] LABS: Hematocrit 31.1 % (37.0-47.0); Hemoglobin 9.6 g/dL (12.0-15.0)
[2021-03-14 06:42] LABS: Anion Gap 6 mmol/L (8-16); Blood Urea Nitrogen 13 mg/dL (7-17); Calcium 7.8 mg/dL (8.4-10.2); Carbon Dioxide 27 mmol/L (22-30); Chloride 102 mmol/L (98-107); Estimated CRCL calculation 30 ml/min; Estimated Glomerular Filt Rate 40; Glucose 85 mg/dL (65-110); Potassium 3.8 mmol/L (3.4-5.0); Sodium 135 mmol/L (137-145)
[2021-03-14] MEDS: FERROUS SULFATE 324 MG TABLET PO (08:51)
[2021-03-14] MEDS: LETROZOLE (*CHEMO) 2.5 MG TABLET PO (08:51)
[2021-03-14 08:52] VITALS: PULSE 86
[2021-03-14] MEDS: METOPROLOL TARTRATE 12.5 MG TABLET PO (08:52)
[2021-03-14] MEDS: MAGNESIUM OXIDE 400 MG TABLET PO (08:53)
[2021-03-14] MEDS: PANTOPRAZOLE SODIUM IV 40 MG VIAL IV PUSH (08:54)
[2021-03-14] MEDS: CYANOCOBALAMIN 1,000 MCG TABLET 1000 MCG PO (09:30)
[2021-03-14 14:00] VITALS: BP 115/69; PULSE 84; RESP 20; TEMP 36.9; O2SAT 95
--- NOTE | 2021-03-14 14:38 | PM.DS ---
DS: Admitting Diagnosis Admitting Diagnosis Generalized weakness DS: Discharge Diagnosis Discharge Diagnosis (1) Weakness: Code(s): R53.1 - Weakness Status: Acute Assessment and Plan: Patient presented with worsening weakness over the last 1 week. Suspect this is multifactorial in nature and suspect cancer, cancer treatment, anemia, poor oral intake, TAE and UTI are likely contributing. she was evaluated by PT / OT. She did have poor participation with therapy. SNF was recommended, however patient did not wish to pursue this and instead opted for home health care. She feels strongly that she will be safe at home and has excellent family support. Discussion had regarding further goals of care. Informational meeting with [facility] hospice with family 03/09. Patient does not wish for hospice services at this time. The patient wants to proceed with mastectomy scheduled for 03/16/21. Discussed overall prognosis with Dr. Reese who felt proceeding with surgery was reasonable. She had decreased oral intake but this improved with continued encouragement. (2) Bacteremia due to Klebsiella pneumoniae: Code(s): R78.81 - Bacteremia; B96.1 - Klebsiella pneumoniae [K. pneumoniae] as the cause of diseases classified elsewhere Status: Acute Assessment and Plan: Klebsiella in 2/2 blood culture bottles. Source unknown. Presumed urinary source. Enteric source unlikely given lack of clinical symptoms without findings on CT a/p. Due to nonspecific left liver lobe hypodensity noted on CT scan, a right upper quadrant ultrasound was performed to rule out liver abscess; no concerns for liver abscess based on right upper quadrant ultrasound Received ceftriaxone 2 grams q24H. Continue with PO augmentin to complete a 14 day cours of antibiotic therapy. Probiotic prescribed. Afebrile; leukocytosis resolved (3) Acute UTI: Code(s): N39.0 - Urinary tract infection, site not specified Status: Acute Assessment and Plan: Urine culture with growth of E. coli Received IV ceftriaxone and continue PO augmentin as above. (4) Chronic anemia: Code(s): D64.9 - Anemia, unspecified Status: Chronic Assessment and Plan: Hgb declined to 5.9 and she received 2 units packed RBC. Hgb improved and remained stable following transfusion with no s/sx of acute bleeding Suspect CKD, malignancy, B12 and iron deficiency are contributing. Stool occult blood negative. History of GI bleed in October. Continue iron supplement. Started on PO B12 replacement. 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 She has undergone radiotherapy and has upcoming mastectomy scheduled for 03/16/[address] Toledo. She remains on letrozole. Recently came off Ibrance due to poor tolerance. Unclear if surgery will need to be rescheduled given her hospitalization. Unable to have scheduled outpatient surgery during inpatient hospitalization. Discussed with care coordination and also with Dr. Toledo's partner, Dr. Sanchez on 03/14. CT abd/pel incidental finding of new liver hypodensity. Cannot exclude metastasis, though hemangioma is more likely based on RUQ US. will likely benefit from MRI for further evaluation as an outpatient. Follow up with Dr. Reese. Her care team includes Dr Gutierrez, Dr Reese, Dr Toledo and Dr Arnold.
== END 2021-03-14 15:55 | disposition home health service (06) | DRG 660 ==
LOC: ANHED 12:59 → ANH3MED 17:17
PROVIDERS: Internal Medicine Nephrology; Physician Assistant; Urology; Admitting Provider Internal Medicine; Emergency Provider Emergency Medicine; PCP Internal Medicine; Visit Provider Physician Assistant
PROC: 0T788DZ Dilation of Bilateral Ureters with Intraluminal Device, Via Natural or Artificial Opening Endoscopic (ICD-10-PCS; CPT 52352; principal; 2021-03-05 11:30)
DX: N17.9 Acute kidney failure, unspecified (principal); R78.81 Bacteremia; N39.0 Urinary tract infection, site not specified; I48.20 Chronic atrial fibrillation, unspecified; E87.2 Acidosis; E87.1 Hypo-osmolality and hyponatremia; C50.912 Malignant neoplasm of unspecified site of left female breast; N18.4 Chronic kidney disease, stage 4 (severe); B96.1 Klebsiella pneumoniae [K. pneumoniae] as the cause of diseases classified elsewhere; B96.20 Unspecified Escherichia coli [E. coli] as the cause of diseases classified elsewhere; D63.1 Anemia in chronic kidney disease; D63.0 Anemia in neoplastic disease; D51.9 Vitamin B12 deficiency anemia, unspecified; D50.8 Other iron deficiency anemias; K26.9 Duodenal ulcer, unspecified as acute or chronic, without hemorrhage or perforation; K29.70 Gastritis, unspecified, without bleeding; N13.30 Unspecified hydronephrosis; E87.6 Hypokalemia; F17.210 Nicotine dependence, cigarettes, uncomplicated; Z90.722 Acquired absence of ovaries, bilateral; Z90.81 Acquired absence of spleen; Z66 Do not resuscitate
CPT/HCPCS: 36415; 36430; 74176; 74420; 76705; 76770; 80048; 80053; 80069; 81001; 82274; 82550; 82607; 82728; 82746; 83540; 83550; 83735; 84100; 84466; 84484; 85014; 85018; 85025; 85027; 85610; 85730; 86850; 86900; 86901; 86920; 87040; 87077; 87086; 87088; 87186; 93005; 96374; 97110; 97161; 97165; 97530; 97535; 99285; A9270; C1769; C1887; C2617; C9113; J0690; J0696; J1756; J1940; J2405; J2704; J3010; J3420; J3475; J3480; J7030; J7050; J7120; P9016; Q5106; Q9966

== ENCOUNTER 2021-03-17 15:11 | Inpatient (IN) | payer MEDICARE, MEDICAID, SELFPAY ==
[2021-03-16] VITALS (13 sets, daily range): BP systolic 103–129; BP diastolic 57–94; PULSE 79–105; RESP 16–24; TEMP 35.2–36.7; O2SAT 95–100
--- NOTE | 2021-03-16 08:21 | P.PNAN_ITS ---
Anes - Initial Pre Proc Eval Procedure: Operation Date: 03/16/21 12:00 Proposed Procedures p Left Radical Mastectomy - Cristopher Toledo MD Date/Time: 03/16/21 08:21 Surgeon: Cristopher Toledo MD Pre Op Diagnosis: Stage Four Breast Cancer Patient Data Age: 80 Gender: F Height: Weight: Allergies Allergy/AdvReac Type Severity Reaction Status Date / Time ibuprofen Allergy Mild HIVES Verified 03/01/21 18:15 Home Medications Medication Instructions Recorded Confirmed Type letrozole 2.5 mg PO DAILY 03/01/21 03/16/21 History Saccharomyces boulardii 250 mg PO BID #20 cap 03/14/21 03/16/21 Rx amoxicillin-pot clavulanate 1 tablet PO Q12H #16 tablet 03/14/21 03/16/21 Rx [Augmentin] cyanocobalamin (vitamin B-12) 1,000 mcg PO QAM #10 tablet 03/14/21 03/16/21 Rx [Vitamin B-12] ferrous sulfate 324 mg PO BIDWM #30 tablet 03/14/21 03/16/21 Rx magnesium oxide 400 mg PO DAILY #10 tablet 03/14/21 03/16/21 Rx metoprolol succinate 12.5 mg PO DAILY #30 tablet 03/14/21 03/16/21 Rx Patient hx anesthesia problems: none Family hx anesthesia problems: none PMFSH Past Medical History Medical History Atrial fibrillation Cancer of left breast Chronic anemia Chronic kidney disease, stage 4 (severe) Duodenal ulcer (~10/2020) Nephrolithiasis Spontaneous rupture of spleen (~02/2008) Surgical History Surgical History History of bilateral salpingo-oophorectomy 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 History of colonoscopy with polypectomy History of splenectomy Family History Family History Father Lung cancer Mother Cerebrovascular accident Sibling Congestive heart failure Social History Social History Social History: The patient lives in [place] with her grandson. She is . She smokes between 0.5 and 1 pack of cigarettes a day but has not smoked in 5 days. No alcohol or illicit substance abuse. She designates her daughter, Nurys Nichols, as her surrogate decision maker. Code status: Full code. Additional smoking assessment comments: was down to less than a half pack Spiritual care concerns: No Anes - Eval Final PreProcedure Day of Procedure 03/16/21 08:21 Patient weight: obese Heart: regular rate and rhythm Lungs: clear to auscultation and normal air movement Airway: Mallampati scale class III Neurological: alert and oriented Last oral intake: >/= 8 hours ASA classification: III Emergent: no Anesthetic plan: proceed Anesthesia type and monitoring: general ETT and standard monitoring Informed Consent: The patient's anesthetic plan and its attendant risks and benefits were discussed with the patient/family/POA. Questions were solicited and answers provided to the satisfaction of the patient/family/POA.
[2021-03-16] MEDS: LACTATED RINGERS 1,000 ML 30 ML IV CONT ×2 (11:00→15:29)
[2021-03-16 11:20] LABS: Hemoglobin 11.6 g/dL (12.0-15.0); Mean Corpuscular HGB Conc 31.4 g/dl (32-36); Mean Corpuscular Hemoglobin 28.8 pg (26-34); Mean Corpuscular Volume 91.8 fl (80-100); Mean Platelet Volume 11.7 fl (7.4-10.4); Platelet Count Result 330 k/mm3 (150-375); Red Blood Count 4.03 M/mm3 (4.2-5.4); Red Cell Distribution Width 19.9 % (11.5-14.5); White Blood Count 9.3 K/mm3 (4.5-10.0)
[2021-03-16 11:28] LABS: Prothrombin Time 13.3 Seconds (11.1-14.7)
[2021-03-16 11:29] LABS: Partial Thromboplastin Time 25.2 SECONDS (22.3-36.8)
[2021-03-16] MEDS: ceFAZolin 2 GM/D5W 50 ML 2 GM/50 ML BAG IVPB (12:02)
--- NOTE | 2021-03-16 13:57 | SUR.OPER ---
Frozen section specimen sent with MADELEINE Lynn and received in pathology by Amari
--- NOTE | 2021-03-16 14:18 | SUR.OPER ---
Left breast specimen sent fresh for permanent with MADELEINE Macdonald and received in pathology by Amari
--- NOTE | 2021-03-16 15:34 | W.PM.PROC2 ---
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 Therefore, we have discussed the risks benefits possible complications of complete excision of the left breast including the portion of the breast invading the musculature of the chest wall. I explained a radical mastectomy and will do this if needed if we can preserve pectoralis major or minor muscle will try to. Patient knows that she may have skin over bone on the left chest wall. She also knows that we may have trouble closing the wound and therefore we might use a wound VAC and then consider plastic surgery reconstruction with either skin grafting or a rotation flap. Findings In the area of worse tumor involvement it appears that the patient had still tumor down to left chest wall. I then went deep to that dissecting through muscle and removed the remaining breast from the chest wall laterally over the serratus anterior muscle and lower part of the pectoralis minor muscle. Description of Procedure The patient was seen pre-operatively in the holding area, and I marked the patient on the operative side: the left. She was brought to the operating room and anesthesia delivered. She was position on the operating table with a bump behind her left hip and shoulder so that she was roll slightly toward the right side and I could see the lateral chest wall inferior to the axilla on to her back a little ways. We placed an arm board out and then placed to on folded time blankets on this so that we could layer arm down without having it hyperextend. She was prepped and draped in the usual sterile fashion. The arm on this left side was placed into a stockinette and wrapped with a Coband. Following this the lower neck, shoulder, entire left chest upper. abdomen, and lateral sidewall of the chest were prepped with chlorhexidine. Careful inspection revealed no open areas along the scar from her retracting tumor on the left breast. There were some mild skin abrasions close to the area of increased skin thickness related to the retraction/scarring related to the tumor. The area was then draped off with 4 towels coming behind the patient's shoulder on the left.The arm was then draped into the field sterile so that we could freely move it as we did the dissection. A time out was performed confirming patient and site of surgery. Then after inspection of the breast I carefully outlined an a angled elliptical excision of the entire left breast and some of the axillary skin. Following this the upper flap was incised and raised using Bovie cautery clear to the clavicle. Following this the lower flap wasincised and raised trying to save as much skin as I could from the lower part of the more medial side of the breast in order to try to get closure at the end of the procedure. We undermined this all way down to the top of the anterior rectus sheath on the left and then we began rotating the breast tissue off the pectoralis major muscle superiorly the rectus abdominis muscle inferiorly since the tumor seemed to be in the very lateral side of the left breast and I was happy to be able to decide not to do a radical mastectomy. We left most of the pectoralis major intact and we came out to the very edge of the pectoralis major there was dark white thick scar tissue grossly which I suspected was tumor with treatment effect from her radiation. I therefore cut into the at border of the pectoralis major a
[2021-03-16] MEDS: ONDANSETRON INJ 4 MG/2 ML VIAL IV PUSH (15:56)
[2021-03-16] MEDS: fentaNYL CITRATE INJ (*CRX) 100 MCG/2 ML VIAL 25 MCG IV PUSH (16:11)
[2021-03-16] MEDS: diphenhydrAMINE HCl INJ 50 MG/ML VIAL 12.5 MG IV PUSH (16:35)
--- NOTE | 2021-03-16 17:28 | ADMGEN ---
This patient, Kourtney Lerner, was admitted to Medical Room 344-01. Patient/family oriented to hospital policies and general routines including ID bracelet, bed and alarms, visiting hours, pain management, procedures, bathroom and other care routines, personal items, smoking policy, room service/diet, and visiting hours. Information on how to activate the Rapid Response Team has been discussed. Patient/Family are encouraged to report perceived risks to care and to ask questions if they do not understand what they are told or what they should do.
[2021-03-16] MEDS: LACTATED RINGERS 1,000 ML 100 ML IV CONT (17:39)
[2021-03-17] VITALS (7 sets, daily range): BP systolic 100–136; BP diastolic 50–75; PULSE 78–95; RESP 14–17; TEMP 35.7–36.5; O2SAT 95–98
[2021-03-17 06:02] LABS: Hematocrit 29.1 % (37.0-47.0); Hemoglobin 9.1 g/dL (12.0-15.0); Mean Corpuscular HGB Conc 31.3 g/dl (32-36); Mean Corpuscular Hemoglobin 28.7 pg (26-34); Mean Corpuscular Volume 91.8 fl (80-100); Mean Platelet Volume 11.9 fl (7.4-10.4); Platelet Count Result 280 k/mm3 (150-375); Red Blood Count 3.17 M/mm3 (4.2-5.4); Red Cell Distribution Width 19.5 % (11.5-14.5)
[2021-03-17 06:11] LABS: Anion Gap 5 mmol/L (8-16); Blood Urea Nitrogen 8 mg/dL (7-17); Calcium 7.4 mg/dL (8.4-10.2); Carbon Dioxide 28 mmol/L (22-30); Chloride 103 mmol/L (98-107); Estimated Glomerular Filt Rate 36; Glucose 85 mg/dL (65-110); Potassium 3.2 mmol/L (3.4-5.0); Sodium 136 mmol/L (137-145)
--- NOTE | 2021-03-17 07:00 | WPDCN ---
Assessment and Plan Assessment and plan (1) Cancer of left breast: Qualifiers: Breast location: unspecified site of breast Estrogen receptor status: unspecified Patient sex: female Qualified Code(s): C50.912 - Malignant neoplasm of unspecified site of left female breast Code(s): C50.912 - Malignant neoplasm of unspecified site of left female breast Status: Chronic Assessment and Plan: Doing well after Modified radical Mastectomy with excision of a portion of pectoralis minor muscle with Dr. Toledo on 03/16/2021. VAC in place. May D/c home from my perspective when appropriate. Will follow in wound care. Monitor skin flap for viability. Once wound is stable tentative plan is for STSG. I was able to observe the wound intraoperatively. Will make sure we have a stable wound prior to proceeding with definitive closure. This was discussed with her at our office visit previously. (2) Tobacco abuse: Code(s): Z72.0 - Tobacco use Status: Chronic (3) Chronic kidney disease, stage 4 (severe): Code(s): N18.4 - Chronic kidney disease, stage 4 (severe) Status: Acute (4) History of radiation therapy: Code(s): Z92.3 - Personal history of irradiation Status: Acute HPI Data of Consult Date/Time: 03/17/21 07:00 Requesting Physician: Cristopher Toledo MD Primary Care Provider: Hao Villa, Consult Narrative Narrative: Kourtney Lerner is a 80 year old female with delayed presentation of left breast cancer. I saw her in clinic prior to surgery. She underwent Modified radical Mastectomy with excision of a portion of pectoralis minor muscle on 03/16/2021 and I did see the patient intraoperativly. Overnight she has done well. She is resting comfortably this morning. 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 History of colonoscopy with polypectomy History of splenectomy Family History Family History Father Lung cancer Mother Cerebrovascular accident Sibling Congestive heart failure Social History Social History Social History: The patient lives in [place] with her grandson. She is . She smokes between 0.5 and 1 pack of cigarettes a day but has not smoked in 5 days. No alcohol or illicit substance abuse. She designates her daughter, Nurys Nichols, as her surrogate decision maker. Code status: Full code. Smoking status: Never smoker Second hand tobacco smoke exposure: No Additional smoking assessment comments: was down to less than a half pack Alcohol intake: never Substance use: never Substance use type: does not use Living arrangements: with family Gender identity (if verbalized by the patient): Female Sexual Orientation (if Verbalized by the Patient): Straight or Heterosexual Spiritual care concerns: No Meds Home Medications and Allergies Home Medications Medication Instructions Recorded Confirmed Type letrozole 2.5 mg PO DAILY 03/01/21 03/16/21 History Saccharomyces boulardii 250 mg PO BID #20 cap 03/14/21 03/16/21 Rx amoxicillin-pot clavulanate 1 tablet PO Q12H #16 tablet 03/14/21 03/16/21 Rx [Augmentin] cyanocobalamin (vitamin B-12) 1,000 mcg PO QAM #10 tablet 03/14/21 03/16/21 Rx [Vitamin B-12] ferrous sulfate 324 mg PO BIDWM #30 tablet 03/14/21 03/16/21 Rx magnesium oxide 400 mg PO DAILY #10 tablet 03/14/21 03/16/21 Rx metoprolol succinate 12.5 mg PO DAILY #30 tablet 0
[2021-03-17] MEDS: MAGNESIUM OXIDE 400 MG TABLET PO (08:22)
[2021-03-17] MEDS: CYANOCOBALAMIN 1,000 MCG TABLET 1000 MCG PO (08:22)
[2021-03-17] MEDS: METOPROLOL SUCCINATE EXT REL 12.5 MG TABCR PO (08:23)
[2021-03-17] MEDS: ENOXAPARIN 40 MG/0.4 ML SYRINGE SUB-Q (08:23)
[2021-03-17] MEDS: SACCHAROMYCES BOULARDII 250 MG CAPSULE PO ×2 (08:23→16:39)
[2021-03-17] MEDS: LETROZOLE (*CHEMO) 2.5 MG TABLET PO (08:23)
--- NOTE | 2021-03-17 08:54 | WPDANESPN ---
Anes - Prog Note Post-Op Date/Time: 03/17/21 08:54 Cardiovascular status: normal Respiratory status: normal Airway patency: baseline Mental status: baseline Post-Op hydration status: normal Vital Signs: Last Vital Signs Temp 36.4 C L 03/17/21 04:16 Pulse 78 03/17/21 08:23 Resp 17 03/17/21 04:16 BP 136/75 03/17/21 04:16 Pulse Ox 98 03/17/21 04:16 Pain Score (VAS): 0 I/O: Intake & Output 03/16/21 03/17/21 03/17/21 23:59 07:59 15:59 Intake Total 300 1150 Output Total 525 200 Balance 300 625 -200 Laboratory Tests 03/17/21 05:35 03/17/21 05:35 03/16/21 03/16/21 03/16/21 11:05 11:07 11:09 WBC 9.3 RBC 4.03 L Hgb 11.6 L Hct 37.0 MCV 91.8 D MCH 28.8 MCHC 31.4 L RDW 19.9 H Plt Count 330 MPV 11.7 H PT 13.3 INR 1.0 APTT 25.2 Sodium Potassium Chloride Carbon Dioxide Anion Gap BUN Creatinine Estim Creat Clear Calc Estimated GFR Glucose Calcium Blood Type O Positive Antibody Screen Negative 03/17/21 03/17/21 05:35 05:35 WBC 13.0 H RBC 3.17 L Hgb 9.1 L Hct 29.1 L MCV 91.8 MCH 28.7 MCHC 31.3 L RDW 19.5 H Plt Count 280 MPV 11.9 H PT INR APTT Sodium 136 L Potassium 3.2 L Chloride 103 Carbon Dioxide 28 Anion Gap 5 L BUN 8 D Creatinine 1.40 H Estim Creat Clear Calc Not Reportable Estimated GFR 36 L Glucose 85 Calcium 7.4 L Blood Type Antibody Screen Post-procedural complaints: none Patient Feedback: Patient satisfied with anesthetic care.
[2021-03-17] MEDS: ACETAMINOPHEN 500 MG TABLET PO (11:12)
--- NOTE | 2021-03-17 14:47 | PM.PNGS ---
Progress Note: A&P Assessment and Plan (1) Cancer of left breast: Onset Date: Unknown Qualifiers: Breast location: unspecified site of breast Estrogen receptor status: unspecified Patient sex: female Qualified Code(s): C50.912 - Malignant neoplasm of unspecified site of left female breast Code(s): C50.912 - Malignant neoplasm of unspecified site of left female breast Status: Chronic Assessment and Plan: Patient had a neglected left breast cancer. Now postop day 1 status post modified radical mastectomy with resection of some of the pectoralis minor muscle which was against tumor in between it and the chest wall. Patient has a defect in the skin of the chest wall in the left now covered with a wound VAC. Her hoping that this will granulate in nicely and then a split-thickness skin graft will be applied per Dr. campbell. (See his consultation). Will get OT to see to begin patient on a set of exercises to keep her shoulder from locking up. Working with case management to get approval for home wound VAC for the left chest wall where her mastectomy site could not be closed due to the skin retraction and abnormality caused by her cancer. Awaiting final pathology. (2) History of radiation therapy: Onset Date: ~12/2020 Code(s): Z92.3 - Personal history of irradiation Status: Acute Assessment and Plan: Patient had a course of initial radiation treatment to the neglected tumor of the lateral part of her left breast in order to try to treat will was invading the chest wall. Hopefully I have excise this now and we have wound VAC in the defect. Skin margins may be somewhat affected by the previous radiation. Will watch these carefully. (3) Chronic anemia: Code(s): D64.9 - Anemia, unspecified Status: Chronic Assessment and Plan: Hemoglobin 9.1 today so adequate. Will recheck in tomorrow. (4) Chronic kidney disease, stage 4 (severe): Code(s): N18.4 - Chronic kidney disease, stage 4 (severe) Status: Acute Assessment and Plan: BUN and creatinine unchanged from preop. Will continue to follow (5) Positive urine culture: Code(s): R82.79 - Other abnormal findings on microbiological examination of urine Status: Acute Assessment and Plan: This was from her last admission and she had gone home on some Augmentin. Will have the nurse to a straight cath and sent off a new urinalysis to see if this has cleared now that she has finished her antibiotics. Subjective Subjective Date/Time Seen: 03/17/21 14:47 Post Op day: 1 (Patient doing well postop day 1.) Patient reports: no new complaints and still having pain ( Mainly with movement of her arm on the left.) Interval history: Patient is sitting up in bed and awakened easily when I walked in the room. She complains that she does not have enough to eat at only broth for lunch. Appreciate Dr. Arnold to check his consultation and follow-up on further wound care. Review of Systems Constitutional: Constitutional: Reports no additional constitutional complaints ENT: Reports other (Mucous Membranes moist.) Cardiovascular: Cardiovascular: Denies dyspnea Respiratory: Respiratory: Denies pain on inspiration and Denies dyspnea Musculoskeletal: Musculoskeletal: Reports other (No calf swelling or edema) Integumentary/Breasts: Skin/Breast: Reports system reviewed and no additional complaints, except as docu Comments: Denies must pain on her left chest unless she moves her left arm some. Exam Const: General: cooperative, no acute distress, alert and awake Orientation/consciousness: patient oriented x3 HENMT: Mouth: Yes moist mucous membranes Neck: Neck: normal visual inspection Chest: Chest palpation & inspection: normal inspection of the chest Other: The wound vac is nicely sealed against left chest wall and remaining defect. Some of the inferior flap of s
[2021-03-17 16:29] LABS: Add Urine Microscopic? YES; Appearance Urine Clear (Clear); Bilirubin Urine Negative (Negative); Blood Urine Negative (Negative); Color Urine Yellow (Yellow); Glucose Urine UA Negative (Negative); Ketones Urine Negative (Negative); Leukocyte Esterase Ur Trace LEU/UL (NEGATIVE); Nitrate Urine Negative (Negative); Protein Urine Negative (Negative); Specific Grav Ur 1.009 (1.001-1.035); Urobilinogen Urine Negative mg/dL (<2.0); WBC Urine 0-3 /hpf (0-3)
[2021-03-17] MEDS: POTASSIUM CHLORIDE 20 MEQ TABLET.ER PO (16:39)
[2021-03-18] MEDS: ACETAMINOPHEN 500 MG TABLET PO ×2 (01:43→11:23)
[2021-03-18 05:42] VITALS: BP 103/58; PULSE 89; RESP 17; TEMP 36.6; O2SAT 95
[2021-03-18 06:06] LABS: Hematocrit 26.9 % (37.0-47.0); Hemoglobin 8.5 g/dL (12.0-15.0); Mean Corpuscular HGB Conc 31.6 g/dl (32-36); Mean Corpuscular Hemoglobin 28.7 pg (26-34); Mean Corpuscular Volume 90.9 fl (80-100); Mean Platelet Volume 11.9 fl (7.4-10.4); Platelet Count Result 286 k/mm3 (150-375); Red Blood Count 2.96 M/mm3 (4.2-5.4); Red Cell Distribution Width 19.4 % (11.5-14.5); White Blood Count 13.8 K/mm3 (4.5-10.0)
[2021-03-18 06:33] LABS: Anion Gap 8 mmol/L (8-16); Blood Urea Nitrogen 11 mg/dL (7-17); Calcium 7.6 mg/dL (8.4-10.2); Carbon Dioxide 25 mmol/L (22-30); Chloride 101 mmol/L (98-107); Estimated Glomerular Filt Rate 40; Glucose 86 mg/dL (65-110); Magnesium 1.3 mg/dL (1.6-2.3); Potassium 3.5 mmol/L (3.4-5.0); Sodium 134 mmol/L (137-145)
[2021-03-18] MEDS: MAGNESIUM SULF 2 GM/WATER 50ML 2 GM/50 ML BAG IVPB (08:25)
[2021-03-18] MEDS: ENOXAPARIN 40 MG/0.4 ML SYRINGE SUB-Q (08:28)
[2021-03-18] MEDS: SACCHAROMYCES BOULARDII 250 MG CAPSULE PO ×2 (08:29→16:12)
[2021-03-18] MEDS: POTASSIUM CHLORIDE 20 MEQ TABLET.ER PO ×2 (08:29→16:00)
[2021-03-18 08:30] VITALS: PULSE 85
[2021-03-18] MEDS: CYANOCOBALAMIN 1,000 MCG TABLET 1000 MCG PO (08:30)
[2021-03-18] MEDS: METOPROLOL SUCCINATE EXT REL 12.5 MG TABCR PO (08:30)
[2021-03-18] MEDS: MAGNESIUM OXIDE 400 MG TABLET PO (08:32)
[2021-03-18] MEDS: FAMOTIDINE 20 MG TABLET PO ×2 (08:32→20:11)
[2021-03-18] MEDS: LETROZOLE (*CHEMO) 2.5 MG TABLET PO (08:32)
--- NOTE | 2021-03-18 13:42 | PC.NURSE ---
On 03/18/21, the student, [Dayanna Martinez ], provided care and completed [facility] documentation on this patient. I have reviewed the student's documentation and agree with the findings.
[2021-03-18 14:52] VITALS: BP 94/55; PULSE 64; RESP 16; TEMP 36.6; O2SAT 97
--- NOTE | 2021-03-18 16:09 | PM.PNGS ---
Progress Note: A&P Assessment and Plan (1) Cancer of left breast: Onset Date: Unknown Qualifiers: Breast location: unspecified site of breast Estrogen receptor status: unspecified Patient sex: female Qualified Code(s): C50.912 - Malignant neoplasm of unspecified site of left female breast Code(s): C50.912 - Malignant neoplasm of unspecified site of left female breast Status: Chronic Assessment and Plan: Patient had a neglected left breast cancer. Now postop day 2 status post modified radical mastectomy with resection of some of the pectoralis minor and Serratus anterior muscle which was against tumor in between it and the chest wall. Patient has a defect in the skin of the chest wall in the left now covered with a wound VAC. We are hoping that this will granulate in nicely and then a split-thickness skin graft will be applied per Dr. Arnold (See his consultation). OT to see to begin patient on a set of exercises to keep her shoulder from locking up. Working with case management to get approval for home wound VAC for the left chest wall where her mastectomy site could not be closed due to the skin retraction and abnormality caused by her cancer. Awaiting final pathology. I did discuss plummeted pathology with the pathologist today. There is tumor at the deep margin of my resection. Also there was even tumor in some of the musculature of my follow-up biopsy at the chest wall where I thought perhaps we had resected all of the tumor. Therefore, we may have trouble getting approval apparently for a home wound VAC. If we cannot get this we will switch to a Dakin solution dressing for several days and then saline moist to dry dressings applied by a visiting nurse to help teach the family same. (2) History of radiation therapy: Onset Date: ~12/2020 Code(s): Z92.3 - Personal history of irradiation Status: Acute Assessment and Plan: Patient had a course of initial radiation treatment to the neglected tumor of the lateral part of her left breast in order to try to treat will was invading the chest wall. Hopefully I have excise this now and we have wound VAC in the defect. Skin margins may be somewhat affected by the previous radiation. Will watch these carefully. (Of note pathologist stated that there did seem to be significant treatment effect on the tumor within the pathology presented Monday from this resection ). (3) Chronic anemia: Code(s): D64.9 - Anemia, unspecified Status: Chronic Assessment and Plan: Hemoglobin down slightly to 8.5 today so adequate. Will recheck in tomorrow. (4) Chronic kidney disease, stage 4 (severe): Code(s): N18.4 - Chronic kidney disease, stage 4 (severe) Status: Acute Assessment and Plan: BUN and creatinine unchanged from preop. Will continue to follow (5) Positive urine culture: Code(s): R82.79 - Other abnormal findings on microbiological examination of urine Status: Acute Assessment and Plan: This was from her last admission and she had gone home on some Augmentin. Will have the nurse to a straight cath and sent off a new urinalysis to see if this has cleared now that she has finished her antibiotics. 03/18/2021-- urinalysis was clear on straight cath on 03/17. (See report) Subjective Subjective Date/Time Seen: 03/18/21 16:09 Post Op day: 2 ( patient denies much pain. She told the nurse she just wants to take Tylenol for it.) Patient reports: tolerating a regular diet and bowel movement Interval history: The patient is still having difficulty abducting and raising her left arm. Review of Systems Constitutional: Constitutional: Reports no additional constitutional complaints Comments: Patient states at home she usually gets around in a wheelchair with the help of her grandson. She does not walk far at all. ENT: Reports other (Mucous Membranes moist.) Ca
--- NOTE | 2021-03-18 16:18 | PC.NURSE ---
Spoke to care management and patient is approved to have the wound vac and home health care at home upon discharge.
[2021-03-18] MEDS: SENNA/DOCUSATE SODIUM TABLET 2 TAB PO (20:11)
[2021-03-18 20:18] VITALS: BP 104/73; PULSE 97; RESP 18; TEMP 35.7; O2SAT 98
[2021-03-19 05:25] VITALS: BP 119/47; PULSE 98; RESP 16; TEMP 35.8; O2SAT 95
[2021-03-19 08:43] VITALS: BP 116/60; PULSE 93; RESP 13; TEMP 37; O2SAT 96
[2021-03-19] MEDS: POTASSIUM CHLORIDE 20 MEQ TABLET.ER PO ×2 (09:17→16:30)
[2021-03-19 09:18] VITALS: PULSE 93
[2021-03-19] MEDS: CYANOCOBALAMIN 1,000 MCG TABLET 1000 MCG PO (09:18)
[2021-03-19] MEDS: ENOXAPARIN 40 MG/0.4 ML SYRINGE SUB-Q (09:18)
[2021-03-19] MEDS: LETROZOLE (*CHEMO) 2.5 MG TABLET PO (09:18)
[2021-03-19] MEDS: METOPROLOL SUCCINATE EXT REL 12.5 MG TABCR PO (09:18)
[2021-03-19] MEDS: MAGNESIUM OXIDE 400 MG TABLET PO (09:19)
[2021-03-19] MEDS: SACCHAROMYCES BOULARDII 250 MG CAPSULE PO ×2 (09:19→16:30)
[2021-03-19] MEDS: FAMOTIDINE 20 MG TABLET PO (09:38)
--- NOTE | 2021-03-19 10:33 | PC.NURSE ---
On 03/19/21, the student, [Kari Noel ], provided care and completed [facility] documentation on this patient. I have reviewed the student's documentation and agree with the findings.
[2021-03-19] MEDS: HYDROcodone/acetaminophen (*CRX) 5-325 MG TABLET 1 TAB PO (12:08)
--- NOTE | 2021-03-19 12:56 | PM.DS ---
DS: Admitting Diagnosis Admitting Diagnosis Stage IV breast cancer with chest wall involvement left chest DS: Discharge Diagnosis Discharge Diagnosis (1) History of radiation therapy: Onset Date: ~12/2020 Code(s): Z92.3 - Personal history of irradiation Status: Acute (2) Tobacco abuse: Code(s): Z72.0 - Tobacco use Status: Chronic (3) Stage 3b chronic kidney disease: Code(s): N18.32 - Chronic kidney disease, stage 3b Status: Chronic (4) Atrial fibrillation: Qualifiers: Atrial fibrillation type: unspecified Qualified Code(s): I48.91 - Unspecified atrial fibrillation Code(s): I48.91 - Unspecified atrial fibrillation Status: Chronic (5) Cancer of left breast: Onset Date: Unknown Qualifiers: Breast location: unspecified site of breast Estrogen receptor status: unspecified Patient sex: female Qualified Code(s): C50.912 - Malignant neoplasm of unspecified site of left female breast Code(s): C50.912 - Malignant neoplasm of unspecified site of left female breast Status: Chronic (6) Chronic anemia: Code(s): D64.9 - Anemia, unspecified Status: Chronic (7) Bilateral ureteral calculi: Code(s): N20.1 - Calculus of ureter Status: Acute (8) Anemia: Code(s): D64.9 - Anemia, unspecified Status: Acute DS: Summary Hospital Course Reason for hospitalization: The patient presented for elective mastectomy due to her stage IV breast cancer. Hospital Course: hospital course was fairly unremarkable. Wound VAC was placed on open area of left chest that was approximately 10 x 9 cm in size. Both the lateral and medial margins of the mastectomy site were able to be closed primarily. Plastic surgery consultation was obtained with Dr. Jorge and he has seen the patient and is planning outpatient wound VAC therapy and possible eventual skin grafting to the area. Patient has been approved for a home wound VAC. Hypomagnesemia was treated with an IV rider yesterday. Pain is well controlled on pain medication orally. Patient's has resumed her diet without difficulty. Status at Discharge Functional status at discharge: wheelchair bound ( Apparently lives with grandson who helps her an out of wheelchair at home.) Overall status at discharge: patient is not back to baseline ( patient has some limitation of use of her left arm due to the mastectomy.) Time Spent with Patient Time attestation: Total time spent providing and/or coordinating discharge services: Time spent: Greater than 30 minutes Specific discharge activities: The patient will need home health and wound VAC changes 3 times a week. If she qualifies please set up OT and PT to help keep shoulder mobilization during her postop period. Exam Const: General: cooperative, no acute distress, alert and awake Orientation/consciousness: patient oriented x3 HENMT: Mouth: Yes moist mucous membranes Neck: Neck: normal visual inspection Chest: Chest palpation & inspection: normal inspection of the chest Other: The wound vac was changed today (03/19) before discharge. The underlying chest wall tissues are pink and healthy in appearance. There were several small sites of oozing and also 1 site of a small arterial bleeder which was cauterized with silver nitrate along the upper left lateral chest wall. I did not see any signs of residual tumor on the wound bed today when we examined it. Now the vac sponge is nicely sealed against left chest wall and the remaining skin defect. Some of the inferior flap of skin from the lower part of the breast is slightly purplish medially. There is also some purplish discoloration of some of the skin flaps laterally in the left axilla. Minimal serosanguineous drainage is coming out the wound VAC (Ave. = 100cc/ 24hr of serosanguinous fluid in the wound vac canister). Today the patient was stretching out her arm a little bit bet
[2021-03-19 14:00] VITALS: BP 117/68; PULSE 93; RESP 18; TEMP 36.7; O2SAT 97
== END 2021-03-19 17:50 | disposition home health service (06) | DRG 580 ==
LOC: ANHSURGERY 15:15 → ANH3MED 15:15
PROVIDERS: Admitting Provider Surgery; PCP Internal Medicine; Visit Provider Surgery
PROC: 0HTU0ZZ Resection of Left Breast, Open Approach (ICD-10-PCS; CPT 19307; principal; 2021-03-16 12:00)
DX: C50.912 Malignant neoplasm of unspecified site of left female breast (principal); N20.1 Calculus of ureter; I48.20 Chronic atrial fibrillation, unspecified; D64.9 Anemia, unspecified; N18.32 Chronic kidney disease, stage 3b; R82.79 Other abnormal findings on microbiological examination of urine; F17.210 Nicotine dependence, cigarettes, uncomplicated; E83.42 Hypomagnesemia; Z92.3 Personal history of irradiation; Z90.722 Acquired absence of ovaries, bilateral; Z90.81 Acquired absence of spleen
CPT/HCPCS: 36415; 80048; 81001; 83735; 85027; 85610; 85730; 86850; 86900; 86901; 88305; 88307; 88313; 88331; 88360; 97110; 97165; A9270; C1713; J0131; J0690; J1200; J1650; J2370; J2405; J2704; J2710; J3010; J3475; J7120

== ENCOUNTER 2021-04-01 08:55 | Outpatient (RCR) | payer MEDICARE, MEDICAID, SELFPAY ==
--- NOTE | 2021-03-23 15:18 | PCWOUND ---
WOCN NOTE Patient's daughter contacted wound center on 03/23/21 to cancel appointment on 03/25/21 due to work. Spoke with Murali at Dr. Arnold's office to inform of cancellation. Tried to offer patient an appointment for tomorrow 03/24/21 at 12:15pm as wanted to see patient this week. Patient's daughter states she can not make that appointment either. New scheduled appointment is for Monday03/31/21 at 12:15pm which was taken by patient. Call was made to [facility] to add extra visit this week on Monday for next dressing change. Orders for that visit faxed to [facility].
--- NOTE | 2021-03-31 11:06 | PCWOUND ---
WOCN NOTE Patient daughter left message to cancel for today patient not feeling well, Dr Toledo called and spoke to patient concerning missed appointments, trying to get patient to come in tomorrow
[2021-04-01 08:45] VITALS: BMI 27.5
--- NOTE | 2021-04-01 10:20 | WPDWOUNDNOTE ---
Wound Care Note Date/Time: 04/01/21 10:20 History: Patient is a 80-year-old white female approximately 3 weeks ago underwent a modified radical mastectomy with excision of some underlying muscle due to age for left breast cancer. We were able to close all the skin except for a 10 by 12 cm area in the central part of the lateral left chest. Skin flaps were thin but all edges have been free of cancer except for the deep margin per pathology. Patient was supposed to come back for a 1 week wound care visit with Dr. Luisito Jack last week and was unable to come back in skip her appointment. Patient's daughter states that she try to convince her to come but she would not. Patient presents now having had the wound VAC on under the care of [facility], [place], operated by [facility] with a [facility] wound VAC for the last 2 weeks. The visiting nurse called me yesterday and told me that there was a new wound that was about 9 x 7 cm. On exam today I think this turns out to be a flap of skin inferior medially which all necrosis due to poor vascular supply from its inferior border IV my inferior flap medially from the mastectomy. Wound history: Patient has a acquired deformity and area of skin loss on the left anterior chest due to her advanced breast cancer. Approximately 3 weeks ago she had a extended modified radical mastectomy on the left for neglected breast cancer which is stage III or IV. She had a postoperative hospital stay of about 2 days and had a wound VAC was placed on an approximate 10 x 9 cm area of left anterior lateral chest wall where I could not get the skin flaps closed. Therefore, we have been caring for it with a wound VAC and dressing changes assisted by home health from [place]. Patient however missed an appointment at the wound Care Clinic to see our plastic surgeon last week and gait weight ever called stating that there was a problem with the wound until the day prior to this when she was also due to have her follow up appointment and missed it. They reported to me yesterday by phone that there was a new wound which actually is the described area of skin necrosis from the flap ischemia anterior medially on the mastectomy site. Sit today was her 1st postoperative visit in the Wound Care Clinic to continue care for this chest wall defect and see our plastic surgeon. Because she Mister point with him yesterday and since she had appointment today [place] office I want to see the wound also so we simply brought the patient and her daughter up to the wound Care Clinic after helping them register as they should in the [facility] for this visit and both Dr. Arnold and I saw the patient in the wound care clinic this date. Wound approximation: No Wound width: 25 cm Wound length: 8 cm Wound depth: 3 cm Drainage: There was some whitish and yellowish exudate to specially near the necrotic flap of skin inferior medially on the site of the previous breast surgery. Surrounding tissue appearance: The edge of the wound superiorly is healthy laterally there has been separation of what I was able to close into her axilla but there is still some incision extending out onto her upper arm that is closed. There is healthy soft tissue in the axilla and I do not see exposure of any major vessels. Tunneling: Mild inferiorly also some into the axilla. Percentage granulation tissue: Approximately 75 % Treatment/Procedures: Patient daughter right PADILLA did on in the importance of nutrition and keeping appointments in order to attain wound healing. Dr. Willoughby also encouraged them to continue to keep appointments and he would eventually think about putting a skin graft on the area once there is good granulation tissue any believes that it will hold. For now continue wound VAC therapy. I felt that there was need to debride the apparently knocked necrotic skin and a triangle of skin on the inferior medial portion of the wound approximately 7 x 12 x 14 cm was debrided with the
--- NOTE | 2021-04-01 15:46 | P.PN_ITS ---
Progress Note: A&P Assessment and Plan (1) Metastatic breast cancer: Code(s): C50.919 - Malignant neoplasm of unspecified site of unspecified female breast Status: Acute Assessment and Plan: Being surgically treated by Dr. Toledo. Discussed treatment plan with Dr. Toledo today. (2) Acquired breast deformity: Code(s): N64.89 - Other specified disorders of breast Status: Acute Assessment and Plan: Will continue the VAC. Placed [place] with the VAC. Dr. Toledo was debriding a portion of nonviable tissue today. Will continue to follow for improvement in wound bed so we may proceed with closure. (3) History of radiation therapy: Onset Date: ~12/2020 Code(s): Z92.3 - Personal history of irradiation Status: Acute (4) Stage 3b chronic kidney disease: Code(s): N18.32 - Chronic kidney disease, stage 3b Status: Chronic Time Spent With Patient Time: Today's visit was 30 minutes including review of record, discussion with patient, and charting. Time with patient: 25 - 35 minutes Subjective Date/time seen: 04/01/21 10:15 She is here today in follow-up after her modified radical mastectomy including excision of muscle due to Breast cancer. She was seen in conjunction with Dr. Toledo. Her return visit with significantly delayed secondary to social issu es. Today she had a little necrosis of some the skin flap. Dr. Toledo is going to debride a portion of this flap as well as re-evaluate the deep margin. She says she feels well. A little fatigue. No fevers or chills. No nausea vomiting. No shortness of breath. Chest. Calf tenderness. Review of Systems Review of Systems: All systems reviewed & are unremarkable except as noted in HPI and below Exam Narrative: Left chest with an open wound. Small area of necrosis on the medial aspect of her flap. She does have a small segment of exposed bone and rib. When the dressing was changed it was somewhat malodorous however improved currently. Minimal granulation at this time.
--- NOTE | 2021-04-02 17:08 | WPDPROCEDUR ---
Procedures Abscess I/D Site: other ( left chest wound with necrotic skin flap) Side (if applicable): left Sedation/analgesia: none Technique: other ( the inferior medial breast skin flap which had become necrotic was debrided with forceps and sterile scissors without difficulty and a culture was taken.) Amount of fluid (mL): 5.0 Irrigation: No Packing used?: none ( a [employer] wound VAC was reapplied to the left chest wall wound per the wound nurses in the wound clinic after my skin flap debridement and biopsy of the subcutaneous tissues just below the patient's exposed left lateral rib.) Complications: other ( None) Comments: Indications for the procedure:Patient has a acquired deformity and an area of skin loss on the left anterior chest due to her advanced breast cancer. Approximately 3 weeks ago she had a extended modified radical mastectomy on the left for neglected breast cancer which is stage III or IV. She had a postoperative hospital stay of about 2 days and had a wound VAC was placed on an approximate 10 x 9 cm area of left anterior lateral chest wall where I could not get the skin flaps closed. Therefore, we have been caring for it with a wound VAC and dressing changes assisted by home health from [place]. Patient however missed an appointment at the wound Care Clinic to see our plastic surgeon last week and [facility] never called stating that there was a problem with the wound until the day prior to this visit when she was also due to have her follow up appointment and missed it. They reported to me yesterday by phone that there was a new wound which actually is the described area of skin necrosis from the flap ischemia anterior medially on the mastectomy site. So today was her 1st postoperative visit in the Wound Care Clinic to continue care for this chest wall defect and see our plastic surgeon. Because she missed her appointment with him yesterday and since she had appointment today in my office and I wanted to see the wound also, so we simply brought the patient and her daughter up to the [facility] after helping them register as they should in the [facility] for this visit and both Dr. Arnold and I saw the patient in the wound care clinic. Because of with wound looked I decided to perform the above detailed debridement of the inferior skin [place] CT flap which also had some abscess tissue under it and a biopsy of the left lateral chest wall. Verbal and written consent was obtained in the wound clinic for a small soft tissue biopsy of the wound base and debridement of the necrotic skin flap found on her exam here approximately 2 weeks postop from a extended modified radical mastectomy on the left for advanced breast cancer. Procedure performed, 1. debridement of skin and subcutaneous tissue approximately 9 x 12 x 7 cm triangle of the inferior medial flap of the previous mastectomy site 2. Biopsy of soft tissue left chest wall at site of previous mastectomy Details of biopsy: Centrally in the wound on the patient's left chest there is an exposed area of one of her left lateral ribs estimated to be approximately the 8th rib. Just inferior to this there is healthy granulation tissue with a little yellow except exudate over it. Because this is the area immediately deep to where her neglected left breast cancer was positioned, I took a small disk-like piece of tissue approximately 4 x 3 mm in size and about 1 mm thick to sent to pathology to see if there is any signs of cancer still in the wound base. This is important because her surgical pathology from the mastectomy showed that the cancer extended through the muscle that I removed underneath the patient's left breast tissue in this area. Dr. Raj Arnold is planning to eventually cover this area with a skin graft and we would like to know if there is any sign of residual breast cancer present. Specimen was placed i
== END 2021-04-21 14:15 | disposition home or self-care (01) ==
LOC: ANHWOC 08:55
PROVIDERS: PCP Internal Medicine; Visit Provider Surgery Plastic and Reconstructive Surgery
DX: Z48.817 Encounter for surgical aftercare following surgery on the skin and subcutaneous tissue (principal)
CPT/HCPCS: 11042; 87070; 87075; 87076; 87147; 87181; 87185; 87186; 87205; 88305; 97606; A9270

== ENCOUNTER 2021-04-10 20:45 | Inpatient (IN) | payer MEDICARE, MEDICAID, SELFPAY ==
--- NOTE | ~2021-04-10 | CT_ITS ---
EXAMINATION: CT abdomen pelvis wo con DATE: 04/10/2021 22:11 INDICATION: Nausea and vomiting. Constipation. TECHNIQUE: Computed tomography (CT) of the abdomen and pelvis was performed without intravenous contr ast. Automated exposure control and iterative reconstruction technique were employed. Exam dose: 635 .17 mGy-cm total exam DLP. COMPARISON: 03/04/[address] abdomen pelvis FINDINGS: Status post left mastectomy. Mild left pleural effusion. There is dependent left lower lobe infiltrate/atelectasis. Cardiomegaly. 1.6 cm gallstone. No hepatic space-occupying mass lesion. No bile duct or pancreatic duct dilatation. No pancreatic mas s lesion or calcification. Status post splenectomy. There are several splenules. Bilateral adrenal hypertrophy. Bilateral internal urinary stents in expected position. There is moderate bilateral hydronephrosis. T here is diffuse bilateral renal atrophy. There is extensive abdominal aortic calcification without aneurysm. There is prominent calcification at the origins of the celiac, superior mesenteric, renal arteries. No intraperitoneal or retroperitoneal or pelvic mass lesion or adenopathy or ascites is evident. There is a very prominent of fecal material in the rectum and colon. Partial resection of the colon. Prominent fluid in the stomach and numerous fluid containing small bowel segments with air-fluid leve ls. No small or large bowel dilatation or apparent obstruction. There is very prominent urinary bladder distention which extends up to the level of the umbilicus. Degenerative changes of the thoracic and lumbar spine. No suspicious osteolytic or osteoblastic lesio ns are noted. IMPRESSION: Mild left pleural effusion, dependent left lower lobe infiltrate and/atelectasis Status post left mastectomy Cardiomegaly Cholelithiasis Status post splenectomy Bilateral adrenal hypertrophy Moderate bilateral hydronephrosis; bilateral internal urinary stents Prominent urinary bladder distention. Fecal material in the rectum and colon; no apparent bowel obstruction Partial resection of the colon Reviewed, dictated and finalized at [facility] Reviewed, dictated and finalized at [facility]. IMPRESSION: Mild left pleural effusion, dependent left lower lobe infiltrate a nd/atelectasis Status post left mastectomy Cardiomegaly Cholelithiasis Status post splenectomy Bilateral adrenal hypertrophy Moderate bilateral hydronephrosis; bilateral internal urinary stents Prominent urinary bladder distention. Fecal material in the rectum and colon; no apparent bowel obstruction Partial resection of the colon
[2021-04-10 20:44] VITALS: BP 81/48; PULSE 106; RESP 18; TEMP 36.6; O2SAT 98
--- NOTE | 2021-04-10 20:59 | ED.NAVMDI ---
HPI - Nausea/Vomiting/Diarrhea General Chief complaint: Nausea/Vomiting/Diarrhea Stated complaint: constipation Time Seen by Provider: 04/10/21 20:46 History of Present Illness HPI Narrative: 80 yo female w/ h/o recent left breast surgery, laparotomy presents to the ED for abdominal pain. She has abdominal cramping today. This is associated with nausea, bloating and 3 episodes of vomiting. She has only had very small stools for the past several days. She is on hydrocodone since her breast surgery last month. She still has a wound vac in place. No fever, CP, SOB. Related Data Home Medications Medication Instructions Recorded Confirmed letrozole 2.5 mg PO DAILY 03/01/21 03/16/21 Allergies Allergy/AdvReac Type Severity Reaction Status Date / Time ibuprofen Allergy Mild HIVES Verified 04/10/21 20:52 Review of Systems Review of Systems: All systems reviewed & are unremarkable except as noted in HPI and below Constitutional: Constitutional: Denies fever(s) and Reports weakness ENT: Reports dizziness Cardiovascular: Cardiovascular: Denies chest pain Respiratory: Respiratory: Denies dyspnea Gastrointestinal: Gastrointestinal: Reports abdominal pain, Reports constipation, Reports nausea and Reports vomiting Genitourinary: Genitourinary: Reports no additional female genitourinary complaints Neurologic: Denies syncope and Reports weakness PMFSH Past Medical History Medical History Acute UTI TAE (acute kidney injury) Asymptomatic bacteriuria Atrial fibrillation (Unknown) Bacteremia due to Klebsiella pneumoniae Cancer of left breast (Unknown) Cellulitis of female breast Cellulitis of left axilla Chronic anemia (Unknown) Chronic kidney disease, stage 4 (severe) Duodenal ulcer (~10/2020) Hematemesis Hydronephrosis Hyperkalemia Metabolic acidosis Nausea and vomiting in adult Nephrolithiasis Poor appetite Positive urine culture Spontaneous rupture of spleen (~02/2008) UTI (urinary tract infection) Weakness Surgical History Surgical History History of bilateral salpingo-oophorectomy 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 History of colonoscopy with polypectomy History of splenectomy Family History Family History Father Lung cancer Mother Cerebrovascular accident Sibling Congestive heart failure Social History Social History Social History: The patient lives in [place] with her grandson. She is . She smokes between 0.5 and 1 pack of cigarettes a day but has not smoked in 5 days. No alcohol or illicit substance abuse. She designates her daughter, Nurys Nichols, as her surrogate decision maker. Code status: Full code. Smoking status: Never smoker Second hand tobacco smoke exposure: No Alcohol intake: never Substance use: never Substance use type: does not use Gender identity (if verbalized by the patient): Female Spiritual care concerns: No Exam Const: General: healthy appearing, alert and ill appearing Orientation/consciousness: patient oriented x3 HENMT: Mouth: Yes dry mucous membranes Neck: Neck: normal visual inspection Resp: Effort & Inspection: normal respiratory effort Auscultation: clear to auscultation bilaterally, no rales, no rhonchi and no wheezes Cardio: Jugular venous distension: no JVD Rate: tachycardic Rhythm: abnormal rhythm irregularly irregular Heart sounds: no murmurs GI: Inspection: distended GI Palp: Yes Tenderness to palpation present (GI) (diffuse), No Guarding due to palpation present (GI) and No Rebound tenderness present Skin: Other: dusky Neuro: General: patient oriented x3, moves all extremities and CN's II-XI intact bilaterally Speech: normal speech Extrem: General: no edema Psych: Appearance: well gagnon
[2021-04-10] MEDS: ONDANSETRON INJ 4 MG/2 ML VIAL IV PUSH (21:06)
[2021-04-10] MEDS: SODIUM CHLORIDE 0.9% IV 1,000 ML 999 ML IV CONT (21:06)
[2021-04-10 21:09] LABS: Basophils Percent Auto 0.2 % (0.2-1.2); Eosinophils Absolute Auto 0.1 K/mm3 (0-0.3); Eosinophils Percent Auto 0.3 % (0-4.4); Hematocrit 31.1 % (37.0-47.0); Immature Granulocyte Absolute 0.19 K/mm3 (0.00-0.031); Lymphocytes Absolute Auto 1.67 K/mm3 (0.9-3.2); Mean Corpuscular HGB Conc 32.2 g/dl (32-36); Mean Corpuscular Hemoglobin 29.5 pg (26-34); Mean Corpuscular Volume 91.7 fl (80-100); Mean Platelet Volume 9.8 fl (7.4-10.4); Monocytes Percent Auto 5.5 % (2.6-8.5); Neutrophils Absolute Auto 15.6 K/mm3 (1.3-6.7); Nucleated Red Blood Cells Absolute Auto 0.1 K/mm3 (0.0-0.012); Nucleated Red Blood Cells Perc 0.5 % (0.0-0.2); Platelet Count Result 445 k/mm3 (150-375); Red Blood Count 3.39 M/mm3 (4.2-5.4); Red Cell Distribution Width 21.1 % (11.5-14.5); White Blood Count 18.5 K/mm3 (4.5-10.0)
[2021-04-10 21:24] LABS: Lactic Acid Reflex 1.8 mmol/L (0.7-2.1)
[2021-04-10 21:25] LABS: Alanine Aminotransferase 11 U/L (4-35); Albumin Level 3.1 g/dL (3.5-5.1); Alkaline Phosphatase 202 U/L (38-126); Anion Gap 15 mmol/L (8-16); Aspartate Amino Transferase 20 U/L (14-36); Bilirubin,Total 0.5 mg/dL (0.2-1.3); Blood Urea Nitrogen 51 mg/dL (7-17); Calcium 8.4 mg/dL (8.4-10.2); Carbon Dioxide 14 mmol/L (22-30); Chloride 104 mmol/L (98-107); Estimated CRCL calculation 16 ml/min; Estimated Glomerular Filt Rate 22; Glucose 149 mg/dL (65-110); Lipase 122 U/L (23-300); Potassium 3.5 mmol/L (3.4-5.0); Sodium 133 mmol/L (137-145)
[2021-04-10 21:41] VITALS: BP 108/80; PULSE 98; RESP 24; O2SAT 99
[2021-04-10 22:05] VITALS: BP 118/68; PULSE 100; RESP 22; O2SAT 98
[2021-04-10 23:31] LABS: Add Urine Microscopic? YES; Appearance Urine Cloudy (Clear); Bacteria Urine Trace /hpf; Bilirubin Urine Negative (Negative); Blood Urine 3+ (Negative); Color Urine Dark Yellow (Yellow); Glucose Urine UA Negative (Negative); Ketones Urine Negative (Negative); Leukocyte Esterase Ur 3+ LEU/UL (Negative); Mucus Urine Rare /lpf; Nitrate Urine Negative (Negative); Protein Urine 2+ mg/dL (Negative); Specific Grav Ur 1.013 (1.001-1.035); Urobilinogen Urine Negative mg/dL (<2.0); WBC Urine 21-30 /hpf
[2021-04-10 23:48] VITALS: RESP 15
--- NOTE | 2021-04-10 23:58 | PM.IMHP ---
H&P: HPI History of Present Illness Date/Time: 04/10/21 23:58 Chief Complaint: Nausea and vomiting Narrative: This is a 80-year-old female with past medical history significant for left breast cancer status post total mastectomy of the left breast now with wound VAC in place. Patient comes to the emergency room today due to nausea vomiting and constipation for about a week while in the emergency room patient had a large bowel movement. She just had her wound VAC changed on Monday and is been set with home health for wound VAC changes on Monday and Monday. According to patient she has not had any fevers chills cough sputum production pain or burning with urination. A CT of abdomen and pelvis showed large amount of stool retained in her colon. She has WBC with 18,00 and in the complete blood count, a urinalysis was significant for WBCs. Review of Systems Review of Systems: Nausea vomiting constipation Constitutional: Constitutional: Denies chills, Denies fever(s), Denies malaise and Denies weakness Eyes: Eyes: Denies change in vision ENT: Reports system reviewed and no additional complaints, except as documented Cardiovascular: Cardiovascular: Reports no additional cardiovascular complaints Respiratory: Respiratory: Reports as per HPI Gastrointestinal: Gastrointestinal: Reports constipation, Reports diarrhea, Reports nausea and Reports vomiting Genitourinary: Genitourinary: Reports no additional female genitourinary complaints Musculoskeletal: Musculoskeletal: Reports no additional musculoskeletal complaints Integumentary/Breasts: Comments: wound vac in place Neurologic: Reports system reviewed and no additional complaints, except as documented Psychiatric: Psychiatric: Reports no additional psychiatric complaints Endocrine: Endocrine: Reports no additional endocrine complaints Hematologic/Lymphatic: Hematologic/Lymphatic: Reports no additional hematologic/lymphatic complaints Allergic/Immunologic: Allergic/Immunologic: Reports no additional allergic/immunologic complaints [facility] Past Medical History Medical History Acute UTI TAE (acute kidney injury) Asymptomatic bacteriuria Atrial fibrillation (Unknown) Bacteremia due to Klebsiella pneumoniae Cancer of left breast (Unknown) Cellulitis of female breast Cellulitis of left axilla Chronic anemia (Unknown) Chronic kidney disease, stage 4 (severe) Duodenal ulcer (~10/2020) Hematemesis Hydronephrosis Hyperkalemia Metabolic acidosis Nausea and vomiting in adult Nephrolithiasis Poor appetite Positive urine culture Spontaneous rupture of spleen (~02/2008) UTI (urinary tract infection) Weakness Surgical History Surgical History History of bilateral salpingo-oophorectomy 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 History of colonoscopy with polypectomy History of splenectomy Family History Family History Father Lung cancer Mother Cerebrovascular accident Sibling Congestive heart failure Social History Social History Social History: The patient lives in [place] with her grandson. She is . She smokes between 0.5 and 1 pack of cigarettes a day but has not smoked in 5 days. No alcohol or illicit substance abuse. She designates her daughter, Nurys Nichols, as her surrogate decision maker. Code status: Full code. Smoking status: Never smoker Second hand tobacco smoke exposure: No Alcohol intake: never Substance use: never Substance use type: does not use Gender identity (if verbalized by the patient): Female Spiritual care concerns: No Meds Home Medications and Allergies Home Medications Medication Instructions Recorded Confirmed Type letrozole 2.5 mg PO DAILY 03/01/21 03/16/21 History Sac[place]
[2021-04-11] VITALS (10 sets, daily range): BP systolic 97–116; BP diastolic 54–87; PULSE 63–100; RESP 12–20; TEMP 36.4–37.1; O2SAT 94–100; BMI 24.9
[2021-04-11] MEDS: SODIUM CHLORIDE 0.9% IV 1,000 ML 75 ML IV CONT (01:13)
--- NOTE | 2021-04-11 07:26 | PM.IMPN ---
Progress Note: A&P Assessment and Plan (1) Constipation due to opioid therapy: Code(s): K59.03 - Drug induced constipation; T40.2X5A - Adverse effect of other opioids, initial encounter Status: Acute Assessment and Plan: I will start her on MiraLax and Colace. Soap suds enema as needed Continue IV fluids. Serial abdominal exam. She seems to be tolerating clear liquid diet and will advance the diet to regular diet. (2) Acute urinary retention: Code(s): R33.8 - Other retention of urine Status: Acute Assessment and Plan: Status post Eduardo placement. Voiding trial before discharge. (3) Atrial fibrillation: Onset Date: Unknown Qualifiers: Atrial fibrillation type: unspecified Qualified Code(s): I48.91 - Unspecified atrial fibrillation Code(s): I48.91 - Unspecified atrial fibrillation Status: Chronic Assessment and Plan: Rate controlled Continue home meds with metoprolol. She is currently not on anticoagulation at her baseline. (4) Breast cancer: Code(s): C50.919 - Malignant neoplasm of unspecified site of unspecified female breast Status: Acute Assessment and Plan: Status post total left breast mastectomy Wound VAC in place Wound care consult will be obtained. (5) Tobacco abuse: Onset Date: Unknown Code(s): Z72.0 - Tobacco use Status: Chronic Assessment and Plan: Nicotine patch as needed (6) Acute kidney injury superimposed on CKD: Code(s): N17.9 - Acute kidney failure, unspecified; N18.9 - Chronic kidney disease, unspecified Status: Acute Assessment and Plan: Her baseline serum creatinine is 1.3-1.4. Her creatinine at the time of presentation yesterday was 2.2. Likely pre renal. She is being hydrated with IV fluids. Creatinine today has improved to 1.6. She did develop hyperchloremic metabolic acidosis likely as a result of fluid resuscitation with normal saline. Her fluid will be switched to Ringer's lactate from normal saline. She did have metabolic acidosis yesterday likely as a result of acute kidney injury. Continue to keep a close eye on serum sodium which has been on the lower side as well. Subjective Date/time seen: 04/11/21 07:26 She is feeling better. She denied have any abdominal pain nausea and vomiting. She could recall any further bowel movement. She did have a large bowel movement in the emergency department yesterday. She denied have any chest pain shortness of breath cough fever and chills. Review of Systems Review of Systems: A comprehensive review of systems has been reviewed with the patient and most of the symptoms are negative except the one's mentioned above in HPI. Exam Narrative: General awake and alert not in acute distress Neck supple CVS S1-S2 no murmur Respiratory no wheezes or crepitation respiration nonlabored GI soft nontender nondistended [employer] alert oriented x3 Psychiatric cooperative appropriate mood and affect Extremities no edema Objective Data Vital Signs Vital Signs: Vital Signs - 24 hr 04/10/21 20:44 04/10/21 21:41 04/10/21 22:05 Temperature 36.6 C Pulse Rate 106 H 98 100 Respiratory Rate 18 24 H 22 H Blood Pressure 81/48 L 108/80 118/68 Pulse Oximetry 98 99 98 04/10/21 23:48 04/11/21 00:00 04/11/21 00:01 Temperature Pulse Rate 95 92 Respiratory Rate 15 14 15 Blood Pressure Pulse Oximetry 100 99 04/11/21 00:45 04/11/21 00:47 04/11/21 05:42 Temperature 36.4 C L 36.4 C 37.1 C Pulse Rate 85 100 92 Respiratory Rate 18 20 17 Blood Pressure 116/87 99/69 L 101/54 L Pulse Oximetry 99 99 100 Intake/Output Intake/Output: Intake & Output 04/08/21 04/09/21 04/10/21 04/11/21 23:59 23:59 23:59 23:59 Intake Total 1000 Output Total 100 Balance 1000 -100 Meds/Results Medications: Active Medications Generic Name Dose Route Start Last Admin Trade Name Freq PRN
[2021-04-11] MEDS: METOPROLOL SUCCINATE EXT REL 12.5 MG TABCR PO (09:14)
[2021-04-11] MEDS: LETROZOLE (*CHEMO) 2.5 MG TABLET PO (09:14)
[2021-04-11] MEDS: FERROUS SULFATE 324 MG TABLET PO ×2 (09:14→17:42)
[2021-04-11] MEDS: SACCHAROMYCES BOULARDII 250 MG CAPSULE PO ×2 (09:14→17:42)
[2021-04-11] MEDS: MAGNESIUM OXIDE 400 MG TABLET PO (09:14)
[2021-04-11] MEDS: CYANOCOBALAMIN 1,000 MCG TABLET 1000 MCG PO (09:14)
[2021-04-11 11:46] LABS: Basophils Percent Auto 0.2 % (0.2-1.2); Eosinophils Absolute Auto 0.1 K/mm3 (0-0.3); Eosinophils Percent Auto 0.3 % (0-4.4); Hemoglobin 8.8 g/dL (12.0-15.0); Immature Granulocyte Absolute 0.17 K/mm3 (0.00-0.031); Immature Granulocyte Percent A 0.9 % (0-0.5); Lymphocytes Absolute Auto 1.78 K/mm3 (0.9-3.2); Lymphocytes Percent Auto 9.5 % (18.3-44.2); Mean Corpuscular HGB Conc 30.3 g/dl (32-36); Mean Corpuscular Hemoglobin 29.3 pg (26-34); Mean Corpuscular Volume 96.7 fl (80-100); Mean Platelet Volume 9.7 fl (7.4-10.4); Monocytes Absolute Auto 1.3 K/mm3 (0.1-0.6); Monocytes Percent Auto 6.8 % (2.6-8.5); Neutrophils Absolute Auto 15.4 K/mm3 (1.3-6.7); Neutrophils Percent Auto 82.3 % (45.5-73.1); Nucleated Red Blood Cells Absolute Auto 0.1 K/mm3 (0.0-0.012); Nucleated Red Blood Cells Perc 0.4 % (0.0-0.2); Platelet Count Result 352 k/mm3 (150-375); Red Cell Distribution Width 21.4 % (11.5-14.5); White Blood Count 18.7 K/mm3 (4.5-10.0)
[2021-04-11 12:08] LABS: Anion Gap 10 mmol/L (8-16); Blood Urea Nitrogen 48 mg/dL (7-17); Carbon Dioxide 13 mmol/L (22-30); Chloride 110 mmol/L (98-107); Estimated CRCL calculation 21 ml/min; Estimated Glomerular Filt Rate 31; Glucose 93 mg/dL (65-110); Potassium 3.9 mmol/L (3.4-5.0); Sodium 133 mmol/L (137-145)
[2021-04-11] MEDS: polyethylene glycoL 3350 17 GM POWD.PACK PO (12:37)
[2021-04-11] MEDS: DOCUSATE SODIUM 100 MG CAPSULE PO (12:37)
[2021-04-11] MEDS: LACTATED RINGERS 1,000 ML 75 ML IV CONT (15:39)
[2021-04-12 06:00] VITALS: BP 99/53; PULSE 88; RESP 18; TEMP 36.7; O2SAT 97
[2021-04-12] MEDS: LACTATED RINGERS 1,000 ML 75 ML IV CONT ×2 (06:38→21:40)
[2021-04-12 07:04] LABS: Basophils Percent Auto 0.2 % (0.2-1.2); Eosinophils Absolute Auto 0.1 K/mm3 (0-0.3); Eosinophils Percent Auto 0.7 % (0-4.4); Hematocrit 23.4 % (37.0-47.0); Hemoglobin 7.3 g/dL (12.0-15.0); Immature Granulocyte Absolute 0.17 K/mm3 (0.00-0.031); Immature Granulocyte Percent A 0.9 % (0-0.5); Lymphocytes Absolute Auto 1.44 K/mm3 (0.9-3.2); Lymphocytes Percent Auto 7.4 % (18.3-44.2); Mean Corpuscular HGB Conc 31.2 g/dl (32-36); Mean Corpuscular Volume 96.3 fl (80-100); Mean Platelet Volume 9.7 fl (7.4-10.4); Monocytes Absolute Auto 1.3 K/mm3 (0.1-0.6); Monocytes Percent Auto 6.9 % (2.6-8.5); Neutrophils Absolute Auto 16.2 K/mm3 (1.3-6.7); Neutrophils Percent Auto 83.9 % (45.5-73.1); Nucleated Red Blood Cells Absolute Auto 0.1 K/mm3 (0.0-0.012); Nucleated Red Blood Cells Perc 0.4 % (0.0-0.2); Platelet Count Result 334 k/mm3 (150-375); Red Blood Count 2.43 M/mm3 (4.2-5.4); Red Cell Distribution Width 21.7 % (11.5-14.5); White Blood Count 19.3 K/mm3 (4.5-10.0)
[2021-04-12 07:17] LABS: Anion Gap 11 mmol/L (8-16); Blood Urea Nitrogen 36 mg/dL (7-17); Calcium 7.7 mg/dL (8.4-10.2); Carbon Dioxide 12 mmol/L (22-30); Chloride 109 mmol/L (98-107); Estimated CRCL calculation 28 ml/min; Estimated Glomerular Filt Rate 43; Glucose 77 mg/dL (65-110); Potassium 3.4 mmol/L (3.4-5.0); Sodium 132 mmol/L (137-145)
[2021-04-12 09:47] VITALS: PULSE 88
[2021-04-12] MEDS: DOCUSATE SODIUM 100 MG CAPSULE PO (09:47)
[2021-04-12] MEDS: POTASSIUM CHLORIDE 20 MEQ TABLET 40 MEQ PO (09:47)
[2021-04-12] MEDS: SACCHAROMYCES BOULARDII 250 MG CAPSULE PO ×2 (09:47→17:50)
[2021-04-12] MEDS: METOPROLOL SUCCINATE EXT REL 12.5 MG TABCR PO (09:47)
[2021-04-12] MEDS: MAGNESIUM OXIDE 400 MG TABLET PO (09:47)
[2021-04-12] MEDS: SODIUM BICARBONATE TAB 650 MG TABLET PO ×2 (09:48→17:50)
[2021-04-12] MEDS: LETROZOLE (*CHEMO) 2.5 MG TABLET PO (09:48)
[2021-04-12] MEDS: CYANOCOBALAMIN 1,000 MCG TABLET 1000 MCG PO (09:48)
[2021-04-12] MEDS: FERROUS SULFATE 324 MG TABLET PO ×2 (09:48→17:50)
[2021-04-12 14:00] VITALS: BP 116/62; PULSE 108; RESP 18; TEMP 36.6; O2SAT 99
--- NOTE | 2021-04-12 14:10 | PM.IMPN ---
Progress Note: A&P Assessment and Plan (1) Constipation due to opioid therapy: Code(s): K59.03 - Drug induced constipation; T40.2X5A - Adverse effect of other opioids, initial encounter Status: Acute Assessment and Plan: I will start her on MiraLax and Colace. Soap suds enema as needed Continue IV fluids. Serial abdominal exam. She seems to be tolerating clear liquid diet and will advance the diet to regular diet. 04/12 patient was started on colace and miralax and had 2 BMs on 04/11 and one this morning and stats feels much better, patient with breast cancer had left breast total mastectomy has wound vac and will be seen by her surgeon to check her wound, upon arrival her Scr was elevated 2.2 most likely due to poor po intake and dehydration, patient is being hydrated and her Scr is 1.20. patient remains clinically stable, will have PT, OT and wound team evaluate the patient and treat. (2) Acute urinary retention: Code(s): R33.8 - Other retention of urine Status: Acute Assessment and Plan: Status post Eduardo placement. Voiding trial before discharge. (3) Atrial fibrillation: Onset Date: Unknown Qualifiers: Atrial fibrillation type: unspecified Qualified Code(s): I48.91 - Unspecified atrial fibrillation Code(s): I48.91 - Unspecified atrial fibrillation Status: Chronic Assessment and Plan: Rate controlled Continue home meds with metoprolol. She is currently not on anticoagulation at her baseline. (4) Breast cancer: Code(s): C50.919 - Malignant neoplasm of unspecified site of unspecified female breast Status: Acute Assessment and Plan: Status post total left breast mastectomy Wound VAC in place Wound care consult will be obtained. (5) Tobacco abuse: Onset Date: Unknown Code(s): Z72.0 - Tobacco use Status: Chronic Assessment and Plan: Nicotine patch as needed (6) Acute kidney injury superimposed on CKD: Code(s): N17.9 - Acute kidney failure, unspecified; N18.9 - Chronic kidney disease, unspecified Status: Acute Assessment and Plan: Her baseline serum creatinine is 1.3-1.4. Her creatinine at the time of presentation yesterday was 2.2. Likely pre renal. She is being hydrated with IV fluids. Creatinine today has improved to 1.6. She did develop hyperchloremic metabolic acidosis likely as a result of fluid resuscitation with normal saline. Her fluid will be switched to Ringer's lactate from normal saline. She did have metabolic acidosis yesterday likely as a result of acute kidney injury. Continue to keep a close eye on serum sodium which has been on the lower side as well. Subjective Date/time seen: 04/12/21 14:10 Chief Complaint: Nausea and vomiting Narrative: This is a 80-year-old female with past medical history significant for left breast cancer status post total mastectomy of the left breast now with wound VAC in place. Patient comes to the emergency room today due to nausea vomiting and constipation for about a week while in the emergency room patient had a large bowel movement. She just had her wound VAC changed on Monday and is been set with home health for wound VAC changes on Monday and Monday. According to patient she has not had any fevers chills cough sputum production pain or burning with urination. A CT of abdomen and pelvis showed large amount of stool retained in her colon. She has WBC with 18,00 and in the complete blood count, a urinalysis was significant for WBCs. 04/12 patient was started on colace and miralax and had 2 BMs on 04/11 and one this morning and stats feels much better, patient with breast cancer had left breast total mastectomy has wound vac and will be seen by her surgeon to check her wound, upon arrival her Scr was elevated 2.2 most likely due to poor po intake and dehydration, patient is being hydrated and her Scr is 1.20. patient remains clini
[2021-04-12] MEDS: HYDROcodone/acetaminophen (*CRX) 5-325 MG TABLET 1 TAB PO (15:01)
[2021-04-12] MEDS: SOD HYPOCHLORITE 1/4 STRENGTH 473 ML 1 APPLIC TOPICAL (15:02)
[2021-04-12 17:40] LABS: Anion Gap 5 mmol/L (8-16); Blood Urea Nitrogen 33 mg/dL (7-17); Calcium 7.5 mg/dL (8.4-10.2); Carbon Dioxide 16 mmol/L (22-30); Chloride 112 mmol/L (98-107); Estimated CRCL calculation 30 ml/min; Estimated Glomerular Filt Rate 48; Glucose 98 mg/dL (65-110); Potassium 3.6 mmol/L (3.4-5.0); Sodium 133 mmol/L (137-145)
--- NOTE | 2021-04-12 18:12 | PM.CNGS ---
Assessment and Plan Assessment and plan (1) Malignant neoplasm of overlapping sites of left female breast: Onset Date: Unknown Code(s): C50.812 - Malignant neoplasm of overlapping sites of left female breast Status: Acute Assessment and Plan: patient extended left modified radical mastectomy for a neglected left breast cancer which involved significant skin and muscle deep to the breast. She now has a acquired defect of the left chest wall which we are treating with wound VAC therapy. However she also lost some the skin flap inferior medially due to marginal necrosis and probably some element of infection. She was last seen in the wound clinic approximately 12 days ago. At that time started powdered Flagyl on the wound under the wound VAC which was being changed 3 times a week. Cultures taken that time show Staph aureus sensitive to Levaquin and other Quinalone type antibiotics. It was not MRSA. Therefore, in view of this infection and also probably UTI I will start on oral Levaquin this evening. (2) Constipation due to opioid therapy: Code(s): K59.03 - Drug induced constipation; T40.2X5A - Adverse effect of other opioids, initial encounter Status: Acute Assessment and Plan: Consider use of Relistor depending on other drugs and interactions. (3) Acute kidney injury superimposed on CKD: Code(s): N17.9 - Acute kidney failure, unspecified; N18.9 - Chronic kidney disease, unspecified Status: Acute (4) Acute urinary retention: Code(s): R33.8 - Other retention of urine Status: Acute Assessment and Plan: Patient also has urinalysis suggestive of UTI. Urine culture taken at the time of Eduardo placement the ED or when admitted 2 days ago is still pending. However, patient has a history of previous urinary tract infections and apparently has stents both ureters. Consider urology consultation while she is here follow up on those. (5) History of radiation therapy: Onset Date: ~12/2020 Code(s): Z92.3 - Personal history of irradiation Status: Acute History of Present Illness Consult details Consult date: 04/13/21 Reason for consult: other (Follow-up for open wound on the left chest after left mastectomy) Requesting physician: Jessica Pink MD Narrative: My office was notified today that she had been admitted over the weekend with constipation, urinary retention, and possibly urinary tract infection. Therefore, I felt that it would be beneficial for us to see her to help decide more about her wound care while she is in the hospital. She has been on wound VAC therapy for a open wound of the left chest after there was insufficient skin to cver the acquired defect at the time of her Modified Radical mastectony. She also then had some marginal necrosis of the skin flaps following her extensive extended modified radical mastectomy on 03/23/2021 Review of Systems Constitutional: Constitutional: Reports no additional constitutional complaints, Reports fatigue and Denies malaise Eyes: Eyes: Denies change in vision and Denies loss of vision ENT: Reports Normal hearing present, Denies change in voice, Denies dizziness, Denies hoarseness and Denies sore throat Cardiovascular: Cardiovascular: Denies chest pain, Denies leg edema and Denies dyspnea Respiratory: Respiratory: Denies cough, Denies dyspnea and Denies wheezing Gastrointestinal: Gastrointestinal: Denies hematochezia, Reports change in bowel habits (recent constipation at home.) and Denies heartburn Comments: Pt states that [facility] had several Bm's yesterday and today. Genitourinary: Genitourinary: Denies urinary frequency, Denies nocturia and Denies urinary incontinence Comments: Hx of UTI Has bilateral ureteral stents because of nephrolithiasis Had urinary retention on this admission Neurologic: Reports Normal hearing present, Denies confusion, Denies dizziness, Denies loss of vision, Denies memory los
[2021-04-12 22:00] VITALS: BP 96/49; PULSE 90; RESP 18; TEMP 36.4; O2SAT 98
[2021-04-12] MEDS: levoFLOXacin 500 MG TABLET PO (22:35)
[2021-04-13 06:00] VITALS: BP 109/56; PULSE 90; RESP 18; TEMP 36.6; O2SAT 97
[2021-04-13 07:12] LABS: Alanine Aminotransferase 7 U/L (4-35); Albumin Level 2.2 g/dL (3.5-5.1); Alkaline Phosphatase 114 U/L (38-126); Anion Gap 8 mmol/L (8-16); Aspartate Amino Transferase 16 U/L (14-36); Bilirubin,Total 0.3 mg/dL (0.2-1.3); Blood Urea Nitrogen 27 mg/dL (7-17); Calcium 7.7 mg/dL (8.4-10.2); Carbon Dioxide 13 mmol/L (22-30); Chloride 108 mmol/L (98-107); Estimated CRCL calculation 37 ml/min; Estimated Glomerular Filt Rate 60; Glucose 82 mg/dL (65-110); Magnesium 2.3 mg/dL (1.6-2.3); Potassium 3.4 mmol/L (3.4-5.0); Sodium 129 mmol/L (137-145)
[2021-04-13 07:27] LABS: Basophils Percent Auto 0.2 % (0.2-1.2); Eosinophils Absolute Auto 0.2 K/mm3 (0-0.3); Eosinophils Percent Auto 1.5 % (0-4.4); Hematocrit 24.3 % (37.0-47.0); Hemoglobin 7.2 g/dL (12.0-15.0); Immature Granulocyte Absolute 0.12 K/mm3 (0.00-0.031); Immature Granulocyte Percent A 0.9 % (0-0.5); Lymphocytes Percent Auto 9.2 % (18.3-44.2); Mean Corpuscular HGB Conc 29.6 g/dl (32-36); Mean Corpuscular Hemoglobin 30.1 pg (26-34); Mean Corpuscular Volume 101.7 fl (80-100); Monocytes Percent Auto 7.8 % (2.6-8.5); Neutrophils Absolute Auto 10.5 K/mm3 (1.3-6.7); Neutrophils Percent Auto 80.4 % (45.5-73.1); Nucleated Red Blood Cells Absolute Auto 0.1 K/mm3 (0.0-0.012); Nucleated Red Blood Cells Perc 0.7 % (0.0-0.2); Platelet Count Result 266 k/mm3 (150-375); Red Blood Count 2.39 M/mm3 (4.2-5.4); Red Cell Distribution Width 22.6 % (11.5-14.5); White Blood Count 13.1 K/mm3 (4.5-10.0)
[2021-04-13] MEDS: HYDROcodone/acetaminophen (*CRX) 5-325 MG TABLET 1 TAB PO (07:55)
[2021-04-13 07:56] VITALS: PULSE 90
[2021-04-13] MEDS: MAGNESIUM OXIDE 400 MG TABLET PO (07:56)
[2021-04-13] MEDS: LETROZOLE (*CHEMO) 2.5 MG TABLET PO (07:56)
[2021-04-13] MEDS: METOPROLOL SUCCINATE EXT REL 12.5 MG TABCR PO (07:56)
[2021-04-13] MEDS: DOCUSATE SODIUM 100 MG CAPSULE PO ×2 (07:57→20:41)
[2021-04-13] MEDS: FERROUS SULFATE 324 MG TABLET PO ×2 (07:57→16:51)
[2021-04-13] MEDS: CYANOCOBALAMIN 1,000 MCG TABLET 1000 MCG PO (07:57)
[2021-04-13] MEDS: SACCHAROMYCES BOULARDII 250 MG CAPSULE PO ×2 (07:58→16:51)
[2021-04-13] MEDS: SOD HYPOCHLORITE 1/4 STRENGTH 473 ML 1 APPLIC TOPICAL ×2 (09:41→20:41)
--- NOTE | 2021-04-13 14:27 | PM.IMPN ---
Progress Note: A&P Assessment and Plan (1) Constipation due to opioid therapy: Code(s): K59.03 - Drug induced constipation; T40.2X5A - Adverse effect of other opioids, initial encounter Status: Acute Assessment and Plan: started on MiraLax and Colace. Soap suds enema as needed Continue IV fluids. Serial abdominal exam. She seems to be tolerating clear liquid diet and will advance the diet to regular diet. 04/12 patient was started on colace and miralax and had 2 BMs on 04/11 and one this morning and stats feels much better, patient with breast cancer had left breast total mastectomy has wound vac and will be seen by her surgeon to check her wound, upon arrival her Scr was elevated 2.2 most likely due to poor po intake and dehydration, patient is being hydrated and her Scr is 1.20. patient remains clinically stable, will have PT, OT and wound team evaluate the patient and treat. (2) Acute urinary retention: Code(s): R33.8 - Other retention of urine Status: Acute Assessment and Plan: Status post Eduardo placement. Voiding trial before discharge. with bilateral hydroureteronephrosis likely from urinary retnetion. TAE has resolved now. she had bialteral ureteral stents placed 10/[address] Payne and also had exchanged last month 02/2021. consulted urology for further evaluation and managmeent. (3) Atrial fibrillation: Onset Date: Unknown Qualifiers: Atrial fibrillation type: unspecified Qualified Code(s): I48.91 - Unspecified atrial fibrillation Code(s): I48.91 - Unspecified atrial fibrillation Status: Chronic Assessment and Plan: Rate controlled Continue home meds with metoprolol. She is currently not on anticoagulation at her baseline. she states she used to be on eliquis in the past. (4) Breast cancer: Code(s): C50.919 - Malignant neoplasm of unspecified site of unspecified female breast Status: Acute Assessment and Plan: Status post total left breast mastectomy 03/23/[address] prior to admission. now on dakin's solution wound care. Wound care consult will be obtained. general surgery is following. wound culture growing bacterias yet to be identified. (5) Tobacco abuse: Onset Date: Unknown Code(s): Z72.0 - Tobacco use Status: Chronic Assessment and Plan: Nicotine patch as needed (6) Acute kidney injury superimposed on CKD: Code(s): N17.9 - Acute kidney failure, unspecified; N18.9 - Chronic kidney disease, unspecified Status: Acute Assessment and Plan: Her baseline serum creatinine is 1.3-1.4. Her creatinine at the time of presentation yesterday was 2.2. Likely pre renal. She is being hydrated with IV fluids. this has resolved now. She did develop hyperchloremic metabolic acidosis likely as a result of fluid resuscitation with normal saline. Her fluid will be switched to Ringer's lactate from normal saline. She did have metabolic acidosis yesterday likely as a result of acute kidney injury. Continue to keep a close eye on serum sodium which has been on the lower side as well. (7) Acquired breast deformity: Onset Date: ~03/16/21 Code(s): N64.89 - Other specified disorders of breast Status: Acute (8) Stage 3b chronic kidney disease: Onset Date: Unknown Code(s): N18.32 - Chronic kidney disease, stage 3b Status: Chronic Assessment and Plan: back to baseline (9) Hyponatremia: Code(s): E87.1 - Hypo-osmolality and hyponatremia Status: Acute Assessment and Plan: lowered na today. contineu to [facility]. (10) Chronic anemia: Onset Date: Unknown Code(s): D64.9 - Anemia, unspecified Status: Chronic Assessment and Plan: hb lowered since admission. no signs of bleeding. will contineu to monitor. (11) Anemia requiring transfusions: Code(s): D64.9 - Anemia, unspecified St
[2021-04-13 16:00] VITALS: BP 108/50; PULSE 92; RESP 16; TEMP 36.8; O2SAT 96
[2021-04-13] MEDS: SODIUM BICARBONATE TAB 650 MG TABLET PO (16:51)
--- NOTE | 2021-04-13 19:15 | WPDURCON ---
Assessment and Plan Assessment and plan (1) Acute urinary retention: Code(s): R33.8 - Other retention of urine Status: Acute (2) Bilateral ureteral calculi: Code(s): N20.1 - Calculus of ureter Status: Acute Assessment and Plan: Urinary retention likely resulting from constipation. No that the constipation has been addressed I believe a voiding trial can be undertaken at any time. Patient tolerates her bilateral ureteral stent well I am in no hurry to treat her large ureteral calculi at this time. Think she should complete her treatment for breast cancer prior to for further urological intervention. Thanks for notification of patient admission. I will see her in follow-up in our office in 6-8 weeks. 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 At that time she also had acute kidney injury resulting from bilateral obstructing large ureteral calculi and additional bilateral nonobstructing renal calculi. Ureteral stents were placed at that time with plans for definitive stone intervention after she had been treated for her breast cancer. Her ureteral stents were replaced bilaterally in late February 2021. She tolerates the stents extremely well. on this occasion she presents with constipation in a urinary tract infection. She is also found to be in urinary retention, likely resulting from the constipation. CT scan of the abdomen pelvis shows persistent large bilateral proximal ureteral calculi. The ureteral stents are in position. Review of Systems Cardiovascular: Cardiovascular: Denies chest pain, Denies lightheadedness, Denies palpitations and Denies dyspnea Respiratory: Respiratory: Denies dyspnea Gastrointestinal: Gastrointestinal: Denies diarrhea, Denies nausea and Denies vomiting Genitourinary: Genitourinary: Denies hematuria and Denies dysuria Endocrine: Endocrine: Denies palpitations PMFSH Past Medical History Medical History Acute UTI TAE (acute kidney injury) Asymptomatic bacteriuria Atrial fibrillation (Unknown) Bacteremia due to Klebsiella pneumoniae Cancer of left breast (Unknown) Cellulitis of female breast Cellulitis of left axilla Chronic anemia (Unknown) Chronic kidney disease, stage 4 (severe) Duodenal ulcer (~10/2020) Hematemesis Hydronephrosis Hyperkalemia Metabolic acidosis Nausea and vomiting in adult Nephrolithiasis Poor appetite Positive urine culture Spontaneous rupture of spleen (~02/2008) UTI (urinary tract infection) Weakness Surgical History Surgical History History of bilateral salpingo-oophorectomy 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 History of colonoscopy with polypectomy History of splenectomy Family History Family History Father Lung cancer Mother Cerebrovascular accident Sibling Congestive heart failure Social History Social History Social History: The patient lives in [place] with her grandson. She is . She smokes between 0.5 and 1 pack of cigarettes a day but has not smoked in 5 days. No alcohol or illicit substance abuse. She designates her daughter, Nurys Nichols, as her surrogate decision maker. Code status: Full code. Smoking status: Never smoker Second hand tobacco smoke exposure: No Alcohol intake: never Substance use: never Substance use type: does not use Gender identity (if verbalized by the patient): Female Spiritual care concerns: No Meds Home Medications and Allergies Home Medications Medi
[2021-04-13 20:00] VITALS: PULSE 92; RESP 16; O2SAT 96
[2021-04-13] MEDS: HYDROcodone/acetaminophen (*CRX) 5-325 MG TABLET 0.5 TAB PO (21:18)
[2021-04-13 22:00] VITALS: BP 119/67; PULSE 98; RESP 18; TEMP 36.8; O2SAT 97
[2021-04-14] MEDS: LACTATED RINGERS 1,000 ML 75 ML IV CONT (00:15)
[2021-04-14 05:58] LABS: Basophils Percent Auto 0.4 % (0.2-1.2); Eosinophils Absolute Auto 0.3 K/mm3 (0-0.3); Eosinophils Percent Auto 2.7 % (0-4.4); Hematocrit 25.7 % (37.0-47.0); Hemoglobin 7.5 g/dL (12.0-15.0); Immature Granulocyte Absolute 0.11 K/mm3 (0.00-0.031); Immature Granulocyte Percent A 1.2 % (0-0.5); Lymphocytes Absolute Auto 1.57 K/mm3 (0.9-3.2); Mean Corpuscular HGB Conc 29.2 g/dl (32-36); Mean Corpuscular Hemoglobin 30.2 pg (26-34); Mean Corpuscular Volume 103.6 fl (80-100); Mean Platelet Volume 9.6 fl (7.4-10.4); Monocytes Absolute Auto 0.8 K/mm3 (0.1-0.6); Monocytes Percent Auto 8.7 % (2.6-8.5); Neutrophils Absolute Auto 6.5 K/mm3 (1.3-6.7); Nucleated Red Blood Cells Absolute Auto 0.1 K/mm3 (0.0-0.012); Nucleated Red Blood Cells Perc 0.9 % (0.0-0.2); Platelet Count Result 231 k/mm3 (150-375); Red Blood Count 2.48 M/mm3 (4.2-5.4); Red Cell Distribution Width 23.1 % (11.5-14.5); White Blood Count 9.2 K/mm3 (4.5-10.0)
[2021-04-14 06:00] VITALS: BP 115/63; PULSE 95; RESP 18; TEMP 36.4; O2SAT 93
[2021-04-14 06:25] LABS: Alanine Aminotransferase 12 U/L (4-35); Albumin Level 2.2 g/dL (3.5-5.1); Alkaline Phosphatase 133 U/L (38-126); Anion Gap 4 mmol/L (8-16); Aspartate Amino Transferase 48 U/L (14-36); Bilirubin,Total 0.5 mg/dL (0.2-1.3); Blood Urea Nitrogen 19 mg/dL (7-17); Calcium 7.6 mg/dL (8.4-10.2); Carbon Dioxide 17 mmol/L (22-30); Chloride 110 mmol/L (98-107); Estimated CRCL calculation 41 ml/min; Estimated Glomerular Filt Rate > 60; Glucose 86 mg/dL (65-110); Magnesium 1.8 mg/dL (1.6-2.3); Phosphorus 2.3 mg/dL (2.5-4.5); Potassium 3.6 mmol/L (3.4-5.0); Sodium 131 mmol/L (137-145)
[2021-04-14] MEDS: SODIUM BICARBONATE TAB 650 MG TABLET PO ×3 (07:40→16:52)
[2021-04-14] MEDS: MAGNESIUM OXIDE 400 MG TABLET PO (07:40)
[2021-04-14] MEDS: DOCUSATE SODIUM 100 MG CAPSULE PO (07:40)
[2021-04-14 07:41] VITALS: PULSE 72
[2021-04-14] MEDS: FERROUS SULFATE 324 MG TABLET PO ×2 (07:41→16:52)
[2021-04-14] MEDS: METOPROLOL SUCCINATE EXT REL 12.5 MG TABCR PO (07:41)
[2021-04-14] MEDS: CYANOCOBALAMIN 1,000 MCG TABLET 1000 MCG PO (07:41)
[2021-04-14] MEDS: LETROZOLE (*CHEMO) 2.5 MG TABLET PO (07:41)
[2021-04-14] MEDS: SACCHAROMYCES BOULARDII 250 MG CAPSULE PO ×2 (07:41→16:51)
[2021-04-14] MEDS: SOD HYPOCHLORITE 1/4 STRENGTH 473 ML 1 APPLIC TOPICAL ×2 (07:43→21:28)
[2021-04-14 08:00] VITALS: O2SAT 96
[2021-04-14] MEDS: metroNIDAZOLE 500 MG/ISO 100ML 500 MG/100 ML BAG 100 MG IVPB (09:14)
--- NOTE | 2021-04-14 09:19 | WPDINFPN2 ---
Progress Note: A&P Assessment and Plan (1) Acute urinary retention: Code(s): R33.8 - Other retention of urine Status: Acute Assessment and Plan: 1. UTI due to retention 2. Nephrolithiasis 3. Infected mastectomy wound REC Ertapenem x 7 days. Call if Qs Subjective Date/time seen: 04/14/21 09:19 Objective Data Vital Signs Vital Signs: Vital Signs - 24 hr 04/13/21 16:00 04/13/21 20:00 04/13/21 22:00 Temperature 36.8 C 36.8 C Pulse Rate 92 92 98 Respiratory Rate 16 16 18 Blood Pressure 108/50 L 119/67 Pulse Oximetry 96 96 97 04/14/21 06:00 04/14/21 07:41 Temperature 36.4 C Pulse Rate 95 72 Respiratory Rate 18 Blood Pressure 115/63 Pulse Oximetry 93 Intake/Output Intake/Output: Intake & Output 04/11/21 04/12/21 04/13/21 04/14/21 23:59 23:59 23:59 23:59 Intake Total 1080 3670 1350 1250 Output Total 1750 1300 950 500 Balance -670 2370 400 750 Meds/Results Medications: Active Medications Generic Name Dose Route Start Last Admin Trade Name Freq PRN Reason Stop Dose Admin Hydrocodone Bitart/Acetaminophen 1 tab 04/11/21 03:45 04/13/21 07:55 Hydrocodone/Acetaminophen (*Crx) 5-325 Mg Tablet PO 0.5 tab Q6H PRN Administration Pain Rated 7-10 Hydrocodone Bitart/Acetaminophen 0.5 tab 04/13/21 07:53 04/13/21 21:18 Hydrocodone/Acetaminophen (*Crx) 5-325 Mg Tablet PO 0.5 tab Q6H PRN Administration Pain Rated 4-6 Cyanocobalamin 1,000 mcg 04/11/21 09:00 04/14/21 07:41 Cyanocobalamin 1,000 Mcg Tablet PO 1,000 mcg QAM TITO Administration Docusate Sodium 100 mg 04/11/21 10:25 04/14/21 07:40 Docusate Sodium 100 Mg Capsule PO 100 mg Q12HR TITO Administration Ferrous Sulfate 324 mg 04/11/21 08:00 04/14/21 07:41 Ferrous Sulfate 324 Mg Tablet PO 324 mg BIDWM TITO Administration Lactated Ringer's 1,000 mls @ 75 mls/hr 04/11/21 14:35 04/14/21 00:15 Lr - Lactated Ringers Iv IV CONT 75 mls/hr .[id number] TITO Administration Ertapenem 1 gm in 50 mls @ 100 mls/hr 04/14/21 09:00 Invanz 1 Gm/Ns 50 Ml IVPB Q24H TITO Letrozole 2.5 mg 04/11/21 09:00 04/14/21 07:41 Letrozole (*Chemo) 2.5 Mg Tablet PO 2.5 mg DAILY TITO Administration Magnesium Oxide 400 mg 04/11/21 09:00 04/14/21 07:40 Magnesium Oxide 400 Mg Tablet PO 400 mg DAILY TITO Administration Metoclopramide HCl 10 mg 04/10/21 23:31 Metoclopramide Hcl Inj 10 Mg/2 Ml Vial IV PUSH Q6HR PRN Nausea Metoprolol Succinate 12.5 mg 04/11/21 09:00 04/14/21 07:41 Metoprolol Succinate Ext Rel 12.5 Mg Tabcr PO 12.5 mg DAILY TITO Administration Polyethylene Glycol 17 gm 04/11/21 09:00 04/14/21 07:57 Polyethylene Glycol 3350 17 Gm Powd.Pack PO Not Given QAM TITO Saccharomyces Boulardii 250 mg 04/11/21 09:00 04/14/21 07:41 Saccharomyces Boulardii 250 Mg Capsule PO 250 mg BID TITO Administration Sodium Bicarbonate 650 mg 04/13/21 17:00 04/14/21 07:40 Sodium Bicarbonate Tab 650 Mg Tablet PO 650 mg TID TITO Administration Sodium Hypochlorite 1 applic 04/12/21 09:00 04/14/21 07:43 Sod Hypochlorite 1/4 Strength 473 Ml TOPICAL 1 applic Q12HR TITO Administration Radiology Results: ITS Impressions Abdomen/Pelvis CT 04/10/21 23:58 IMPRESSION: Mild left pleural effusion, dependent left lower lobe infiltrate and/atelectasis Status post left mastectomy Cardiomegaly Cholelithiasis Status post splenectomy Bilateral adrenal hypertrophy Moderate bilateral hydronephrosis; bilateral internal urinary stents Prominent urinary bladder distention. Fecal material in the rectum and colon; no apparent bowel obstruction Partial resection of the colon Labs Labs: Laboratory Results - last 24 hr 04/14/21 04/14/21 05:44 05:44 WBC 9.2 RBC 2.48 L Hgb 7.5 L Hct 25.7 L MCV 103.6 H MCH 30.2 MCHC 29.2 L RDW 23.1 H Plt Count 231 MPV 9.6 Immature Gran % (Auto) 1.2 H
[2021-04-14] MEDS: ERTAPENEM 1 GM/NS 50 ML 1 GM/50 ML BAG IVPB (10:27)
[2021-04-14] MEDS: HYDROcodone/acetaminophen (*CRX) 5-325 MG TABLET 0.5 TAB PO (10:40)
--- NOTE | 2021-04-14 12:33 | WPDCN ---
Assessment and Plan Assessment and plan (1) Acquired breast deformity: Onset Date: ~03/16/21 Code(s): N64.89 - Other specified disorders of breast Status: Acute Assessment and Plan: Will continue current dressing changes. Given her significant nicotine use we are going to monitor for improving granulation appearance of the wound. At that point re-evaluate determine closure options. I will continue to follow. Today we had a lengthy discussion about options. she states she is going to continue nicotine use and has no intention of stopping. She understands in great detail have this complicates her reconstruction and how it can lead to significant reconstructive failures. She will continue dressing at home and she has family that can assist with this. Will discontinue the VAC as she had difficulties with it. We will follow with wound care. (2) History of radiation therapy: Onset Date: ~12/2020 Code(s): Z92.3 - Personal history of irradiation Status: Acute (3) Cancer of left breast: Onset Date: Unknown Qualifiers: Breast location: unspecified site of breast Estrogen receptor status: unspecified Patient sex: female Qualified Code(s): C50.912 - Malignant neoplasm of unspecified site of left female breast Code(s): C50.912 - Malignant neoplasm of unspecified site of left female breast Status: Chronic (4) Tobacco abuse: Onset Date: Unknown Code(s): Z72.0 - Tobacco use Status: Chronic Assessment and Plan: She states that she is not going to discontinue nicotine use. We had a lengthy conversation about smoking cessation and the critical importance of no nicotine use. How this affects wound healing and other complications. She states she understands this and is able to verbalize an understanding however she is going to continue to use nicotine. (5) Hypoalbuminemia: Code(s): E88.09 - Other disorders of plasma-protein metabolism, not elsewhere classified Status: Acute Assessment and Plan: Optimize nutrition. HPI Data of Consult Date/Time: 04/14/21 12:33 Requesting Physician: Danielle Bernard MD Primary Care Provider: Hao VillaMD Consult Narrative Narrative: Kourtney Lerner is a 80 year old female well known to me who was admitted for constipation, urinary retention, possible UTI. She has been using VAC for an open wound to the left chest after Modified Radical Mastectomy by Dr. Toledo on 03/23/2021. Wound care saw the patient and noted significant dark discoloration over the wound. As such the VAC was discontinued Dr. Toledo started a Dakin solution dressing changes. She admits she has been smoking. States she smokes about 1 pack every 3 days. She is very up front honest and says she will not discontinue nicotine use. [facility] Past Medical History Medical History Acute UTI TAE (acute kidney injury) Asymptomatic bacteriuria Atrial fibrillation (Unknown) Bacteremia due to Klebsiella pneumoniae Cancer of left breast (Unknown) Cellulitis of female breast Cellulitis of left axilla Chronic anemia (Unknown) Chronic kidney disease, stage 4 (severe) Duodenal ulcer (~10/2020) Hematemesis Hydronephrosis Hyperkalemia Metabolic acidosis Nausea and vomiting in adult Nephrolithiasis Poor appetite Positive urine culture Spontaneous rupture of spleen (~02/2008) UTI (urinary tract infection) Weakness Surgical History Surgical History History of bilateral salpingo-oophorectomy 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 History of colonoscopy with polypectomy History of splenectomy Family History Family History Father Lung cancer Mother Cerebrovascular accident Sibling Congestive heart failure Social History Social Hi
--- NOTE | 2021-04-14 12:53 | PDONCCN ---
HPI - Date of Consult Date/Time: 04/14/21 12:53 Requesting Physician: Danielle Bernard MD Primary Care Provider: Hao Villa, - Consult Narrative Reason for consult: Metastatic breast cancer Narrative: Kourtney Lerner is a 80 year old female with history of metastatic breast cancer with bone involvement and extensive left axillary involvement. She had palliative left-sided mastectomy done on March 16, 2021. Patient was on Ibrance and Femara but discontinued Ibrance due to poor tolerance. She also received palliative radiation therapy to the left chest wall prior to mastectomy. She now came into the hospital with nausea vomiting. She was also dealing with constipation. Labs showed elevated WBC count. Hemoglobin was 8.8 now dropped down to 7.5. She is not bleeding. Platelet count normal. CT scan showed mild left-sided pleural effusion with moderate bilateral hydronephrosis and urinary bladder distension. She denies any fevers and chills. Review of Systems - Review of Systems All systems reviewed & are unremarkable except as noted in HPI and bel - Neurologic Reports system reviewed and no additional complaints, except as documented, Reports hearing normal, Denies confusion, Denies syncope, Denies loss of vision, Denies memory loss, Denies seizure-like activity, Denies weakness PMFSH Medical History: Medical History (Last Reviewed 04/13/21 @ 19:17 by Petar Payne MD) Acute UTI TAE (acute kidney injury) Asymptomatic bacteriuria Atrial fibrillation Onset Date: Unknown Bacteremia due to Klebsiella pneumoniae Cancer of left breast Onset Date: Unknown Cellulitis of female breast Cellulitis of left axilla Chronic anemia Onset Date: Unknown Chronic kidney disease, stage 4 (severe) Duodenal ulcer Onset Date: ~10/2020 Hematemesis Hydronephrosis Hyperkalemia Metabolic acidosis Nausea and vomiting in adult Nephrolithiasis Poor appetite Positive urine culture Spontaneous rupture of spleen Onset Date: ~02/2008 UTI (urinary tract infection) Weakness Surgical History: Surgical History (Last Reviewed 04/13/21 @ 19:17 by Petar Payne MD) History of bilateral salpingo-oophorectomy 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 History of colonoscopy with polypectomy History of splenectomy Family History: Family History (Last Reviewed 04/13/21 @ 19:17 by Petar Payne MD) Father Lung cancer Mother Cerebrovascular accident Sibling Congestive heart failure - Social History Social History: Social History (Last Reviewed 04/13/21 @ 19:17 by Petar Payne MD) Gender Identity: Gender identity (if verbalized by the patient): Female Alcohol Use: Alcohol intake: never Substance Use: Substance use: never Substance use type: does not use Others: Spiritual care concerns: No Smoking Status: Smoking status: Never smoker Second hand tobacco smoke exposure: No Meds Home Medications Medication Instructions Recorded Confirmed Type letrozole 2.5 mg PO DAILY 03/01/21 04/11/21 History Saccharomyces boulardii 250 mg PO BID #20 cap 03/14/21 04/11/21 Rx cyanocobalamin (vitamin B-12) 1,000 mcg PO QAM #10 tablet 03/14/21 04/11/21 Rx [Vitamin B-12] ferrous sulfate 324 mg PO BIDWM #30 tablet 03/14/21 04/11/21 Rx magnesium oxide 400 mg PO DAILY #10 tablet 03/14/21 04/11/21 Rx metoprolol succinate 12.5 mg PO DAILY #30 tablet 03/14/21 04/11/21 Rx hydrocodone-acetaminophen 1 tablet PO Q6H PRN #8 tablet 03/19/21 04/11/21 Rx hydrocodone 5 mg-acetaminophen 325 1 tablet PO Q8H PRN #12 tablet 04/06/21 04/11/21 Rx mg tablet metronidazole 250 mg tablet See Rx Instructions .ROUTE 04/08/21 04/11/21 Rx .COMPLEX #12 tablet Allergies Allergy/AdvReac Type Severity Reaction Status Date / Time ibuprofen Allergy Mild HIVES Verified 04/11/21 00:56 Results - Labs CBC & Chem 7: 04/14/21 05:44 04/14/21 05:44 Labs: Short C
--- NOTE | 2021-04-14 12:55 | PM.PNGS ---
Progress Note: A&P Assessment and Plan (1) Constipation due to opioid therapy: Onset Date: ~03/2021 Code(s): K59.03 - Drug induced constipation; T40.2X5A - Adverse effect of other opioids, initial encounter Status: Acute Assessment and Plan: Improved with current treatment. (2) Wound infection: Onset Date: ~03/2021 Code(s): T14.8XXA - Other injury of unspecified body region, initial encounter; L08.9 - Local infection of the skin and subcutaneous tissue, unspecified Status: Acute Assessment and Plan: see recent culture results. Treatment continues with Dakin solution which should eradicate both infection and colonization of bacteria and fungus. Much less signs of infection in the wound on inspection today. General surgery recommends continued follow-up with plastics who will make plans for coverage of the wound defect. Agree with Infectious Disease consultation. Will recommend continue ot use Dakin's solution dressing changes once or twice a day at home as supervised by home health. ( Patient already working with [facility] home health services. ) Will sign off today please call if we can be of further assistance. Patient is ready to be discharged from surgical perspective. (3) Hypoalbuminemia: Onset Date: Unknown Code(s): E88.09 - Other disorders of plasma-protein metabolism, not elsewhere classified Status: Acute Assessment and Plan: Most likely due to age and poor appetite. Encourage diet and nutrition supplement. (4) Acute urinary retention: Onset Date: ~03/2021 Code(s): R33.8 - Other retention of urine Status: Acute Assessment and Plan: Possibly related to constipation Eduardo catheter still indwelling. Voiding trial pending. Appreciate urology input. (5) Constipation: Code(s): K59.00 - Constipation, unspecified Status: Acute Assessment and Plan: Improved with treatment this admission. Nurse reports patient had a bowel movement this morning. (6) Acquired breast deformity: Onset Date: ~03/16/21 Code(s): N64.89 - Other specified disorders of breast Status: Acute Assessment and Plan: See Plastic surgery note. Patient had a neglected Lt. breast cancer and underwent preoperative chemo and radiation prior to an extended modified radical mastectomy for her Lt.breast cancer which was invading the muscle beneath the lateral portion of her breast. She now has now has an acquired defect in the skin of the left chest wall because there was not enough skin to cover the site of mastectomy. This was planned and therefore Dr. Arnold was consulted preoperatively and is continuing to follow patient for plans to cover this with skin graft ir flap. The most recent biopsy approximately 2 weeks ago of some of the soft tissue directly underneath where her in a collected tumor had been was negative for cancer. (7) History of radiation therapy: Onset Date: ~12/2020 Code(s): Z92.3 - Personal history of irradiation Status: Acute (8) Tobacco abuse: Onset Date: Unknown Code(s): Z72.0 - Tobacco use Status: Chronic Assessment and Plan: Encouraged cessation. Patient also would be exposed to secondhand smoke because she lives with her grandson who smokes. See Dr. Arnold's is note regarding how this affects the wound. (9) Atrial fibrillation: Onset Date: Unknown Qualifiers: Atrial fibrillation type: unspecified Qualified Code(s): I48.91 - Unspecified atrial fibrillation Code(s): I48.91 - Unspecified atrial fibrillation Status: Chronic Assessment and Plan: Not on anticoagulation due to being a fall risk (10) Hyponatremia: Code(s): E87.1 - Hypo-osmolality and hyponatremia Status: Acute Assessment and Plan: chronic, slightly improved. Encourage nurse and patient to make at le
--- NOTE | 2021-04-14 13:04 | PM.IMPN ---
Progress Note: A&P Assessment and Plan (1) Constipation due to opioid therapy: Code(s): K59.03 - Drug induced constipation; T40.2X5A - Adverse effect of other opioids, initial encounter Status: Acute Assessment and Plan: started on MiraLax and Colace. Soap suds enema as needed Continue IV fluids. Serial abdominal exam. She seems to be tolerating clear liquid diet and will advance the diet to regular diet. 04/12 patient was started on colace and miralax and had 2 BMs on 04/11 and one this morning and stats feels much better, patient with breast cancer had left breast total mastectomy has wound vac and will be seen by her surgeon to check her wound, upon arrival her Scr was elevated 2.2 most likely due to poor po intake and dehydration, patient is being hydrated and her Scr is 1.20. patient remains clinically stable, will have PT, OT and wound team evaluate the patient and treat. (2) Acute urinary retention: Code(s): R33.8 - Other retention of urine Status: Acute Assessment and Plan: Status post Eduardo placement. Voiding trial before discharge. with bilateral hydroureteronephrosis likely from urinary retnetion. TAE has resolved now. she had bialteral ureteral stents placed 10/[address] Payne and also had exchanged last month 02/2021. consulted urology for further evaluation and managmeent. Suggested void trial for Eduardo removal. Follow-up with Dr. Payne as outpatient basis in 6-8 weeks Appreciate his recommendation UTI with urine culture growing ESBL Klebsiella and Enterococcus ampicillin sensitive ID consultation (3) Atrial fibrillation: Onset Date: Unknown Qualifiers: Atrial fibrillation type: unspecified Qualified Code(s): I48.91 - Unspecified atrial fibrillation Code(s): I48.91 - Unspecified atrial fibrillation Status: Chronic Assessment and Plan: Rate controlled Continue home meds with metoprolol. She is currently not on anticoagulation at her baseline. she states she used to be on eliquis in the past. (4) Breast cancer: Code(s): C50.919 - Malignant neoplasm of unspecified site of unspecified female breast Status: Acute Assessment and Plan: Status post total left breast mastectomy 03/23/[address] prior to admission. now on dakin's solution wound care. Wound care consult will be obtained. general surgery is following. wound culture growing prevotella and MSSA Started on vancomycin also for Enterococcus growing in urine (5) Tobacco abuse: Onset Date: Unknown Code(s): Z72.0 - Tobacco use Status: Chronic Assessment and Plan: Nicotine patch as needed (6) Acute kidney injury superimposed on CKD: Code(s): N17.9 - Acute kidney failure, unspecified; N18.9 - Chronic kidney disease, unspecified Status: Acute Assessment and Plan: Her baseline serum creatinine is 1.3-1.4. Her creatinine at the time of presentation yesterday was 2.2. Likely pre renal. She is being hydrated with IV fluids. this has resolved now. She did develop hyperchloremic metabolic acidosis likely as a result of fluid resuscitation with normal saline. Her fluid will be switched to Ringer's lactate from normal saline. She did have metabolic acidosis yesterday likely as a result of acute kidney injury. Continue to keep a close eye on serum sodium which has been on the lower side as well. (7) Acquired breast deformity: Onset Date: ~03/16/21 Code(s): N64.89 - Other specified disorders of breast Status: Acute (8) Stage 3b chronic kidney disease: Onset Date: Unknown Code(s): N18.32 - Chronic kidney disease, stage 3b Status: Chronic Assessment and Plan: back to baseline (9) Hyponatremia: Code(s): E87.1 - Hypo-osmolality and hyponatremia Status: Acute Assessment and Plan: Stable sodium level (10) Chronic anemia: Onset Date: Unknown
[2021-04-14] MEDS: POTASSIUM PHOS/SODIUM PHOS 250 MG TABLET PO (13:44)
[2021-04-14 14:00] VITALS: BP 105/69; PULSE 92; RESP 20; TEMP 36.8; O2SAT 95
[2021-04-14 14:28] LABS: Iron 16 ug/dL (37-170)
[2021-04-14 14:29] LABS: Lactate Dehydrogenase 339 U/L (313-618)
[2021-04-14 14:40] LABS: Percent Iron Saturation 13 % (20-50)
[2021-04-14] MEDS: LIDOCAINE HCL 1% LOCAL INJ 2 ML AMPUL 5 ML INFILTRATE (15:15)
[2021-04-14 15:21] LABS: Vitamin B12 > 1000.0 pg/mL (239-931)
[2021-04-14] MEDS: SALINE LOCK FLUSH 10 ML IV PUSH (21:28)
[2021-04-14 22:00] VITALS: BP 122/33; PULSE 106; RESP 18; TEMP 36.8; O2SAT 94
[2021-04-15 06:00] VITALS: BP 139/46; PULSE 97; RESP 18; TEMP 36.7; O2SAT 95
[2021-04-15 06:29] LABS: Basophils Percent Auto 0.4 % (0.2-1.2); Eosinophils Absolute Auto 0.3 K/mm3 (0-0.3); Eosinophils Percent Auto 2.8 % (0-4.4); Hematocrit 23.1 % (37.0-47.0); Hemoglobin 7.3 g/dL (12.0-15.0); Immature Granulocyte Absolute 0.11 K/mm3 (0.00-0.031); Immature Granulocyte Percent A 1.1 % (0-0.5); Lymphocytes Absolute Auto 1.77 K/mm3 (0.9-3.2); Lymphocytes Percent Auto 17.6 % (18.3-44.2); Mean Corpuscular HGB Conc 31.6 g/dl (32-36); Mean Corpuscular Hemoglobin 29.4 pg (26-34); Mean Corpuscular Volume 93.1 fl (80-100); Mean Platelet Volume 9.9 fl (7.4-10.4); Monocytes Absolute Auto 0.9 K/mm3 (0.1-0.6); Neutrophils Absolute Auto 6.9 K/mm3 (1.3-6.7); Neutrophils Percent Auto 69.1 % (45.5-73.1); Nucleated Red Blood Cells Perc 0.4 % (0.0-0.2); Platelet Count Result 305 k/mm3 (150-375); Red Blood Count 2.48 M/mm3 (4.2-5.4); Red Cell Distribution Width 22.5 % (11.5-14.5)
--- NOTE | 2021-04-15 06:47 | CONS_ITS ---
DATE OF CONSULTATION: REASON FOR CONSULTATION: UTI. HISTORY OF PRESENT ILLNESS: A 80-year-old female who underwent left mastectomy approximately 4 weeks ago for breast cancer. She had lymph node dissection, all of which were pathologically normal apparently. She had been having some loose bowel movements without true diarrhea, took Imodium and then developed marked constipation. She presented to the hospital for that reason on April 10. As investigation for the same, CT scan was done, which showed urinary bladder distention to the umbilicus. Eduardo catheter was placed with return of urine. She was admitted. Urine culture now positive. She was being given ampicillin sulbactam, changed to ertapenem today. The patient was on levofloxacin prior to admission for infected and necrotic surgical wound at the left chest. No other recent antibiotics. No immunosuppressants. Denies fever, chills, sweats, nausea, vomiting. She was unaware of any urinary complaints prior to admission. She does have urinary stents and has no nephrolithiasis. She does have bilateral stents in place. ALLERGIES: IBUPROFEN. PRESENT MEDICATIONS: List reviewed. No immunosuppressants. Metronidazole given prior to admission. HABITS: 1/3 of a pack of cigarettes per day. No alcohol. PAST MEDICAL HISTORY: In addition to the above, splenectomy, colonoscopy with polyp removal, BSO, ruptured spleen in 2007, PUD, stage IV renal insufficiency, chronic anemia, klebsiella bacteremia last month, AF. REVIEW OF SYSTEMS: 14-point review otherwise negative. FAMILY HISTORY: Not pertinent to her present illness. SOCIAL HISTORY: She is , lives with her grandson. Has a daughter who is her decision maker. No family at the bedside currently. PHYSICAL EXAMINATION: GENERAL: This is an elderly female, who appears her actual age. No respiratory distress. VITAL SIGNS: Since arrival, she has been afebrile, 115/63, 95, 18, 93% to 97% on room air. SKIN: Few ecchymoses, warm and dry. No rashes. No suspicious skin lesions. NODES: No cervical adenopathy. EENT: The conjunctivae are normal. Pupils equal, round, and reactive to light. No paranasal sinus inflammation. The oropharynx, oral mucosa normal. Teeth in fair repair. NECK: No masses, thyromegaly, or meningismus. LUNGS: Clear to auscultation and percussion. CARDIAC: Regular rate and rhythm. No murmurs or gallops. ABDOMEN: Nontender, soft. No organomegaly. No masses. Eduardo catheter draining clear yellow urine. EXTREMITIES: No clubbing, cyanosis, or edema. LABORATORY DATA: Urine 03/02 with E coli. Blood from 03/07, Klebsiella pneumoniae. An outpatient wound culture from 04/01 with prevotella and susceptible Staph aureus. Another specimen has been obtained, 04/12. On arrival, her urine culture with an ESBL-producing klebsiella as well as enterococcus, which was relatively susceptible. Other labs include a white count of 18.5 originally, now down to 9.2, hemoglobin 7.5, which is stable since yesterday. Platelets 231. Differential, mild left shift. She has hyponatremia, CO2 is 17, BUN 19, creatinine 0.8. Estimated GFR over 60. AST is 48, ALT normal, alkaline phosphatase 133, albumin 2.2. Urinalysis, multiple abnormalities, which are reviewed. RADIOLOGY: Abdomen and pelvic CT, gallstone, splenectomy, adrenal hypertrophy. Ureteral stents. Hydronephrosis. Atherosclerosis. Fecal material. Bladder extends to the umbilicus. DDD. ASSESSMENT: 1. Nephrolithiasis and ureteral stents, already in place previously. 2. Urinary retention due to constipation, resulting in acute urinary tract infection. I doubt asymptomatic bacteriuria. Now on appropriate therapy for the above-mentioned organisms. Nitrofurantoin would be an op
[2021-04-15 06:50] LABS: Alanine Aminotransferase 12 U/L (4-35); Albumin Level 2.1 g/dL (3.5-5.1); Alkaline Phosphatase 113 U/L (38-126); Anion Gap 4 mmol/L (8-16); Aspartate Amino Transferase 25 U/L (14-36); Bilirubin,Total 0.3 mg/dL (0.2-1.3); Blood Urea Nitrogen 15 mg/dL (7-17); Calcium 7.7 mg/dL (8.4-10.2); Carbon Dioxide 23 mmol/L (22-30); Chloride 109 mmol/L (98-107); Estimated CRCL calculation 37 ml/min; Estimated Glomerular Filt Rate 60; Glucose 84 mg/dL (65-110); Potassium 3.2 mmol/L (3.4-5.0); Sodium 136 mmol/L (137-145)
[2021-04-15] MEDS: ERTAPENEM 1 GM/NS 50 ML 1 GM/50 ML BAG IVPB (09:50)
[2021-04-15] MEDS: SOD HYPOCHLORITE 1/4 STRENGTH 473 ML 1 APPLIC TOPICAL (09:51)
[2021-04-15 10:20] VITALS: PULSE 80
[2021-04-15] MEDS: SACCHAROMYCES BOULARDII 250 MG CAPSULE PO ×2 (10:20→17:11)
[2021-04-15] MEDS: METOPROLOL SUCCINATE EXT REL 12.5 MG TABCR PO (10:20)
[2021-04-15] MEDS: SODIUM BICARBONATE TAB 650 MG TABLET PO (10:20)
[2021-04-15] MEDS: DOCUSATE SODIUM 100 MG CAPSULE PO (10:21)
[2021-04-15] MEDS: FERROUS SULFATE 324 MG TABLET PO ×2 (10:21→17:11)
[2021-04-15] MEDS: MAGNESIUM OXIDE 400 MG TABLET PO (10:21)
[2021-04-15] MEDS: CYANOCOBALAMIN 1,000 MCG TABLET 1000 MCG PO (10:21)
[2021-04-15] MEDS: LETROZOLE (*CHEMO) 2.5 MG TABLET PO (10:21)
[2021-04-15] MEDS: HYDROcodone/acetaminophen (*CRX) 5-325 MG TABLET 0.5 TAB PO ×2 (11:01→13:08)
[2021-04-15] MEDS: POTASSIUM CHLORIDE 20 MEQ TABLET 40 MEQ PO (11:01)
--- NOTE | 2021-04-15 12:55 | PC.NURSE ---
PT TOOK 0.5 TAB HYDROCODONE PRE TREATMENT AND IS REQUESTING OTHER 0.5 TAB NOW, PT CAN HAVE 1 TAB EVERY 6HRS ONE TIME DOSE ADDED TO KEEP PRN SCHEDULE ACCURATE.
[2021-04-15] MEDS: SALINE LOCK FLUSH 10 ML IV PUSH (13:09)
[2021-04-15 14:00] VITALS: BP 113/70; PULSE 92; RESP 16; TEMP 36.3; O2SAT 99
--- NOTE | 2021-04-15 15:47 | PM.DS ---
DS: Admitting Diagnosis Admitting Diagnosis Constipation DS: Discharge Diagnosis Discharge Diagnosis (1) Constipation due to opioid therapy: Onset Date: ~03/2021 Code(s): K59.03 - Drug induced constipation; T40.2X5A - Adverse effect of other opioids, initial encounter Status: Acute Assessment and Plan: Presenting complaint. Started on MiraLax and Colace. She also receives soapsuds enema which resolved the constipation. Will continue with Colace and MiraLax at discharge. He was then started on clear liquid diet and is tolerating well (2) Acute urinary retention: Onset Date: ~03/2021 Code(s): R33.8 - Other retention of urine Status: Acute Assessment and Plan: Admission CT with bilateral hydroureteronephrosis likely from urinary retnetion. Status post Eduardo placement. On admission Voiding trial completed and had been off Eduardo. TAE on admission as also resolved she had bialteral ureteral stents placed 10/[address] Payne and also had exchanged last month 02/2021. consulted urology for further evaluation and managmeent. Suggested void trial for Eduardo removal. Which was done Follow-up with Dr. Payne as outpatient basis in 6-8 weeks UTI with urine culture growing ESBL Klebsiella and Enterococcus ampicillin sensitive ID consultation and suggested switching to ertapenem for 7 days course (3) Atrial fibrillation: Onset Date: Unknown Qualifiers: Atrial fibrillation type: unspecified Qualified Code(s): I48.91 - Unspecified atrial fibrillation Code(s): I48.91 - Unspecified atrial fibrillation Status: Chronic Assessment and Plan: Rate controlled Continue home meds with metoprolol. She is currently not on anticoagulation at her baseline. she states she used to be on eliquis in the past. (4) Breast cancer: Code(s): C50.919 - Malignant neoplasm of unspecified site of unspecified female breast Status: Acute Assessment and Plan: Status post total left breast mastectomy 03/23/[address] prior to admission. This has been removed. Was seen by Plastic surgery and suggested continue on Dakin solution wound care. Wound Care following along with General surgery Wound culture growing prevotella and MSSA. Id consulted. Switched to ertapenem for antibiotic course for a week to cover multiple different infections (5) Tobacco abuse: Onset Date: Unknown Code(s): Z72.0 - Tobacco use Status: Chronic Assessment and Plan: Nicotine patch as needed (6) Acute kidney injury superimposed on CKD: Code(s): N17.9 - Acute kidney failure, unspecified; N18.9 - Chronic kidney disease, unspecified Status: Acute Assessment and Plan: Her baseline serum creatinine is 1.3-1.4. Her creatinine at the time of presentation yesterday was 2.2. Likely pre renal. She is being hydrated with IV fluids. this has resolved now. She did develop hyperchloremic metabolic acidosis likely as a result of fluid resuscitation with normal saline. Her fluid will be switched to Ringer's lactate from normal saline. She did have metabolic acidosis yesterday likely as a result of acute kidney injury. She was placed on sodium bicarbonate which resolved and was stopped after that (7) Acquired breast deformity: Onset Date: ~03/16/21 Code(s): N64.89 - Other specified disorders of breast Status: Acute Assessment and Plan: Due to mastectomy from breast cancer Follow-up with oncology as outpatient basis (8) Stage 3b chronic kidney disease: Onset Date: Unknown Code(s): N18.32 - Chronic kidney disease, stage 3b Status: Chronic Assessment and Plan: back to baseline at the time of discharge (9) Hyponatremia: Code(s): E87.1 - Hypo-osmolality and hyponatremia Status: Acute Assessment and Plan: Stable sodium level (10) Chronic anemia: Onset Date: Unknown
== END 2021-04-15 17:35 | disposition home health service (06) | DRG 392 ==
LOC: ANHED 23:39 → ANH3MEDSUR 04-11 00:49
PROVIDERS: Family Medicine; Internal Medicine Critical Care Medicine; Internal Medicine Hematology & Oncology; Surgery; Admitting Provider Internal Medicine; Emergency Provider Emergency Medicine; PCP Internal Medicine; Visit Provider Internal Medicine
DX: K59.03 Drug induced constipation (principal); N13.6 Pyonephrosis; I48.20 Chronic atrial fibrillation, unspecified; E87.2 Acidosis; E87.1 Hypo-osmolality and hyponatremia; T81.41XA Infection following a procedure, superficial incisional surgical site, initial encounter; C79.51 Secondary malignant neoplasm of bone; N17.9 Acute kidney failure, unspecified; T40.2X5A Adverse effect of other opioids, initial encounter; R33.8 Other retention of urine; B95.2 Enterococcus as the cause of diseases classified elsewhere; B96.1 Klebsiella pneumoniae [K. pneumoniae] as the cause of diseases classified elsewhere; B95.61 Methicillin susceptible Staphylococcus aureus infection as the cause of diseases classified elsewhere; F17.210 Nicotine dependence, cigarettes, uncomplicated; N18.32 Chronic kidney disease, stage 3b; D64.9 Anemia, unspecified; E86.0 Dehydration; Z85.3 Personal history of malignant neoplasm of breast; Z90.81 Acquired absence of spleen; Z90.722 Acquired absence of ovaries, bilateral; Z92.3 Personal history of irradiation
CPT/HCPCS: 36415; 36569; 51702; 74176; 80048; 80053; 81001; 82607; 82728; 83540; 83550; 83605; 83615; 83690; 83735; 84100; 85025; 87070; 87075; 87076; 87077; 87086; 87088; 87147; 87185; 87186; 87205; 96374; 97162; 97165; 97535; 99285; A9270; C1751; G0378; J1335; J2405; J3370; J7030; J7120